=== PATIENT | male | born 1965 | race Caucasian/White ===

== ENCOUNTER 2016-09-06 00:11 | Emergency (ER) | payer OTHER ==
[~2016-09-06 00:11] MED LIST: IBUPOTC PO; LEVA750T PO; PERCOCET PO; PRED20TAB PO; PROA1AER IN
[2016-09-06] MEDS ORDERED: fentaNYL 100 MCG/2 ML INJECTION (J3010) As Ordered ONE ×2 (00:38→01:18)
--- NOTE | 2016-09-06 01:36 | REP ---
Clinical: Acute cough. Comparison: 08/08/2015. Findings: Mediastinum and cardiac silhouette are within normal limits and stable. Lung jin demonstrate chronic COPD and emphysematous changes and previously noted left lower lobe infiltrate has resolved. No acute consolidation, effusion, or pneumothorax identified. Skeletal structures stable and intact. Impression: Chronic COPD and emphysematous changes. No acute cardiopulmonary process appreciated. Signed by David Kent MD 09/06/2016 01:27 A
--- NOTE | 2016-09-06 01:38 | REP ---
Clinical: Trauma. Technique: AP, lateral, bilateral oblique views of the left ankle. Findings: Acute trimalleolar fractures appreciated with overlying soft tissue swelling. Disruption of the ankle mortise and joint space noted. Impression: Trimalleolar fractures and soft tissue swelling. Signed by David Kent MD 09/06/2016 01:29 A
--- NOTE | 2016-09-06 01:39 | REP ---
Clinical: Pain. Trauma. Technique: AP and lateral views of the left foot. Findings: Medial and lateral malleolar fractures at the ankle joint noted with overlying soft tissue swelling. No definite foot fracture otherwise noted. No subcutaneous emphysema or radiodense foreign body. Impression: Medial and lateral malleolar fractures with overlying soft tissue swelling at the ankle. Signed by David Kent MD 09/06/2016 01:31 A
--- NOTE | 2016-09-06 06:27 | EDDOCDS ---
Physician Documentation [facility] Name: Jose Enrique Lainez Age: 51 yrs Sex: Male : 1965 Arrival Date: 09/06/2016 Time: 00:11 Bed 9 Private MD: Disposition: 09/06/16 05:34 Discharged to Home/Self Care. Impression: Trimalleolar fracture of lower leg. - Condition is Stable. - Discharge Instructions: Ankle Fracture. - Prescriptions for Percocet 5- 325 mg Oral Tablet - take 1 tablet by ORAL route every 6 hours As needed MDD: 4 tabs; 15 tablet. - Medication Reconciliation, Local Pharmacy Hours form. - Follow up: Baljit Hill; When: Today; Reason: Continuance of care. - Problem is new. - Symptoms are unchanged. - Notes: Dr. Hill would like to see you in his office first thing this AM. Please call to schedule an appointment this AM. He does not want you to eat or drink anything in the likelyhood that you will have to go to the ED. Please do not weight bear on this leg. Return to the ED if you have any further issues. I hope you feel better soon. Historical: - Allergies: seasonal; - Home Meds: 1. Lyrica Oral Unknown 2. Ventolin HFA 90 mcg/actuation Nebulizer HFAA 2 puffs every 4-6 hours (Last dose: 09/05/2016 11:00) - PMHx: Asthma; back pain; - PSHx: Hip Arthroplasty, Left; - Social history: Smoking status: Patient uses tobacco products, heavy tobacco smoker. No barriers to communication noted, The patient speaks fluent Amharic. - Family history: Not pertinent. - : The pt / caregiver states he / she is not on anticoagulants. Home medication list is obtained from the patient. - Exposure Risk Screening:: None identified. Vital Signs: 09/06 00:29 BP 115 / 87; Pulse 101; Resp 18; Temp 97.6(TE); Pulse Ox 96% on R/A; mgs 01:22 BP 114 / 83 (auto/); mgs 01:23 Pulse 98 MON; Pulse Ox 86% ; mgs 05:41 BP 106 / 78; Pulse 89; Resp 18; Temp 98.1(TE); Pulse Ox 97% on R/A; Pain 10/10; mdr Procedures: 02:09 Fracture care/splinting: (Restorative Care) (Stabilizing Care) Splint applied to left fg leg using Orthoglass splint, applied by myself. Examined by me, post splint application: neurovascular intact, 2+ distal pulses palpable, brisk capillary refill noted, Patient tolerated well. MDM: 00:25 fentaNYL (PF) 25 mcg IVP once ordered. fg 00:25 IV Saline Lock ordered. fg 00:27 Ankle, Complete Ordered. EDMS 00:27 Foot, (AP\E\lat) Ordered. EDMS 00:41 Financial registration complete. pm4 00:46 [facility] Payment Agreement was scanned into [employer] and attached to record. pm4 01:04 Chest, 1 View Ordered. EDMS 01:07 fentaNYL (PF) 25 mcg IVP once ordered. fg 01:13 NS 0.9% 1000 ml IV at bolus once ordered. fg 01:14 NOTHING BY MOUTH+DIET ordered. EDMS 05:32 fentaNYL (PF) 25 mcg IVP once ordered. fg Administered Medications: 00:52 Drug: fentaNYL (PF) 25 mcg [fentanyl (PF) 50 mcg/mL injection solution (0.5 mL)] Route: mgs IVP; Site: right antecubital; 01:23 Drug: fentaNYL (PF) 25 mcg [fentanyl (PF) 50 mcg/mL injection solution (0.5 mL)] Route: mgs IVP; Site: right antecubital; 01:46 Drug: NS 0.9% 1000 ml [sodium chloride 0.9 % intravenous solution] Route: IV; Rate: mgs bolus; Site: right antecubital; 05:40 Drug: fentaNYL (PF) 25 mcg [fentanyl (PF) 50 mcg/mL injection solution (0.5 mL)] Route: mgs IVP; Site: right antecubital; Signatures: Dispatcher MedHost EDMS Harman Peñaloza RN RN mgs Gill, Frances, MD MD Alexandro Lopez, Reg Reg pm4 The chart was reviewed and I authenticate all verbal orders and agree with the evaluation and treatment provided.Corrections: (The following items were deleted from the chart) 01:21 01:04 CBC WITH DIFFERENTIAL+LAB ordered. EDMS EDMS 01:21 01:04 BASIC METABOLIC PROFILE+LAB ordered. EDMS EDMS Attachments: 00:46 [facility] [place] pm4 MTDD
--- NOTE | 2016-09-06 06:27 | EDDOCDS ---
Nurse's Notes [facility] Name: Jose Enrique Lainez Age: 51 yrs Sex: Male : 1965 Arrival Date: 09/06/2016 Time: 00:11 Bed 9 Private MD: Diagnosis: Trimalleolar fracture of lower leg Presentation: 09/06 00:13 Presenting complaint: EMS states: [facility] called EMS after having found patient [place] [facility] [place]. Patient reported falling in backyard and lying there for 45 minutes. Patient reports to having drank 18 pack of beer tonight, currently reporting pain 10/10 in left ankle. BP en route 116/82, HR 70, FSBS 108. 00:22 Acuity: MELIDA Level 4 [facility] 00:22 The patients lower extremity has obvious swelling present on examination. The patient [facility] has been moved to a treatment area. has a possible ankle defomity on examination. The patient has been moved to a treatment area. Adult Sepsis Screening: The patient does not have new or worsening altered mentation. Patient's respiratory rate is less than 22. Systolic blood pressure is greater than 100. Patient has a qSOFA score of 0- Negative Sepsis Screen. Suicide/Homicide risk assessment- the patient denies having any suicidal and/or homicidal ideations and does not present with any other emotional, behavioral or mental health complaints. Status: Patient is not a clinical services professional or dependent. Transition of care: patient was not received from another setting of care. 00:22 Method Of Arrival: Amb[place] [facility] Triage Assessment: 00:26 General: Appears uncomfortable, Behavior is cooperative. Pain: Location: left lateral mgs ankle, left Achilles, left medial ankle and anterior aspect of left ankle Pain currently is 10 out of 10 on a pain scale. Pt Declines HIV testing. The patient is triaged at the bedside. See Assessment in Nurses Notes section of ED record. Neurological: Level of Consciousness is awake, alert, Oriented to person, place, time. Cardiovascular: Capillary refill < 3 seconds Heart tones S1 S2 present. Respiratory: Airway is patent Respiratory effort is even, unlabored, Respiratory pattern is regular, symmetrical. Derm: Skin is pink, warm & dry. Musculoskeletal: Circulation, motion, and sensation intact Capillary refill < 3 seconds other swelling noted o the left ankle Reports pain in left lateral ankle, left Achilles, left medial ankle and anterior aspect of left ankle. Historical: - Allergies: seasonal; - Home Meds: 1. Lyrica Oral Unknown 2. Ventolin HFA 90 mcg/actuation Nebulizer HFAA 2 puffs every 4-6 hours (Last dose: 09/05/2016 11:00) - PMHx: Asthma; back pain; - PSHx: Hip Arthroplasty, Left; - Social history: Smoking status: Patient uses tobacco products, heavy tobacco smoker. No barriers to communication noted, The patient speaks fluent Vietnamese. - Family history: Not pertinent. - : The pt / caregiver states he / she is not on anticoagulants. Home medication list is obtained from the patient. - Exposure Risk Screening:: None identified. Screenin:30 Screening information is obtained from the patient. Fall risk: At risk due to gait mgs disturbance. Assistance ADL's: requires no assistance with activities of daily living. Abuse/DV Screen: The patient / caregiver reports he/she is: not in a situation that causes fear, pain or injury. Nutritional screening: No deficits noted. Advance Directives: Currently, there is no health care proxy. There is no active DNR order. home support is adequate. Assessment: 00:30 General: Please see triage assessment. mgs 02:12 General: Appears in no apparent distress, to be sleeping. Cardiovascular: Capillary mgs refill < 3 seconds. Respiratory: Airway is patent Respiratory effort is even, unlabored, Respiratory pattern is regular, symmetrical. Derm: Skin is pink, warm & dry. 03:11 General: Appears in no apparent distress, Behavior is appropriate for age, cooperative. mgs Neurological: Level of Consciousness is awake, alert. Cardiovascular: Capillary refill < 3 seconds. Respiratory: Airway is patent Respiratory effort is even, unlabored, Respiratory pattern is regular, symmetrical. Derm: Skin is pink, warm & dry. 04:28 General: Appears in no apparent distress, to be sleeping. Cardiovascular: Capillary mgs refill < 3 seconds. Respiratory: Airway is patent Respiratory effort is even, unlabored, Respiratory pattern is regular, symmetrical. Derm: Skin is pink, warm & dry. 06:25 Musculoskeletal: Circulation, motion, and sensation intact Capillary refill < 3 seconds mgs Range of motion intact in all extremities. Signs and Symptoms of Compartment Syndrome: no signs of compartment syndrome. 06:25 General: Appears in no apparent distress, Behavior is appropriate for age. mgs Neurological: Level of Consciousness is awake, alert. Cardiovascular: Capillary refill < 3 seconds. Respiratory: Airway is patent Respiratory effort is even, unlabored, Respiratory pattern is regular, symmetrical. Derm: Skin is pink, warm & dry. Vital Signs: 00:29 BP 115 / 87; Pulse 101; Resp 18; Temp 97.6(TE); Pulse Ox 96% on R/A; mgs 01:22 BP 114 / 83 (auto/); mgs 01:23 Pulse 98 MON; Pulse Ox 86% ; mgs 05:41 BP 106 / 78; Pulse 89; Resp 18; Temp 98.1(TE); Pulse Ox 97% on R/A; Pain 10/10; mdr Vitals: 00:29 Log In Time N/A - ambulance arrival. mgs ED Course: 00:12 Patient visited by Ronna Deleon PCA. mally 00:12 Patient moved to Waiting mally 00:13 Harman Peñaloza RN is Primary Nurse. mgs 00:13 Patient moved to 9 mally 00:14 Roslyn Melendrez MD is Attending Physician. fg 00:14 Patient visited by Roslyn Melnedrez MD. fg 00:23 Triage Initiated mgs 00:36 Inserted saline lock: 20 gauge in right antecubital area. mgs 00:41 Patient moved to Radiology maksim 00:46 [facility] [place] Payment Agreement was scanned into [employer] and attached to record. pm4 01:09 Patient moved to 9 maksim 01:22 Patient visited by Roslyn Melendrez MD. fg 02:04 Chest, 1 View Returned. EDMS 02:04 Ankle, Complete Returned. EDMS 02:04 Foot, (AP\E\lat) Returned. EDMS 02:12 Patient visited by Harman Peñaloza,KATIE. mgs 03:11 Patient visited by Harman Peñaloza,KATIE. mgs 03:15 Assisted with urinal. mdr 03:27 Patient visited by Modesto Abernathy PCA. mdr 04:28 Patient visited by Ronna Deleon PCA. mally 04:30 Patient visited by Harman Peñaloza,KATIE. mgs 05:34 Baljit Hill is Referral Physician. fg 05:41 Patient visited by Modesto Abernathy PCA. mdr 06:20 Patient visited by Modesto Abernathy PCA. mdr 06:24 Discontinued IV lock intact, bleeding controlled, pressure dressing applied, No mgs redness/swelling at site. No procedures done that require assistance. 06:25 The patient / caregiver is instructed regarding the plan of care and ED course. mgs Administered Medications: 00:52 Drug: fentaNYL (PF) 25 mcg [fentanyl (PF) 50 mcg/mL injection solution (0.5 mL)] Route: mgs IVP; Site: right antecubital; 01:23 Drug: fentaNYL (PF) 25 mcg [fentanyl (PF) 50 mcg/mL injection solution (0.5 mL)] Route: mgs IVP; Site: right antecubital; 01:46 Drug: NS 0.9% 1000 ml [sodium chloride 0.9 % intravenous solution] Route: IV; Rate: mgs bolus; Site: right antecubital; 05:40 Drug: fentaNYL (PF) 25 mcg [fentanyl (PF) 50 mcg/mL injection solution (0.5 mL)] Route: mgs IVP; Site: right antecubital; Output: 03:15 Urine: 1000.00ml; Total: 1000.00ml. mdr Order Results: Radiology Order: Ankle, Complete Test: Ankle, Complete REASON FOR EXAMINATION: bilateral mal pain after fall; Clinical: Trauma.; ; Technique: AP, lateral, bilateral oblique views of the left ankle.; ; Findings:; Acute trimalleolar fractures appreciated with overlying soft tissue swelling.; Disruption of the ankle mortise and joint space noted.; ; Impression:; Trimalleolar fractures and soft tissue swelling.; ; ; Signed by; David Kent MD 09/06/2016 01:29 A; Radiology Order: Foot, (AP\E\lat) Test: Foot, (AP\E\lat) REASON FOR EXAMINATION: pain after fall; Clinical: Pain. Trauma.; ; Technique: AP and lateral views of the left foot.; ; Findings:; Medial and lateral malleolar fractures at the ankle joint noted with overlying; soft tissue swelling. No definite foot fracture otherwise noted. No; subcutaneous emphysema or radiodense foreign body.; ; Impression:; Medial and lateral malleolar fractures with overlying soft tissue swelling at the; ankle.; ; ; Signed by; David Kent MD 09/06/2016 01:31 A; Radiology Order: Chest, 1 View Test: Chest, 1 View REASON FOR EXAMINATION: Cough; Clinical: Acute cough.; ; Comparison: 08/08/2015.; ; Findings:; Mediastinum and cardiac silhouette are within normal limits and stable. Lung; jin demonstrate chronic COPD and emphysematous changes and previously noted; left lower lobe infiltrate has resolved. No acute consolidation, effusion, or; pneumothorax identified. Skeletal structures stable and intact.; ; Impression:; Chronic COPD and emphysematous changes.; No acute cardiopulmonary process appreciated.; ; ; Signed by; David Kent MD 09/06/2016 01:27 A; Outcome: 05:34 Discharge ordered by Provider. fg 06:24 Discharge Assessment: Patient awake, alert and oriented x 3. No cognitive and/or mgs functional deficits noted. Patient verbalized understanding of disposition instructions. patient administered narcotics - yes. Pt provided with safe discharge. The following High Risk Discharge criteria are identified: None. Discharged to home ambulatory. Condition: stable. Discharge instructions given to patient, Instructed on discharge instructions, follow up and referral plans. medication usage, crutch walking, Demonstrated understanding of instructions, crutch walking, medications, Pt was receptive of discharge instructions/ teaching. Prescriptions given X 1. No special radiology studies were completed. Property removed. 06:26 Patient left the ED. mgs Signatures: Dispatcher MedHost EDMS Ady Castorena Destiny, LITHOGRAPHIC CAMERA OPERATOR LITHOGRAPHIC CAMERA OPERATOR Harman Hernandez,Roslyn Hansen RN, MD MD fg Rick, Mitchell, LITHOGRAPHIC CAMERA OPERATOR LITHOGRAPHIC CAMERA OPERATOR Alexandro Feliciano, Reg Reg pm4 Corrections: (The following items were deleted from the chart) 00:24 00:13 The patients lower extremity mgs mgs MTDD
--- NOTE | 2016-09-08 07:27 | EDDOCDS ---
Physician Documentation [facility] Name: Jose Enrique Lainez Age: 51 yrs Sex: Male : 1965 Arrival Date: 09/06/2016 Time: 00:11 Bed 9 Private MD: Disposition: 09/06/16 05:34 Discharged to Home/Self Care. Impression: Trimalleolar fracture of lower leg. - Condition is Stable. - Discharge Instructions: Ankle Fracture. - Prescriptions for Percocet 5- 325 mg Oral Tablet - take 1 tablet by ORAL route every 6 hours As needed MDD: 4 tabs; 15 tablet. - Medication Reconciliation, Local Pharmacy Hours form. - Follow up: Baljit Hill; When: Today; Reason: Continuance of care. - Problem is new. - Symptoms are unchanged. - Notes: Dr. Hill would like to see you in his office first thing this AM. Please call to schedule an appointment this AM. He does not want you to eat or drink anything in the likelyhood that you will have to go to the ED. Please do not weight bear on this leg. Return to the ED if you have any further issues. I hope you feel better soon. Historical: - Allergies: seasonal; - Home Meds: 1. Lyrica Oral Unknown 2. Ventolin HFA 90 mcg/actuation Nebulizer HFAA 2 puffs every 4-6 hours (Last dose: 09/05/2016 11:00) - PMHx: Asthma; back pain; - PSHx: Hip Arthroplasty, Left; - Social history: Smoking status: Patient uses tobacco products, heavy tobacco smoker. No barriers to communication noted, The patient speaks fluent Japanese. - Family history: Not pertinent. - : The pt / caregiver states he / she is not on anticoagulants. Home medication list is obtained from the patient. - Exposure Risk Screening:: None identified. Vital Signs: 09/06 00:29 BP 115 / 87; Pulse 101; Resp 18; Temp 97.6(TE); Pulse Ox 96% on R/A; mgs 01:22 BP 114 / 83 (auto/); mgs 01:23 Pulse 98 MON; Pulse Ox 86% ; mgs 05:41 BP 106 / 78; Pulse 89; Resp 18; Temp 98.1(TE); Pulse Ox 97% on R/A; Pain 10/10; mdr Procedures: 02:09 Fracture care/splinting: (Restorative Care) (Stabilizing Care) Splint applied to left fg leg using Orthoglass splint, applied by myself. Examined by me, post splint application: neurovascular intact, 2+ distal pulses palpable, brisk capillary refill noted, Patient tolerated well. MDM: 00:25 fentaNYL (PF) 25 mcg IVP once ordered. fg 00:25 IV Saline Lock ordered. fg 00:27 Ankle, Complete Ordered. EDMS 00:27 Foot, (AP\E\lat) Ordered. EDMS 00:41 Financial registration complete. pm4 00:46 [facility] [place] Payment Agreement was scanned into [email or web address] and attached to record. pm4 01:04 Chest, 1 View Ordered. EDMS 01:07 fentaNYL (PF) 25 mcg IVP once ordered. fg 01:13 NS 0.9% 1000 ml IV at bolus once ordered. fg 01:14 NOTHING BY MOUTH+DIET ordered. EDMS 05:32 fentaNYL (PF) 25 mcg IVP once ordered. fg 15:25 T-Sheet-- Draft Copy was scanned into [email or web address] and attached to record. gb Administered Medications: 00:52 Drug: fentaNYL (PF) 25 mcg [fentanyl (PF) 50 mcg/mL injection solution (0.5 mL)] Route: mgs IVP; Site: right antecubital; 01:23 Drug: fentaNYL (PF) 25 mcg [fentanyl (PF) 50 mcg/mL injection solution (0.5 mL)] Route: mgs IVP; Site: right antecubital; 01:46 Drug: NS 0.9% 1000 ml [sodium chloride 0.9 % intravenous solution] Route: IV; Rate: mgs bolus; Site: right antecubital; 05:40 Drug: fentaNYL (PF) 25 mcg [fentanyl (PF) 50 mcg/mL injection solution (0.5 mL)] Route: mgs IVP; Site: right antecubital; Signatures: Dispatcher [employer] EDMA Patience Sesay, Reg Reg gb Harman Peñaloza RN RN mgs Roslyn Melendrez MD MD fg Montondo, Paul, Reg Reg pm4 The chart was reviewed and I authenticate all verbal orders and agree with the evaluation and treatment provided.Corrections: (The following items were deleted from the chart) 01:21 01:04 CBC WITH DIFFERENTIAL+LAB ordered. EDMS EDMS 01:21 01:04 BASIC METABOLIC PROFILE+LAB ordered. EDMS EDMS Attachments: 00:46 [facility] [place] Payment Agreement pm4 15:25 T-Sheet-- Draft Copy gb Chart Complete MTDD
--- NOTE | 2016-09-08 07:27 | EDDOCDS ---
Nurse's Notes [facility] Name: Jose Enrique Lainez Age: 51 yrs Sex: Male : 1965 Arrival Date: 09/06/2016 Time: 00:11 Bed 9 Private MD: Diagnosis: Trimalleolar fracture of lower leg Presentation: 09/06 00:13 Presenting complaint: EMS states: [facility] called EMS after having found patient at [facility] backdoor. Patient reported falling in backyard and lying there for 45 minutes. Patient reports to having drank 18 pack of beer tonight, currently reporting pain 10/10 in left ankle. BP en route 116/82, HR 70, FSBS 108. 00:22 Acuity: MELIDA Level 4 [facility] 00:22 The patients lower extremity has obvious swelling present on examination. The patient [facility] has been moved to a treatment area. has a possible ankle defomity on examination. The patient has been moved to a treatment area. Adult Sepsis Screening: The patient does not have new or worsening altered mentation. Patient's respiratory rate is less than 22. Systolic blood pressure is greater than 100. Patient has a qSOFA score of 0- Negative Sepsis Screen. Suicide/Homicide risk assessment- the patient denies having any suicidal and/or homicidal ideations and does not present with any other emotional, behavioral or mental health complaints. Status: Patient is not a direct customer service representative or dependent. Transition of care: patient was not received from another setting of care. 00:22 Method Of Arrival: Ambulance [facility] Triage Assessment: 00:26 General: Appears uncomfortable, Behavior is cooperative. Pain: Location: left lateral mgs ankle, left Achilles, left medial ankle and anterior aspect of left ankle Pain currently is 10 out of 10 on a pain scale. Pt Declines HIV testing. The patient is triaged at the bedside. See Assessment in Nurses Notes section of ED record. Neurological: Level of Consciousness is awake, alert, Oriented to person, place, time. Cardiovascular: Capillary refill < 3 seconds Heart tones S1 S2 present. Respiratory: Airway is patent Respiratory effort is even, unlabored, Respiratory pattern is regular, symmetrical. Derm: Skin is pink, warm & dry. Musculoskeletal: Circulation, motion, and sensation intact Capillary refill < 3 seconds other swelling noted o the left ankle Reports pain in left lateral ankle, left Achilles, left medial ankle and anterior aspect of left ankle. Historical: - Allergies: seasonal; - Home Meds: 1. Lyrica Oral Unknown 2. Ventolin HFA 90 mcg/actuation Nebulizer HFAA 2 puffs every 4-6 hours (Last dose: 09/05/2016 11:00) - PMHx: Asthma; back pain; - PSHx: Hip Arthroplasty, Left; - Social history: Smoking status: Patient uses tobacco products, heavy tobacco smoker. No barriers to communication noted, The patient speaks fluent Guyanese. - Family history: Not pertinent. - : The pt / caregiver states he / she is not on anticoagulants. Home medication list is obtained from the patient. - Exposure Risk Screening:: None identified. Screenin:30 Screening information is obtained from the patient. Fall risk: At risk due to gait mgs disturbance. Assistance ADL's: requires no assistance with activities of daily living. Abuse/DV Screen: The patient / caregiver reports he/she is: not in a situation that causes fear, pain or injury. Nutritional screening: No deficits noted. Advance Directives: Currently, there is no health care proxy. There is no active DNR order. home support is adequate. Assessment: 00:30 General: Please see triage assessment. mgs 02:12 General: Appears in no apparent distress, to be sleeping. Cardiovascular: Capillary mgs refill < 3 seconds. Respiratory: Airway is patent Respiratory effort is even, unlabored, Respiratory pattern is regular, symmetrical. Derm: Skin is pink, warm & dry. 03:11 General: Appears in no apparent distress, Behavior is appropriate for age, cooperative. mgs Neurological: Level of Consciousness is awake, alert. Cardiovascular: Capillary refill < 3 seconds. Respiratory: Airway is patent Respiratory effort is even, unlabored, Respiratory pattern is regular, symmetrical. Derm: Skin is pink, warm & dry. 04:28 General: Appears in no apparent distress, to be sleeping. Cardiovascular: Capillary mgs refill < 3 seconds. Respiratory: Airway is patent Respiratory effort is even, unlabored, Respiratory pattern is regular, symmetrical. Derm: Skin is pink, warm & dry. 06:25 Musculoskeletal: Circulation, motion, and sensation intact Capillary refill < 3 seconds mgs Range of motion intact in all extremities. Signs and Symptoms of Compartment Syndrome: no signs of compartment syndrome. 06:25 General: Appears in no apparent distress, Behavior is appropriate for age. mgs Neurological: Level of Consciousness is awake, alert. Cardiovascular: Capillary refill < 3 seconds. Respiratory: Airway is patent Respiratory effort is even, unlabored, Respiratory pattern is regular, symmetrical. Derm: Skin is pink, warm & dry. Vital Signs: 00:29 BP 115 / 87; Pulse 101; Resp 18; Temp 97.6(TE); Pulse Ox 96% on R/A; mgs 01:22 BP 114 / 83 (auto/); mgs 01:23 Pulse 98 MON; Pulse Ox 86% ; mgs 05:41 BP 106 / 78; Pulse 89; Resp 18; Temp 98.1(TE); Pulse Ox 97% on R/A; Pain 10/10; mdr Vitals: 00:29 Log In Time N/A - ambulance arrival. mgs ED Course: 00:12 Patient visited by Ronna Deleon PCA. mally 00:12 Patient moved to Waiting mally 00:13 Harman Peñaloza RN is Primary Nurse. mgs 00:13 Patient moved to 9 mally 00:14 Roslyn Melendrez MD is Attending Physician. fg 00:14 Patient visited by Roslyn Melendrez MD. fg 00:23 Triage Initiated mgs 00:36 Inserted saline lock: 20 gauge in right antecubital area. mgs 00:41 Patient moved to Radiology maksim 00:46 [facility] Payment Agreement was scanned into [employer] and attached to record. pm4 01:09 Patient moved to 9 maksim 01:22 Patient visited by Roslyn Melendrez MD. fg 02:04 Chest, 1 View Returned. EDMS 02:04 Ankle, Complete Returned. EDMS 02:04 Foot, (AP\E\lat) Returned. EDMS 02:12 Patient visited by Harman Peñaloza,KATIE. mgs 03:11 Patient visited by Harman Peñaloza,KATIE. mgs 03:15 Assisted with urinal. mdr 03:27 Patient visited by Modesto Abernathy PCA. mdr 04:28 Patient visited by Ronna Deleon PCA. mally 04:30 Patient visited by Harman Peñaloza,KATIE. mgs 05:34 Baljit Hill is Referral Physician. fg 05:41 Patient visited by Modesto Abernathy PCA. mdr 06:20 Patient visited by Modesto Abernathy PCA. mdr 06:24 Discontinued IV lock intact, bleeding controlled, pressure dressing applied, No mgs redness/swelling at site. No procedures done that require assistance. 06:25 The patient / caregiver is instructed regarding the plan of care and ED course. mgs 15:25 T-Sheet-- Draft Copy was scanned into [employer] and attached to record. gb Administered Medications: 00:52 Drug: fentaNYL (PF) 25 mcg [fentanyl (PF) 50 mcg/mL injection solution (0.5 mL)] Route: mgs IVP; Site: right antecubital; 01:23 Drug: fentaNYL (PF) 25 mcg [fentanyl (PF) 50 mcg/mL injection solution (0.5 mL)] Route: mgs IVP; Site: right antecubital; 01:46 Drug: NS 0.9% 1000 ml [sodium chloride 0.9 % intravenous solution] Route: IV; Rate: mgs bolus; Site: right antecubital; 05:40 Drug: fentaNYL (PF) 25 mcg [fentanyl (PF) 50 mcg/mL injection solution (0.5 mL)] Route: mgs IVP; Site: right antecubital; Output: 03:15 Urine: 1000.00ml; Total: 1000.00ml. mdr Order Results: Radiology Order: Ankle, Complete Test: Ankle, Complete REASON FOR EXAMINATION: bilateral mal pain after fall; Clinical: Trauma.; ; Technique: AP, lateral, bilateral oblique views of the left ankle.; ; Findings:; Acute trimalleolar fractures appreciated with overlying soft tissue swelling.; Disruption of the ankle mortise and joint space noted.; ; Impression:; Trimalleolar fractures and soft tissue swelling.; ; ; Signed by; David Kent MD 09/06/2016 01:29 A; Radiology Order: Foot, (AP\E\lat) Test: Foot, (AP\E\lat) REASON FOR EXAMINATION: pain after fall; Clinical: Pain. Trauma.; ; Technique: AP and lateral views of the left foot.; ; Findings:; Medial and lateral malleolar fractures at the ankle joint noted with overlying; soft tissue swelling. No definite foot fracture otherwise noted. No; subcutaneous emphysema or radiodense foreign body.; ; Impression:; Medial and lateral malleolar fractures with overlying soft tissue swelling at the; ankle.; ; ; Signed by; David Kent MD 09/06/2016 01:31 A; Radiology Order: Chest, 1 View Test: Chest, 1 View REASON FOR EXAMINATION: Cough; Clinical: Acute cough.; ; Comparison: 08/08/2015.; ; Findings:; Mediastinum and cardiac silhouette are within normal limits and stable. Lung; jin demonstrate chronic COPD and emphysematous changes and previously noted; left lower lobe infiltrate has resolved. No acute consolidation, effusion, or; pneumothorax identified. Skeletal structures stable and intact.; ; Impression:; Chronic COPD and emphysematous changes.; No acute cardiopulmonary process appreciated.; ; ; Signed by; David Kent MD 09/06/2016 01:27 A; Outcome: 05:34 Discharge ordered by Provider. fg 06:24 Discharge Assessment: Patient awake, alert and oriented x 3. No cognitive and/or mgs functional deficits noted. Patient verbalized understanding of disposition instructions. patient administered narcotics - yes. Pt provided with safe discharge. The following High Risk Discharge criteria are identified: None. Discharged to home ambulatory. Condition: stable. Discharge instructions given to patient, Instructed on discharge instructions, follow up and referral plans. medication usage, crutch walking, Demonstrated understanding of instructions, crutch walking, medications, Pt was receptive of discharge instructions/ teaching. Prescriptions given X 1. No special radiology studies were completed. Property removed. 06:26 Patient left the ED. mgs Signatures: Dispatcher [employer] EDMS Ady Castorena Gloria, Reg Reg gb Ronna Deleon, LIQUOR STORE MANAGER LIQUOR STORE MANAGER Harman Hernandez RN RN mgs Roslyn Melendrez MD MD fg Rick, Mitchell, LIQUOR STORE MANAGER LIQUOR STORE MANAGER Alexandro Feliciano, Reg Reg pm4 Corrections: (The following items were deleted from the chart) 00:24 00:13 The patients lower extremity mgs mgs Chart Complete MTDD
--- NOTE | 2016-09-08 07:27 | EDDOCDS ---
Physician Documentation [facility] Name: Jose Enrique Lainez Age: 51 yrs Sex: Male : 1965 Arrival Date: 09/06/2016 Time: 00:11 Bed 9 Private MD: Disposition: 09/06/16 05:34 Discharged to Home/Self Care. Impression: Trimalleolar fracture of lower leg. - Condition is Stable. - Discharge Instructions: Ankle Fracture. - Prescriptions for Percocet 5- 325 mg Oral Tablet - take 1 tablet by ORAL route every 6 hours As needed MDD: 4 tabs; 15 tablet. - Medication Reconciliation, Local Pharmacy Hours form. - Follow up: Baljit Hill; When: Today; Reason: Continuance of care. - Problem is new. - Symptoms are unchanged. - Notes: Dr. Hill would like to see you in his office first thing this AM. Please call to schedule an appointment this AM. He does not want you to eat or drink anything in the likelyhood that you will have to go to the ED. Please do not weight bear on this leg. Return to the ED if you have any further issues. I hope you feel better soon. Historical: - Allergies: seasonal; - Home Meds: 1. Lyrica Oral Unknown 2. Ventolin HFA 90 mcg/actuation Nebulizer HFAA 2 puffs every 4-6 hours (Last dose: 09/05/2016 11:00) - PMHx: Asthma; back pain; - PSHx: Hip Arthroplasty, Left; - Social history: Smoking status: Patient uses tobacco products, heavy tobacco smoker. No barriers to communication noted, The patient speaks fluent Czech. - Family history: Not pertinent. - : The pt / caregiver states he / she is not on anticoagulants. Home medication list is obtained from the patient. - Exposure Risk Screening:: None identified. Vital Signs: 09/06 00:29 BP 115 / 87; Pulse 101; Resp 18; Temp 97.6(TE); Pulse Ox 96% on R/A; mgs 01:22 BP 114 / 83 (auto/); mgs 01:23 Pulse 98 MON; Pulse Ox 86% ; mgs 05:41 BP 106 / 78; Pulse 89; Resp 18; Temp 98.1(TE); Pulse Ox 97% on R/A; Pain 10/10; mdr Procedures: 02:09 Fracture care/splinting: (Restorative Care) (Stabilizing Care) Splint applied to left fg leg using Orthoglass splint, applied by myself. Examined by me, post splint application: neurovascular intact, 2+ distal pulses palpable, brisk capillary refill noted, Patient tolerated well. MDM: 00:25 fentaNYL (PF) 25 mcg IVP once ordered. fg 00:25 IV Saline Lock ordered. fg 00:27 Ankle, Complete Ordered. EDMS 00:27 Foot, (AP\E\lat) Ordered. EDMS 00:41 Financial registration complete. pm4 00:46 [facility] Payment Agreement was scanned into [employer] and attached to record. pm4 01:04 Chest, 1 View Ordered. EDMS 01:07 fentaNYL (PF) 25 mcg IVP once ordered. fg 01:13 NS 0.9% 1000 ml IV at bolus once ordered. fg 01:14 NOTHING BY MOUTH+DIET ordered. EDMS 05:32 fentaNYL (PF) 25 mcg IVP once ordered. fg 15:25 T-Sheet-- Draft Copy was scanned into [employer] and attached to record. gb Administered Medications: 00:52 Drug: fentaNYL (PF) 25 mcg [fentanyl (PF) 50 mcg/mL injection solution (0.5 mL)] Route: mgs IVP; Site: right antecubital; 01:23 Drug: fentaNYL (PF) 25 mcg [fentanyl (PF) 50 mcg/mL injection solution (0.5 mL)] Route: mgs IVP; Site: right antecubital; 01:46 Drug: NS 0.9% 1000 ml [sodium chloride 0.9 % intravenous solution] Route: IV; Rate: mgs bolus; Site: right antecubital; 05:40 Drug: fentaNYL (PF) 25 mcg [fentanyl (PF) 50 mcg/mL injection solution (0.5 mL)] Route: mgs IVP; Site: right antecubital; Signatures: Dispatcher [employer] EDKY Patience Sesay, Reg Reg gb Harman Peñaloza RN RN mgs Roslyn Melendrez MD MD fg Montondo, Paul, Reg Reg pm4 The chart was reviewed and I authenticate all verbal orders and agree with the evaluation and treatment provided.Corrections: (The following items were deleted from the chart) 01:21 01:04 CBC WITH DIFFERENTIAL+LAB ordered. EDMS EDMS 01:21 01:04 BASIC METABOLIC PROFILE+LAB ordered. EDMS EDMS Attachments: 00:46 [facility] Payment Agreement pm4 15:25 T-Sheet-- Draft Copy gb Chart Complete MTDD
[2016-09-10] MEDS ORDERED: PERC5TAB6 PO (06:50)
== END 2016-09-06 06:26 | disposition home or self-care (01) ==
LOC: M ED 00:11
DX: S82.852A Displaced trimalleolar fracture of left lower leg, initial encounter for closed fracture (principal); W19.XXXA Unspecified fall, initial encounter; Y92.019 Unspecified place in single-family (private) house as the place of occurrence of the external cause; Y93.89 Activity, other specified; Y99.8 Other external cause status; J45.909 Unspecified asthma, uncomplicated; M54.9 Dorsalgia, unspecified; F17.210 Nicotine dependence, cigarettes, uncomplicated; Z79.51 Long term (current) use of inhaled steroids; Z79.899 Other long term (current) drug therapy
CPT/HCPCS: 29515; 71010; 73610; 73620; 96374; 96376; 99284; J3010

== ENCOUNTER 2016-09-08 12:32 | Day surgery (SDC) | payer OTHER ==
[~2016-09-08] VITALS: Ht 166.4 cm; Wt 63.0 kg
[2016-09-08] MEDS ORDERED: [UNRECOGNIZED DRUG - OTHER] IV SCH (13:00)
[2016-09-08] MEDS ORDERED: THIAMINE HCL IV SCH (13:00)
[2016-09-08] MEDS ORDERED: FOLIC ACID IV SCH (13:00)
[2016-09-08] MEDS ORDERED: MULTIVITAMIN ADULT IV SCH (13:00)
[2016-09-08 14:08] LABS: ALBUMIN 3.4 GM/DL (3.2-5.2); ALBUMIN/GLOBULIN RATIO 0.92 (1.00-1.93); ALKALINE PHOSPHATASE 67 U/L (45-117); ALT/SGPT 33 U/L (12-78); ANION GAP 8 MEQ/L (8-16); AST/SGOT 38 U/L (15-37); BILIRUBIN,TOTAL 0.6 MG/DL (0.2-1.0); BLOOD UREA NITROGEN 6 MG/DL (7-18); CARBON DIOXIDE LEVEL 26 MEQ/L (21-32); CHLORIDE LEVEL 107 MEQ/L (98-107); CREATININE FOR GFR 0.58 MG/DL (0.70-1.30); GLOMERULAR FILTRATION RATE > 60.0 (>56); GLUCOSE, FASTING 72 MG/DL (70-105); POTASSIUM SERUM 3.7 MEQ/L (3.5-5.1); SODIUM LEVEL 141 MEQ/L (136-145); TOTAL PROTEIN 7.1 GM/DL (6.4-8.2)
--- NOTE | 2016-09-08 14:24 | REP ---
Chest x-ray: Two views. AP and lateral. History: COPD. Comparison chest x-ray September 06, 2016. Findings: The lungs are markedly hyperinflated consistent with COPD, but clear. Pleural angles are sharp. Heart is not enlarged. Pulmonary vasculature is not increased. No significant bony abnormality is seen. Impression: Hyperinflation consistent with COPD. No infiltrate seen. Signed by Devon Simental MD 09/08/2016 07:27 P
[2016-09-08] MEDS ORDERED: PERCOCET 5MG/325MG TAB As Ordered ONE (15:07)
[2016-09-08] MEDS: PERCOCET 5MG/325MG TAB PO SCH ×2 (15:14→15:39)
[2016-09-08] MEDS ORDERED: LR 1,000 ML IV SCH ×2 (15:15→20:15)
[2016-09-08] MEDS ORDERED: fentaNYL 250 MCG/5 ML INJECTION (J3010) As Ordered ONE (17:07)
[2016-09-08] MEDS ORDERED: LIDOCAINE 2% INJ 100 MG/5 ML SDV (FOR ANES.) As Ordered ONE ×2 (17:07→17:08)
[2016-09-08] MEDS ORDERED: BUPIVACAINE/EPIN 0.25% 30 ML VIAL As Ordered ONE (17:07)
[2016-09-08] MEDS ORDERED: MIDAZOLAM INJ 2 MG/2 ML VIAL (J2250) As Ordered ONE (17:08)
[2016-09-08] MEDS ORDERED: ceFAZolin 1GM INJ (J0690) As Ordered ONE (17:08)
[2016-09-08] MEDS ORDERED: PROPOFOL 200 MG/20 ML VIAL As Ordered ONE (17:08)
--- NOTE | 2016-09-08 18:33 | ECGEPIP ---
Stationary ECG Study [facility] Test Date: 2016-09-08 Pat Name: JOAN NICOLE Department: Room: - Gender: M Email Production Consultant: : 1965 Requested By: Baljit Deshpande Order Number: [id number] Reading MD: Kenroy Chu Measurements Intervals [place] Rate: 92 P: 59 RI: 149 QRS: 62 QRSD: 104 T: 60 QT: 378 QTc: 469 Interpretive Statements SINUS RHYTHM NO CHANGE 08/08/15 Electronically Signed On 09-08-2016 18:32:58 EST by Kenroy Chu
[2016-09-08] MEDS ORDERED: ceFAZolin 1GM INJ (J0690) XX ONE (18:34)
[2016-09-08] MEDS ORDERED: BUPIVACAINE/EPIN 0.25% 30 ML VIAL XX ONE (18:34)
[2016-09-08] MEDS ORDERED: ONDANSETRON 4MG/2ML VIAL (J2405) As Ordered ONE (18:57)
[2016-09-08] MEDS ORDERED: LABETALOL HCL 100 MG/20 ML VIAL As Ordered ONE (19:37)
[2016-09-08] MEDS ORDERED: OXAZEPAM 10 MG CAP PO PRN (19:45)
[2016-09-08] MEDS: LABETALOL HCL 100 MG/20 ML VIAL IV PRN ×3 (19:55→20:25)
[2016-09-08] MEDS ORDERED: chlordiazePOXIDE 25 MG CAP PO SCH (20:00)
[2016-09-08] MEDS ORDERED: MIDAZOLAM INJ 2 MG/2 ML VIAL (J2250) IV PRN (20:15)
[2016-09-08] MEDS ORDERED: ONDANSETRON 4MG/2ML VIAL (J2405) IV PRN (20:15)
[2016-09-08] MEDS ORDERED: HYDROmorphone HCL 1 MG/ML SYRINGE (J1170) IV PRN ×3 (20:15→20:30)
[2016-09-08] MEDS ORDERED: PERCOCET 5MG/325MG TAB PO PRN ×2 (20:15→20:30)
[2016-09-08] MEDS ORDERED: fentaNYL 100 MCG/2 ML INJECTION (J3010) IV PRN (20:15)
--- NOTE | 2016-09-08 20:17 | HPEPDOC ---
General Date of Admission 09/08/2016 815PM Chief Complaint The patient is a 51-year-old male Presented to the ER for a schedule left ankle ORIF History of Present Illness Patient is a 51 year old male with a PMHx of Asthma / COPD and HTN ( not compliant with medications), who presented for a scheduled left ankle ORIF. Patient noted that on Sunday he was walking out of his truck and slipped on ice and had everted his foot. At that pain he was in excruciating pain and was unable to walk. He crawled to his neighbors place and an ambulance brought him to the ER. He was scheduled to have surgery on 09/08. Patient is being seen and evaluated in PACU. He has come out of surgery and has no complaints. He denies any chest pain, SOB, cough, palpitations, abdominal pain, nausea, vomiting, constipation or diarrhea. Denies any recent fever or chills. Denies any urinary discomfort. Hospitalist team was called for consult because of an extensive alcohol use history and to monitor him for signs of withdrawal. Home Medications Scheduled Albuterol Sulfate (Proair Hfa) 108 Mcg/Act Aer 108 MCG IN Q6H Levofloxacin Hemihydrate (Levaquin) 750 Mg Tab 750 MG PO DAILY@06 Prednisone (Prednisone) 20 Mg Tab 10 MG PO as directed Scheduled PRN Ibuprofen (Ibuprofen) 200 Mg Tab 800 MG PO Q4H PRN PRN PAIN (Reported) Oxycodone/Acetaminophen (Percocet 5MG/325MG Tablet) 1 Tab Tab 1 TAB PO Q6HP PRN PRN MODERATE PAIN (PS 5-7) Allergies Coded Allergies: No Known Drug Allergy (Verified Allergy, Unknown, 11/04/12) Past Medical History Medical History Asthma / COPD and HTN (not compliant with medications) Surgical History Left hip replacement Family History Family History Non-contributory Social History Social History - Denies the use of illicit drugs, Smoked for 40 years at 1ppd, Drinks alcohol daily for many years, up to 14 beers a day or 4-5 glasses of vodka - Denies recent travel or sick contacts - Lives alone - Occupation; Floor covering Review of Symptoms Other systems Constitutional: Denies weight loss, change in appetite, or recent trauma Eyes: No visual changes or eye pain Ears, Nose, Throat: Denies nose bleeds, or difficulty swallowing Cardiovascular: Denies chest pain, sweating, or orthopnea Respiratory: Denies cough, wheezing, or shortness of breath GI: Matthias nausea, vomiting, abdominal pain, diarrhea or constipation : Denies pain with urination or frequency Musculoskeletal: Left ankle pain Neuro / Psych: Denies muscle weakness or sensory loss Skin: No skin rashes noted All other review of systems negative; otherwise stated in history of present illness Vital Signs - Vitals: BP 184/101, HR 86, RR 16, Sat 96%NC2L - General: Lying in bed, No acute distress, Speaking in full sentences, AAOx3 - HEENT: NC, AT, PERRLA, EOMI - CVS: RRR, +S1S2, - Murmurs / rubs / gallops - Lungs: Fair air entry bilaterally, Clear to auscultation, No wheezing / rales / rhonchi - Abdomen: Soft, Non-distended, Non-tender, + Bowel sounds x 4 - Extremities: + PPx4, Right leg without tenderness or edema, Left foot in cast - Neuro: No focal motor or sensory deficit - Skin: No visible rashes Laboratory Data Labs 24H Laboratory Tests 2 09/08/16 13:27: Activated Partial Thromboplast Time 29.9, Blood Urea Nitrogen 6L, Creatinine 0.58L, Sodium Level 141, Potassium Level 3.7, Chloride Level 107, Carbon Dioxide Level 26, Calcium Level 8.0L, Aspartate Amino Transf (AST/SGOT) 38H, Alanine Aminotransferase (ALT/SGPT) 33, Alkaline Phosphatase 67, Total Bilirubin 0.6, Total Protein 7.1, Albumin 3.4, Albumin/Globulin Ratio 0.92L, Anion Gap 8, Glomerular Filtration Rate > 60.0, Prothromb Time International Ratio 1.00, Prothrombin Time 13.3 CBC/BMP Laboratory Tests 09/08/16 13:27 Calcium Level 8.0 L, Aspartate Amino Transf (AST/SGOT) 38 H, Alanine Aminotransferase (ALT/SGPT) 33, Alkaline Phosphatase 67, Total Bilirubin 0.6, Total Protein 7.1, Albumin 3.4 Plan / VTE VTE Prophylaxis Ordered?: Yes Plan Plan Left ankle fracture s/p ORIF (POD#1) - sustained after a mechanical fall - c/w pain control as per orthopedic surgery Hypertensive urgency - SBP of 180s post-operatively - Has received Labetolol 20mg IV x1 dose, 5mg IV x 1 dose - Currently being managed by anesthesiology - Will start Lisinopril 20mg QHS Alcohol dependence - Will monitor for possible withdrawal - Will c/w serax PRN and scheduled dosing - Will keep on withdrawal precautions and monitoring (TIM precautions) - c/w Multivitamin, Thiamine and Folate Asthma / COPD - No evidence of exacerbation at this time - Will c/w home albuterol therapy Gastrointestinal prophylaxis - Will start protonix DVT prophylaxis - Will defer to orthopedic team Will be signed out to BETTY Yates MD Sep 08, 2016 20:17
[2016-09-08] MEDS ORDERED: PROMETHAZINE INJ 25 MG/ML VIAL (J2550) IV PRN (20:30)
[2016-09-08] MEDS ORDERED: LISINOPRIL 20 MG TAB PO SCH (21:00)
[2016-09-08] MEDS ORDERED: PANTOPRAZOLE 40MG TAB (PROTONIX) PO SCH (21:00)
[2016-09-08 21:15] VITALS: BP 124/91
[2016-09-08 21:45] VITALS: BP 119/88
[2016-09-08 22:45] VITALS: BP 109/73
[2016-09-08] MEDS: OXAZEPAM 10 MG CAP PO SCH (23:00)
[2016-09-08 23:01] VITALS: BP 18/60
[2016-09-08 23:45] VITALS: BP 108/72
[2016-09-09 02:00] VITALS: BP 118/91
[2016-09-09] MEDS: PERCOCET 5MG/325MG TAB PO PRN ×3 (02:37→12:21)
[2016-09-09] MEDS: ALBUTEROL 90 MCG/ACT 8GM HFA INHALER INH SCH ×2 (02:59→08:13)
[2016-09-09] MEDS: OXAZEPAM 10 MG CAP PO SCH ×2 (03:48→09:16)
[2016-09-09 06:00] VITALS: BP 112/81
[2016-09-09 06:43] LABS: BASO % 0.5 % (0.0-1.0); EOS # 0.2 K/mm3 (0.0-0.50); EOS % 4.5 % (0.0-3.0); LARGE UNSTAINED CELL # 0.1 K/mm3 (0.0-0.4); LARGE UNSTAINED CELL % 2.1 % (0.0-4.0); LYMPH # 1.3 K/mm3 (1.5-4.5); LYMPH % 26.6 % (24.0-44.0); MEAN CORPUSCULAR HEMOGLOBIN 33.5 pg (27.0-33.0); MEAN CORPUSCULAR HGB CONC 32.3 g/dl (32.0-36.5); MEAN CORPUSCULAR VOLUME 103.9 fl (80.0-96.0); MONO # 0.2 K/mm3 (0.0-0.8); NEUTROPHILS # 3.1 K/mm3 (1.8-7.7); NEUTROPHILS % 62.3 % (36.0-66.0); PLATELET COUNT, AUTOMATED 142 k/mm3 (150-450); RED CELL DISTRIBUTION WIDTH 12.8 % (11.5-14.5)
[2016-09-09 07:03] LABS: ALBUMIN 2.9 GM/DL (3.2-5.2); ALBUMIN/GLOBULIN RATIO 0.85 (1.00-1.93); ALKALINE PHOSPHATASE 68 U/L (45-117); ALT/SGPT 28 U/L (12-78); ANION GAP 7 MEQ/L (8-16); AST/SGOT 29 U/L (15-37); BILIRUBIN,TOTAL 1.2 MG/DL (0.2-1.0); BLOOD UREA NITROGEN 5 MG/DL (7-18); CALCIUM LEVEL 7.8 MG/DL (8.5-10.1); CARBON DIOXIDE LEVEL 30 MEQ/L (21-32); CHLORIDE LEVEL 99 MEQ/L (98-107); CREATININE FOR GFR 0.53 MG/DL (0.70-1.30); GLOMERULAR FILTRATION RATE > 60.0 (>56); GLUCOSE, FASTING 95 MG/DL (70-105); MAGNESIUM LEVEL 1.6 MG/DL (1.8-2.4); POTASSIUM SERUM 3.8 MEQ/L (3.5-5.1); SODIUM LEVEL 136 MEQ/L (136-145); TOTAL PROTEIN 6.3 GM/DL (6.4-8.2)
[2016-09-09] MEDS ORDERED: ASPI325T PO (07:35)
--- NOTE | 2016-09-09 07:36 | REP ---
LEFT ANKLE: Two views. Intraoperative. 18 seconds fluoroscopy time is reported. FINDINGS: A sequence of two fluoroscopically obtained last image hold intraprocedural spot radiographs of the left ankle document open reduction and internal fixation of bimalleolar ankle fracture. Signed by Devon Simental MD 09/09/2016 10:04 A
--- NOTE | 2016-09-09 08:24 | IPN ---
DATE: 09/09/2016 51-year-old gentleman seen at bedside. No overnight issues reported. He is resting comfortably. He did have a left trimalleolar fracture repaired by open reduction internal fixation (ORIF) yesterday evening and seems to be getting along well with his pain control. OBJECTIVE: Temperature 97.6, pulse 82, respiratory rate 18, blood pressure 112/81, SpO2 is 94% on room air. GENERAL: The patient appears to be in no acute distress, is alert and oriented. HEENT: Unremarkable. LUNGS: Clear. HEART: Regular rate and rhythm. ABDOMEN: Soft. EXTREMITIES: No edema. No calf tenderness. LABORATORIES: White count is 5.0, hemoglobin 11.8, platelets are 142,000, sodium 136, potassium 3.8, chloride 99, bicarb 30, anion gap 7, BUN is 5, creatinine 0.53, glucose 95, total bilirubin 1.2, AST 29, ALT 28, alkaline phosphatase 68, albumin 2.9. INR is 1.00. ASSESSMENT/PLAN: 1. Left ankle fracture status post ORIF, postop day 1. This occurred due to a mechanical fall and he has been managed for bowel regimen, pain control, and physical therapy, as well as anticoagulation, per orthopedics. 2. Hypertension. He appears to be better controlled. Will continue with lisinopril. 3. Alcohol dependence. Will continue to monitor for withdrawal. He does not appear to be showing any issues. Continue with multivitamin, thiamine, and folic acid. Will continue with TIM precautions, scheduled and p.r.n. oxazepam is in place. 4. Asthma/history of chronic obstructive pulmonary disease (COPD). Continue with albuterol therapy. Lungs are clear today. 5. Gastrointestinal (GI). The patient was started on Protonix for GI prophylaxis. He is not critically ill and therefore will discontinue this due to the risk of other complications including long-term use of osteoporosis and in the short-term could cause C. Difficile. 6. Deep vein thrombosis (DVT) prophylaxis. Per orthopedics. DISPOSITION: Depending on how he does over the next 24-48 hours with orthopedics, otherwise he can be discharged from a medical standpoint once orthopedics feels that he is clear. He will however need to followup with a primary care provider in the community.
[2016-09-09] MEDS ORDERED: MULTIVITAMINS/MINERALS THERAP 1 TAB PO SCH (09:00)
[2016-09-09] MEDS ORDERED: THIAMINE 100 MG TAB PO SCH (09:00)
[2016-09-09] MEDS ORDERED: FOLIC ACID 1 MG TAB PO SCH (09:00)
[2016-09-09 10:00] VITALS: BP 120/59
--- NOTE | 2016-09-09 10:13 | REP ---
LEFT ANKLE SERIES: Four views. HISTORY: Status post open reduction internal fixation. Comparison left ankle views are from September 06, 2016. FINDINGS: Four views of the left ankle through plaster demonstrate two metallic screws pinning the medial malleolus fracture in good alignment and a screw plate device fixing the distal fibula in anatomic alignment. Ankle mortise appears intact. Fine bone detail is obscured by the overlying plaster. Lateral and medial skin ed are seen. IMPRESSION: Status post open reduction internal fixation. Signed by Devon Simental MD 09/09/2016 10:55 A
[2016-09-09 11:19] VITALS: BP 156/99
--- NOTE | 2016-09-09 15:18 | RO ---
DATE OF PROCEDURE: 09/08/2016 PREOPERATIVE DIAGNOSIS: Trimalleolar fracture-dislocation on the left, traumatic, displaced. POSTOPERATIVE DIAGNOSIS: Trimalleolar fracture-dislocation on the left, traumatic, displaced. PROCEDURE PERFORMED: Open reduction internal fixation of trimalleolar fracture-dislocation with fixation of the medial malleolus and lateral malleolus required. SURGEON: Baljit Hill MD PAYROLL AUDITOR: ANESTHESIA: General. ESTIMATED BLOOD LOSS: Less than 50 mL, replaced with crystalloid. No tourniquet inflated. COMPLICATIONS: None. COMPONENTS USED: Include a Synthes 1/3 tubular plate 7 hole, the appropriate cortical and cancellus screws, appropriate the AP lag screw, and the appropriate 4.5 cannulated screws at the medial malleolus. INDICATIONS: This 51-year-old gentleman had fractured his ankle while ambulating and was appreciated to have an unstable trimalleolar fracture. Consent reviewed in detail with the patient including a oj discussion of the pathology involved, the procedure proposed, alternatives including doing nothing and risks including but not limited to pain, failure, infection, bleeding, blood loss, incomplete relief of symptoms, need for more surgery, limp, post traumatic arthritis, blood clots and other issues. He understands that activity limitation will be required after fixation of this injury and I have encouraged the patient to quit smoking. DESCRIPTION OF PROCEDURE/OPERATIVE COURSE: Identified in the holding area, site and side verified, brought to the operating room. General endotracheal anesthesia was administered. At the patient's request (he declined spinal anesthesia). He was sterilely prepped and draped in the usual fashion for exposure of the left lower extremity. Next, incisions were based on the lateral malleolus and the medial malleolus. The lateral incision was made with a 10 blade after infiltration with 0.25% Marcaine with epinephrine and was about 10 cm long. The medial malleolar incision was approximately 3 cm long in the oblique over the medial malleolus. Next, the lateral incision was developed down through skin and subcuticular tissues to the lateral aspect of the fibula. The fracture was appreciated. I evacuated hematoma and clot. I reduced the fracture using a fracture reduction clamp, getting the fibula out to line. I placed an AP lag screw and a shaft screw. Securing the fibula in this position, I was able to remove the fracture reduction forceps. I then selected the 7-hole 1/3 tubular plate and it was applied to the lateral aspect of fibula in the usual fashion and secured proximally with cortical screws and distally with cancellus screws. Next, irrigation was accomplished and I loosely reapproximated the wound with interrupted Vicryl stitch and turned my attention to the medial malleolus. The incision was made with a 10 blade. Saphenous vein was identified and protected, subluxed anteriorly for this exposure. I identified the fracture site. I reduced the fracture with a [place] and I passed a Guidewire across the medial malleolus into the distal tibial metaphysis times two. I had verify placement of wires fluoroscopically. I measured the Guidewire and placed a pair of cannulated 4.5 screws through the medial malleolus fixing it. I verified the reduction of the mortise to be nearly anatomic, fluoroscopically. Next, irrigation was accomplished. The deep dermis was approximated with interrupted stitch. Raymon were utilized to close both wounds. Dressing was applied. A short-leg cast was applied. Patient was extubated, moved to recovery room in good condition. No tourniquet inflated for this case.
[2016-09-09] MEDS ORDERED: chlordiazePOXIDE 25 MG CAP PO SCH (22:00)
[2016-09-10] MEDS ORDERED: PERC5TAB6 PO (06:50)
[2016-09-10] MEDS ORDERED: chlordiazePOXIDE 25 MG CAP PO SCH (20:00)
[2016-09-11] MEDS ORDERED: chlordiazePOXIDE 25 MG CAP PO SCH (22:00)
== END 2016-09-09 12:45 | disposition home or self-care (01) ==
LOC: M SDC 12:32 → M MS5PR 21:00 → M SDC 09-09 12:45
PROVIDERS: ATTEND Orthopaedic Surgery
DX: S82.852A Displaced trimalleolar fracture of left lower leg, initial encounter for closed fracture (principal); W00.0XXA Fall on same level due to ice and snow, initial encounter; Y92.89 Other specified places as the place of occurrence of the external cause; Y93.89 Activity, other specified; Y99.8 Other external cause status; J45.909 Unspecified asthma, uncomplicated; J44.9 Chronic obstructive pulmonary disease, unspecified; I10 Essential (primary) hypertension; F17.290 Nicotine dependence, other tobacco product, uncomplicated; Z79.899 Other long term (current) drug therapy; Z72.89 Other problems related to lifestyle; Z96.642 Presence of left artificial hip joint
CPT/HCPCS: 27822; 36415; 71020; 73610; 80053; 83735; 85018; 85025; 85610; 85730; 93005; 94640; 96374; 97116; C1776; J0690; J2250; J2405; J3010; J3411

== ENCOUNTER → 2017-01-10 | Outpatient (REF) | payer OTHER ==
[~2017-01-10] MED LIST changes: +ASPI325T PO; +PERC5TAB6 PO
[2017-01-10 17:56] LABS: BASO % 0.4 % (0.0-1.0); EOS # 0.1 K/mm3 (0.0-0.50); EOS % 0.9 % (0.0-3.0); LARGE UNSTAINED CELL # 0.1 K/mm3 (0.0-0.4); LARGE UNSTAINED CELL % 1.6 % (0.0-4.0); LYMPH # 2.3 K/mm3 (1.5-4.5); LYMPH % 24.2 % (24.0-44.0); MEAN CORPUSCULAR HEMOGLOBIN 32.3 pg (27.0-33.0); MEAN CORPUSCULAR HGB CONC 33.4 g/dl (32.0-36.5); MEAN CORPUSCULAR VOLUME 96.7 fl (80.0-96.0); MONO # 0.4 K/mm3 (0.0-0.8); MONO % 4.6 % (0.0-5.0); NEUTROPHILS # 6.1 K/mm3 (1.8-7.7); NEUTROPHILS % 68.3 % (36.0-66.0); PLATELET COUNT, AUTOMATED 214 k/mm3 (150-450); RED CELL DISTRIBUTION WIDTH 15.9 % (11.5-14.5); WHITE BLOOD COUNT 8.9 K/mm3 (4.0-10.0)
[2017-01-10 18:48] LABS: ALBUMIN 3.4 GM/DL (3.2-5.2); ALBUMIN/GLOBULIN RATIO 0.97 (1.00-1.93); ALKALINE PHOSPHATASE 60 U/L (45-117); ALT/SGPT 24 U/L (12-78); ANION GAP 11 MEQ/L (8-16); AST/SGOT 23 U/L (15-37); BILIRUBIN,TOTAL 0.3 MG/DL (0.2-1.0); BLOOD UREA NITROGEN 17 MG/DL (7-18); CALCIUM LEVEL 8.2 MG/DL (8.5-10.1); CARBON DIOXIDE LEVEL 23 MEQ/L (21-32); CHLORIDE LEVEL 100 MEQ/L (98-107); CREATININE FOR GFR 0.76 MG/DL (0.70-1.30); FERRITIN 160 NG/ML (26-388); GLOMERULAR FILTRATION RATE > 60.0 (>56); GLUCOSE, FASTING 101 MG/DL (70-105); MAGNESIUM LEVEL 1.8 MG/DL (1.8-2.4); PERCENT SATURATION 20.1 % (19.7-37.4); POTASSIUM SERUM 3.1 MEQ/L (3.5-5.1); SODIUM LEVEL 134 MEQ/L (136-145); TOTAL IRON BINDING CAPACITY 304 UG/DL (250-450); TOTAL PROTEIN 6.9 GM/DL (6.4-8.2)
== END ==
LOC: M SFHCPLAZ 14:51
PROVIDERS: ATTEND Physician Assistant Medical
DX: K92.1 Melena (principal); F10.10 Alcohol abuse, uncomplicated

== ENCOUNTER 2017-01-16 22:18 | Emergency (ER) | payer OTHER ==
[~2017-01-16] VITALS: Ht 170.2 cm; Wt 54.2 kg
[2017-01-16] MEDS ORDERED: NS 1,000 ML IV ONE (22:45)
[2017-01-16 22:48] LABS: BASO % 0.6 % (0.0-1.0); EOS # 0.2 K/mm3 (0.0-0.50); EOS % 3.9 % (0.0-3.0); LARGE UNSTAINED CELL # 0.2 K/mm3 (0.0-0.4); LARGE UNSTAINED CELL % 2.9 % (0.0-4.0); LYMPH # 2.3 K/mm3 (1.5-4.5); LYMPH % 38.8 % (24.0-44.0); MEAN CORPUSCULAR HEMOGLOBIN 33.3 pg (27.0-33.0); MEAN CORPUSCULAR VOLUME 101.1 fl (80.0-96.0); MONO # 0.3 K/mm3 (0.0-0.8); MONO % 5.5 % (0.0-5.0); NEUTROPHILS # 2.6 K/mm3 (1.8-7.7); NEUTROPHILS % 48.3 % (36.0-66.0); PLATELET COUNT, AUTOMATED 176 k/mm3 (150-450); WHITE BLOOD COUNT 5.5 K/mm3 (4.0-10.0)
--- NOTE | 2017-01-16 23:10 | REPUSA ---
CT of the head Clinical history: altered mental status. Technique: Multiple axial CT images were obtained through the head without administration of contrast . Comparison: None. Findings: The ventricles and sulci are symmetric bilaterally. There is no evidence of acute hemorrhag e or infarct. There is no midline shift, mass effect, or extra-axial fluid collection. The osseous st ructures are unremarkable. The visualized paranasal sinuses and mastoid air cells are clear. Impression: Negative study.
[2017-01-16 23:11] LABS: ALKALINE PHOSPHATASE 53 U/L (45-117); ALT/SGPT 25 U/L (12-78); AST/SGOT 20 U/L (15-37); BILIRUBIN,DIRECT < 0.1 MG/DL (0.0-0.2); BILIRUBIN,TOTAL 0.1 MG/DL (0.2-1.0); BLOOD UREA NITROGEN 6 MG/DL (7-18); CALCIUM LEVEL 7.9 MG/DL (8.5-10.1); CHLORIDE LEVEL 114 MEQ/L (98-107); CREATININE FOR GFR 0.56 MG/DL (0.70-1.30); GLUCOSE, FASTING 74 MG/DL (70-105); POTASSIUM SERUM 3.4 MEQ/L (3.5-5.1); SODIUM LEVEL 145 MEQ/L (136-145); TOTAL PROTEIN 5.9 GM/DL (6.4-8.2)
[2017-01-17 01:13] LABS: ALBUMIN 2.9 GM/DL (3.2-5.2); ALBUMIN/GLOBULIN RATIO 0.97 (1.00-1.93); ANION GAP 8 MEQ/L (8-16); CARBON DIOXIDE LEVEL 23 MEQ/L (21-32)
[2017-01-17 02:07] LABS: METHADONE URINE NEGATIVE (NEGATIVE)
[2017-01-17] MEDS ORDERED: PANTOPRAZOLE 40MG INJ (PROTONIX) (C9113) IV ONE (04:30)
[2017-01-17] MEDS ORDERED: GI COCKTAIL 50ML BTL(HYOSCYAMINE/MAALOX/LIDOCAINE VISCOUS)(1:3:1) PO ONE (04:30)
[2017-01-17] MEDS ORDERED: ASPIRIN 81 MG CHEW TABLET PO ONE (04:30)
[2017-01-17] MEDS ORDERED: ISOVUE-370 76% 100ML VIAL (Q9967) As Ordered ONE (04:32)
[2017-01-17 07:38] VITALS: BP 138/87
--- NOTE | 2017-01-17 16:23 | ECGEPIP ---
Stationary ECG Study [facility] - ED Test Date: 2017-01-16 Pat Name: JOAN NICOLE Department: Room: - Gender: M Hand Rug Cleaner: omi : 1965 Requested By: JUAN R Waller Order Number: [id number] Reading MD: Rebekah Babin Measurements Intervals [place] Rate: 98 P: 66 HI: 158 QRS: 68 QRSD: 86 T: 60 QT: 373 QTc: 477 Interpretive Statements SINUS RHYTHM LOW QRS VOLTAGE IN PRECORDIAL LEADS PRWP Electronically Signed On 01-17-2017 16:23:18 EDT by Rebekah Babin
== END 2017-01-17 08:15 | disposition home or self-care (01) ==
LOC: EDBD 22:18 → M ED 22:54
DX: F10.220 Alcohol dependence with intoxication, uncomplicated (principal); I10 Essential (primary) hypertension; J44.9 Chronic obstructive pulmonary disease, unspecified; Z91.14 Patient's other noncompliance with medication regimen

== ENCOUNTER → 2018-10-29 | Outpatient (REF) | payer OTHER ==
[~2018-10-29] MED LIST changes: -LEVA750T PO; +LEVA750T7 PO; +PERC5TAB12 PO; -PERC5TAB6 PO; -PROA1AER IN; +PROAAER10 IN
[2018-10-29 18:10] LABS: BASO # 0.1 10^3/uL (0.0-0.2); BASO % 1.1 % (0.0-1.0); EOS # 0.4 10^3/uL (0.0-0.50); EOS % 4.3 % (0.0-3.0); HEMATOCRIT 45.7 % (42.0-52.0); HEMOGLOBIN 15.2 g/dl (13.5-17.5); LYMPH # 2.9 10^3/uL (1.5-4.5); LYMPH % 29.8 % (24.0-44.0); MEAN CORPUSCULAR HEMOGLOBIN 32.8 pg (27.0-33.0); MEAN CORPUSCULAR HGB CONC 33.3 g/dl (32.0-36.5); MEAN CORPUSCULAR VOLUME 98.7 fl (80.0-96.0); MONO % 10.1 % (0.0-5.0); NEUTROPHILS # 5.4 10^3/uL (1.8-7.7); NEUTROPHILS % 54.4 % (36.0-66.0); PLATELET COUNT, AUTOMATED 321 10^3/uL (150-450); RED BLOOD COUNT 4.63 10^6/uL (4.30-6.10); WHITE BLOOD COUNT 9.9 10^3/uL (4.0-10.0)
[2018-10-29 18:28] LABS: ALBUMIN 3.8 GM/DL (3.2-5.2); ALT/SGPT 23 U/L (12-78); BILIRUBIN,TOTAL 0.2 MG/DL (0.2-1.0); BLOOD UREA NITROGEN 8 MG/DL (7-18); CALCIUM LEVEL 9.1 MG/DL (8.5-10.1); CARBON DIOXIDE LEVEL 25 MEQ/L (21-32); CHLORIDE LEVEL 105 MEQ/L (98-107); CHOLESTEROL LEVEL 184 MG/DL (<200); CHOLESTEROL RISK RATIO 2.628 (<5); CPK CREATINE PHOSPHOKINASE 67 U/L (39-308); FERRITIN 62 NG/ML (26-388); GLOMERULAR FILTRATION RATE > 60.0 (>56); GLUCOSE, FASTING 87 MG/DL (70-100); HDL CHOLESTEROL 70 MG/DL (>40); IRON (FE) 57 UG/DL (65-175); LDL CHOLESTEROL 101 MG/DL (<100); NON-HDL-C 114 MG/DL; PERCENT SATURATION 17.1 % (19.7-50.0); POTASSIUM SERUM 4.3 MEQ/L (3.5-5.1); SODIUM LEVEL 139 MEQ/L (136-145); TOTAL IRON BINDING CAPACITY 334 UG/DL (250-450); TRIGLYCERIDES LEVEL 65 MG/DL (<150)
== END ==
LOC: M SFHCPLAZ 15:01
PROVIDERS: ATTEND Physician Assistant Medical
DX: Z12.5 Encounter for screening for malignant neoplasm of prostate (principal); Z13.220 Encounter for screening for lipoid disorders; K92.1 Melena; E87.6 Hypokalemia

== ENCOUNTER 2019-02-06 22:07 | Inpatient (IN) | payer OTHER ==
[~2019-02-06] VITALS: Ht 167.6 cm; Wt 49.6 kg
[~2019-02-06 22:07] MED LIST changes: +ASPI-1 PO; -ASPI325T PO
[2019-02-06] MEDS ORDERED: NS 1,000 ML IV SCH (22:11)
[2019-02-06] MEDS ORDERED: ARCA75CA INH (22:16)
[2019-02-06] MEDS ORDERED: AMLO5TAB6 PO (22:16)
[2019-02-06] MEDS: IPRATROPIUM 0.5MG/ALBUTEROL 2.5MG INH SOL UD 3ML (DUONEB)(J7620) NEB PRN ×3 (22:20→22:52)
[2019-02-06 22:35] LABS: HEMATOCRIT 43.9 % (42.0-52.0); HEMOGLOBIN 14.6 g/dl (13.5-17.5); MEAN CORPUSCULAR HGB CONC 33.3 g/dl (32.0-36.5); MEAN CORPUSCULAR VOLUME 102.3 fl (80.0-96.0); PLATELET COUNT, AUTOMATED 233 10^3/uL (150-450); RED BLOOD COUNT 4.29 10^6/uL (4.30-6.10); VENOUS BASE EXCESS -9.4 (-2.0-2.0); VENOUS HCO3 22.4 MEQ/L (23.0-27.0); VENOUS O2 SATURATION 83.2 % (60.0-80.0); VENOUS PARTIAL PRESSURE O2 59.4 mmHg (30.0-50.0); VENOUS PH 7.076 UNITS (7.330-7.430); VENOUS STANDARD HCO3 16.8 MEQ/L; VENOUS TOTAL CO2 24.8 MEQ/L (24.0-28.0); WHITE BLOOD COUNT 14.6 10^3/uL (4.0-10.0)
[2019-02-06] MEDS ORDERED: LORazepam 2 MG/ML VIAL (J2060) IV STA (22:44)
[2019-02-06 22:49] LABS: INR 1.08; PROTHROMBIN TIME 13.7 SECONDS (11.8-14.0)
[2019-02-06] MEDS: METOPROLOL TART 25 MG TABLET PO ONE (23:00)
[2019-02-06 23:02] LABS: LYMPHOCYTES 4 % (16-52); MONOCYTES 13 % (0-8); NEUTROPHILS 61 % (35-75); PLATELET ESTIMATE NORMAL (NORMAL)
[2019-02-06] MEDS: METOPROLOL 5 MG/5 ML VIAL IV SCH ×3 (23:05→23:10)
[2019-02-06 23:15] LABS: ALBUMIN 3.3 GM/DL (3.2-5.2); ALT/SGPT 48 U/L (12-78); BILIRUBIN,DIRECT 0.3 MG/DL (0.0-0.2); BILIRUBIN,TOTAL 0.4 MG/DL (0.2-1.0); BLOOD UREA NITROGEN 16 MG/DL (7-18); CALCIUM LEVEL 9.2 MG/DL (8.5-10.1); CARBON DIOXIDE LEVEL 23 MEQ/L (21-32); CHLORIDE LEVEL 97 MEQ/L (98-107); CK-MB VALUE MASS 28.9 NG/ML (<3.6); CPK CREATINE PHOSPHOKINASE 984 U/L (39-308); CREATININE FOR GFR 0.59 MG/DL (0.70-1.30); GLOMERULAR FILTRATION RATE > 60.0 (>56); GLUCOSE, FASTING 117 MG/DL (70-100); MB/CK RELATIVE INDEX 2.94 (< OR =4); SODIUM LEVEL 133 MEQ/L (136-145); TOTAL PROTEIN 8.3 GM/DL (6.4-8.2); TROPONIN I < 0.02 NG/ML (< 0.10)
[2019-02-06] MEDS ORDERED: PROPOFOL 1,000 MG/100 ML VIAL As Ordered ONE (23:17)
[2019-02-06] MEDS ORDERED: propofoL 1,000 MG in IV 1 EA IV SCH (23:30)
[2019-02-06] MEDS ORDERED: ETOMIDATE INJ 20MG/10ML VIAL IV STA (23:30)
[2019-02-06] MEDS ORDERED: SUCCINYLCHOLINE INJ 200 MG/10 ML VIAL (J0330) IV STA (23:30)
[2019-02-06 23:32] LABS: ETHYL ALCOHOL (ETHANOL) < 0.003 % (0.000-0.010)
[2019-02-07] VITALS (26 sets, daily range): BP systolic 74–139; BP diastolic 51–105; O2SAT 94–98
--- NOTE | 2019-02-07 | HPEPDOC ---
General Date of Admission Feb 06, 2019 at 23:13 Date of Service: Feb 06, 2019 Other Providers PCP unknown Chief Complaint The patient is a 53-year-old male admitted with a reason for visit of Acute On Chronic Resp Failure W/Hypoxia. Source: Old records, Other (ED provider) Exam Limitations: Other (Intubated) Timing/Duration: Unsure Severity: Severe Associated Symptoms: Unobtainable History of Present Illness 53 yo male with known COPD presented to ED via EMS with SOB. He was treated with 3 duonebs, solumedrol,1mg IV Ativan. Upon arrival to evaluate patient, he was wearing bipap and unresponsive to verbal and painful stimuli and using accessory muscles (abdomen,chest wall, neck) ineffectively to breath. ED notified and patient intubated. Track Repair Worker notified and case discussed Home Medications Scheduled Albuterol Sulfate (Proair Hfa) 108 Mcg/Act Aer, 108 MCG IN Q6H Amlodipine Besylate (Amlodipine Besylate) 5 Mg Tablet, 5 MG PO DAILY, (Reported) Indacaterol Maleate (Arcapta Neohaler) 75 Mcg Cap.w.dev, 1 PUFF INH DAILY, (Reported) Allergies Coded Allergies: No Known Allergies (Verified Allergy, Unknown, 02/06/19) Past Medical History Medical History EtOH use (2017) COPD,HTN Non Compliance (2017) Past surgical HX: left hip replacement, left ankle ORIF Family history - unable to obtain due to intubated status Social history: unable to obtain due to intubated status - old records reviewed and in 2017 had 40 pack year hx (1ppd) and chronic EtOH use A-FIB/CHADSVASC A-FIB History Current/History of A-Fib/PAF?: No Current PO Anticoag Therapy: No Review of Systems Other systems unable to obtain due to intubated status Physical Examination General Exam: Positive: Severe Distress (on bipap, unresponsive, using accessory muscle with respirations 40 prior to intubation), Other (unkempt, soiled/dirty clothing) Eye Exam: Positive: Other Eye Symptoms (eyes closed, unable to exam with bipap) ENT Exam: Positive: Other ENT (oral mucosa appears dry) Chest Exam: Positive: Wheezing, Diminished; Negative: Clear to auscultation, Normal air movement, Rales, Rhonchi Heart Exam: Positive: Tachycardic Telemetry: Positive: Tachycardia Abdomen Exam: Positive: Normal bowel sounds, Soft (NT ND) Extremity Exam: Positive: Clubbing, Normal pulses (thready/tachy); Negative: Cyanosis, Edema, Tenderness, Swelling Skin Exam: Negative: Rash (mild excoration to pretib areas) Psych Exam: Positive: Other (intubated) Vital Signs Vital Signs Date Time Temp Pulse Resp B/P (MAP) Pulse Ox O2 Delivery O2 Flow Rate FiO2 02/06/19 23:22 20 40 02/06/19 23:22 100 Ventilator 02/06/19 23:09 167 133/90 02/06/19 22:41 99.1 6.0 Laboratory Data Labs 24H Laboratory Tests 2 02/06/19 22:29: White Blood Count 14.6H, Red Blood Count 4.29L, Hemoglobin 14.6, Hematocrit 43.9, Mean Corpuscular Volume 102.3H, Mean Corpuscular Hemoglobin 34.0H, Mean Corpuscular Hemoglobin Concent 33.3, Red Cell Distribution Width 13.0, Platelet Count 233, Monocytes # (Auto) , Nucleated Red Blood Cells % (auto) 0.0, Neutrophils 61, Band Neutrophils 22H, Lymphocytes (Manual) 4L, Monocytes (Manual) 13H, Platelet Estimate NORMAL, Macrocytosis 1+, Prothrombin Time 13.7, Prothromb Time International Ratio 1.08, Blood Gas Bicarbonate Standard 16.8, Venous Blood pH 7.076L, Venous Blood Partial Pressure CO2 78.0H, Venous Blood Partial Pressure O2 59.4H, Venous Blood Total Carbon Dioxide 24.8, Venous Blood HCO3 22.4L, Venous Blood Oxygen Saturation 83.2H, Venous Blood Base Excess - 9.4L, Anion Gap 13, Glomerular Filtration Rate > 60.0, Calcium Level 9.2, Aspartate Amino Transf (AST/SGOT) 89H, Alanine Aminotransferase (ALT/SGPT) 48, Alkaline Phosphatase 94, Total Bilirubin 0.4, Direct Bilirubin 0.3H, Total Creatine Kinase 984H, Creatine Kinase MB 28.9H, Creatine Kinase MB Relative Index 2.94, Troponin I < 0.02, Total Protein 8.3H, Albumin 3.3, Albumin/Globulin Ratio 0.66L, Ethyl Alcohol Level < 0.003 CBC/BMP Laboratory Tests 02/06/19 22:29 Red Blood Count 4.29 L, Mean Corpuscular Volume 102.3 H, Mean Corpuscular H emoglobin 34.0 H, Mean Corpuscular Hemoglobin Concent 33.3, Red Cell Distribution Width 13.0, Monocytes # (Auto) Microbiology Microbiology 02/06/19 Blood Culture, Received Pending 02/06/19 Blood Culture, Received Pending Assessment/Plan 1) acute on chronic hypoxic hypercapneic respiratory failure Admit to ICU. Critical condition. poor prognosis Intubated. van driver/pulm consulted and will place further orders Recieved ativan, duoneb and solumedrol in ED 2) COPD exacerbation - nebs, steroids. pulm consult 3) Leukocytosis with bandemia possible infectious etiology. await van driver input. consider antibiotic (vanc/cefepime) 4) Dehydration - IVF 5) history of EtOH use - check EtOH level, drug screen; patient with increased MVC and AST/ALT ratio. CODE STATUS: FULL DVT prophylaxis: hep sc Plan / VTE VTE Prophylaxis Ordered?: Yes MALVIN CASEY DO Feb 07, 2019 00:00
[2019-02-07 00:21] LABS: AMPHETAMINES URINE REFLEX NEGATIVE (NEGATIVE); BARBITURATES URINE REFLEX NEGATIVE (NEGATIVE); BENZODIAZEPINES URINE REFLEX NEGATIVE (NEGATIVE); COCAINE METABOLITE URINE REFLE NEGATIVE (NEGATIVE); METHADONE URINE REFLEX NEGATIVE (NEGATIVE); OPIATES URINE REFLEX NEGATIVE (NEGATIVE); PHENCYCLIDINE URINE REFLEX NEGATIVE (NEGATIVE)
[2019-02-07 00:24] LABS: CANNABINOIDS URINE REFLEX PENDING CONFIRMATION (NEGATIVE)
[2019-02-07] MEDS ORDERED: MORPHINE 4 MG/ML 1ML VIAL/SYRINGE (J2270) IV PRN (00:30)
[2019-02-07] MEDS ORDERED: ALBUTEROL SULFATE 2.5 MG/0.5 ML INH NEB SOLN NEB PRN (00:30)
[2019-02-07] MEDS ORDERED: propofoL 1,000 MG in IV 1 EA IV SCH (00:30)
[2019-02-07] MEDS ORDERED: ISOVUE-370 76% 100ML VIAL (Q9967) As Ordered ONE (00:39)
[2019-02-07 00:41] LABS: AMYLASE 24 U/L (25-115); LIPASE 45 U/L (73-393)
[2019-02-07 00:51] LABS: AMPHETAMINES LEVEL URINE NEGATIVE (NEGATIVE); BARBITURATES URINE NEGATIVE (NEGATIVE); BENZODIAZEPINES URINE NEGATIVE (NEGATIVE); CANNABINOIDS URINE POSITIVE (NEGATIVE); COCAINE METABOLITE URINE NEGATIVE (NEGATIVE); METHADONE URINE NEGATIVE (NEGATIVE); OPIATES URINE NEGATIVE (NEGATIVE); PHENCYCLIDINE URINE NEGATIVE (NEGATIVE)
[2019-02-07] MEDS ORDERED: COMBAER6 INH (00:51)
[2019-02-07] MEDS ORDERED: ARNU1INH PO (00:51)
[2019-02-07] MEDS ORDERED: OMEP-221 PO (00:51)
[2019-02-07 01:12] LABS: CK-MB VALUE MASS 25.6 NG/ML (<3.6); CPK CREATINE PHOSPHOKINASE 986 U/L (39-308); TROPONIN I < 0.02 NG/ML (< 0.10)
[2019-02-07] MEDS: IPRATROPIUM 0.5MG/ALBUTEROL 2.5MG INH SOL UD 3ML (DUONEB)(J7620) NEB SCH ×7 (02:04→23:12)
[2019-02-07 02:21] LABS: ABG BASE EXCESS -8.2 (-2.0-2.0); ABG HCO3 18.9 MEQ/L (22.0-26.0); ABG O2 SATURATION 99.5 % (95.0-99.0); ABG PARTIAL PRESSURE CO2 44.4 mmHg (35.0-45.0); ABG PARTIAL PRESSURE O2 170.7 mmHg (75.0-100.0); ABG TOTAL CO2 20.2 MEQ/L (22.0-29.0)
[2019-02-07 02:22] LABS: ABG pH (ARTERIAL) 7.246 UNITS (7.350-7.450)
[2019-02-07] MEDS: PIPERACILLIN/TAZOBACTAM SOD 3.375 GM in D5W MINI-BAG PLUS 50 ML IV SCH ×4 (02:31→20:01)
[2019-02-07] MEDS: methylPREDNISolone INJ 125 MG/2 ML VIAL (J2930) IV SCH ×3 (02:32→17:38)
--- NOTE | 2019-02-07 02:52 | REPVR ---
EXAM: CT Abdomen and Pelvis With Contrast EXAM DATE/TIME: 02/07/2019 12:21 AM CLINICAL HISTORY: 53 years old, male; Abdominal pain; Generalized; Abnormal exam TECHNIQUE: Imaging protocol: Axial computed tomography images of the abdomen and pelvis with intravenous contrast. Coronal and sagittal reformatted images were created and reviewed. Radiation optimization: All CT scans at this facility use at least one of these dose optimization techniques: automated exposure control; mA and/or kV adjustment per patient size (includes targeted exams where dose is matched to clinical indication); or iterative reconstruction. Contrast material: ISO; Contrast volume: 100 ml; Contrast route: AC; COMPARISON: No relevant prior studies available. FINDINGS: Tubes, catheters and devices: An enteric tube is seen terminating in the mid body of the stomach. Lungs: There are airspace opacities in both lower lobes, which may represent an infectious bronchiolitis, aspiration bronchiolitis, or follicular bronchiolitis. Heart: No cardiomegaly. No pericardial effusion. Liver: Unremarkable. No liver lesion is seen. The contour of the liver is smooth. No hepatomegaly is noted. Gallbladder and bile ducts: No calcified gallstones are seen. No gallbladder wall thickening, pericholecystic fluid, or pericholecystic inflammatory changes are identified. No dilation of the intrahepatic or extrahepatic bile ducts is noted. Pancreas: Normal. No ductal dilation. Spleen: Normal. No splenomegaly. Adrenals: Normal. No mass. Kidneys and ureters: No calculi are seen in the kidneys or ureters. There is no hydronephrosis or hydroureter. There are bilateral simple renal cysts, the largest measuring 13 mm. Stomach and bowel: The stomach is distended with air and fluid. There is duodenal and colonic diverticulosis. There is no evidence for a bowel obstruction, diverticulitis, colitis, pneumatosis intestinalis, intussusception, volvulus, or perforated viscus. There is a large amount of formed stool in the cecum and ascending colon. There is a [id number] amount of formed stool in the transverse colon and a mild amount of formed stool in the descending colon and rectosigmoid. Appendix: Normal. No evidence for appendicitis. Intraperitoneal space: Unremarkable. No free air. No fluid collection. Vasculature: There are moderate atherosclerotic calcifications. The abdominal aorta is patent, normal in caliber, and there is no dissection. The iliac arteries, common femoral arteries, renal arteries, celiac artery, superior mesenteric artery, and inferior mesenteric artery are patent. Lymph nodes: Normal. No enlarged lymph nodes. Bladder: There is a Malave catheter in appropriate position in the urinary bladder. No calculi are noted in the bladder. There is gas in the urinary bladder. There is thickening of the wall of the decompressed urinary bladder. Reproductive: The prostate gland is within normal limits in size and measures 4.7 cm x 3.1 cm x 3.3 cm and the volume of the prostate gland measures 25.2 mL. There are punctate calcifications in the prostate gland. The seminal vesicles are unremarkable. Bones/joints: Left dynamic hip screw fixation hardware is noted. No acute fracture or dislocation is noted. There is no suspicious osteolytic or osteoblastic lesion. There are degenerative changes in the lumbar spine. Soft tissues: Unremarkable. IMPRESSION: 1. Airspace opacities in both lower lobes, which may represent an infectious bronchiolitis, aspiration bronchiolitis, or follicular bronchiolitis. 2. Thickening of the wall of the urinary bladder, which may be secondary to its partially distended state, bladder wall hypertrophy, or cystitis. Correlation with urinalysis is suggested. 3. Duodenal and colonic diverticulosis without evidence for diverticulitis. Electronically signed by: Alexis Ponce On 02/07/2019 02:52:27 AM
[2019-02-07] MEDS: propofoL 1,000 MG in IV 1 EA IV SCH ×6 (04:19→21:09)
[2019-02-07 04:26] LABS: HEMATOCRIT 43.3 % (42.0-52.0); HEMOGLOBIN 14.6 g/dl (13.5-17.5); MEAN CORPUSCULAR HEMOGLOBIN 34.4 pg (27.0-33.0); MEAN CORPUSCULAR HGB CONC 33.7 g/dl (32.0-36.5); MEAN CORPUSCULAR VOLUME 101.9 fl (80.0-96.0); PLATELET COUNT, AUTOMATED 229 10^3/uL (150-450); RED BLOOD COUNT 4.25 10^6/uL (4.30-6.10); WHITE BLOOD COUNT 8.2 10^3/uL (4.0-10.0)
[2019-02-07 04:49] LABS: ALT/SGPT 41 U/L (12-78); BILIRUBIN,TOTAL 0.6 MG/DL (0.2-1.0); BLOOD UREA NITROGEN 22 MG/DL (7-18); CARBON DIOXIDE LEVEL 22 MEQ/L (21-32); CHLORIDE LEVEL 99 MEQ/L (98-107); CHOLESTEROL LEVEL 127 MG/DL (< 200); CPK CREATINE PHOSPHOKINASE 740 U/L (39-308); GLOMERULAR FILTRATION RATE > 60.0 (>56); GLUCOSE, FASTING 134 MG/DL (70-100); LDH LACTATE DEHYDROGENASE 279 U/L (87-241); MAGNESIUM LEVEL 2.6 MG/DL (1.8-2.4); PHOSPHORUS LEVEL 1.8 MG/DL (2.5-4.9); POTASSIUM SERUM 4.2 MEQ/L (3.5-5.1); SODIUM LEVEL 133 MEQ/L (136-145); TOTAL PROTEIN 8.4 GM/DL (6.4-8.2); TRIGLYCERIDES LEVEL 105 MG/DL (<150)
[2019-02-07 04:51] LABS: LYMPHOCYTES 7 % (16-52); METAMYELOCYTES 3 % (0-0); MONOCYTES 7 % (0-8); NEUTROPHILS 75 % (35-75); PLATELET ESTIMATE NORMAL (NORMAL)
[2019-02-07 04:52] LABS: DOHLE BODIES 1+; POLYCHROMASIA 1+
--- NOTE | 2019-02-07 07:25 | REP ---
Clinical: Cough and dyspnea . Comparison: 09/08/2016 . Findings: The mediastinum and cardiac silhouette are stable and within normal limits for portable technique. The lung jin demonstrate diffuse chronic interstitial changes without acute consolidation, effusion, or pneumothorax. Skeletal structures are intact. Impression: Chronic changes. No obvious acute consolidation or effusion. Electronically Signed by David Kent MD 02/07/2019 07:16 A
--- NOTE | 2019-02-07 07:31 | REP ---
Clinical: Endotracheal tube placement . Comparison: 02/06/2019 . Findings: Endotracheal tube 3.3 cm above the pedro. The mediastinum and cardiac silhouette are stable and within normal limits for portable technique. The lung jin are clear without acute consolidation, effusion, or pneumothorax. Skeletal structures are intact. Impression: No acute cardiopulmonary process appreciated. Electronically Signed by David Kent MD 02/07/2019 07:22 A
[2019-02-07] MEDS ORDERED: SODIUM PHOSPHATE INJ 20 MMOL in D5W 250 ML IV ONE (08:00)
[2019-02-07] MEDS: MULTIVITAMIN -ADULT INJECTION 10 ML, THIAMINE INJection 100 MG, FOLIC ACID 1 MG in NS 1... IV SCH (08:11)
[2019-02-07] MEDS: PANTOPRAZOLE 40MG INJ (PROTONIX) (C9113) IV SCH (08:19)
[2019-02-07] MEDS: CHLORHEXIDINE GLUCONATE 0.12 % 15ML UDC (PERIDEX ORAL RINSE) MT SCH ×2 (08:19→20:01)
[2019-02-07] MEDS: HEPARIN SOD (PORCINE) 5000 UNITS/ML VIAL SQ SCH ×2 (08:20→20:02)
[2019-02-07 08:59] LABS: CK-MB VALUE MASS 14.8 NG/ML (<3.6); CPK CREATINE PHOSPHOKINASE 516 U/L (39-308); MB/CK RELATIVE INDEX 2.87 (< OR =4); TROPONIN I < 0.02 NG/ML (< 0.10)
[2019-02-07 10:15] LABS: ABG BASE EXCESS -4.8 (-2.0-2.0); ABG HCO3 21.8 MEQ/L (22.0-26.0); ABG O2 SATURATION 93.6 % (95.0-99.0); ABG PARTIAL PRESSURE CO2 46.2 mmHg (35.0-45.0); ABG PARTIAL PRESSURE O2 70.1 mmHg (75.0-100.0); ABG STANDARD HCO3 20.5 MEQ/L (22.0-26.0); ABG TOTAL CO2 23.2 MEQ/L (22.0-29.0); ABG pH (ARTERIAL) 7.292 UNITS (7.350-7.450)
--- NOTE | 2019-02-07 11:39 | REP ---
Clinical: Status post intubation. Comparison: 02/06/2019. Findings: Endotracheal tube approximately 3.5 cm above the pedro. Mediastinum and cardiac silhouette are stable. Lung jin demonstrate diffuse chronic interstitial changes with scattered fibrosis. No obvious focal consolidation. No effusion. No pneumothorax. Impression: Chronic COPD/emphysematous changes with scattered fibrosis. Endotracheal tube 3.5 cm above the pedro. Electronically Signed by David Kent MD 02/07/2019 11:31 A
[2019-02-07] MEDS: MIDAZOLAM INJ 2 MG/2 ML VIAL (J2250) IV PRN ×4 (12:32→23:33)
--- NOTE | 2019-02-07 13:20 | CR ---
DATE OF CONSULTATION: 02/07/2019 REASON FOR CONSULTATION: I was asked by Dr. Park to consult on Mr. Lainez for acute respiratory failure leading to mechanical ventilation. HISTORY OF PRESENT ILLNESS: Mr. Lainez is 53-year-old a male who activated emergency medical services (EMS) and reportedly had about a 3-day history of having increasing shortness of breath. When EMS arrived, he was in the tripod position. Saturations were in the 70 percent range and he was put on 6 liters via nasal cannula and transported to the hospital. When he arrived here, he was saturating about 90% on the 6 liters but was using accessory muscles. A VBG was obtained, which showed respiratory acidemia though the base excess was negative. He was started on bilevel therapy. Apparently, he was fearful of the mask and he was given Ativan. The VBG results became available and given his accessory muscle usage and acidemia he was intubated. In speaking to nursing, he was a smoker who, according to his last admission which was in 2015, was one pack per day. He averaged one pack per day for 40 years. Apparently, he told nursing that he quit 2 months ago. He also has a history of alcohol abuse, though no history is known as to if is still drinking and when his last drink was. Per the August 2015 note, he was drinking five to six beers per day and he denied any illicit drug usage. Since that admission, he has had an emergency department visit for alcohol intoxication with a level of 0.330. ALLERGIES: NO KNOWN DRUG ALLERGIES. MEDICATIONS ON ADMISSION: - Albuterol MDI every 6 hours as needed - amlodipine 5 mg by mouth daily - Arnuity one puff daily - Arcapta one puff daily - Combivent one puff four times a day as needed - omeprazole 40 mg by mouth daily PAST MEDICAL HISTORY: 1. Chronic obstructive pulmonary disease (COPD). 2. Hypertension. 3. Gastroesophageal reflux disease (GERD). 4. History of alcohol abuse, unknown if it is still active. 5. Status post left hip replacement. 6. Status post left ankle open reduction, internal fixation (ORIF). 7. Tobacco usage, quit 2 months ago. SOCIAL HISTORY, FAMILY HISTORY AND REVIEW OF SYSTEMS: Unattainable secondary to intubation. PHYSICAL EXAMINATION: GENERAL: Mr. Lainez is intubated. He is synchronous with the ventilator but is still using accessory muscles with both inhalation and exhalation. VITAL SIGNS: Temperature 99.1, blood pressure 123/87 with a MAP of 99. Pulse 140s, respiratory rate 20 (vent set rate), SPO2 97% on FIO2 of 0.4. HEENT: Reddened sclerae. Pupils 3 mm, sluggish. Nares: Patent bilaterally, moist mucosa. Oropharynx: ET tube and orogastric tube are in place. Neck: Supple. No jugular venous distention (JVD). Hypertrophied sternocleidomastoid muscles. Trachea is midline. No masses. Lymphatics: Without cervical or supraclavicular lymphadenopathy. Chest: Increased AP diameter. Lungs: Symmetric excursion, generalized diminished air entry, no wheeze, rhonchi or crackle on tidal excursion. Prolonged expiratory phase. He is using supraclavicular muscles with inspiration and abdominal muscles on exhalation. No retractions.. Cardiovascular: Tachycardic. Regular rhythm. No murmur, rub or gallop appreciated. Unable to appreciate point of maximum impulse (PMI). Abdomen: Diminished bowel sounds, soft, nondistended, no hepatosplenomegaly or masses appreciated. Extremities: Cool but with normal capillary refill, without clubbing, cyanosis or significant edema. Palpable pedal pulses bilaterally. LABORATORY DATA: VBG I believe on 6 liters or perhaps early after on noninvasive mechanical ventilator was 7.08/78/59 with a base excess of -3.4. I saw the ISTAT ABG shortly after he was intubated which I do not see in the computer but the pH was 7.1. PCO2 was in the 50s and base excess was -7. CBC showed a hemoglobin of 14.6, hematocrit 43.9, platelet count 233,000, white blood cell count 14,600 with a differential of 61% neutrophils, 22% bands, 4% lymphocytes, 13% monocytes. INR 1.08. Chemistry shows sodium 133, potassium 4.0, chloride 97, bicarbonate 23, anion gap 13, BUN 16, creatinine 0.6, glucose 117, calcium 9.2, total bilirubin 0.4, direct bilirubin 0.3, AST 89, ALT 48, alkaline phosphatase 94, CK 984, CK-MB 28.9, troponin I less than 0.02, total protein 8.3, albumin 3.3, amylase 24, lipase 45, lactic acid 1.4, repeat CK and 986 with a CK-MB 25.6 and a troponin I less than 0.02. Urinalysis showed a pH of 6, specific gravity 1.01, total protein 2, ketones 2, blood 3, WBC 3, RBC 3. Toxicology was positive for cannabinoid but otherwise negative. EtOH was less than 0.03. I reviewed his chest x-ray, both pre and post intubation. Both x-rays showed normal appearing cardiac silhouette and pulmonary vascular shadows. Normal-appearing mediastinal regions. No acute infiltrates. There is evidence of significant hyperinflation. ETT in good position. IMPRESSION: 1. Acute hypercapnic respiratory failure. Unfortunately, we cannot get a history to help determine the cause of his acute failure. With the base excess being negative it would point to have more abdominal source that he is not able to compensate. 2. Bandemia. This would suggest an infection though it could be a bone marrow reaction if he suddenly stopped drinking recently. 3. Chronic obstructive pulmonary disease (COPD), based on his physical findings I suspect it is at least severe if not very severe. 4. Sinus tachycardia. 5. History of EtOH abuse, it is not known if this is active 6. Significant tobacco usage, recent cessation. 7. History of ETOH abuse, not known if active. 8. Hypertension. RECOMMENDATIONS: 1. We will add amylase and lipase to his labs (dictated above). 2. We will obtain a lactate level (dictated above). 3. We will obtain an abdominal CT scan given the negative base excess and his bandemia. 4. Again, as there is no direction to infection and his chest x-ray is normal, given his critical illness, I feel that we should at least cover potential abdominal pathogens and we will place him on Zosyn. 5. We will treat him with bronchodilators and I will start him on Solu-Medrol. 6. Will place on banana bag given alcohol history. Prognosis is guarded. Critical care time 1 hour, not including procedure time. [facility]
--- NOTE | 2019-02-07 14:35 | ECHO ---
DATE OF PROCEDURE: 02/07/2019 REFERRING PHYSICIAN: Dr. Puentes INDICATION: Dyspnea. HEIGHT: 167 cm WEIGHT: 50 kg DIMENSIONS: IVS: 0.7 LV: 3.9 LVPW: 0.8 LA: 2.2 Aorta: 2.7 IVC: 2.0 Mitral E wave velocity: 71, A wave: 96 E prime septal: 6.8 E prime lateral: 10.6 FINDINGS The study is of good technical quality. There are fair parasternal and apical views but excellent subcostal views. The patient is in sinus tachycardia with ventricular rate approximately 130 bpm. Left ventricle is normal size and systolic function, I estimate ejection fraction (EF) around 65-70%. No segmental wall motion abnormalities are appreciated. Right ventricle appears at least mildly dilated and mildly hypokinetic. Both atria appear normal. Aortic valve is mildly sclerotic, but has three cusps and normal mobility. Mitral tricuspid and pulmonic valves appear normal. No pericardial effusion is noted. Inferior vena cava is borderline dilated but collapses with respiration, which in intubated patient likely represents normal central venous pressure. Aortic root appears normal. Aortic arch and abdominal aorta were not well seen. Doppler interrogation reveals no aortic valvular disease. There is trivial mitral and tricuspid insufficiency. Calculated pulmonary artery pressure is in 30s corresponding to mild pulmonary hypertension. Mitral inflow pattern and tissue Doppler imaging of mitral annulus reveal grade 1 diastolic dysfunction. CONCLUSION 1. Study is of good technical quality. 2. Normal left ventricle (LV) size and systolic function, grade 1 diastolic dysfunction. 3. Dilated hypokinetic right ventricle. 4. Likely normal or mildly elevated central venous pressure and at least mild pulmonary hypertension. COMMENT Subacute bacterial endocarditis (SBE) prophylaxis is not recommended. MTDD
--- NOTE | 2019-02-07 15:11 | CCN ---
CRITICAL CARE NOTE DATE: 02/07/2019 Mr. Lainez remains critically ill with acute respiratory failure secondary to mixed acidemia leading to mechanical ventilation. He has remained with acceptable hemodynamics. His minute ventilation remains elevated. On sedation holiday he is making appropriate moves such as trying to grab the endotracheal tube. Not following commands. He has a strong cough and thick tenacious secretions have been aspirated. PHYSICAL EXAMINATION General: Mr. Lainez is lying in bed and synchronous with the ventilator. He has decreased but still present usage or supraclavicular accessory muscles and also lessened abdominal muscle usage on exhalation. Vital signs: Temperature 99, which is his T-max, pulse 134, respiratory rate 28-30, blood pressure 139/66 with a MAP of 92. SPO2 94% on FIO2 0.35. HEENT: Remains mildly erythematous sclera and with pupils 3 mm and responsive. Nares: Patent bilaterally with moist mucosa. Oropharynx: ET tube and OG tube in place. Neck: Supple, elevated external jugulars. Trachea is midline. Lymph: Without cervical or supraclavicular lymphadenopathy. Chest: Increased AP diameter. Lungs: Symmetric excursion, markedly diminished air entry. No wheeze, rhonchi or crackle on tidal excursion. Prolonged expiratory phase. Positive supraclavicular accessory muscle usage and abdominal accessory muscle usage. Cardiovascular: Tachycardia. Regular rhythm, distant, unable to appreciate point of maximal impulse (PMI). Abdomen: Positive but diminished bowel sounds. Soft, nondistended, no hepatosplenomegaly or masses appreciated. Extremities: Cool with the left slightly cooler than the right. Capillary refill 3-4 seconds, no clubbing, cyanosis or edema, palpable pedal pulses bilaterally. LABORATORY DATA Chemistries from this morning show a sodium 133, potassium 4.2, chloride 99, bicarbonate 22, anion gap 12, BUN 22, creatinine 0.8, glucose 134, calcium 10, phosphorus 1.8, magnesium 2.6, total bilirubin 0.6, AST 65, ALT 41, alkaline phosphatase 80 and LDH 279, CK 740 (down from 986), total protein 8.4, albumin 3.0. Abdominal CT scan from early this morning is reported as showing air space opacities in both lower lobes, but in my review, these were minimal findings and likely represented subsegmental atelectasis. There is thickening of the wall of the urinary bladder. Duodenal and colonic diverticulosis without evidence of diverticulitis. Repeat cardiac marker panel showed now that the CK is down to 516 with a CK-MB of 14.8. Troponin I is less than 0.02. CBC this morning shows a hemoglobin of 14.6, hematocrit 43.3, platelet count 229,000, white blood cell count 8200. The differential is 75% neutrophils, 8% bands. (Down from 22), 7% lymphocytes. There is also 3+ metamyelocytes, 1+ Dohle bodies and 1+ polychromasia. Arterial blood gas on PRBC with a tidal volume of 420, PEEP of 5, set respiratory rate 16, and FIO2 of 0.35 with 7.29/46/70 with a measured saturation of 94% and a base excess of -4.8. Morning chest x-ray is pending. IMPRESSION: 1. Acute respiratory failure secondary to mixed acidemia leading to mechanical ventilation. The acute portion is likely secondary to either a COPD exacerbation or inability to compensate for a metabolic challenge. It is correcting with mechanical ventilation and possibly systemic corticosteroids. The metabolic portion also appears to be correcting based on the change in a negative base excess. The etiology of that is not yet known. 2. Bandemia, resolving. Again etiology unknown as I suspect a component is secondary to bone marrow rebound, which would suggest discontinuance of alcohol recently. There may also be an infective component. 3. COPD, based on body habitus, likely severe or very severe, with probable exacerbation. 4. Sinus tachycardia, likely related to his acute illness. 5. ID: On Zosyn empirically given negative base excess, bandemia and inability to effectively perform an examination given intubation. 6. Hypertension, at baseline. 7. History of ETOH abuse, not certain if active, on banana bag. 8. Deep venous thrombosis (DVT) prophylaxis with subcutaneous heparin. 9. Stress ulcer prophylaxis. On proton pump inhibitor. 10. Tobacco use, recent cessation. RECOMMENDATIONS 1. Will add Sequential compression devices (SCDs) and TEDs in addition to medication. 2. Will continue current antibiotics. 3. Sputum sent for gram stain and culture. 4. Will continue with systemic corticosteroids and bronchodilators. PROGNOSIS: Guarded. Critical care time: 40 minutes. [facility]
[2019-02-07] MEDS ORDERED: VANCOMYCIN HCL 1,000 MG in IV FLUID PLACE HOLDER 1 EA IV SCH (16:00)
[2019-02-07 16:45] LABS: CK-MB VALUE MASS 7.9 NG/ML (<3.6); CPK CREATINE PHOSPHOKINASE 281 U/L (39-308); MB/CK RELATIVE INDEX 2.81 (< OR =4); TROPONIN I < 0.02 NG/ML (< 0.10)
--- NOTE | 2019-02-07 17:32 | ECGEPIP ---
[facility] - ED Test Date: 2019-02-06 Pat Name: JOAN NICOLE Department: Room: [place] [address] Gender: Male Technical Director: CAMPBELL : 1965 Requested By: JASKARAN FRANKS Order Number: [id number] Reading MD: Rebekah Babin Measurements Intervals [place] Rate: 154 P: 95 VA: 119 QRS: 68 QRSD: 90 T: 50 QT: 268 QTc: 429 Interpretive Statements SINUS TACHYCARDIA WITH SHORT VA INTERVAL, POSSIBLE ATRIAL FLUTTER ABNORMAL RHYTHM ECG NSTTW abnormalities INCREASED RATE 01/16/17 Electronically Signed on 02-07-2019 17:32:24 EDT by Rebekah Babin
[2019-02-07] MEDS ORDERED: VANCOMYCIN HCL 1,000 MG, VIAL MATE ADAPTER 1 EACH in D5W 250 ML IV ONE (18:00)
[2019-02-07] MEDS: NS 1,000 ML IV SCH (20:00)
--- NOTE | 2019-02-07 23:21 | PHACANCOPD ---
PHARMACY VANCOMYCIN DOSING Pt Demographics Demographics Patient Age:53 , Weight:49.500 , Gender: male Adjusted Body Weight Events Past 24 Hours Events Past 24 Hours: NO: Dialysis, Diuretic Therapy, Change in CrCl, Fever, Elevation in WBC, Pending Diagnostics, Pending Procedures, Other Vancomycin Vancomycin indication: POSSIBLE MRSA Vancomycin Target Ranges: 15-20 mcg/ml Vancomycin Load Y/N: Yes Load Dose Date Time Vancomycin Load Dose: 1GM Date: 02/07/19 Time: 18:00 Vancomycin Dose Date: 02/08/19. Current Vancomycin Dose: [750MG IV Q8H (01:00)] Intermittent Dosing?: No Labs Labs Laboratory Tests 02/07/19 03:57 Red Blood Count 4.25 L, Mean Corpuscular Volume 101.9 H, Mean Corpuscular Hemoglobin 34.4 H, Mean Corpuscular Hemoglobin Concent 33.7, Red Cell Distribution Width 12.9, Lymphocytes # (Auto) , Calcium Level 10.0, Phosphorus Level 1.8 L, Aspartate Amino Transf (AST/SGOT) 65 H, Alanine Aminotransferase (ALT/SGPT) 41, Lactate Dehydrogenase 279 H, Total Creatine Kinase 740 H, Alkaline Phosphatase 80, Total Bilirubin 0.6, Triglycerides Level 105, Cholesterol Level 127, Total Protein 8.4 H, Albumin 3.0 L Micro Microbiology 02/06/19 Blood Culture - Preliminary, Resulted No growth after 24 hours . All specim... 02/06/19 Blood Culture - Preliminary, Resulted 02/07/19 Gram Stain - Final, Resulted 02/07/19 Sputum Culture, Resulted Pending Creatinine Clearance Date:02/07/19. Creatinine Clearance: [>60ml/min]. Assessment and Plan Maintaining Current Dose?: Yes Reason for dose change: No Dose Change Pharmacist Note Pharmacist Note Date: 02/07/19. PharmD note: Vanco 1gm load at 18:00 followed by 750mg iv q8h start 02/08 @01:00. a Vanco trough will be ordered when at steady state LOUISE ALLEN PHARMACY Feb 07, 2019 23:21
[2019-02-08] VITALS (18 sets, daily range): BP systolic 103–193; BP diastolic 63–104
[2019-02-08] MEDS: VANCOMYCIN HCL 750 MG, VIAL MATE ADAPTER 1 EACH in D5W 250 ML IV SCH ×3 (00:26→17:50)
[2019-02-08] MEDS: methylPREDNISolone INJ 125 MG/2 ML VIAL (J2930) IV SCH ×3 (02:25→17:50)
[2019-02-08] MEDS: PIPERACILLIN/TAZOBACTAM SOD 3.375 GM in D5W MINI-BAG PLUS 50 ML IV SCH ×4 (02:25→19:52)
[2019-02-08] MEDS: propofoL 1,000 MG in IV 1 EA IV SCH (03:57)
[2019-02-08] MEDS: IPRATROPIUM 0.5MG/ALBUTEROL 2.5MG INH SOL UD 3ML (DUONEB)(J7620) NEB SCH ×5 (04:03→19:41)
[2019-02-08] MEDS: MIDAZOLAM INJ 2 MG/2 ML VIAL (J2250) IV PRN (04:44)
[2019-02-08 04:55] LABS: MEAN CORPUSCULAR HEMOGLOBIN 34.4 pg (27.0-33.0); MEAN CORPUSCULAR HGB CONC 34.1 g/dl (32.0-36.5); MEAN CORPUSCULAR VOLUME 101.1 fl (80.0-96.0); PLATELET COUNT, AUTOMATED 219 10^3/uL (150-450); RED BLOOD COUNT 3.66 10^6/uL (4.30-6.10); WHITE BLOOD COUNT 13.2 10^3/uL (4.0-10.0)
[2019-02-08 04:59] LABS: HEMOGLOBIN 12.6 g/dl (13.5-17.5)
[2019-02-08 05:18] LABS: LYMPHOCYTES 4 % (16-52); MONOCYTES 6 % (0-8); MYELOCYTES 1 % (0-0); NEUTROPHILS 85 % (35-75)
[2019-02-08 05:21] LABS: PLATELET ESTIMATE NORMAL (NORMAL)
[2019-02-08 05:23] LABS: TOXIC GRANULATION 1+
[2019-02-08 05:33] LABS: ALBUMIN 2.3 GM/DL (3.2-5.2); ALT/SGPT 30 U/L (12-78); BILIRUBIN,TOTAL 0.3 MG/DL (0.2-1.0); BLOOD UREA NITROGEN 14 MG/DL (7-18); CALCIUM LEVEL 8.5 MG/DL (8.5-10.1); CARBON DIOXIDE LEVEL 24 MEQ/L (21-32); CHLORIDE LEVEL 107 MEQ/L (98-107); CHOLESTEROL LEVEL 128 MG/DL (< 200); CPK CREATINE PHOSPHOKINASE 177 U/L (39-308); CREATININE FOR GFR 0.47 MG/DL (0.70-1.30); GLOMERULAR FILTRATION RATE > 60.0 (>56); GLUCOSE, FASTING 193 MG/DL (70-100); LDH LACTATE DEHYDROGENASE 195 U/L (87-241); MAGNESIUM LEVEL 2.4 MG/DL (1.8-2.4); PHOSPHORUS LEVEL 0.7 MG/DL (2.5-4.9); POTASSIUM SERUM 2.8 MEQ/L (3.5-5.1); SODIUM LEVEL 140 MEQ/L (136-145); TRIGLYCERIDES LEVEL 117 MG/DL (<150)
[2019-02-08] MEDS: KCL 10MEQ/100ML SWI (KRUN) 10 MEQ in IV 1 EA IV SCH ×3 (06:23→08:21)
[2019-02-08] MEDS: NS 1,000 ML IV SCH (06:26)
[2019-02-08 06:38] LABS: ABG pH (ARTERIAL) 7.391 UNITS (7.350-7.450)
[2019-02-08 06:39] LABS: ABG HCO3 23.8 MEQ/L (22.0-26.0); ABG O2 SATURATION 94.7 % (95.0-99.0); ABG PARTIAL PRESSURE CO2 40.1 mmHg (35.0-45.0); ABG PARTIAL PRESSURE O2 70.1 mmHg (75.0-100.0); ABG STANDARD HCO3 23.6 MEQ/L (22.0-26.0)
--- NOTE | 2019-02-08 07:30 | REP ---
Clinical: Status post intubation. Comparison: 02/07/2019. Findings: Endotracheal tube 4 cm above the pedro. Nasogastric tube courses below left hemidiaphragm. Mediastinum and cardiac silhouette are stable. Lung jin demonstrate chronic stable changes without focal consolidation, obvious effusion, or pneumothorax. Skeletal structures intact. Impression: Endotracheal tube and nasogastric tube as described above. No focal consolidation or effusion appreciated. Electronically Signed by David Kent MD 02/08/2019 07:21 A
[2019-02-08 08:39] LABS: ABG BASE EXCESS -3.6 (-2.0-2.0); ABG HCO3 23.3 MEQ/L (22.0-26.0); ABG PARTIAL PRESSURE CO2 49.3 mmHg (35.0-45.0); ABG PARTIAL PRESSURE O2 93.6 mmHg (75.0-100.0); ABG STANDARD HCO3 21.5 MEQ/L (22.0-26.0); ABG TOTAL CO2 24.8 MEQ/L (22.0-29.0); ABG pH (ARTERIAL) 7.292 UNITS (7.350-7.450)
[2019-02-08] MEDS: CHLORHEXIDINE GLUCONATE 0.12 % 15ML UDC (PERIDEX ORAL RINSE) MT SCH (08:56)
[2019-02-08] MEDS: HEPARIN SOD (PORCINE) 5000 UNITS/ML VIAL SQ SCH ×2 (08:57→20:01)
[2019-02-08] MEDS: PANTOPRAZOLE 40MG INJ (PROTONIX) (C9113) IV SCH (09:00)
[2019-02-08] MEDS: MULTIVITAMIN -ADULT INJECTION 10 ML, THIAMINE INJection 100 MG, FOLIC ACID 1 MG in NS 1... IV SCH (09:00)
[2019-02-08 09:36] LABS: ABG BASE EXCESS 0.6 (-2.0-2.0); ABG HCO3 26.2 MEQ/L (22.0-26.0); ABG O2 SATURATION 98.4 % (95.0-99.0); ABG PARTIAL PRESSURE CO2 45.7 mmHg (35.0-45.0); ABG PARTIAL PRESSURE O2 110.9 mmHg (75.0-100.0); ABG TOTAL CO2 27.6 MEQ/L (22.0-29.0); ABG pH (ARTERIAL) 7.376 UNITS (7.350-7.450)
[2019-02-08] MEDS ORDERED: POTASSIUM PHOSPHATE INJ 20 MMOL in D5W 250 ML IV ONE (10:00)
--- NOTE | 2019-02-08 11:56 | CCN ---
DATE: 02/08/2019 Mr. Lainez remains critically ill with acute respiratory failure secondary to mixed acidemia. This morning, on his propofol holiday, he was alert and following commands. He clearly has increased work of breathing when he is more awake likely related to being intubated. He indicates no discomfort. No hemodynamic events. Yesterday, two out of two blood cultures became positive with gram-positive cocci in clusters. He was started on vancomycin and an methicillin-resistant Staphylococcus aureus (MRSA) swab was requested. OBJECTIVE/PHYSICAL EXAMINATION: General: Mr. Lainez is intubated and synchronous with the ventilator. Vital Signs: Temperature 98.6, respiratory rate 22 to 31, pulse 111, blood pressure 115/72 with a MAP of 86 and SPO2 96% on FIO2 of 0.355. HEENT: Anicteric, pupils 3 mm and reactive. Nares: Patent bilaterally. Oropharynx: ET tube and OG tube in place. Neck: Supple, trachea is midline, no thyromegaly, without jugular venous distention (JVD). Lymph: Without cervical or supraclavicular lymphadenopathy. Lungs: Symmetric excursion, generalized diminished air entry. No wheeze, rhonchi or crackle on tidal excursion. Prolonged expiratory phase. Continued use of supraclavicular accessory muscles and abdominal musculature when sedation is lightened. Cardiovascular: Tachycardiac, regular rhythm, normal S1 and S2. No murmur, rub or gallop appreciated. Abdomen: Positive bowel sounds, soft, question mild tenderness. No rebound and no hepatosplenomegaly or masses appreciated. Extremities: Without clubbing, cyanosis, or edema. Improved capillary refill. Palpable pedal pulses bilaterally. LABORATORY DATA: CBC showed a hemoglobin of 12.6, hematocrit 37, platelet count 219,000, white blood cell count 13,200 with a differential of 85% neutrophils, 4% bands, and 4% lymphocytes. Chemistries showed a sodium 140, potassium 2.8, chloride 107, bicarbonate 24, anion gap 9, BUN 14, creatinine 0.5, glucose 193, calcium 8.5, phosphorus 0.7, magnesium 2.4, total bilirubin 0.3, AST 24, ALT 30, alkaline phosphatase 67, LDH 195, CK 177, total protein 7, albumin 2.3. Arterial blood gas this morning on PRVC with a tidal volume of 420, rate of 16, PEEP of 5 and FIO2 of 0.35 was 7.39/40/70 with a measured saturation of 95% and base excess of -1. Yesterday's ins and outs were 2112 in and 2134 out making him negative 22. Thus far today, 435 in and 525 out making him negative 90. Weight 50.3 kg. I reviewed his chest x-ray as well as report from earlier today. That x-ray showed normal-appearing cardiac silhouette and pulmonary vascular shadows. Normal mediastinal and hilar regions. No acute infiltrates. Hyperinflation. ET tube in good position. IMPRESSION: 1. Acute respiratory failure secondary to mixed acidemia, correcting. 2. Chronic obstructive pulmonary disease (COPD), based on body habitus, likely very severe with probable exacerbation. 3. Positive blood culture for gram-positive cocci in clusters, final ID pending. 4. Hypertension, at baseline. 5. Infectious disease (ID), on Zosyn and vancomycin. 6. History of EtOH abuse, not certain if active, receiving banana bag. 7. Deep vein thrombosis (DVT) prophylaxis and stress ulcer prophylaxis in place. 8. History of tobacco usage, recent cessation. RECOMMENDATIONS: 1. Will replace electrolytes accordingly. 2. Will proceed with a weaning trial. 3. Will de-escalate antibiotics as soon as culture results are available. ADDENDUM: 1. On a weaning trial with a pressure of 15 and PEEP of 5, his rapid shallow breathing index was in the 50s to 60s. Tidal volumes were in the 400-500 range. However, as the trial proceeded, while waiting for the arterial blood gas, he appeared to have increased work of breathing. He uses accessory muscles at baseline and they were accentuated. Arterial blood gas at that time was 7.29/49/94 with a measured saturation of 97% and a base excess of -3.6. It was not felt that he could be safely extubated at this time. However, it was felt that the prevention of extubation may have been mechanical and related to the ventilator itself with increased work of breathing through the endotracheal tube leading to some anxiety and causing air trapping. It was decided to resedate him and do a weaning trial on sedation and see how he did to eliminate possible mechanical obstruction. 2. We went on to another weaning trial. He was sedated and again kept the entire time on a pressure support of 5 and PEEP of 5. After he was sedated for about half an hour, repeat arterial blood gas was drawn which was now 7.38/46/111 with a measured saturation 98% and a base excess of 0.6. His rapid shallow breathing index was 52-62, predicting success. It was thought that the limitation was mechanical and this repeat trial substantiates that belief. We then proceeded with extubation. He is being extubated to noninvasive mechanical ventilation and will be weaned from that modality. CRITICAL CARE TIME: 50 minutes, not including procedure time. KEHINDE
--- NOTE | 2019-02-08 18:14 | PHACANCOPD ---
PHARMACY VANCOMYCIN DOSING Pt Demographics Demographics Patient Age:53 , Weight:50.300 , Gender: male Adjusted Body Weight Events Past 24 Hours Events Past 24 Hours: YES: Change in CrCl Vancomycin Vancomycin indication: POSSIBLE MRSA Vancomycin Target Ranges: 15-20 mcg/ml Vancomycin Load Y/N: Yes Load Dose Date Time Vancomycin Load Dose: 1GM Date: 02/07/19 Time: 18:00 Vancomycin Dose Date: 02/08/19. Current Vancomycin Dose: [1G IV Q8H] Date: 02/08/19. Current Vancomycin Dose: [750MG IV Q8H (01:00)] Intermittent Dosing?: No Labs Labs Item Value Date Time White Blood Count 8.2 10^3/uL 02/07/19 0357 White Blood Count 13.2 10^3/uL H 02/08/19 0437 White Blood Count 14.6 10^3/uL H 02/06/19 2229 Creatinine 0.80 MG/DL 02/07/19 035 Creatinine 0.47 MG/DL L 02/08/19 0437 Vancomycin Level Trough 12.5 UG/ML 02/08/19 1555 Micro Microbiology 02/06/19 Blood Culture - Preliminary, Resulted 02/06/19 Blood Culture - Preliminary, Resulted 02/07/19 Gram Stain - Final, Resulted 02/07/19 Sputum Culture, Resulted Pending Creatinine Clearance Date:02/07/19. Creatinine Clearance: [>60ml/min]. Pending Labs VANCOMYCIN TROUGH 02/09/10 @16:00 Assessment and Plan Maintaining Current Dose?: No Reason for dose change: Change in serum Cr, Trough too low Pharmacist Note Pharmacist Note Date: 02/08/19. Pharmacist note: The pts serum creatinine has improved today closer to baseline @~0.47mg/dl. A trough came back @ 15:55 at 12.5mcg/ml. Dosing will be changed to 1g iv every 8 hours. A trough is scheduled for 02/09/19 @16:00. We will continue to monitor and adjust the dose as needed. Date: 02/07/19. PharmD note: Vanco 1gm load at 18:00 followed by 750mg iv q8h start 02/08 @01:00. a Vanco trough will be ordered when at steady state ZANA MANDEL PHARMACY Feb 08, 2019 18:14
[2019-02-08 21:01] LABS: ALBUMIN 2.5 GM/DL (3.2-5.2); ALT/SGPT 42 U/L (12-78); BILIRUBIN,TOTAL 0.5 MG/DL (0.2-1.0); BLOOD UREA NITROGEN 12 MG/DL (7-18); CALCIUM LEVEL 8.6 MG/DL (8.5-10.1); CARBON DIOXIDE LEVEL 25 MEQ/L (21-32); CHLORIDE LEVEL 107 MEQ/L (98-107); GLOMERULAR FILTRATION RATE > 60.0 (>56); GLUCOSE, FASTING 140 MG/DL (70-100); PHOSPHORUS LEVEL 1.6 MG/DL (2.5-4.9); POTASSIUM SERUM 3.6 MEQ/L (3.5-5.1); SODIUM LEVEL 139 MEQ/L (136-145); TOTAL PROTEIN 7.5 GM/DL (6.4-8.2)
[2019-02-08] MEDS ORDERED: POTASSIUM PHOSPHATE INJ 15 MMOL in D5W 250 ML IV ONE (22:00)
[2019-02-09] VITALS (8 sets, daily range): BP systolic 150–178; BP diastolic 88–104
[2019-02-09] MEDS: IPRATROPIUM 0.5MG/ALBUTEROL 2.5MG INH SOL UD 3ML (DUONEB)(J7620) NEB SCH ×7 (00:04→23:33)
[2019-02-09] MEDS: VANCOMYCIN HCL 1,000 MG, VIAL MATE ADAPTER 1 EACH in D5W 250 ML IV SCH ×3 (00:55→17:40)
[2019-02-09] MEDS: methylPREDNISolone INJ 125 MG/2 ML VIAL (J2930) IV SCH ×2 (01:01→10:30)
[2019-02-09] MEDS: PIPERACILLIN/TAZOBACTAM SOD 3.375 GM in D5W MINI-BAG PLUS 50 ML IV SCH ×4 (02:18→20:35)
[2019-02-09 04:44] LABS: BASO # 0.1 10^3/uL (0.0-0.2); BASO % 0.5 % (0.0-1.0); HEMATOCRIT 38.7 % (42.0-52.0); LYMPH # 0.8 10^3/uL (1.5-4.5); LYMPH % 5.2 % (24.0-44.0); MEAN CORPUSCULAR HEMOGLOBIN 33.6 pg (27.0-33.0); MEAN CORPUSCULAR HGB CONC 33.6 g/dl (32.0-36.5); MONO # 1.2 10^3/uL (0.0-0.8); NEUTROPHILS # 12.7 10^3/uL (1.8-7.7); NEUTROPHILS % 84.8 % (36.0-66.0); PLATELET COUNT, AUTOMATED 240 10^3/uL (150-450); RED BLOOD COUNT 3.87 10^6/uL (4.30-6.10); WHITE BLOOD COUNT 14.9 10^3/uL (4.0-10.0)
[2019-02-09 05:06] LABS: ALBUMIN 2.3 GM/DL (3.2-5.2); ALT/SGPT 48 U/L (12-78); BILIRUBIN,TOTAL 0.4 MG/DL (0.2-1.0); BLOOD UREA NITROGEN 12 MG/DL (7-18); CALCIUM LEVEL 8.2 MG/DL (8.5-10.1); CARBON DIOXIDE LEVEL 25 MEQ/L (21-32); CHLORIDE LEVEL 106 MEQ/L (98-107); CHOLESTEROL LEVEL 156 MG/DL (< 200); CPK CREATINE PHOSPHOKINASE 178 U/L (39-308); CREATININE FOR GFR 0.48 MG/DL (0.70-1.30); GLOMERULAR FILTRATION RATE > 60.0 (>56); GLUCOSE, FASTING 155 MG/DL (70-100); LDH LACTATE DEHYDROGENASE 210 U/L (87-241); MAGNESIUM LEVEL 2.2 MG/DL (1.8-2.4); PHOSPHORUS LEVEL 1.8 MG/DL (2.5-4.9); POTASSIUM SERUM 3.4 MEQ/L (3.5-5.1); SODIUM LEVEL 140 MEQ/L (136-145); TOTAL PROTEIN 6.9 GM/DL (6.4-8.2); TRIGLYCERIDES LEVEL 120 MG/DL (<150)
[2019-02-09] MEDS: NS 1,000 ML IV SCH (08:01)
[2019-02-09] MEDS: MULTIVITAMIN -ADULT INJECTION 10 ML, THIAMINE INJection 100 MG, FOLIC ACID 1 MG in NS 1... IV SCH (08:01)
[2019-02-09] MEDS: PANTOPRAZOLE 40MG INJ (PROTONIX) (C9113) IV SCH (08:02)
[2019-02-09] MEDS: HEPARIN SOD (PORCINE) 5000 UNITS/ML VIAL SQ SCH ×2 (08:02→20:35)
[2019-02-09] MEDS: ADVAIR HFA 230/21MCG INHALER INH SCH ×2 (09:00→19:55)
[2019-02-09 09:21] LABS: ABG BASE EXCESS 1.1 (-2.0-2.0); ABG HCO3 24.4 MEQ/L (22.0-26.0); ABG O2 SATURATION 94.3 % (95.0-99.0); ABG PARTIAL PRESSURE CO2 34.8 mmHg (35.0-45.0); ABG PARTIAL PRESSURE O2 67.8 mmHg (75.0-100.0); ABG STANDARD HCO3 25.4 MEQ/L (22.0-26.0); ABG TOTAL CO2 25.5 MEQ/L (22.0-29.0); ABG pH (ARTERIAL) 7.464 UNITS (7.350-7.450)
[2019-02-09] MEDS ORDERED: POTASSIUM PHOSPHATE INJ 18 MMOL in D5W 250 ML IV ONE (10:00)
--- NOTE | 2019-02-09 11:36 | IPNPDOC ---
Text Note Date of Service The patient was seen on 02/09/19. NOTE Subjective: Patient is a 53-year-old male with a PMHx of HTN, COPD and EtOH abuse, who presented to the emergency room with complaints of shortness of breath. In the emergency room, patient was placed on BiPAP, became unresponsive and was using accessory muscles. 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 Patient was extubated on 02/08/2019, patient was transferred to the hospitalist service on 02/09/2019. Patient was seen and examined at the bedside. . Currently, patient reports that he is not expressing any chest pain or palpitations. He still notes some shortness of breath, wheezing. Still reports a mild cough. Denies any nausea, vomiting, pain, diarrhea Objective: Vitals (See below) General: Lying in bed, no acute distress, comfortable, AAOx3 HEENT: NC, AT, on BIPAP CVS: RRR, +S1S2 Lungs: Fair air entry b/l, diffuse expiratory wheezing noted, no rhonchi / rales Abdomen: Soft, ND, NT Extremities: - Edema, - Calf tenderness Assessment and plan: Shortness of breath - likely 2/2 acute hypercapnic and hypoxic respiratory failure - likely 2/2 exacerbation of underlying lung disease - s/p intubation on 02/06; extubation on 02/08 - Clinically has noted some improvement in breathing - ABG noted with improvement - Sputum culture 02/07: Haemophilus influenza - CXR 02/08: Endotracheal tube and nasogastric tube as described above. No focal consolidation or effusion appreciated. - c/w BIPAP for now - c/w inhaled therapy as orderd - c/w Solumedrol at current dose Positive blood cultures 2 of 2 bottles - Blood culture 02/06: Staph Hominis and Gram positive cocci in clusters - Repeat blood cultures 02/09: Pending - ECHO (TTE) 02/07: G1DD, Dilate hypokinetic RV, normal / mildly elevated CVP and mild pulmonary HTN - c/w Vancomycin and Zosyn (Day #3) - Will consult infectious disease tomorrow Leukocytosis - possibly 2/2 reactive etiology - 2/2 corticosteroids, possibly 2/2 infectious etiology - Remains afebrile / hemodynamically stable - See above Macrocytic anemia - No evidence of bleeding - Hg appears stable Hypokalemia - s/p Supplementation GI prophylaxis - c/w Protonix DVT prophylaxis - c/w Heparin VS,Fishbone, I+O VS, Fishbone, I+O Laboratory Tests 02/08/19 19:53 Calcium Level 8.6, Phosphorus Level 1.6 #L, Aspartate Amino Transf (AST/SGOT) 35, Alanine Aminotransferase (ALT/SGPT) 42, Alkaline Phosphatase 85, Total Bilirubin 0.5 #, Total Protein 7.5, Albumin 2.5 L 02/09/19 04:21 Calcium Level 8.2 L, Phosphorus Level 1.8 L, Aspartate Amino Transf (AST/SGOT) 48 H, Alanine Aminotransferase (ALT/SGPT) 48, Alkaline Phosphatase 77, Total Bilirubin 0.4, Total Protein 6.9, Albumin 2.3 L, Red Blood Count 3.87 L, Mean Corpuscular Volume 100.0 H, Mean Corpuscular Hemoglobin 33.6 H, Mean Corpuscular Hemoglobin Concent 33.6, Red Cell Distribution Width 13.2, Neutrophils (%) (Aut o) 84.8 H, Lymphocytes (%) (Auto) 5.2 L, Monocytes (%) (Auto) 8.0 H, Eosinophils (%) (Auto) 0.0, Basophils (%) (Auto) 0.5, Neutrophils # (Auto) 12.7 H, Lymphocytes # (Auto) 0.8 L, Monocytes # (Auto) 1.2 H, Eosinophils # (Auto) 0.0, Basophils # (Auto) 0.1, Lactate Dehydrogenase 210, Total Creatine Kinase 178, Triglycerides Level 120, Cholesterol Level 156 Vital Signs Date Time Temp Pulse Resp B/P (MAP) Pulse Ox O2 Delivery O2 Flow Rate FiO2 02/09/19 08:08 89 23 02/09/19 08:08 30 02/09/19 06:00 151/88 (114) 97 02/09/19 04:00 98.4 02/08/19 03:57 Ventilator 02/06/19 22:41 6.0 I&O- Last 24 Hours up to 6 AM 02/09/19 06:00 Intake Total 3206.2 ml Output Total 1985 ml Balance 1221.2 ml BETTY SPENCER MD Feb 09, 2019 11:36
[2019-02-09] MEDS: TIOTROPIUM INHALER/CAPSULE (SPIRIVA) INH SCH (11:49)
[2019-02-09] MEDS: predniSONE 20 MG TAB PO SCH (12:27)
[2019-02-09] MEDS: FOLIC ACID 1 MG TAB PO SCH (12:27)
[2019-02-09] MEDS: MULTIVITAMINS/MINERALS THERAP 1 TAB PO SCH (12:27)
[2019-02-09] MEDS: THIAMINE 100 MG TAB PO SCH (12:27)
--- NOTE | 2019-02-09 14:35 | CCN ---
DATE: 02/09/2019 Mr. Lainez did well overnight on noninvasive mechanical ventilation. After discontinuing the NIMV this morning, he indicates no discomfort. He has a cough that is increased over his baseline. He does note that in the days preceding his admission he had an increased cough that was productive, at times of yellowish sputum. No hemoptysis. He denies any chest pain or pressure. No abdominal pain. He did not have nausea, emesis or diarrhea. No ill contacts. He does not believe he had a fever. He noted increasing shortness of breath, that was not relieved by his medications. Unlike what he told the emergency department staff, he was smoking up to the time of his admission and in fact put out his cigarette after he called . The same is true of alcohol. He states he may go several days without drinking alcohol, but typically has three to six beers per day. He has never experienced delirium tremens (DTs). OBJECTIVE/PHYSICAL EXAMINATION: General: Mr. Lainez is lying in bed in mild respiratory distress, which I suspect is his baseline. He can complete short sentences. He has a strong productive sounding cough. Vital Signs: Temperature 98.4, maximum temperature (T-max) 98.9, blood pressure 151/88 (MAP 114), respiratory rate 23, pulse 89, SPO2 95-97% on 3 liters by nasal cannula. HEENT: Anicteric, PERRL. Nares: Patent bilaterally. Oropharynx clear, no lesions. Neck: Supple, without JVD, thyromegaly or masses. Trachea is midline. Lymph: Without cervical or supraclavicular lymphadenopathy. Chest: Increased AP diameter. Lungs: Symmetric excursion, markedly diminished air entry. No wheeze, rhonchi or crackle on tidal excursion. Prolonged expiratory phase. Mild supraclavicular accessory muscle usage. Intermittent abdominal muscle usage on exhalation. Cardiovascular: Distant. Regular rate and rhythm. No murmur, rub or gallop appreciated. Abdomen: Positive bowel sounds, soft, nondistended, nontender, no hepatosplenomegaly or masses appreciated. Extremities: Warm and well-perfused. Without clubbing, cyanosis or edema. Palpable pedal pulses bilaterally. LABORATORY DATA: CBC shows a hemoglobin of 13, hematocrit 38.7, platelet count 240,000, white blood cell count 14,900 with a differential of 85% neutrophils, 5% lymphocytes, 8% monocytes. Chemistry showed a sodium of 140, potassium 3.4, chloride 106, bicarbonate 25, anion gap 9, BUN 12, creatinine 0.5, glucose 155, calcium 8.2, phosphorus 1.8, magnesium 2.2, total bilirubin 0.4, AST 48, ALT 48, alkaline phosphatase 77, LDH 210, CK 178, total protein 6.9. This morning's blood gas on noninvasive mechanical ventilation with IPAP of 10, an EPAP of 5 and FIO2 of 0.3 was 7.46/35/68 with a measured saturation of 94% and a base excess of 1.19. Yesterday's ins and outs were 2305 in and 175 out making him positive 520. Thus far today, 1337 in and 450 out making him positive 886. Weight 50.3 kg. I reviewed his chest x-ray as well as the report from earlier today. That x-ray showed normal-appearing cardiac silhouette and pulmonary vascular shadows. Normal-appearing mediastinal and hilar regions. Evidence of hyperinflation. One of his two blood cultures from 02/06/2019 showed Staphylococcus hominis species and a second positive blood culture with gram-positive cocci in clusters is pending. His sputum culture from 02/07/2019 showed heavy growth of Haemophilus influenzae. IMPRESSION: 1. Acute respiratory failure secondary to mixed acidemia, corrected. Tolerated extubation 02/08/2019. 2. Chronic obstructive pulmonary disease (COPD) with likely exacerbation. 3. Probable bronchitis from Haemophilus flu. 4. Positive blood cultures, one pending and one for Staphylococcus hominis species. 5. Infectious disease. Zosyn and vancomycin. Plan will be to de-escalate as soon as the final blood culture result is available. 6. Hypertension, at baseline. 7. EtOH abuse, active at the time of admission. 8. Tobacco usage, active the time admission. 9. Deep vein thrombosis (DVT) prophylaxis and stress ulcer prophylaxis in place. 10. Pulmonary hypertension, at least mild, per echocardiogram 02/2019. RECOMMENDATIONS: 1. Again, will try to de-escalate antibiotics as soon as second blood culture results are available. Will also send methicillin-resistant Staphylococcus aureus (MRSA) nasal swab; I thought it was linked to the vancomycin ordered, but I do not see the results in the chart. 2. Will change the NIMV to bilevel as needed. Hopefully, he will not need it today and it can be discontinued all together. 3. Will change his medications over to by mouth. As long as he is on systemic corticosteroids, I feel he should remain on a proton pump inhibitor for stress ulcer prophylaxis. 4. Will increase activity. 5. Will advance diet to a COPD diet. 6. Will defer to hospitalist service who are taking over as attending service hypertensive management. 7. Could consider starting him on an alcohol withdrawal protocol. 8. Will start his outpatient pulmonary medications. At baseline, he is on IC/LABA/LAMA medications. 9. Will ask respiratory to intervene for hyperinflation therapy to help his cough. KEHINDE
--- NOTE | 2019-02-09 18:59 | PHACANCOPD ---
PHARMACY VANCOMYCIN DOSING Pt Demographics Demographics Patient Age:53 , Weight:50.300 , Gender: male Adjusted Body Weight Vancomycin Vancomycin indication: POSSIBLE MRSA Vancomycin Target Ranges: 15-20 mcg/ml Vancomycin Load Y/N: Yes Load Dose Date Time Vancomycin Load Dose: 1GM Date: 02/07/19 Time: 18:00 Vancomycin Dose Date: 02/08/19. Current Vancomycin Dose: [1G IV Q8H] Date: 02/08/19. Current Vancomycin Dose: [750MG IV Q8H (01:00)] Intermittent Dosing?: No Labs Labs Item Value Date Time White Blood Count 8.2 10^3/uL 02/07/19 0357 White Blood Count 13.2 10^3/uL H 02/08/19 0437 White Blood Count 14.9 10^3/uL H 02/09/19 0421 Creatinine 0.47 MG/DL L 02/08/19 0437 Creatinine 0.50 MG/DL L 02/08/19 1953 Creatinine 0.48 MG/DL L 02/09/19 0421 Vancomycin Level Trough 12.5 UG/ML 02/08/19 1555 Vancomycin Level Trough 12.0 UG/ML 02/09/19 1606 Micro Microbiology 02/09/19 Blood Culture, Received Pending 02/09/19 Blood Culture, Received Pending 02/06/19 Blood Culture - Final, Complete Staphylococcus Hominis Ssp Tony 02/06/19 Blood Culture - Preliminary, Resulted 02/07/19 Gram Stain - Final, Complete 02/07/19 Sputum Culture - Final, Complete Haemophilus Influenzae Creatinine Clearance Date:02/07/19. Creatinine Clearance: [>60ml/min]. Assessment and Plan Maintaining Current Dose?: Yes Reason for dose change: No Dose Change Pharmacist Note Pharmacist Note Date: 02/09/19. Pharmacist note: Pt trough came in today @ 16:00 @ 12mcg/ml. The previous 09:00 dose was administered @ 08:00. We will continue 1g iv every 8 hours. We will continue to monitor and adjust the dose as needed. Date: 02/08/19. Pharmacist note: The pts serum creatinine has improved today closer to baseline @~0.47mg/dl. A trough came back @ 15:55 at 12.5mcg/ml. Dosing will be changed to 1g iv every 8 hours. A trough is scheduled for 02/09/19 @16:00. We will continue to monitor and adjust the dose as needed. Date: 02/07/19. PharmD note: Vanco 1gm load at 18:00 followed by 750mg iv q8h start 02/08 @01:00. a Vanco trough will be ordered when at steady state ZANA MANDEL PHARMACY Feb 09, 2019 18:59
[2019-02-09] MEDS ORDERED: VANCOMYCIN HCL 1,000 MG, VIAL MATE ADAPTER 1 EACH in D5W 250 ML IV SCH (23:00)
[2019-02-10] VITALS: BP 130/67
[2019-02-10] MEDS: VANCOMYCIN HCL 1,000 MG, VIAL MATE ADAPTER 1 EACH in D5W 250 ML IV SCH ×2 (00:03→09:00)
[2019-02-10] MEDS: PIPERACILLIN/TAZOBACTAM SOD 3.375 GM in D5W MINI-BAG PLUS 50 ML IV SCH ×2 (02:08→08:47)
[2019-02-10 04:00] VITALS: BP 156/72
[2019-02-10] MEDS: IPRATROPIUM 0.5MG/ALBUTEROL 2.5MG INH SOL UD 3ML (DUONEB)(J7620) NEB SCH ×6 (04:00→20:00)
[2019-02-10 05:14] LABS: HEMATOCRIT 39.2 % (42.0-52.0); HEMOGLOBIN 13.2 g/dl (13.5-17.5); MEAN CORPUSCULAR HGB CONC 33.7 g/dl (32.0-36.5); PLATELET COUNT, AUTOMATED 253 10^3/uL (150-450); WHITE BLOOD COUNT 13.2 10^3/uL (4.0-10.0)
[2019-02-10 05:43] LABS: LYMPHOCYTES 13 % (16-52); MONOCYTES 7 % (0-8); NEUTROPHILS 75 % (35-75)
[2019-02-10 05:44] LABS: PLATELET ESTIMATE NORMAL (NORMAL)
[2019-02-10 05:54] LABS: ALBUMIN 2.4 GM/DL (3.2-5.2); ALT/SGPT 68 U/L (12-78); BILIRUBIN,TOTAL 0.3 MG/DL (0.2-1.0); BLOOD UREA NITROGEN 10 MG/DL (7-18); CALCIUM LEVEL 7.9 MG/DL (8.5-10.1); CARBON DIOXIDE LEVEL 29 MEQ/L (21-32); CHLORIDE LEVEL 107 MEQ/L (98-107); CHOLESTEROL LEVEL 166 MG/DL (< 200); CPK CREATINE PHOSPHOKINASE 265 U/L (39-308); CREATININE FOR GFR 0.54 MG/DL (0.70-1.30); GLOMERULAR FILTRATION RATE > 60.0 (>56); GLUCOSE, FASTING 152 MG/DL (70-100); LDH LACTATE DEHYDROGENASE 218 U/L (87-241); MAGNESIUM LEVEL 2.1 MG/DL (1.8-2.4); POTASSIUM SERUM 2.9 MEQ/L (3.5-5.1); SODIUM LEVEL 142 MEQ/L (136-145); TOTAL PROTEIN 6.5 GM/DL (6.4-8.2); TRIGLYCERIDES LEVEL 109 MG/DL (<150)
[2019-02-10] MEDS ORDERED: POTASSIUM PHOSPHATE INJ 30 MMOL in D5W 500 ML IV ONE (07:00)
[2019-02-10] MEDS: ADVAIR HFA 230/21MCG INHALER INH SCH ×2 (07:22→20:18)
[2019-02-10 08:00] VITALS: BP 169/101
[2019-02-10] MEDS: THIAMINE 100 MG TAB PO SCH (08:49)
[2019-02-10] MEDS: amLODIPine 5 MG TAB PO SCH (08:49)
[2019-02-10] MEDS: PANTOPRAZOLE 40MG TAB (PROTONIX) PO SCH (08:49)
[2019-02-10] MEDS: MULTIVITAMINS/MINERALS THERAP 1 TAB PO SCH (08:49)
[2019-02-10] MEDS: predniSONE 20 MG TAB PO SCH (08:49)
[2019-02-10] MEDS: FOLIC ACID 1 MG TAB PO SCH (08:50)
[2019-02-10] MEDS: HEPARIN SOD (PORCINE) 5000 UNITS/ML VIAL SQ SCH ×2 (08:50→21:12)
[2019-02-10] MEDS: TIOTROPIUM INHALER/CAPSULE (SPIRIVA) INH SCH (08:52)
[2019-02-10] MEDS ORDERED: POTASSIUM CHLORIDE 10 MEQ SR TABLET PO ONE (09:00)
[2019-02-10] MEDS ORDERED: CALCIUM CARBONATE 500 MG CHEW U/D PO ONE (09:00)
[2019-02-10 12:00] VITALS: BP 153/90
[2019-02-10] MEDS: DOXYCYCLINE HYCLATE 100 MG TAB PO SCH ×2 (13:28→21:12)
[2019-02-10 16:00] VITALS: BP 121/80
[2019-02-10 20:00] VITALS: BP 136/73
[2019-02-11] VITALS: BP 124/78
[2019-02-11 04:00] VITALS: BP 129/81
[2019-02-11 04:37] LABS: HEMATOCRIT 39.3 % (42.0-52.0); HEMOGLOBIN 13.4 g/dl (13.5-17.5); MEAN CORPUSCULAR HEMOGLOBIN 34.2 pg (27.0-33.0); MEAN CORPUSCULAR HGB CONC 34.1 g/dl (32.0-36.5); MEAN CORPUSCULAR VOLUME 100.3 fl (80.0-96.0); PLATELET COUNT, AUTOMATED 268 10^3/uL (150-450); RED BLOOD COUNT 3.92 10^6/uL (4.30-6.10); WHITE BLOOD COUNT 14.9 10^3/uL (4.0-10.0)
[2019-02-11 05:04] LABS: ALBUMIN 2.2 GM/DL (3.2-5.2); ALT/SGPT 71 U/L (12-78); BILIRUBIN,TOTAL 0.2 MG/DL (0.2-1.0); BLOOD UREA NITROGEN 10 MG/DL (7-18); CALCIUM LEVEL 8.1 MG/DL (8.5-10.1); CARBON DIOXIDE LEVEL 31 MEQ/L (21-32); CHLORIDE LEVEL 106 MEQ/L (98-107); CHOLESTEROL LEVEL 171 MG/DL (< 200); CPK CREATINE PHOSPHOKINASE 137 U/L (39-308); CREATININE FOR GFR 0.53 MG/DL (0.70-1.30); GLOMERULAR FILTRATION RATE > 60.0 (>56); GLUCOSE, FASTING 88 MG/DL (70-100); LDH LACTATE DEHYDROGENASE 197 U/L (87-241); MAGNESIUM LEVEL 1.9 MG/DL (1.8-2.4); PHOSPHORUS LEVEL 1.9 MG/DL (2.5-4.9); POTASSIUM SERUM 2.9 MEQ/L (3.5-5.1); SODIUM LEVEL 143 MEQ/L (136-145); TRIGLYCERIDES LEVEL 110 MG/DL (<150)
[2019-02-11 05:15] LABS: EOSINOPHILS 1 % (0-5); LYMPHOCYTES 28 % (16-52); MONOCYTES 6 % (0-8); NEUTROPHILS 65 % (35-75); PLATELET ESTIMATE NORMAL (NORMAL)
[2019-02-11] MEDS ORDERED: POTASSIUM PHOSPHATE INJ 30 MMOL in D5W 500 ML IV ONE (05:30)
[2019-02-11 06:00] VITALS: BP 130/96
[2019-02-11] MEDS: ADVAIR HFA 230/21MCG INHALER INH SCH ×2 (07:44→21:30)
[2019-02-11] MEDS: TIOTROPIUM INHALER/CAPSULE (SPIRIVA) INH SCH (07:44)
[2019-02-11] MEDS: IPRATROPIUM 0.5MG/ALBUTEROL 2.5MG INH SOL UD 3ML (DUONEB)(J7620) NEB SCH ×4 (07:44→20:00)
[2019-02-11 08:00] VITALS: BP 121/75
[2019-02-11] MEDS: predniSONE 20 MG TAB PO SCH (08:03)
[2019-02-11] MEDS: HEPARIN SOD (PORCINE) 5000 UNITS/ML VIAL SQ SCH ×2 (08:03→20:04)
[2019-02-11] MEDS: MULTIVITAMINS/MINERALS THERAP 1 TAB PO SCH (08:04)
[2019-02-11] MEDS: POTASSIUM CHLORIDE 10 MEQ SR TABLET PO SCH (08:04)
[2019-02-11] MEDS: THIAMINE 100 MG TAB PO SCH (08:04)
[2019-02-11] MEDS: PANTOPRAZOLE 40MG TAB (PROTONIX) PO SCH (08:04)
[2019-02-11] MEDS: FOLIC ACID 1 MG TAB PO SCH (08:04)
[2019-02-11] MEDS: DOXYCYCLINE HYCLATE 100 MG TAB PO SCH (08:04)
[2019-02-11] MEDS: amLODIPine 5 MG TAB PO SCH (08:05)
--- NOTE | 2019-02-11 08:57 | IPN ---
DATE: 02/10/2019 SUBJECTIVE: The patient is examined at bedside in the intensive care unit (ICU). No reported events overnight. He states that he is feeling better. He is on 1 liter of nasal cannula this morning and states that his breathing is much improved and he is coughing less without any chest discomfort, fevers, chills, nausea, vomiting. He is not bringing up any phlegm or sputum. PHYSICAL EXAMINATION: VITAL SIGNS: Temperature 97.9, pulse 92, respirations 21, blood pressure MAP of 126. Pulse oximetry 92% on 1 liter nasal cannula. GENERAL: Resting comfortably in bed. No acute distress. Alert and oriented times three. Fully conversant. HEENT: Normocephalic, atraumatic. Moist mucous membranes. No oral lesions. NECK: Supple without adenopathy. CARDIAC: Regular rate and rhythm. No appreciable murmurs. No peripheral edema. LUNGS: Expiratory wheezing throughout without mild rhonchi, worse on the right base that clears with coughing. No accessory muscle use. ABDOMEN: Soft, nontender, nondistended. Positive bowel sounds. EXTREMITIES: 2+ radial pulses bilaterally. SKIN: No visible lesions or rashes. ASSESSMENT AND PLAN: 53-year-old male who presented to the emergency room for shortness of breath and was placed on bilevel positive airway pressure (BIPAP), became unresponsive and was using accessory muscles, thereafter was intubated on 02/06/2019 and extubated on 02/08/2019. 1. Acute hypercapnic and hypoxic respiratory failure secondary to chronic obstructive pulmonary disease (COPD) exacerbation. The patient continues to be weaned off of oxygen and is on 1 liter today with much respiratory improvement. Sputum culture positive for H influenza, which likely worsened his respiratory status. He has been off of BiPAP as of yesterday morning and is doing well. Pulmonology is following, appreciate input. Has been switched from IV steroids to oral prednisone. On doxycycline. 2. Staphylococcus hominis bacteremia. Initial blood culture was positive on admission on 02/06/2019. Followup blood cultures negative for two sets on 02/09/2019. Transthoracic echocardiogram done on 02/07/2019 showed grade 1 diastolic dysfunction, dilated hypokinetic right ventricle with normal to mildly elevated central venous pressure and mild pulmonary hypertension, no vegetations seen. He is on vancomycin and Zosyn. We will discontinue his Zosyn given he has had no other blood growth. We will consult Dr. Brown for Staphylococcus bacteremia. Meanwhile, continue on vancomycin. 3. Hypokalemia. His potassium was decreased from 3.4 to 2.9 today. The patient is asymptomatic. We will continue supplementation. He also has hypophosphatemia, which we will also supplement and reassess tomorrow. 4. Hypocalcemia. Corrected calcium was 7.58, we will supplement and reassess. 5. Leukocytosis. White count is stable at 13 to 14, although patient is afebrile and doing well otherwise. This is likely reactionary to his steroids that have been transitioned from intravenous to oral. This is also due to his increased work of breathing on admission. Continue trending. 6. Macrocytic anemia. No bleeding. Iron studies from 10/2018 do show mild iron deficiency. He will likely require supplementation on discharge. Hemoglobin is otherwise stable, near his baseline of 14. 7. Gastrointestinal prophylaxis. Oral Protonix. 8. History of alcohol use. Continue thiamine, folate, multivitamin. Currently stable and no signs of any withdrawal. 9. Deep vein thrombosis (DVT) prophylaxis. Heparin subcutaneously. DISPOSITION: Pending clinical improvement. We will downgrade out of the intensive care unit (ICU). We will likely discharge home in the next 24 to 48 hours. I, Rodger Leal, have independently examined this patient and performed my own physical exam, as well as reviewed the documentation and edited where necessary. I have discussed in detail with the resident / student the findings and plan of treatment as documented by the resident / student and edited their note. I agree with their findings and treatment plan and have edited their documentation. I will continue to follow the patient during this hospital stay. KEHINDE
[2019-02-11] MEDS ORDERED: CEFUROXIME 500 MG TAB PO SCH (09:00)
--- NOTE | 2019-02-11 09:53 | IPNPDOC ---
Subjective Date Seen The patient was seen on 02/11/19. Subjective Chief Complaint/HPI less dyspnea, some cough. affirms commitment to remain tobacco free ENT: Denies: Head Aches Pulmonary: Reports: Cough; Denies: Pleuritic Chest Pain Cardiovascular: Denies: Chest Pain, Palpitations Gastrointestinal: Denies: Nausea, Abdominal Pain Genitourinary: Denies: Dysuria Neurological: Denies: Weakness Psych: Reports: Mood Normal Objective Physical Examination General Exam: Positive: Alert, Cooperative, No Acute Distress, Severe Distress (on bipap, unresponsive, using accessory muscle with respirations 40 prior to intubation), Other (unkempt, soiled/dirty clothing) Eye Exam: Positive: PERRLA, Other Eye Symptoms (eyes closed, unable to exam with bipap) ENT Exam: Positive: Other ENT (oral mucosa appears dry) Neck Exam: Positive: Supple; Negative: thyromegaly Chest Exam: Positive: Wheezing (somewhat prolonged expiratory phase with soft wheezing noted, heard best anteriorly), Diminished; Negative: Clear to auscultation, Normal air movement, Rales, Rhonchi Heart Exam: Positive: Rate Normal Telemetry: Positive: Tachycardia Abdomen Exam: Positive: Normal bowel sounds, Soft (NT ND) Extremity Exam: Positive: Clubbing, Normal pulses (thready/tachy); Negative: Cyanosis, Edema, Tenderness, Swelling Skin Exam: Positive: Nl turgor and temperature; Negative: Rash (mild excoration to pretib areas) Psych Exam: Positive: Mental status NL, Other (intubated) Assessment /Plan Problems (1) Acute on chronic respiratory failure with hypoxia and hypercapnia Status: Acute Response to Treatment: Improving Discussed With: Biometrics Specialist Problem Text: continuing to improve. antibiotic changed to cefuroxime to cover H. influenza. Blood cultures of S. hominis are believed to be contaminants. continues gradual improvement. doesn't have O2 at home. will need more effective inhalant therapy to suppress exacerbations when he goes home as well as continued abstinence from tobacco. (2) Hypokalemia Status: Acute Problem Text: given 40mEq dose po this am, will recheck at noon. (3) ETOH abuse Status: Chronic Response to Treatment: Stable Problem Text: no signs of withdrawal. did receive banana bags while in ICU. Plan/VTE VTE Prophylaxis Ordered?: Yes Plan Anticipated Discharge: Home VS, I&O, 24H, Fishbone Vital Signs/I&O Vital Signs Date Time Temp Pulse Resp B/P (MAP) Pulse Ox O2 Delivery O2 Flow Rate FiO2 02/11/19 08:05 81 121/75 02/11/19 08:00 97.8 18 95 02/11/19 06:19 1.0 02/10/19 20:18 Nasal Cannula 02/09/19 08:08 30 I&O- Last 24 Hours up to 6 AM 02/11/19 06:00 Intake Total 2500 ml Output Total 2100 ml Balance 400 ml Laboratory Data 24H LABS Laboratory Tests 2 02/11/19 04:26: Nucleated Red Blood Cells % (auto) 0.2H, Neutrophils 65, Lymphocytes (Manual) 28, Monocytes (Manual) 6, Eosinophils (Manual) 1, Platelet Estimate NORMAL, Macrocytosis 1+, Anion Gap 6L, Glomerular Filtration Rate > 60.0, Blood Urea Nitrogen 10, Creatinine 0.53L, Sodium Level 143, Potassium Level 2.9*L, Chloride Level 106, Carbon Dioxide Level 31, Calcium Level 8.1L, Phosphorus Level 1.9#L, Aspartate Amino Transf (AST/SGOT) 40H, Alanine Aminotransferase (ALT/SGPT) 71, Lactate Dehydrogenase 197, Total Creatine Kinase 137, Alkaline Phosphatase 60, Total Bilirubin 0.2, Triglycerides Level 110, Cholesterol Level 171, Total Protein 6.0L, Albumin 2.2L, Magnesium Level 1.9, Albumin/Globulin Ratio 0.58L CBC/BMP Laboratory Tests 02/11/19 04:26 Red Blood Count 3.92 L, Mean Corpuscular Volume 100.3 H, Mean Corpuscular Hemoglobin 34.2 H, Mean Corpuscular Hemoglobin Concent 34.1, Red Cell Distribution Width 13.2, Calcium Level 8.1 L, Phosphorus Level 1.9 #L, Aspartate Amino Transf (AST/SGOT) 40 H, Alanine Aminotransferase (ALT/SGPT) 71, Lactate De hydrogenase 197, Total Creatine Kinase 137, Alkaline Phosphatase 60, Total Bilirubin 0.2, Triglycerides Level 110, Cholesterol Level 171, Total Protein 6.0 L, Albumin 2.2 L Microbiology Microbiology 02/09/19 Blood Culture - Preliminary, Resulted No Growth after 48 hours. All Specime... 02/09/19 Blood Culture - Preliminary, Resulted No Growth after 48 hours. All Specime... 02/06/19 Blood Culture - Final, Complete Staphylococcus Hominis Ssp Tony 02/06/19 Blood Culture - Final, Complete Staphylococcus Hominis Ssp Tony 02/09/19 MRSA Screen - Final, Complete 02/07/19 Gram Stain - Final, Complete 02/07/19 Sputum Culture - Final, Complete Haemophilus Influenzae Rashaad Baldwin MD Feb 11, 2019 09:53
[2019-02-11 13:41] LABS: BLOOD UREA NITROGEN 7 MG/DL (7-18); CALCIUM LEVEL 8.3 MG/DL (8.5-10.1); CARBON DIOXIDE LEVEL 25 MEQ/L (21-32); CHLORIDE LEVEL 104 MEQ/L (98-107); CREATININE FOR GFR 0.47 MG/DL (0.70-1.30); GLOMERULAR FILTRATION RATE > 60.0 (>56); GLUCOSE, FASTING 119 MG/DL (70-100); POTASSIUM SERUM 3.6 MEQ/L (3.5-5.1); SODIUM LEVEL 138 MEQ/L (136-145)
[2019-02-11] MEDS ORDERED: SLF 3 ML SYR IV PRN (16:30)
--- NOTE | 2019-02-11 18:57 | CR ---
DATE OF CONSULTATION: 02/11/2019 I was asked to consult by hospitalist for evaluation of positive blood cultures with Staphylococcus hominis and Haemophilus influenzae, bronchitis and chronic obstructive pulmonary disease (COPD) exacerbation. HISTORY OF PRESENT ILLNESS: Mr. Lainez is a pleasant 53-year-old gentleman with a history of chronic obstructive pulmonary disease (COPD), worsening over the past two years. He has a history of noncompliance, continued tobacco abuse up until the day of admission. He reports that the day of admission, he developed severe shortness of breath, nausea, vomiting, worsening shortness of breath, cough and he became unresponsive. He was placed on bilevel positive airway pressure (BiPAP) then needed to be intubated. The patient was unresponsive, according to the notes, to verbal and painful stimuli. The patient was admitted on 02/06/2019, was in the intensive care unit (ICU), and now transferred to progressive care unit (PCU) and feeling much better. He states he will never touch one more cigarette. He has a history of alcohol abuse, but not recently. He currently denies any fever, chills, nausea, vomiting or diarrhea. Feels good except for the cough, which is chronic. His shortness of breath has improved. He still is on oxygen. ALLERGIES: No known drug allergies. PAST MEDICAL HISTORY: 1. Alcohol abuse. He continues to drink, but not as heavily as last year. 2. History of noncompliance COPD. 3. Hypertension. PAST SURGICAL HISTORY: 1. Left total hip replacement after a fall. 2. Left ankle open reduction internal fixation. FAMILY HISTORY: Brother is at the bedside. He is being treated for Zoster. SOCIAL HISTORY: He is single. He lives alone. He has a 28-year-old kid. History of smoking since the age of 9 and alcohol abuse. MEDICATIONS: - cefuroxime 500 mg by mouth twice a day started on 02/11/2019 - albuterol/Atrovent nebulizer four times a day - pantoprazole 40 mg by mouth daily - amlodipine 5 mg daily - prednisone 40 mg daily - folic acid 1 mg daily - thiamin 100 mg daily - multivitamin one tablet daily - Advair two puffs inhaled twice a day - Spiriva one inhalation daily LABORATORY DATA: White count 14.9, hemoglobin 13.4, hematocrit 39.3, platelets 268, 65%neutrophils, 28% lymphocytes, 6% monocytes. Sodium 138, potassium 3.6, chloride 104, bicarbonate 25, BUN 7, creatinine 0.47, glucose 119, calcium 8.3. AST 48, ALT 71, alkaline phosphatase 60, LVH 197, CPK 137, total protein 6, albumin 2.2, triglyceride 110, cholesterol 171. Blood cultures done on 02/06/2019 were positive for Staphylococcus hominis. Both were drawn at 2229. I suspect this was one blood draw contaminated and put in two different vials. Sputum culture was positive for Haemophilus influenzae resistant to Bactrim beta-lactamase negative. Blood cultures on 02/09/2019, two sets were negative. Methicillin-resistant Staphylococcus aureus (MRSA) was negative. IMAGING: Chest x-ray done on 02/06/2019: COPD, emphysematous changes with scattered fibrosis. Endotracheal (ET) tube above the pedro by 3.5 cm. PHYSICAL EXAMINATION: He is a thin gentleman, in no acute distress, wearing oxygen at 1 liter, 95% oxygen saturation. Temperature 97.6, pulse 131, respirations 18, blood pressure 121/75. HEART: Normal S1, S2. Tachycardic. No murmurs appreciated. LUNGS: Diminished breath sounds, but clear. Mostly diminished at the lower bases. ABDOMEN: Soft, nontender. No hepatosplenomegaly. BACK: No costovertebral angle (CVA) or lumbosacral tenderness. EXTREMITIES: No clubbing, cyanosis or edema. No calf tenderness. Oropharynx is clear. No thrush. No jugular venous distention (JVD). No bruits. SKIN: Multiple tattoos. No rashes. IMPRESSION: 1. COPD exacerbation with respiratory failure status post intubation, doing much better with nebulizers, steroids and antibiotics. Currently, the patient is cefuroxime for Haemophilus (H.) influenzae. He had been on vancomycin and Zosyn prior to that. Haemophilus is beta-lactamase negative and therefore could be treated with amoxicillin instead of second generation cephalosporin. 2. History of tattoos. Patient is born between 1945 and 1965 and therefore needs hepatitis C testing. This will be added to his blood work. 3. Blood cultures contaminated with Staphylococcus hominis. Do not need to be treated. PLAN: Hepatitis C testing. Discontinue cefuroxime. Switch to amoxicillin 875 mg by mouth twice a day for 5 days. Patient anticipated discharge would be in the next 24-48 hours, hopefully off oxygen. Encouraged to keep off smoking and remain abstinent. Patient is agreeable.
[2019-02-11 20:00] VITALS: BP 118/71
[2019-02-11] MEDS: SLF 3 ML SYR IV SCH (20:04)
[2019-02-11] MEDS: AMOXICILLIN 875 MG TAB PO SCH (20:04)
[2019-02-11 23:59] VITALS: BP 116/72
[2019-02-12 04:00] VITALS: BP 102/80
[2019-02-12 05:13] LABS: BASO # 0.1 10^3/uL (0.0-0.2); BASO % 0.6 % (0.0-1.0); EOS # 0.1 10^3/uL (0.0-0.50); EOS % 0.6 % (0.0-3.0); HEMATOCRIT 41.9 % (42.0-52.0); HEMOGLOBIN 14.2 g/dl (13.5-17.5); LYMPH # 3.6 10^3/uL (1.5-4.5); LYMPH % 28.4 % (24.0-44.0); MEAN CORPUSCULAR HEMOGLOBIN 33.8 pg (27.0-33.0); MEAN CORPUSCULAR HGB CONC 33.9 g/dl (32.0-36.5); MEAN CORPUSCULAR VOLUME 99.8 fl (80.0-96.0); MONO # 1.1 10^3/uL (0.0-0.8); MONO % 8.6 % (0.0-5.0); NEUTROPHILS # 7.4 10^3/uL (1.8-7.7); NEUTROPHILS % 59.2 % (36.0-66.0); PLATELET COUNT, AUTOMATED 277 10^3/uL (150-450); WHITE BLOOD COUNT 12.5 10^3/uL (4.0-10.0)
[2019-02-12] MEDS: SLF 3 ML SYR IV SCH ×3 (05:39→20:36)
[2019-02-12 05:47] LABS: ALBUMIN 2.3 GM/DL (3.2-5.2); ALT/SGPT 57 U/L (12-78); BILIRUBIN,TOTAL 0.2 MG/DL (0.2-1.0); BLOOD UREA NITROGEN 12 MG/DL (7-18); CALCIUM LEVEL 8.3 MG/DL (8.5-10.1); CARBON DIOXIDE LEVEL 28 MEQ/L (21-32); CHLORIDE LEVEL 106 MEQ/L (98-107); CHOLESTEROL LEVEL 176 MG/DL (< 200); CPK CREATINE PHOSPHOKINASE 73 U/L (39-308); GLOMERULAR FILTRATION RATE > 60.0 (>56); GLUCOSE, FASTING 105 MG/DL (70-100); LDH LACTATE DEHYDROGENASE 193 U/L (87-241); PHOSPHORUS LEVEL 3.3 MG/DL (2.5-4.9); POTASSIUM SERUM 3.1 MEQ/L (3.5-5.1); SODIUM LEVEL 140 MEQ/L (136-145); TRIGLYCERIDES LEVEL 129 MG/DL (<150)
[2019-02-12] MEDS: POTASSIUM CHLORIDE 10 MEQ SR TABLET PO SCH ×2 (06:35→09:44)
[2019-02-12] MEDS: TIOTROPIUM INHALER/CAPSULE (SPIRIVA) INH SCH (07:16)
[2019-02-12] MEDS: ADVAIR HFA 230/21MCG INHALER INH SCH ×2 (07:16→20:42)
[2019-02-12] MEDS: IPRATROPIUM 0.5MG/ALBUTEROL 2.5MG INH SOL UD 3ML (DUONEB)(J7620) NEB SCH ×4 (07:16→20:00)
[2019-02-12 08:00] VITALS: BP 113/78
--- NOTE | 2019-02-12 08:34 | IPNPDOC ---
Subjective Date Seen The patient was seen on 02/12/19. Subjective Chief Complaint/HPI Breathing stable and about at baseline Constitutional: Denies: Chills, Fever Pulmonary: Reports: Dyspnea (chronic); Denies: Cough Cardiovascular: Denies: Chest Pain, Palpitations Gastrointestinal: Denies: Nausea, Vomiting, Abdominal Pain, Diarrhea, Consti pation Objective Physical Examination General Exam: Positive: Alert, No Acute Distress Neck Exam: Positive: Supple; Negative: thyromegaly Chest Exam: Positive: Diminished; Negative: Clear to auscultation, Normal air movement, Rales, Rhonchi, Wheezing Heart Exam: Positive: Rate Normal, Regular Rhythm Abdomen Exam: Positive: Normal bowel sounds, Soft; Negative: Tenderness Extremity Exam: Positive: Normal pulses; Negative: Edema Skin Exam: Positive: Nl turgor and temperature, Rash (mild excoration to pretib areas) Psych Exam: Positive: Mental status NL, Mood NL Assessment /Plan Problems (1) Acute on chronic respiratory failure with hypoxia and hypercapnia Status: Acute Response to Treatment: Improving Discussed With: Concrete Rod Buster Problem Text: 02/12 - Resp failure secondary to COPD exacerbation Resp status has improved - Now on 1 liter NC. (Not normally on O2 at home) will wean to RA and check sats with ambulation as well He has been switched to Amox x 5 days for H. Influenza Per ID Staph Tony positive B/C is secondary to skin contaminant He will need to be discharged home on augmented inhaler regimen for presumed severe COPD - D/C on Advair, Spiriva and Duonebs Will need further quantitation of his pulm function as outpatient - He has never had formal PFTs per patient He is motivated to abstain from smoking - has Nicotine patches, gum and lozenges at home (2) Hypokalemia Status: Acute Problem Text: 02/12 - give further KCL supplement today (3) ETOH abuse Status: Chronic Response to Treatment: Stable Problem Text: no signs of withdrawal. did receive banana bags while in ICU. (4) COPD (chronic obstructive pulmonary disease) Status: Chronic Problem Text: see above Plan/VTE VTE Prophylaxis Ordered?: Yes Plan Anticipated Discharge: Home Disposition move to floor today - wean oxygen to RA if possible and d/c home in am if stable VS, I&O, 24H, Fishbone Vital Signs/I&O Vital Signs Date Time Temp Pulse Resp B/P (MAP) Pulse Ox O2 Delivery O2 Flow Rate FiO2 02/12/19 04:00 1.0 02/12/19 04:00 97.0 85 16 102/80 98 02/11/19 21:31 Nasal Cannula 02/09/19 08:08 30 I&O- Last 24 Hours up to 6 AM 02/12/19 06:00 Intake Total 1680 ml Output Total 1600 ml Balance 80 ml Laboratory Data 24H LABS Laboratory Tests 2 02/11/19 12:02: Anion Gap 9, Glomerular Filtration Rate > 60.0, Blood Urea Nitrogen 7, Creatinine 0.47L, Sodium Level 138, Potassium Level 3.6#, Chloride Level 104, Carbon Dioxide Level 25, Calcium Level 8.3L 02/12/19 05:01: Anion Gap 6L, Glomerular Filtration Rate > 60.0, Blood Urea Nitrogen 12#, Creatinine 0.50L, Sodium Level 140, Potassium Level 3.1L, Chloride Level 106, Carbon Dioxide Level 28, Calcium Level 8.3L, Immature Granulocyte % (Auto) 2.6, White Blood Count 12.5H, Red Blood Count 4.20L, Hemoglobin 14.2, Hematocrit 41.9L, Mean Corpuscular Volume 99.8H, Mean Corpuscular Hemoglobin 33.8H, Mean Corpuscular Hemoglobin Concent 33.9, Red Cell Distribution Width 13.2, Platelet Count 277, Neutrophils (%) (Auto) 59.2, Lymphocytes (%) (Auto) 28.4, Monocytes (%) (Auto) 8.6H, Eosinophils (%) (Auto) 0.6, Basophils (%) (Auto) 0.6, Neutrophils # (Auto) 7.4, Lymphocytes # (Auto) 3.6, Monocytes # (Auto) 1.1H, Eosinophils # (Auto) 0.1, Basophils # (Auto) 0.1, Nucleated Red Blood Cells % (auto) 0.0, Phosphorus Level 3.3#, Aspartate Amino Transf (AST/SGOT) 20, Alanine Aminotransferase (ALT/SGPT) 57, Lactate Dehydrogenase 193, Total Creatine Kinase 73, Alkaline Phosphatase 55, Total Bilirubin 0.2, Triglycerides Level 129, Cholesterol Level 176, Total Protein 6.0L, Albumin 2.3L, Magnesium Level 2.0, Albumin/Globulin Ratio 0.62L CBC/BMP Laboratory Tests 02/11/19 12:02 Calcium Level 8.3 L 02/12/19 05:01 Calcium Level 8.3 L, Red Blood Count 4.20 L, Mean Corpuscular Volume 99.8 H, Mean Corpuscular Hemoglobin 33.8 H, Mean Corpuscular Hemoglobin Concent 33.9, Red Cell Distribution Width 13.2, Neutrophils (%) (Auto) 59.2, Lymphocytes (%) ( Auto) 28.4, Monocytes (%) (Auto) 8.6 H, Eosinophils (%) (Auto) 0.6, Basophils (%) (Auto) 0.6, Neutrophils # (Auto) 7.4, Lymphocytes # (Auto) 3.6, Monocytes # (Auto) 1.1 H, Eosinophils # (Auto) 0.1, Basophils # (Auto) 0.1, Phosphorus Level 3.3 #, Aspartate Amino Transf (AST/SGOT) 20, Alanine Aminotransferase (ALT/SGPT) 57, Lactate Dehydrogenase 193, Total Creatine Kinase 73, Alkaline Phosphatase 55 , Total Bilirubin 0.2, Triglycerides Level 129, Cholesterol Level 176, Total Protein 6.0 L, Albumin 2.3 L Microbiology Microbiology 02/09/19 Blood Culture - Preliminary, Resulted No Growth after 72 hours. All specime... 02/09/19 Blood Culture - Preliminary, Resulted No Growth after 72 hours. All specime... 02/06/19 Blood Culture - Final, Complete Staphylococcus Hominis Ssp Tony 02/06/19 Blood Culture - Final, Complete Staphylococcus Hominis Ssp Tony 02/09/19 MRSA Screen - Final, Complete 02/07/19 Gram Stain - Final, Complete 02/07/19 Sputum Culture - Final, Complete Haemophilus Influenzae RITA MOORE PA-C Feb 12, 2019 08:34
[2019-02-12] MEDS ORDERED: POTASSIUM CHLORIDE 10 MEQ SR TABLET PO ONE ×2 (09:00→13:00)
[2019-02-12] MEDS: HEPARIN SOD (PORCINE) 5000 UNITS/ML VIAL SQ SCH ×2 (09:42→20:36)
[2019-02-12] MEDS: amLODIPine 5 MG TAB PO SCH (09:43)
[2019-02-12] MEDS: FOLIC ACID 1 MG TAB PO SCH (09:43)
[2019-02-12] MEDS: MULTIVITAMINS/MINERALS THERAP 1 TAB PO SCH (09:43)
[2019-02-12] MEDS: PANTOPRAZOLE 40MG TAB (PROTONIX) PO SCH (09:43)
[2019-02-12] MEDS: AMOXICILLIN 875 MG TAB PO SCH ×2 (09:44→20:36)
[2019-02-12] MEDS: predniSONE 20 MG TAB PO SCH (09:44)
[2019-02-12] MEDS: THIAMINE 100 MG TAB PO SCH (09:44)
[2019-02-12 10:06] LABS: Cannabinoid Positive (.); GC Carboxy THC 70 ng/mL (Cutoff=10)
--- NOTE | 2019-02-12 11:29 | IPN ---
DATE: 02/12/2019 Mr. Lainez continues to improve from his chronic obstructive pulmonary disease (COPD) exacerbation felt secondary to Haemophilus (H) flu. He is walking the halls today without difficulty. His cough is decreased. No complaints of chest pain, emesis, or nausea. He has been off oxygen since this morning. He tells me he is ready for discharge tomorrow. He tells me he is committed to remaining off cigarettes. No new concerns expressed. OBJECTIVE: Physical examination: General: Mr. Lainez is lying in bed no acute distress. He can complete full sentences. No cough throughout evaluation. We saw him ambulating down the hallway and he did not appear in distress. Vital signs: Temperature 97.4 with a maximum temperature (Tmax) of 98, pulse 72, respiratory rate 18, blood pressure 113/7. SpO2 91-94% on room air. The patient reports his saturations decreased to 91% with ambulation. Lungs: Symmetric excursion, good markedly diminished air entry. No wheeze, rhonchi, or crackle on tidal excursion. Prolonged expiratory phase mild supraclavicular accessory muscle usage. He is no longer using abdominal musculature. Cardiovascular: Distant, regular rate and rhythm with a normal S1, S2, no murmur, rub or gallop appreciated. Abdomen: Positive bowel sounds, soft, nondistended, nontender. Extremities: Warm and well-perfused without clubbing, cyanosis or edema. Palpable pedal pulses bilaterally. LABORATORY DATA: CBC shows a hemoglobin of 14.2, hematocrit 41.9, platelet count 277,000, white blood cell count 12,500 with a differential of 59% neutrophils, 28% lymphocytes, 9% monocytes. Chemistry shows sodium 140, potassium 3.1, chloride 100, bicarbonate 28, anion gap 6, BUN 12, creatinine 0.5, glucose 105, calcium 8.3, phosphorus 3.3, magnesium 2.0, AST 20, ALT 57, alkaline phosphatase 55, LDH 193, CK 73, total protein 6, albumin 2.3. IMPRESSION: 1. Chronic obstructive pulmonary disease exacerbation secondary to H flu. 2. Hypertension at baseline. 3. Ethyl alcohol (EtOH) abuse. 4. Tobacco usage, active at the time of admission. RECOMMENDATIONS: 1. Would recommend continue on the IC/LABA/LAMA medications. 2. Continue bronchodilators usage every 4 hours as needed. 3. Would wean corticosteroids to off. Will decrease him to 30 mg today. 4. I would like to see Mr. Lainez in pulmonary clinic in 2-3 weeks. He is agreeable to this recommendation. We will sign off at this time. Please reconsult the pulmonary service if there are any future respiratory problems or concerns.
[2019-02-12 12:00] VITALS: BP 132/65
[2019-02-12 16:00] VITALS: BP 103/68
[2019-02-12 20:00] VITALS: BP 120/55
[2019-02-12 23:59] VITALS: BP 99/69
[2019-02-13 04:00] VITALS: BP 103/70
[2019-02-13] MEDS: SLF 3 ML SYR IV SCH (05:15)
[2019-02-13 05:41] LABS: BASO % 0.2 % (0.0-1.0); EOS # 0.2 10^3/uL (0.0-0.50); EOS % 1.3 % (0.0-3.0); HEMATOCRIT 40.1 % (42.0-52.0); HEMOGLOBIN 13.6 g/dl (13.5-17.5); LYMPH # 4.4 10^3/uL (1.5-4.5); LYMPH % 32.8 % (24.0-44.0); MEAN CORPUSCULAR HEMOGLOBIN 32.9 pg (27.0-33.0); MEAN CORPUSCULAR HGB CONC 33.9 g/dl (32.0-36.5); MEAN CORPUSCULAR VOLUME 97.1 fl (80.0-96.0); MONO # 1.3 10^3/uL (0.0-0.8); MONO % 9.3 % (0.0-5.0); NEUTROPHILS # 7.3 10^3/uL (1.8-7.7); NEUTROPHILS % 54.3 % (36.0-66.0); PLATELET COUNT, AUTOMATED 311 10^3/uL (150-450); RED BLOOD COUNT 4.13 10^6/uL (4.30-6.10); WHITE BLOOD COUNT 13.5 10^3/uL (4.0-10.0)
[2019-02-13 06:05] LABS: ALBUMIN 2.6 GM/DL (3.2-5.2); ALT/SGPT 64 U/L (12-78); BILIRUBIN,TOTAL 0.2 MG/DL (0.2-1.0); BLOOD UREA NITROGEN 10 MG/DL (7-18); CALCIUM LEVEL 8.6 MG/DL (8.5-10.1); CARBON DIOXIDE LEVEL 26 MEQ/L (21-32); CHLORIDE LEVEL 106 MEQ/L (98-107); CHOLESTEROL LEVEL 188 MG/DL (< 200); CPK CREATINE PHOSPHOKINASE 62 U/L (39-308); GLOMERULAR FILTRATION RATE > 60.0 (>56); GLUCOSE, FASTING 86 MG/DL (70-100); LDH LACTATE DEHYDROGENASE 189 U/L (87-241); MAGNESIUM LEVEL 2.1 MG/DL (1.8-2.4); PHOSPHORUS LEVEL 3.7 MG/DL (2.5-4.9); POTASSIUM SERUM 3.6 MEQ/L (3.5-5.1); SODIUM LEVEL 138 MEQ/L (136-145); TOTAL PROTEIN 6.6 GM/DL (6.4-8.2); TRIGLYCERIDES LEVEL 173 MG/DL (<150)
[2019-02-13] MEDS: TIOTROPIUM INHALER/CAPSULE (SPIRIVA) INH SCH (08:06)
[2019-02-13] MEDS: IPRATROPIUM 0.5MG/ALBUTEROL 2.5MG INH SOL UD 3ML (DUONEB)(J7620) NEB SCH (08:06)
[2019-02-13] MEDS: HEPARIN SOD (PORCINE) 5000 UNITS/ML VIAL SQ SCH (08:11)
[2019-02-13] MEDS: MULTIVITAMINS/MINERALS THERAP 1 TAB PO SCH (08:12)
[2019-02-13] MEDS: FOLIC ACID 1 MG TAB PO SCH (08:12)
[2019-02-13] MEDS: PANTOPRAZOLE 40MG TAB (PROTONIX) PO SCH (08:12)
[2019-02-13 08:13] VITALS: BP 105/70
[2019-02-13] MEDS: amLODIPine 5 MG TAB PO SCH (08:13)
[2019-02-13] MEDS: AMOXICILLIN 875 MG TAB PO SCH (08:14)
[2019-02-13] MEDS: THIAMINE 100 MG TAB PO SCH (08:16)
[2019-02-13] MEDS ORDERED: AMOX875T PO (08:36)
[2019-02-13] MEDS ORDERED: PRED10PA PO (08:36)
[2019-02-13] MEDS ORDERED: KLOR10TA76 PO (08:36)
[2019-02-13] MEDS: ADVAIR HFA 230/21MCG INHALER INH SCH (08:46)
[2019-02-13] MEDS ORDERED: predniSONE 20 MG TAB PO SCH (09:00)
--- NOTE | 2019-02-13 18:23 | DSES ---
DATE OF ADMISSION: 02/06/2019 DATE OF DISCHARGE: 02/13/2019 REASON FOR ADMISSION: Mr. Lainez presented to the emergency department (ED) with signs and symptoms of respiratory failure. He has a history of chronic obstructive pulmonary disease (COPD) and put out his cigarette as the ambulance arrived. He was seen in the emergency room (ER) on 02/06/2019 and admitted with evidence of chronic respiratory failure, hypercarbic respiratory failure with acute hypoxia. He had a leukocytosis. He had a history of alcohol abuse and he received banana bag and was monitored, but no withdrawal symptoms developed. He was in severe distress, unresponsive on bilevel positive airway pressure (BiPAP) on initial presentation. Respirations were 40 prior to being intubated. He arrived intubated in the ED and Dr. Puentes assumed responsibility for management in the intensive care unit (ICU). Echocardiogram was done which showed good technical quality, dilated hypokinetic right ventricle (RV), mildly elevated right central pressures and mild pulmonary hypertension. Ejection fraction 65-70%. No segmental wall motion abnormalities were observed. He was initially intubated, managed and then gradually was able to transition to a noninvasive ventilator on 02/08/2019. Blood cultures were positive for gram-positive cocci in clusters, which were Staphylococcus hominis, felt to be contaminant. He also grew Haemophilus influenzae from his sputum and transitioned to oral antibiotics with initially cefuroxime and then Augmentin for reasons that are not clear, but should adequately cover the organism, hopefully will be adequately tolerated. On the day of discharge, his hemoglobin was 13.6, white count still elevated at 13.5. Chest x-ray did not demonstrate any pneumonia. He did have low potassiums and low phosphorus levels that required medical intervention. Potassium was 2.8 on 02/08/2019. He also received IV steroids and is discharged on prednisone on a tapering schedule. DISCHARGE MEDICATIONS: - Augmentin 875 by mouth twice a day for five more days - potassium chloride 20 mEq a day for the next 15 days - prednisone 10 mg were prescribed with the following schedule: two tablets daily for three days, one tablet daily for three days, 1/2 tablet daily for six days then stop - Albuterol MDI every 6 hours - amlodipine 5 mg daily - fluticasone - Arnuity Ellipta inhaler 100 mcg one puff daily. - Arcapta Neohaler 75 mcg daily - (ipratropium/albuterol sulfate) Combivent two puffs four times a day - albuterol every 4 hours as needed wheezing. - omeprazole 40 mg by mouth daily Also continued and would be desirable after discharge to switch his ICS/LABA inhaler to a more convenient form than he currently has; the Arcapta, which is the LABA product and Arnuity are in two separate dose forms. For efficiency, he should really have a single entity, such as Trelegy, which he can just once a day to optimize compliance. Failing that, based on insurance restrictions/limitations, obstructions, then at least a more efficient regimen than he currently has would facilitate adherence. Patient has been instructed and sounds to be committed to remain free of tobacco. Reviewed cues, triggers, et cetera, which can degrade adherence to abstinence. Activity will be as tolerated. Diet as tolerated. Follow up with his primary care physician in one week. Follow up with Dr. Puentes at their clinic, [facility], in 2-3 weeks. DISCHARGE DIAGNOSES: 1. Acute hypoxic on chronic hypercarbic respiratory failure. 2. Chronic obstructive pulmonary disease (COPD) exacerbation. 3. Hypokalemia. 4. Hypophosphatemia. 5. History of alcohol abuse. 6. Hypertension.
== END 2019-02-13 11:34 | disposition home or self-care (01) | DRG 133 ==
LOC: M ED 22:07 → M ED INP 23:13 → M ICU 02-07 01:50 → M PCU 02-11 06:05
PROVIDERS: ADMIT Family Medicine; ATTEND Family Medicine
PROC: 5A1945Z Respiratory Ventilation, 24-96 Consecutive Hours (ICD-10-PCS; principal; 2019-02-06)
DX: J96.21 Acute and chronic respiratory failure with hypoxia (principal); J44.0 Chronic obstructive pulmonary disease with (acute) lower respiratory infection; E83.39 Other disorders of phosphorus metabolism; E83.51 Hypocalcemia; E86.0 Dehydration; J44.1 Chronic obstructive pulmonary disease with (acute) exacerbation; E87.6 Hypokalemia; F10.10 Alcohol abuse, uncomplicated; I10 Essential (primary) hypertension; K21.9 Gastro-esophageal reflux disease without esophagitis; Z87.891 Personal history of nicotine dependence; Z96.642 Presence of left artificial hip joint; D72.825 Bandemia; D53.9 Nutritional anemia, unspecified; B95.7 Other staphylococcus as the cause of diseases classified elsewhere; Z91.19 Patient's noncompliance with other medical treatment and regimen; J20.1 Acute bronchitis due to Hemophilus influenzae; J96.22 Acute and chronic respiratory failure with hypercapnia

== ENCOUNTER → 2019-02-20 | Outpatient (REF) | payer OTHER ==
[~2019-02-20] MED LIST changes: +AMLO5TAB6 PO; +AMOX875T PO; +ARCA75CA INH; +ARNU1INH PO; +COMBAER6 INH; +KLOR10TA76 PO; +OMEP-221 PO; +PRED10PA PO
[2019-02-20 13:15] LABS: BASO % 0.3 % (0.0-1.0); EOS # 0.1 10^3/uL (0.0-0.50); EOS % 0.4 % (0.0-3.0); HEMATOCRIT 41.4 % (42.0-52.0); HEMOGLOBIN 14.1 g/dl (13.5-17.5); LYMPH # 0.7 10^3/uL (1.5-4.5); LYMPH % 4.7 % (24.0-44.0); MEAN CORPUSCULAR HEMOGLOBIN 34.9 pg (27.0-33.0); MEAN CORPUSCULAR HGB CONC 34.1 g/dl (32.0-36.5); MEAN CORPUSCULAR VOLUME 102.5 fl (80.0-96.0); MONO # 0.6 10^3/uL (0.0-0.8); MONO % 4.1 % (0.0-5.0); NEUTROPHILS # 14.1 10^3/uL (1.8-7.7); NEUTROPHILS % 89.9 % (36.0-66.0); PLATELET COUNT, AUTOMATED 458 10^3/uL (150-450); RED BLOOD COUNT 4.04 10^6/uL (4.30-6.10); WHITE BLOOD COUNT 15.6 10^3/uL (4.0-10.0)
[2019-02-20 13:17] LABS: ALBUMIN 3.2 GM/DL (3.2-5.2); ALT/SGPT 31 U/L (12-78); BILIRUBIN,TOTAL 0.5 MG/DL (0.2-1.0); BLOOD UREA NITROGEN 5 MG/DL (7-18); CALCIUM LEVEL 9.1 MG/DL (8.5-10.1); CARBON DIOXIDE LEVEL 26 MEQ/L (21-32); CHLORIDE LEVEL 106 MEQ/L (98-107); CREATININE FOR GFR 0.59 MG/DL (0.70-1.30); GLOMERULAR FILTRATION RATE > 60.0 (>56); GLUCOSE, FASTING 80 MG/DL (70-100); POTASSIUM SERUM 4.3 MEQ/L (3.5-5.1); SODIUM LEVEL 140 MEQ/L (136-145); TOTAL PROTEIN 6.8 GM/DL (6.4-8.2)
== END ==
LOC: M SFHCPLAZ 10:55
PROVIDERS: ATTEND Physician Assistant Medical
DX: E87.6 Hypokalemia (principal); J96.20 Acute and chronic respiratory failure, unspecified whether with hypoxia or hypercapnia

== ENCOUNTER → 2019-09-03 | Outpatient (REF) | payer OTHER ==
[2019-09-03 18:32] LABS: BASO # 0.1 10^3/uL (0.0-0.2); BASO % 1.6 % (0.0-1.0); EOS # 0.2 10^3/uL (0.0-0.5); HEMATOCRIT 45.7 % (42.0-52.0); HEMOGLOBIN 15.3 g/dl (13.5-17.5); LYMPH % 26.6 % (24.0-44.0); MEAN CORPUSCULAR HEMOGLOBIN 32.3 pg (27.0-33.0); MEAN CORPUSCULAR HGB CONC 33.5 g/dl (32.0-36.5); MEAN CORPUSCULAR VOLUME 96.4 fl (80.0-96.0); MONO # 0.8 10^3/uL (0.0-0.8); MONO % 10.9 % (0.0-5.0); NEUTROPHILS # 4.2 10^3/uL (1.5-8.5); NEUTROPHILS % 57.6 % (36.0-66.0); PLATELET COUNT, AUTOMATED 246 10^3/uL (150-450); RED BLOOD COUNT 4.74 10^6/uL (4.30-6.10); WHITE BLOOD COUNT 7.3 10^3/uL (4.0-10.0)
[2019-09-03 18:42] LABS: ALBUMIN 4.2 GM/DL (3.2-5.2); ALT/SGPT 25 U/L (12-78); BILIRUBIN,TOTAL 0.9 MG/DL (0.2-1.0); BLOOD UREA NITROGEN 4 MG/DL (7-18); CARBON DIOXIDE LEVEL 29 MEQ/L (21-32); CHLORIDE LEVEL 107 MEQ/L (98-107); CHOLESTEROL LEVEL 204 MG/DL (<200); CHOLESTEROL RISK RATIO 2.019 (<5); CREATININE FOR GFR 0.73 MG/DL (0.70-1.30); ETHYL ALCOHOL (ETHANOL) < 0.003 % (0.000-0.010); GLOMERULAR FILTRATION RATE > 60.0 (>56); GLUCOSE, FASTING 87 MG/DL (70-100); HDL CHOLESTEROL 101 MG/DL (>40); LDL CHOLESTEROL 85 MG/DL (<100); NON-HDL-C 103 MG/DL; SODIUM LEVEL 140 MEQ/L (136-145); TRIGLYCERIDES LEVEL 91 MG/DL (<150)
[2019-09-03 18:44] LABS: INR 1.12; PROTHROMBIN TIME 14.1 SECONDS (11.8-14.0)
[2019-09-03 18:45] LABS: PARTIAL THROMBOPLASTIN TIME 28.7 SECONDS (25.0-38.4)
[2019-09-07 00:10] LABS: AFP TUMOR TOTAL 2.5 ng/mL (0.0-8.0)
== END ==
LOC: M SFHCPLAZ 15:44
PROVIDERS: ATTEND Physician Assistant Medical
DX: Z13.220 Encounter for screening for lipoid disorders (principal); F10.10 Alcohol abuse, uncomplicated; I10 Essential (primary) hypertension
CPT/HCPCS: 36415; 80053; 80061; 82107; 85025; 85610; 85730; G0480

== ENCOUNTER 2019-09-29 09:09 | Emergency (ER) | payer OTHER ==
[~2019-09-29] VITALS: Ht 167.6 cm; Wt 61.4 kg
--- NOTE | 2019-09-29 09:54 | REP ---
Portable chest, 09:40 a.m., single AP view with the patient sitting: Comparison is 02/08/2019. Lung jin are chronically hyperinflated, as previously. The costophrenic angles are effaced. This is nonspecific and could represent artifact from hyperinflation or could represent bilateral pleural effusions. Lung jin otherwise clear. The cardiac size is normal. The tiffanie, mediastinum, and skeletal structures are unremarkable. Impression: Chronic hyperinflation. Effaced costophrenic angles as described above. Electronically Signed by Derrick Jarrett MD 09/29/2019 09:46 A
[2019-09-29 10:03] LABS: BASO # 0.2 10^3/uL (0.0-0.2); BASO % 1.6 % (0.0-1.0); EOS # 0.9 10^3/uL (0.0-0.5); EOS % 9.3 % (0.0-3.0); HEMATOCRIT 41.7 % (42.0-52.0); HEMOGLOBIN 14.3 g/dl (13.5-17.5); LYMPH # 1.5 10^3/uL (1.5-5.0); LYMPH % 16.3 % (24.0-44.0); MEAN CORPUSCULAR HEMOGLOBIN 33.4 pg (27.0-33.0); MEAN CORPUSCULAR HGB CONC 34.3 g/dl (32.0-36.5); MEAN CORPUSCULAR VOLUME 97.4 fl (80.0-96.0); MONO # 0.9 10^3/uL (0.0-0.8); NEUTROPHILS # 5.9 10^3/uL (1.5-8.5); NEUTROPHILS % 62.6 % (36.0-66.0); PLATELET COUNT, AUTOMATED 272 10^3/uL (150-450); RED BLOOD COUNT 4.28 10^6/uL (4.30-6.10); WHITE BLOOD COUNT 9.4 10^3/uL (4.0-10.0)
[2019-09-29 10:27] LABS: INR 1.21
[2019-09-29 10:41] LABS: ALBUMIN 3.5 GM/DL (3.2-5.2); ALT/SGPT 21 U/L (12-78); BILIRUBIN,DIRECT 0.2 MG/DL (0.0-0.2); BILIRUBIN,TOTAL 0.5 MG/DL (0.2-1.0); BLOOD UREA NITROGEN 9 MG/DL (7-18); CALCIUM LEVEL 8.6 MG/DL (8.5-10.1); CARBON DIOXIDE LEVEL 27 MEQ/L (21-32); CHLORIDE LEVEL 108 MEQ/L (98-107); CK-MB VALUE MASS 3.4 NG/ML (<3.6); CPK CREATINE PHOSPHOKINASE 103 U/L (39-308); CREATININE FOR GFR 0.78 MG/DL (0.70-1.30); GLOMERULAR FILTRATION RATE > 60.0 (>56); GLUCOSE, FASTING 104 MG/DL (70-100); NT-PRO BNP 194 PG/ML (<125); SODIUM LEVEL 141 MEQ/L (136-145); TOTAL PROTEIN 6.8 GM/DL (6.4-8.2); TROPONIN I 0.16 NG/ML (< 0.10)
--- NOTE | 2019-09-29 11:17 | ECGEPIP ---
[facility] - ED Test Date: 2019-09-29 Pat Name: JOAN NICOLE Department: Room: - Gender: Male Parts Driver: anu : 1965 Requested By: JUANA Jensen Order Number: [id number] Reading MD: Rebekah Babin Measurements Intervals [place] Rate: 100 P: 84 NE: 162 QRS: 31 QRSD: 79 T: 77 QT: 358 QTc: 463 Interpretive Statements SINUS TACHYCARDIA ANTERIOR MYOCARDIAL INFARCTION, OF INDETERMINATE AGE NSTTW abnormalities LOW VOLTAGE LIMB Electronically Signed on 09-29-2019 11:17:03 EST by Rebekah Babin
[2019-09-29 12:57] LABS: CK-MB VALUE MASS 6.1 NG/ML (<3.6); MB/CK RELATIVE INDEX 4.77 (< OR =4); TROPONIN I 0.97 NG/ML (< 0.10)
[2019-09-29 13:55] LABS: INFLUENZA A AMPLIFICATION NEGATIVE (NEGATIVE); INFLUENZA B AMPLIFICATION NEGATIVE (NEGATIVE)
[2019-09-29] MEDS ORDERED: ISOVUE-370 76% 100ML VIAL (Q9967) As Ordered ONE (14:33)
[2019-09-29] MEDS ORDERED: ASPIRIN 81 MG CHEW TABLET PO ONE (15:00)
[2019-09-29 16:20] LABS: CK-MB VALUE MASS 7.3 NG/ML (<3.6); MB/CK RELATIVE INDEX 4.71 (< OR =4); TROPONIN I 1.23 NG/ML (< 0.10)
--- NOTE | 2019-09-29 17:06 | REP ---
CT pulmonary angiogram: With IV contrast. History: Hypoxia, shortness of breath. Comparison studies: No comparison study. Contrast dose: 75 mL of Isovue [address] technique: Helical scanning is acquired and overlapping 1.5 mm and contiguous 3 mm axial images are reformatted. In addition, maximum intensity projection and multiplanar re-formation images are generated in sagittal and coronal imaging projections. CT pulmonary angiographic findings: There is good opacification in the pulmonary arterial tree. There is no vessel cutoff or filling defect to suggest CT evidence of pulmonary embolus. Maximal intensity projection images show no pulmonary arterial tree defect. There is no evidence of aortic aneurysm or dissection. However, there is absence of enhancement in the left subclavian artery at the level of the great vessel origins. There is some calcific plaquing in the distal subclavian. There is asymmetric opacification in the vertebral arteries, right more opaque than left. These findings are felt to be highly suggestive of subclavian steal physiology. Great vessel origins are otherwise unremarkable. No hilar or mediastinal mass or adenopathy and no pleural effusion is seen. No pericardial effusion is seen. No bony destructive lesion. Lung window settings demonstrate hyperinflation of the lungs consistent with some degree of COPD. There is a diffuse pattern of bronchial wall thickening and a few areas of inspissated endobronchial secretions are seen consistent with bronchitis. There is a granulomatous calcification in the right apex. No significant pulmonary nodule. Impression: No CT evidence of pulmonary embolus. Hyperinflation consistent with COPD. Diffuse peribronchial wall thickening and some inspissated endobronchial secretions consistent with bronchitis. No infiltrate or mass seen. 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 Electronically Signed by Devon Simental MD 09/29/2019 06:20 P
[2019-09-29 18:14] VITALS: BP 130/99
--- NOTE | 2019-09-29 21:35 | ECGEPIP ---
[facility] - ED Test Date: 2019-09-29 Pat Name: JOAN NICOLE Department: Room: - Gender: Male Customer Care Manager: anu : 1965 Requested By: JUANA Jensen Order Number: [id number] Reading MD: Rebekah Babin Measurements Intervals [place] Rate: 105 P: 82 DE: 153 QRS: 26 QRSD: 97 T: 78 QT: 369 QTc: 489 Interpretive Statements SINUS TACHYCARDIA ANTERIOR MYOCARDIAL INFARCTION, OF INDETERMINATE AGE NSTTW abnormalities PROLONGED QTC COMPARED 09/29/19 Electronically Signed on 09-29-2019 21:35:16 EST by Rebekah Baibn
--- NOTE | 2019-09-29 21:38 | ECGEPIP ---
[facility] - ED Test Date: 2019-09-29 Pat Name: JOAN NICOLE Department: Room: - Gender: Male Internal Medicine Physician Assistant: : 1965 Requested By: JUANA Jensen Order Number: [id number] Reading MD: Rebekah Babin Measurements Intervals [place] Rate: 109 P: 85 NC: 154 QRS: 54 QRSD: 90 T: 88 QT: 364 QTc: 491 Interpretive Statements SINUS TACHYCARDIA ABNORMAL RHYTHM ECG ANTERIOR INFARCT, OF INDETERMINATE AGE PROLONGED QTC SIMILAR 09/29/19 Electronically Signed on 09-29-2019 21:38:28 EST by Rebekah Babin
== END 2019-09-29 18:19 | disposition short-term general hospital (02) ==
LOC: M ED 09:09
DX: I21.4 Non-ST elevation (NSTEMI) myocardial infarction (principal); J44.1 Chronic obstructive pulmonary disease with (acute) exacerbation; J45.909 Unspecified asthma, uncomplicated; Z79.899 Other long term (current) drug therapy; F17.210 Nicotine dependence, cigarettes, uncomplicated
CPT/HCPCS: 36415; 71045; 71275; 80048; 80076; 82550; 82553; 83605; 83880; 84443; 85025; 85610; 87040; 87502; 93005; 93041; 94760; 99285; Q9967

== ENCOUNTER → 2019-10-15 | Outpatient (REF) | payer OTHER ==
[2019-10-15 18:03] LABS: BASO # 0.1 10^3/uL (0.0-0.2); BASO % 0.7 % (0.0-1.0); EOS # 0.2 10^3/uL (0.0-0.5); EOS % 1.7 % (0.0-3.0); HEMATOCRIT 42.6 % (42.0-52.0); HEMOGLOBIN 14.5 g/dl (13.5-17.5); LYMPH # 2.8 10^3/uL (1.5-5.0); LYMPH % 25.2 % (24.0-44.0); MEAN CORPUSCULAR HEMOGLOBIN 33.5 pg (27.0-33.0); MEAN CORPUSCULAR VOLUME 98.4 fl (80.0-96.0); MONO # 1.2 10^3/uL (0.0-0.8); MONO % 11.2 % (0.0-5.0); NEUTROPHILS # 6.7 10^3/uL (1.5-8.5); NEUTROPHILS % 60.9 % (36.0-66.0); PLATELET COUNT, AUTOMATED 247 10^3/uL (150-450); RED BLOOD COUNT 4.33 10^6/uL (4.30-6.10)
[2019-10-15 18:28] LABS: ALBUMIN 3.9 GM/DL (3.2-5.2); ALT/SGPT 20 U/L (12-78); BILIRUBIN,TOTAL 0.6 MG/DL (0.2-1.0); BLOOD UREA NITROGEN 10 MG/DL (7-18); CALCIUM LEVEL 9.3 MG/DL (8.5-10.1); CARBON DIOXIDE LEVEL 30 MEQ/L (21-32); CHLORIDE LEVEL 104 MEQ/L (98-107); CHOLESTEROL LEVEL 289 MG/DL (<200); CREATININE FOR GFR 0.73 MG/DL (0.70-1.30); FREE T4 0.77 NG/DL (0.76-1.46); GLOMERULAR FILTRATION RATE > 60.0 (>56); GLUCOSE, FASTING 92 MG/DL (70-100); HDL CHOLESTEROL 86 MG/DL (>40); LDL CHOLESTEROL 188 MG/DL (<100); NON-HDL-C 203 MG/DL; POTASSIUM SERUM 4.1 MEQ/L (3.5-5.1); SODIUM LEVEL 139 MEQ/L (136-145); TOTAL PROTEIN 7.4 GM/DL (6.4-8.2); TRIGLYCERIDES LEVEL 77 MG/DL (<150)
== END ==
LOC: M SFHCPLAZ 13:09
PROVIDERS: ATTEND Physician Assistant Medical
DX: Z12.5 Encounter for screening for malignant neoplasm of prostate (principal); Z13.220 Encounter for screening for lipoid disorders; I10 Essential (primary) hypertension; I25.2 Old myocardial infarction

== ENCOUNTER 2021-05-14 03:31 | Inpatient (IN) | payer OTHER ==
[~2021-05-14] VITALS: Ht 170.2 cm; Wt 61.8 kg
[~2021-05-14 03:31] MED LIST changes: +AMLO1TAB24 PO; -AMLO5TAB6 PO; -KLOR10TA76 PO; +POTA-136 PO
[2021-05-14] MEDS ORDERED: ACETAMINOPH W/CODEINE #3 TAB UD PO ONE (07:35)
--- NOTE | 2021-05-14 08:37 | REPVR ---
PROCEDURE INFORMATION: Exam: XR Left Hip Exam date and time: 05/14/2021 5:43 AM Age: 56 years old Clinical indication: Other: Left hip pain after fall TECHNIQUE: Imaging protocol: XR Left hip. Views: 2 or 3 views hip with pelvis when performed. COMPARISON: CT ABD PELVIS WITH CONTRAST 02/07/2019 12:48 AM FINDINGS: Bones/joints: There is intact surgical hardware in the left hip. Bones are osteopenic with degenerative changes. No definite acute fracture or dislocation. No joint effusion. Lucency in the level of the greater trochanter does not seem to violate the cortices. Soft tissues: Unremarkable. Other findings: Arteriovascular calcifications in the field of view. IMPRESSION: Postoperative and degenerative changes without convincing evidence of acute fracture. Electronically signed by: Natan Parekh On 05/14/2021 08:36:41 AM
--- NOTE | 2021-05-14 11:42 | REP ---
INDICATION: fall, prior L hip with reconstruction, severe bruising. COMPARISON: Comparison is made with most recent prior CT dated 02/07/2019 TECHNIQUE: Axial noncontrast images through the left hip with coronal and sagittal reformations. FINDINGS: The prior examination dated 02/07/2019 demonstrated the orthopedic hardware related to old injury as well as relatively normal healed fracture through the proximal femur without cortical disruptions. The current examination now demonstrates the hardware to be in stable position as compared with prior examination although multiple nondisplaced cortical breaks are identified through the femoral neck and intertrochanteric region suggesting a superimposed acute injury with nondisplaced fracture. There is overlying posttraumatic soft tissue infiltration including what appears to be a small hematoma forming over the region of the greater trochanter/proximal femur. IMPRESSION: Findings are consistent with an acute nondisplaced fracture involving the proximal femur with overlying posttraumatic soft tissue injury and small forming hematoma in the subcutaneous tissue. <Electronically signed by David Kent > 05/14/21 [id number]
[2021-05-14] MEDS ORDERED: MORPHINE 2 MG/ML 1ML VIAL (J2270) IV PRN (12:10)
[2021-05-14] MEDS ORDERED: ACETAMINOPHEN TAB 650MG DOSE (2X325MG) PO PRN (12:10)
[2021-05-14] MEDS ORDERED: LORazepam 2 MG TAB PO PRN (12:10)
[2021-05-14 12:35] LABS: HEMATOCRIT 37.4 % (42.0-52.0); HEMOGLOBIN 12.6 g/dl (13.5-17.5); MEAN CORPUSCULAR HEMOGLOBIN 34.9 pg (27.0-33.0); MEAN CORPUSCULAR HGB CONC 33.7 g/dl (32.0-36.5); MEAN CORPUSCULAR VOLUME 103.6 fl (80.0-96.0); PLATELET COUNT, AUTOMATED 284 10^3/uL (150-450); RED BLOOD COUNT 3.61 10^6/uL (4.30-6.10); WHITE BLOOD COUNT 4.1 10^3/uL (4.0-10.0)
[2021-05-14 12:47] LABS: PROTHROMBIN TIME 13.6 SECONDS (12.7-14.5)
[2021-05-14 12:48] LABS: PARTIAL THROMBOPLASTIN TIME 22.6 SECONDS (25.9-37.0)
[2021-05-14] MEDS: MULTIVITAMINS/MINERALS THERAP 1 TAB PO SCH (12:49)
[2021-05-14] MEDS: FOLIC ACID 1 MG TAB PO SCH (12:49)
[2021-05-14] MEDS: THIAMINE 100 MG TAB PO SCH ×2 (12:49→20:06)
[2021-05-14] MEDS: NS 1,000 ML IV SCH ×2 (12:50→21:43)
[2021-05-14] MEDS: MORPHINE 2 MG/ML 1ML VIAL (J2270) IV PRN ×2 (12:50→18:56)
[2021-05-14 13:02] LABS: ALBUMIN 3.1 GM/DL (3.2-5.2); ALT/SGPT 23 U/L (12-78); BILIRUBIN,DIRECT 0.2 MG/DL (0.0-0.2); BILIRUBIN,TOTAL 0.4 MG/DL (0.2-1.0); BLOOD UREA NITROGEN 3 MG/DL (7-18); CALCIUM LEVEL 8.7 MG/DL (8.5-10.1); CARBON DIOXIDE LEVEL 24 MEQ/L (21-32); CHLORIDE LEVEL 110 MEQ/L (98-107); CREATININE FOR GFR 0.52 MG/DL (0.70-1.30); GLOMERULAR FILTRATION RATE > 60.0 (>56); GLUCOSE, FASTING 75 MG/DL (70-100); POTASSIUM SERUM 3.9 MEQ/L (3.5-5.1); SODIUM LEVEL 142 MEQ/L (136-145); TOTAL PROTEIN 6.7 GM/DL (6.4-8.2)
[2021-05-14 13:06] LABS: RSV AMPLIFICATION NEGATIVE (NEGATIVE)
--- NOTE | 2021-05-14 13:10 | CR ---
CONSULTATION DATE: 05/14/2021 CHIEF COMPLAINT: Left hip pain. HISTORY OF PRESENT ILLNESS: This patient consults to me by the QMP at [facility] Emergency Department (ED) at 11:47 a.m. today, on 05/14/2021. Per her history, the patient fell 7-10 days ago. He was experiencing hip pain. Ten years ago had a fracture surgery. Patient finds it difficult to ambulate now. PHYSICAL EXAMINATION: She states the patient is having great difficulty mobilizing and hip pain. Radiographs were performed that show per the radiologist's report postoperative degenerative changes but no convincing evidence of acute fracture. For matters of preparation the patient has a DHS implant that appears stable. There is suspicion for a greater trochanter fracture. There has also been a CT scan. The radiologist's report states findings suggestive of acute nondisplaced fracture, involving the proximal humerus, overlying posttraumatic soft tissue injury, and small forming hematomas in the subcutaneous tissue. Hardware appears to be in stable position. Other multiple nondisplaced cortical breaks are identified through the femoral neck and intertrochanteric region, suggesting a superimposed acute injury of a nondisplaced fracture. From my own interpretation, this appears to be a minimally displaced fracture, mostly involving the greater trochanter. Stable hardware. ASSESSMENT AND PLAN: This is a 56-year-old man with left hip pain. There appears to be a stable fracture, mostly involving the greater trochanter, stable hardware. I recommend toe-touch weightbearing with a walker for 6 week from his injury. Per the patient's history, he is having difficulty ambulating. He should see physical therapy (PT) and occupational therapy (OT) for ensuring safety while protecting weightbearing, left lower extremity, toe-touch weightbearing with a walker for 6 weeks as well as being admitted to the hospitalist service for medical management. I will see the patient on a nonemergent basis in the clinic within 24 hours. He may be diet as tolerated. Do recommend surgery for this patient. This was communicated to the QMP. She understands and had no further questions. [facility] CENTERAna
--- NOTE | 2021-05-14 13:19 | REP ---
INDICATION: cough, SOB COMPARISON: 09/29/2019 TECHNIQUE: PA and lateral. FINDINGS: The mediastinum and cardiac silhouette are normal. The lung jin demonstrate chronic changes. No acute consolidation, effusion, or pneumothorax.. The skeletal structures are intact and old healed left rib fractures are noted. IMPRESSION: No acute cardiopulmonary process. <Electronically signed by David Kent > 05/14/21 [id number]
[2021-05-14 13:21] LABS: ATYPICAL LYMPH 1 % (0-5); BASOPHILS 2 % (0-1); EOSINOPHILS 8 % (0-3); LYMPHOCYTES 42 % (16-44); MONOCYTES 15 % (0-5); NEUTROPHILS 31 % (28-66)
[2021-05-14 13:23] LABS: PLATELET ESTIMATE NORMAL (NORMAL)
[2021-05-14] MEDS ORDERED: ALBU8.5H INH (14:05)
[2021-05-14] MEDS ORDERED: HOME MED LIST COMPLETE! XX SCH (14:10)
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
[2021-05-14 15:00] VITALS: BP 133/90
[2021-05-14] MEDS: NICOTINE 21MG/24HR 1 EA TRANSDERMAL TD SCH (15:14)
[2021-05-14 21:24] VITALS: BP 120/76
[2021-05-14 22:00] VITALS: BP 120/76
[2021-05-14] MEDS: IPRATROPIUM 0.5MG/ALBUTEROL 2.5MG INH SOL UD 3ML (DUONEB) NEB PRN (23:14)
[2021-05-15] MEDS: PERCOCET 5MG/325MG TAB PO PRN ×4 (01:28→20:00)
[2021-05-15 06:00] VITALS: BP 120/87
[2021-05-15] MEDS: IPRATROPIUM 0.5MG/ALBUTEROL 2.5MG INH SOL UD 3ML (DUONEB) NEB PRN ×3 (07:41→20:15)
[2021-05-15] MEDS: FOLIC ACID 1 MG TAB PO SCH (08:02)
[2021-05-15] MEDS: THIAMINE 100 MG TAB PO SCH ×2 (08:02→20:00)
[2021-05-15] MEDS: MULTIVITAMINS/MINERALS THERAP 1 TAB PO SCH (08:02)
[2021-05-15] MEDS: NICOTINE 21MG/24HR 1 EA TRANSDERMAL TD SCH (08:03)
[2021-05-15 08:38] LABS: HEMATOCRIT 35.2 % (42.0-52.0); MEAN CORPUSCULAR HEMOGLOBIN 35.6 pg (27.0-33.0); MEAN CORPUSCULAR HGB CONC 34.1 g/dl (32.0-36.5); MEAN CORPUSCULAR VOLUME 104.5 fl (80.0-96.0); PLATELET COUNT, AUTOMATED 268 10^3/uL (150-450); RED BLOOD COUNT 3.37 10^6/uL (4.30-6.10)
[2021-05-15 09:11] LABS: BLOOD UREA NITROGEN 6 MG/DL (7-18); CALCIUM LEVEL 8.5 MG/DL (8.5-10.1); CARBON DIOXIDE LEVEL 25 MEQ/L (21-32); CHLORIDE LEVEL 109 MEQ/L (98-107); GLOMERULAR FILTRATION RATE > 60.0 (>56); GLUCOSE, FASTING 97 MG/DL (70-100); POTASSIUM SERUM 3.7 MEQ/L (3.5-5.1); SODIUM LEVEL 140 MEQ/L (136-145)
[2021-05-15] MEDS ORDERED: FLUBLOK(EGG FREE)(QUAD)INFLUENZA VACC 0.5ML SYRINGE 18YRS & OLDER IM ONE (10:00)
[2021-05-15] MEDS: NS 1,000 ML IV SCH (10:50)
[2021-05-15 13:22] VITALS: BP 112/78
[2021-05-15 14:00] VITALS: BP 112/78
--- NOTE | 2021-05-15 15:03 | IPNPDOC ---
Date Seen The patient was seen on 05/15/21. Progress Note SUBJECTIVE: No acute events overnight. Worked with PT today. Denies chest pain, shortness of breath, fevers, increased left leg pain. OBJECTIVE: PHYSICAL EXAMINATION: VS: Stable, see below CONSTITUTIONAL: No acute distress, resting comfortably, AAO x 3 EYES: PERRLA, EOM intact HENT, MOUTH: Normocephalic, atraumatic, moist mucous membranes NECK: SUPPLE, no JVD, no lymphadenopathy, no carotid bruit CV: Regular rate and rhythm, S1S2 normal, no murmurs/rubs/gallops RESPIRATORY: Clear to auscultation bilaterally, no rales/rhonchi/wheezes GI: BS positive in 4 quadrants, soft, nontender, nondistended, no rebound or guarding, no organomegaly : Deferred MUSCULOSKELETAL: Normal ROM right hip, left not tested. No cyanosis, clubbing, swelling, joint deformity, extremity edema INTEGUMENTARY: Intact, no rashes, no lesions. Bruising on left hip and inner left thigh down below knee and upper calf. NEUROLOGIC: Cranial Nerves II-XII are intact, no focal deficits PSYCHIATRIC: Mood and affect are normal LABORATORY DATA: Please see below IMAGING: Hip/pelvis XR: Postoperative and degenerative changes without convincing evidence of acute fracture. CT left hip: Findings are consistent with an acute nondisplaced fracture involving the proximal femur with overlying posttraumatic soft tissue injury and small forming hematoma in the subcutaneous tissue. CXR: No acute findings ASSESSMENT: 56-year-old male with PMH of alcohol abuse, CAD status post [place] 2, hypertension, hyperlipidemia, COPD/asthma, tobacco use admitted for left acute nondisplaced fracture involving the proximal femur. PLAN: Left acute nondisplaced fracture of proximal femur -Associated small hematoma in the subcutaneous tissue -Per orthopedic surgery, touch toe weightbearing with a walker for 6 weeks. -PT: demonstrates good ability to maintain TDWB but is limited by fatigue. Patient will need more training for gait and stair training but should be able to anticipate a home w/services plan. 3-5 More Sessions -Pain control -Orthopedic surgery consulted Alcohol abuse -Tachycardia currently. Baseline resting tremor which is chronic. -Last drink was 8 beers in the evening on 05/13/2021 -[facility] protocol: Folate, thiamine, multivitamin, Ativan when necessary CAD status post [place] 2 -No chest pain or increased shortness of breath from baseline -Currently on no medications at home COPD/asthma -Currently not in exacerbation -Chest x-ray above -DuoNeb when necessary Hyperlipidemia -No home medications Tobacco use -Nicotine patch DVT prophylaxis -Lovenox DISPOSITION: Currently admitted under hospitalist service as inpatients. Discussed case with , orthopedic surgery. PT/OT with goal home with services. VS, I&O, 24H, Fishbone Vital Signs/I&O Vital Signs Date Time Temp Pulse Resp B/P (MAP) Pulse Ox O2 Delivery O2 Flow Rate FiO2 05/15/21 14:47 18 05/15/21 14:00 98.6 110 112/78 (89) 98 Room Air 05/15/21 08:00 1.5 I&O- Last 24 Hours up to 6 AM 05/15/21 05:59 Intake Total 1050 ml Output Total 700 ml Balance 350 ml Laboratory Data 24H LABS Laboratory Tests 2 05/15/21 08:24: Nucleated Red Blood Cells % (auto) 0.0, Anion Gap 6L, Glomerular Filtration Rate > 60.0, Calcium Level 8.5 CBC/BMP Laboratory Tests 05/15/21 08:24 Kimberley Bro MD May 15, 2021 15:03
[2021-05-15] MEDS: ENOXAPARIN 40MG/0.4ML SYRINGE (J1650 PER 10MG) SC SCH (15:33)
[2021-05-15 21:53] VITALS: BP 109/75
[2021-05-15 22:00] VITALS: BP 109/75
[2021-05-16] MEDS: IPRATROPIUM 0.5MG/ALBUTEROL 2.5MG INH SOL UD 3ML (DUONEB) NEB PRN (01:07)
[2021-05-16] MEDS: PERCOCET 5MG/325MG TAB PO PRN ×4 (01:13→20:48)
[2021-05-16] MEDS ORDERED: ALBUTEROL SULFATE 2.5 MG/0.5 ML INH NEB SOLN NEB PRN (01:35)
[2021-05-16] MEDS: IPRATROPIUM 0.5MG/ALBUTEROL 2.5MG INH SOL UD 3ML (DUONEB) NEB SCH ×4 (02:00→20:02)
[2021-05-16 06:00] VITALS: BP 106/65
[2021-05-16] MEDS: ENOXAPARIN 40MG/0.4ML SYRINGE (J1650 PER 10MG) SC SCH (08:45)
[2021-05-16] MEDS: FOLIC ACID 1 MG TAB PO SCH (08:45)
[2021-05-16] MEDS: MULTIVITAMINS/MINERALS THERAP 1 TAB PO SCH (08:45)
[2021-05-16] MEDS: THIAMINE 100 MG TAB PO SCH ×2 (08:45→20:47)
[2021-05-16] MEDS: NICOTINE 21MG/24HR 1 EA TRANSDERMAL TD SCH (08:46)
[2021-05-16 08:58] LABS: HEMATOCRIT 35.7 % (42.0-52.0); HEMOGLOBIN 12.3 g/dl (13.5-17.5); MEAN CORPUSCULAR HEMOGLOBIN 35.3 pg (27.0-33.0); MEAN CORPUSCULAR HGB CONC 34.5 g/dl (32.0-36.5); MEAN CORPUSCULAR VOLUME 102.6 fl (80.0-96.0); PLATELET COUNT, AUTOMATED 282 10^3/uL (150-450); RED BLOOD COUNT 3.48 10^6/uL (4.30-6.10); WHITE BLOOD COUNT 6.3 10^3/uL (4.0-10.0)
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
[2021-05-16 09:23] LABS: BLOOD UREA NITROGEN 5 MG/DL (7-18); CALCIUM LEVEL 8.9 MG/DL (8.5-10.1); CARBON DIOXIDE LEVEL 25 MEQ/L (21-32); CHLORIDE LEVEL 106 MEQ/L (98-107); CREATININE FOR GFR 0.58 MG/DL (0.70-1.30); GLOMERULAR FILTRATION RATE > 60.0 (>56); GLUCOSE, FASTING 95 MG/DL (70-100); POTASSIUM SERUM 3.9 MEQ/L (3.5-5.1); SODIUM LEVEL 138 MEQ/L (136-145)
[2021-05-16 14:00] VITALS: BP 111/79
--- NOTE | 2021-05-16 17:41 | IPNPDOC ---
Date Seen The patient was seen on 05/16/21. Progress Note SUBJECTIVE: No acute events overnight. Tachycardic but no other signs of withdrawal. Denies palpitations, chest pain, shortness of breath, fevers, increased left leg pain. OBJECTIVE: PHYSICAL EXAMINATION: VS: Stable, see below CONSTITUTIONAL: No acute distress, resting comfortably, AAO x 3 EYES: PERRLA, EOM intact HENT, MOUTH: Normocephalic, atraumatic, moist mucous membranes NECK: SUPPLE, no JVD, no lymphadenopathy, no carotid bruit CV: Regular rate and rhythm, S1S2 normal, no murmurs/rubs/gallops RESPIRATORY: Clear to auscultation bilaterally, no rales/rhonchi/wheezes GI: BS positive in 4 quadrants, soft, nontender, nondistended, no rebound or guarding, no organomegaly : Deferred MUSCULOSKELETAL: Normal ROM right hip, left not tested. No cyanosis, clubbing, swelling, joint deformity, extremity edema INTEGUMENTARY: Intact, no rashes, no lesions. Bruising on left hip and inner left thigh down below knee and upper calf. NEUROLOGIC: Cranial Nerves II-XII are intact, no focal deficits PSYCHIATRIC: Mood and affect are normal LABORATORY DATA: Please see below IMAGING: Hip/pelvis XR: Postoperative and degenerative changes without convincing evidence of acute fracture. CT left hip: Findings are consistent with an acute nondisplaced fracture involving the proximal femur with overlying posttraumatic soft tissue injury and small forming hematoma in the subcutaneous tissue. CXR: No acute findings ASSESSMENT: 56-year-old male with PMH of alcohol abuse, CAD status post [place] 2, hypertension, hyperlipidemia, COPD/asthma, tobacco use admitted for left acute nondisplaced fracture involving the proximal femur. PLAN: Left acute nondisplaced fracture of proximal femur -Associated small hematoma in the subcutaneous tissue -Per orthopedic surgery, touch toe weightbearing with a walker for 6 weeks. -PT: demonstrates good ability to maintain TDWB but is limited by fatigue. Patient will need more training for gait and stair training but should be able to anticipate a home w/services plan. 3-5 More Sessions -Pain control -Orthopedic surgery: Will see in 1-2 weeks, walker at d/c. Needs likely 2 additional more days of PT services before d/c Alcohol abuse -Tachycardia only with baseline resting tremor which is chronic. -Last drink was 8 beers in the evening on 05/13/2021 -[facility] protocol: Folate, thiamine, multivitamin, Ativan when necessary CAD status post [place] 2 -No chest pain or increased shortness of breath from baseline -Currently on no medications at home COPD/asthma -Currently not in exacerbation -Chest x-ray above -DuoNeb when necessary Hyperlipidemia -No home medications Tobacco use -Nicotine patch DVT prophylaxis -Lovenox DISPOSITION: Currently admitted under hospitalist service as inpatients. Discussed case with , orthopedic surgery. PT/OT with goal home with services. VS, I&O, 24H, Fishbone Vital Signs/I&O Vital Signs Date Time Temp Pulse Resp B/P (MAP) Pulse Ox O2 Delivery O2 Flow Rate FiO2 05/16/21 15:23 18 Room Air 05/16/21 14:00 120 111/79 05/16/21 06:00 99.3 95 05/15/21 08:00 1.5 I&O- Last 24 Hours up to 6 AM 05/16/21 06:00 Intake Total 1980 ml Output Total 1975 ml Balance 5 ml Laboratory Data 24H LABS Laboratory Tests 2 05/16/21 08:48: Nucleated Red Blood Cells % (auto) 0.0, Anion Gap 7L, Glomerular Filtration Rate > 60.0, Calcium Level 8.9 CBC/BMP Laboratory Tests 05/16/21 08:48 Kimberley Bro MD May 16, 2021 17:41
[2021-05-16 20:15] VITALS: BP 116/83
[2021-05-16 22:00] VITALS: BP 116/83
[2021-05-17] MEDS ORDERED: SENNA 8.6 MG TAB (SENOKOT) PO PRN (01:25)
[2021-05-17] MEDS ORDERED: DOCUSATE SODIUM 100MG CAPSULE PO PRN (01:25)
[2021-05-17] MEDS: PERCOCET 5MG/325MG TAB PO PRN ×2 (01:41→09:36)
[2021-05-17] MEDS: IPRATROPIUM 0.5MG/ALBUTEROL 2.5MG INH SOL UD 3ML (DUONEB) NEB SCH ×3 (02:02→13:25)
[2021-05-17 06:09] LABS: HEMATOCRIT 36.5 % (42.0-52.0); HEMOGLOBIN 12.5 g/dl (13.5-17.5); MEAN CORPUSCULAR HEMOGLOBIN 35.5 pg (27.0-33.0); MEAN CORPUSCULAR HGB CONC 34.2 g/dl (32.0-36.5); MEAN CORPUSCULAR VOLUME 103.7 fl (80.0-96.0); PLATELET COUNT, AUTOMATED 288 10^3/uL (150-450); RED BLOOD COUNT 3.52 10^6/uL (4.30-6.10); WHITE BLOOD COUNT 6.5 10^3/uL (4.0-10.0)
[2021-05-17 06:10] VITALS: BP 119/82
[2021-05-17 06:31] LABS: BLOOD UREA NITROGEN 7 MG/DL (7-18); CALCIUM LEVEL 9.4 MG/DL (8.5-10.1); CARBON DIOXIDE LEVEL 28 MEQ/L (21-32); CHLORIDE LEVEL 107 MEQ/L (98-107); CREATININE FOR GFR 0.66 MG/DL (0.70-1.30); GLOMERULAR FILTRATION RATE > 60.0 (>56); GLUCOSE, FASTING 86 MG/DL (70-100); POTASSIUM SERUM 3.9 MEQ/L (3.5-5.1); SODIUM LEVEL 140 MEQ/L (136-145)
[2021-05-17] MEDS: FOLIC ACID 1 MG TAB PO SCH (09:35)
[2021-05-17] MEDS: MULTIVITAMINS/MINERALS THERAP 1 TAB PO SCH (09:35)
[2021-05-17] MEDS: NICOTINE 21MG/24HR 1 EA TRANSDERMAL TD SCH (09:35)
[2021-05-17] MEDS: ENOXAPARIN 40MG/0.4ML SYRINGE (J1650 PER 10MG) SC SCH (09:36)
[2021-05-17] MEDS ORDERED: PERCOCET PO (13:32)
[2021-05-17] MEDS ORDERED: DOCU100C16 PO (13:32)
[2021-05-17] MEDS ORDERED: FOLI1TAB11 PO (13:32)
[2021-05-17 13:40] VITALS: BP 122/83
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
== END 2021-05-17 16:30 | disposition home or self-care (01) | DRG 340 ==
LOC: M ED 03:31 → M ED INP 12:09 → ENRESERV 14:12 → M MS5PR 15:00
PROVIDERS: ADMIT Internal Medicine; ATTEND Internal Medicine
DX: S72.115A Nondisplaced fracture of greater trochanter of left femur, initial encounter for closed fracture (principal); I10 Essential (primary) hypertension; F10.10 Alcohol abuse, uncomplicated; I25.10 Atherosclerotic heart disease of native coronary artery without angina pectoris; I25.2 Old myocardial infarction; J44.9 Chronic obstructive pulmonary disease, unspecified; J45.909 Unspecified asthma, uncomplicated; F17.200 Nicotine dependence, unspecified, uncomplicated; Y93.16 Activity, rowing, canoeing, kayaking, rafting and tubing; Y99.9 Unspecified external cause status; V93.35XA Fall on board canoe or kayak, initial encounter; Z20.822 Contact with and (suspected) exposure to COVID-19; Z79.899 Other long term (current) drug therapy; S70.02XA Contusion of left hip, initial encounter

== ENCOUNTER 2021-05-22 22:42 | Inpatient (IN) | payer OTHER ==
[~2021-05-22] VITALS: Ht 167.6 cm; Wt 49.3 kg
[~2021-05-22 22:42] MED LIST changes: +ALBU8.5H INH; +DOCU100C16 PO; +FOLI1TAB11 PO
--- OUTSIDE RECORDS SUMMARY | 2021-05-22 22:46 | CCD ---
Author Author [facility] Organization [facility] Address Unknown Phone Unavailable Support Name Relationship Address Phone Rich Nicole Next Of Kin Unknown Unavailable [place] [address] [place] [address] DISABLED Next Of Kin Unknown Unavailable UE Next Of Kin Unknown Unavailable STEVIE JOSEPH Next Of Kin [address] [place] [address] RICH NICOLE [address] [place] [address] Unavailable Re-disclosure Warning The records that you are about to access may contain information from federally-assisted alcohol or drug abuse programs. If such information is present, then the following federally mandated warning applies: This information has been disclosed to you from records protected by federal confidentiality rules (42 CFR part 2). The federal rules prohibit you from making any further disclosure of this information unless further disclosure is expressly permitted by the written consent of the person to whom it pertains or as otherwise permitted by 42 CFR part 2. A general authorization for the release of medical or other information is NOT sufficient for this purpose. The Federal rules restrict any use of the information to criminally investigate or prosecute any alcohol or drug abuse patient.The records that you are about to access may contain highly sensitive health information, the redisclosure of which is protected by Article 27-F of the [facility] Public Health law. If you continue you may have access to information: Regarding HIV / AIDS; Provided by facilities licensed or operated by the [facility] Office of Mental Health; or Provided by the [facility] Office for People With Developmental Disabilities. If such information is present, then the following [facility] mandated warning applies: This information has been disclosed to you from confidential records which are protected by state law. State law prohibits you from making any further disclosure of this information without the specific written consent of the person to whom it pertains, or as otherwise permitted by law. Any unauthorized further disclosure in violation of state law may result in a fine or retirement sentence or both. A general authorization for the release of medical or other information is NOT sufficient authorization for further disc losure. Family History Family Member Name Family Member Gender Family Member Status Date o f Status Description Data Source(s) Unknown Female Problem MEDENT ([facility]) Unknown Unknown Problem MEDENT ([facility]) Encounters Encounter Providers Location Date Indications Data Source(s ) Unknown [address] [facility] [address] 11/15/2020 12:00:00 AM EDT eCW1 ([facility]) Medications Medication Brand Name Start Date Product Form Dose Route Admi nistrative Instructions Pharmacy Instructions Status Indications Reaction Description Data Source(s) 5-325 mg 05/17/2021 12:00:00 AM EDT tablet 28 TAKE ONE TABLET BY MOUTH EVERY 6 HOURS NEEDED FOR MODERATE/SEVERE PAIN (PS 5-7) MAXIMUM DAILY DOSE = 4 TABLETS TAKE ONE TABLET BY MOUTH EVERY 6 HOURS A S NEEDED FOR MODERATE/SEVERE PAIN (PS 5-7) MAXIMUM DAILY DOSE = 4 TABLETS SOLD: 05/18/2021 [facility] 90 mcg/actuation 11/16/2020 12:00:00 AM EDT HFA aerosol inha ler 18 INHALE TWO PUFF BY MOUTH EVERY 4 HOURS NEEDED FOR FOR SHORTNESS OF BREATH/COUGH/WHEEZING INHALE TWO PUFF BY MOUTH EVERY 4 HOURS A S NEEDED FOR FOR SHORTNESS OF BREATH/COUGH/WHEEZING SOLD: 03/31/2021 [facility] 90 mcg/actuation 11/16/2020 12:00:00 AM EDT HFA aerosol inha ler 18 INHALE TWO PUFF BY MOUTH EVERY 4 HOURS NEEDED FOR FOR SHORTNESS OF BREATH/COUGH/WHEEZING INHALE TWO PUFF BY MOUTH EVERY 4 HOURS A S NEEDED FOR FOR SHORTNESS OF BREATH/COUGH/WHEEZING SOLD: 01/01/2021 [facility] 90 mcg/actuation 11/16/2020 12:00:00 AM EDT HFA aerosol inha ler 18 INHALE TWO PUFF BY MOUTH EVERY 4 HOURS NEEDED FOR FOR SHORTNESS OF BREATH/COUGH/WHEEZING INHALE TWO PUFF BY MOUTH EVERY 4 HOURS A S NEEDED FOR FOR SHORTNESS OF BREATH/COUGH/WHEEZING SOLD: 02/03/2021 [facility] 120 ACTUAT Albuterol 0.1 MG/ACTUAT / Ipr atropium [place] 0.02 MG/ACTUAT Metered Dose Inhaler [Combivent] 20-100 mcg/actuation IPRATROPIUM/ALBUTEROL SULFATE 11/16/2020 12:00:00 AM EDT mist 4 INHAL E ONE PUFF BY MOUTH FOUR TIMES A DAY NEEDED FOR COUGH/WHEEZE/SHORTNESS OF BREATH INHALE ONE PUFF BY MOUTH FOUR TIMES A DAY NEEDED FOR COUGH/WHEEZE/SHORTNESS OF BREATH SOLD: 11/20/2020 [facility] 120 ACTUAT Albuterol 0.1 MG/ACTUAT / Ipr atropium [place] 0.02 MG/ACTUAT Metered Dose Inhaler [Combivent] 20-100 mcg/actuation IPRATROPIUM/ALBUTEROL SULFATE 11/16/2020 12:00:00 AM EDT mist 4 INHAL E ONE PUFF BY MOUTH FOUR TIMES A DAY NEEDED FOR COUGH/WHEEZE/SHORTNESS OF BREATH INHALE ONE PUFF BY MOUTH FOUR TIMES A DAY NEEDED FOR COUGH/WHEEZE/SHORTNESS OF BREATH SOLD: 05/18/2021 [facility] 120 ACTUAT Albuterol 0.1 MG/ACTUAT / Ipr atropium [place] 0.02 MG/ACTUAT Metered Dose Inhaler [Combivent] 20-100 mcg/actuation IPRATROPIUM/ALBUTEROL SULFATE 11/16/2020 12:00:00 AM EDT mist 4 INHAL E ONE PUFF BY MOUTH FOUR TIMES A DAY NEEDED FOR COUGH/WHEEZE/SHORTNESS OF BREATH INHALE ONE PUFF BY MOUTH FOUR TIMES A DAY NEEDED FOR COUGH/WHEEZE/SHORTNESS OF BREATH SOLD: 04/01/2021 [facility] 120 ACTUAT Albuterol 0.1 MG/ACTUAT / Ipr atropium [place] 0.02 MG/ACTUAT Metered Dose Inhaler [Combivent] 20-100 mcg/actuation IPRATROPIUM/ALBUTEROL SULFATE 11/16/2020 12:00:00 AM EDT mist 4 INHAL E ONE PUFF BY MOUTH FOUR TIMES A DAY NEEDED FOR COUGH/WHEEZE/SHORTNESS OF BREATH INHALE ONE PUFF BY MOUTH FOUR TIMES A DAY NEEDED FOR COUGH/WHEEZE/SHORTNESS OF BREATH SOLD: 01/01/2021 [facility] 120 ACTUAT Albuterol 0.1 MG/ACTUAT / Ipr atropium [place] 0.02 MG/ACTUAT Metered Dose Inhaler [Combivent] 20-100 mcg/actuation IPRATROPIUM/ALBUTEROL SULFATE 11/16/2020 12:00:00 AM EDT mist 4 INHAL E ONE PUFF BY MOUTH FOUR TIMES A DAY NEEDED FOR COUGH/WHEEZE/SHORTNESS OF BREATH INHALE ONE PUFF BY MOUTH FOUR TIMES A DAY NEEDED FOR COUGH/WHEEZE/SHORTNESS OF BREATH SOLD: 02/03/2021 [facility] 90 mcg/actuation 11/16/2020 12:00:00 AM EDT HFA aerosol inha ler 18 INHALE TWO PUFF BY MOUTH EVERY 4 HOURS NEEDED FOR FOR SHORTNESS OF BREATH/COUGH/WHEEZING INHALE TWO PUFF BY MOUTH EVERY 4 HOURS A S NEEDED FOR FOR SHORTNESS OF BREATH/COUGH/WHEEZING SOLD: 05/18/2021 [facility] 90 mcg/actuation 11/16/2020 12:00:00 AM EDT HFA aerosol inha ler 18 INHALE TWO PUFF BY MOUTH EVERY 4 HOURS NEEDED FOR FOR SHORTNESS OF BREATH/COUGH/WHEEZING INHALE TWO PUFF BY MOUTH EVERY 4 HOURS A S NEEDED FOR FOR SHORTNESS OF BREATH/COUGH/WHEEZING SOLD: 11/20/2020 [facility] 20-100 mcg/actuation 10/06/2020 12:00:00 AM EST mist 4 INHALE ONE PUFF BY MOUTH FOUR TIMES A DAY NEEDED FOR SHORTNESS OF BREATH INHALE ONE PUFF BY MOUTH FOUR TIMES A DAY NEEDED FOR SHORTNESS OF BREATH SOLD: 10/22/2020 [facility] 90 mcg/actuation 08/07/2020 12:00:00 AM EST HFA aerosol inha ler 18 INHALE TWO PUFFS BY MOUTH EVERY 4 HOURS NEEDED INHALE TWO PUFFS BY MOUTH EVERY 4 HOURS NEEDED SOLD: 08/07/2020 [facility] 90 mcg/actuation 08/07/2020 12:00:00 AM EST HFA aerosol inha ler 18 INHALE TWO PUFFS BY MOUTH EVERY 4 HOURS NEEDED INHALE TWO PUFFS BY MOUTH EVERY 4 HOURS NEEDED SOLD: 10/04/2020 [facility] 90 mcg/actuation 08/07/2020 12:00:00 AM EST HFA aerosol inha ler 18 INHALE TWO PUFFS BY MOUTH EVERY 4 HOURS NEEDED INHALE TWO PUFFS BY MOUTH EVERY 4 HOURS NEEDED SOLD: 09/04/2020 [facility] 100 mcg/actuation 06/14/2020 12:00:00 AM EST blister with de vice 30 INHALE 1 PUFF BY MOUTH ONCE DAILY INHALE 1 PUFF BY MOUTH ONCE DAILY SOLD: 07/13/2020 [facility] 100 mcg/actuation 06/14/2020 12:00:00 AM EST blister with de vice 30 INHALE 1 PUFF BY MOUTH ONCE DAILY INHALE 1 PUFF BY MOUTH ONCE DAILY SOLD: 06/14/2020 [facility] 100 mcg/actuation 06/14/2020 12:00:00 AM EST blister with de vice 30 INHALE 1 PUFF BY MOUTH ONCE DAILY INHALE 1 PUFF BY MOUTH ONCE DAILY SOLD: 11/06/2020 [facility] 100 mcg/actuation 06/14/2020 12:00:00 AM EST blister with de vice 30 INHALE 1 PUFF BY MOUTH ONCE DAILY INHALE 1 PUFF BY MOUTH ONCE DAILY SOLD: 09/04/2020 [facility] 100 mcg/actuation 06/14/2020 12:00:00 AM EST blister with de vice 30 INHALE 1 PUFF BY MOUTH ONCE DAILY INHALE 1 PUFF BY MOUTH ONCE DAILY SOLD: 09/30/2020 [facility] 20-100 mcg/actuation 03/18/2020 12:00:00 AM EDT mist 4 INHALE ONE PUFF BY MOUTH FOUR TIMES A DAY NEEDED FOR SHORTNESS OF BREATH/COUGH INHALE ONE PUFF BY MOUTH FOUR TIMES A DAY NEEDED FOR SHORTNESS OF BREATH/COUGH SOLD: 07/13/2020 [facility] 20-100 mcg/actuation 03/18/2020 12:00:00 AM EDT mist 4 INHALE ONE PUFF BY MOUTH FOUR TIMES A DAY NEEDED FOR SHORTNESS OF BREATH/COUGH INHALE ONE PUFF BY MOUTH FOUR TIMES A DAY NEEDED FOR SHORTNESS OF BREATH/COUGH SOLD: 06/14/2020 [facility] 20-100 mcg/actuation 03/18/2020 12:00:00 AM EDT mist 4 INHALE ONE PUFF BY MOUTH FOUR TIMES A DAY NEEDED FOR SHORTNESS OF BREATH/COUGH INHALE ONE PUFF BY MOUTH FOUR TIMES A DAY NEEDED FOR SHORTNESS OF BREATH/COUGH SOLD: 09/04/2020 [facility] 20-100 mcg/actuation 03/18/2020 12:00:00 AM EDT mist 4 INHALE ONE PUFF BY MOUTH FOUR TIMES A DAY NEEDED FOR SHORTNESS OF BREATH/COUGH INHALE ONE PUFF BY MOUTH FOUR TIMES A DAY NEEDED FOR SHORTNESS OF BREATH/COUGH SOLD: 05/18/2020 [facility] 20-100 mcg/actuation 03/18/2020 12:00:00 AM EDT mist 4 INHALE ONE PUFF BY MOUTH FOUR TIMES A DAY NEEDED FOR SHORTNESS OF BREATH/COUGH INHALE ONE PUFF BY MOUTH FOUR TIMES A DAY NEEDED FOR SHORTNESS OF BREATH/COUGH SOLD: 04/18/2020 [facility] 90 mcg/actuation 03/11/2020 12:00:00 AM EDT HFA aerosol inha ler 18 INHALE TWO PUFFS BY MOUTH EVERY 4 HOURS NEEDED INHALE TWO PUFFS BY MOUTH EVERY 4 HOURS NEEDED SOLD: 05/18/2020 [facility] 90 mcg/actuation 03/11/2020 12:00:00 AM EDT HFA aerosol inha ler 18 INHALE TWO PUFFS BY MOUTH EVERY 4 HOURS NEEDED INHALE TWO PUFFS BY MOUTH EVERY 4 HOURS NEEDED SOLD: 06/14/2020 [facility] 90 mcg/actuation 03/11/2020 12:00:00 AM EDT HFA aerosol inha ler 18 INHALE TWO PUFFS BY MOUTH EVERY 4 HOURS NEEDED INHALE TWO PUFFS BY MOUTH EVERY 4 HOURS NEEDED SOLD: 04/18/2020 [facility] 100 mcg/actuation 09/04/2019 12:00:00 AM EST blister with de vice 30 INHALE ONE PUFF BY MOUTH EVERY DAY INHALE ONE PUFF BY MOUTH EVERY DAY SOLD: 04/18/2020 [facility] 100 mcg/actuation 09/04/2019 12:00:00 AM EST blister with de vice 30 INHALE ONE PUFF BY MOUTH EVERY DAY INHALE ONE PUFF BY MOUTH EVERY DAY SOLD: 05/18/2020 [facility] Insurance Providers Payer name Policy type / Coverage type Policy ID Covered republican ID Covered republican's relationship to plummer Policy Plum[place] Plan Information Medicaid S [id number] S [id number] Managed Care - [facility] Community Plan P [id number] S [id number] [facility] MEDICAID [id number] Diamond [id number] 63 [facility] Community Plan Commercial Medicaid [id number] Self Medicaid [facility] MEDICAID [id number] xxxxxxxxx [id number] [facility] Community Plan Commercial [id number] Self [id number] Medicaid [place] Med[place] B [id number] Self [id number] [place] [id number] [place] [id number] Self [id number] [place] [id number] Self [id number] [facility] MEDICAID [id number] Diamond [id number] [facility] MCDO [id number] SP [id number] [facility] Health Maintenance Organization (HMO) [id number] Self BLUE [employer]OSS [place] PLAN [id number] SP [id number] HMO BLUE [id number] SP [id number] [id number] [facility] [employer] MCDHMO [id number] SP [id number] [facility] [employer] MCDHMO [id number] SP [id number] [facility] O [id number] S [id number] [facility] O [id number] S [id number] ANSI-Medicaid [id number] ANSI-Medicaid [id number] ANSI-Medicaid [id number] ANSI-Medicaid [id number] ANSI-Medicaid [id number] ANSI-Medicaid [id number] ANSI-Medicaid [id number] Problems, Conditions, and Diagnoses No Information Surgeries/Procedures No Information Results ID Date Data Source [id number] 05/14/2021 12:04:00 PM EDT [facility] Name Value Range Interpretation Code Description Data Ruthie rce(s) Supporting Document(s) SARS coronavirus 2 RNA [Presence] in Res piratory specimen by ABEL with probe detection NEGATIVE [facility] This lab was ordered by [facility] a nd reported by [facility]. Procedure Social History No Information
[2021-05-23] MEDS ORDERED: methylPREDNISolone 125MG 2ML VIAL IV ONE (00:30)
[2021-05-23] MEDS ORDERED: ISOVUE-370 76% 100ML VIAL As Ordered ONE (00:40)
[2021-05-23] MEDS: COMBIVENT RESPIMAT 100-20MCG INHALER 4GM INH SCH ×2 (00:49→00:50)
[2021-05-23 01:04] LABS: ABG BASE EXCESS -4.6 (-2.0-2.0); ABG HCO3 22.1 MEQ/L (22.0-26.0); ABG O2 SATURATION 98.1 % (95.0-99.0); ABG PARTIAL PRESSURE CO2 46.6 mmHg (35.0-45.0); ABG PARTIAL PRESSURE O2 131.2 mmHg (75.0-100.0); ABG STANDARD HCO3 20.7 MEQ/L (22.0-26.0); ABG TOTAL CO2 23.5 MEQ/L (22.0-29.0); ABG pH (ARTERIAL) 7.293 UNITS (7.350-7.450)
[2021-05-23 01:21] LABS: BASO # 0.1 10^3/uL (0.0-0.2); BASO % 1.6 % (0.0-1.0); EOS # 0.2 10^3/uL (0.0-0.5); EOS % 3.8 % (0.0-3.0); HEMATOCRIT 40.2 % (42.0-52.0); HEMOGLOBIN 13.4 g/dl (13.5-17.5); LYMPH # 1.8 10^3/uL (1.5-5.0); LYMPH % 30.7 % (24.0-44.0); MEAN CORPUSCULAR HEMOGLOBIN 35.4 pg (27.0-33.0); MEAN CORPUSCULAR HGB CONC 33.3 g/dl (32.0-36.5); MEAN CORPUSCULAR VOLUME 106.1 fl (80.0-96.0); MONO # 0.6 10^3/uL (0.0-0.8); MONO % 10.2 % (2.0-8.0); NEUTROPHILS # 3.1 10^3/uL (1.5-8.5); NEUTROPHILS % 53.4 % (36.0-66.0); PLATELET COUNT, AUTOMATED 344 10^3/uL (150-450); RED BLOOD COUNT 3.79 10^6/uL (4.30-6.10); WHITE BLOOD COUNT 5.8 10^3/uL (4.0-10.0)
--- NOTE | 2021-05-23 02:16 | REPVR ---
PROCEDURE INFORMATION: Exam: XR Chest Exam date and time: 05/23/2021 12:47 AM Age: 56 years old Clinical indication: Cough; Additional info: Dyspnea TECHNIQUE: Imaging protocol: XR of the chest. Views: 1 view. COMPARISON: 1. CR Chest, 2 view PA, Lat 05/14/2021 12:42 PM 2. CR PORTABLE CHEST X-RAY 02/08/2019 7:01:05 AM FINDINGS: Lungs: There is a nodular opacity measuring approximately 9 mm in the lateral aspect of the right mid lung zone, which is not apparent in the chest x-rays on 05/14/2021 or 02/08/2019. Pleural spaces: Unremarkable. No pleural effusion. No pneumothorax. Heart/Mediastinum: Unremarkable. No cardiomegaly. Bones/joints: There are chronic fracture deformities involving the left lateral 7th rib and left posterolateral 9th rib. IMPRESSION: Nodular opacity measuring approximately 9 mm in the lateral aspect of the right mid lung zone. Follow-up chest radiographs are suggested in 6-8 weeks or as clinically indicated to ensure resolution. Electronically signed by: Alexis Ponce On 05/23/2021 02:16:04 AM
[2021-05-23 02:17] LABS: ALBUMIN 3.3 GM/DL (3.2-5.2); ALT/SGPT 24 U/L (12-78); BILIRUBIN,DIRECT 0.1 MG/DL (0.0-0.2); BILIRUBIN,TOTAL 0.4 MG/DL (0.2-1.0); BLOOD UREA NITROGEN 5 MG/DL (7-18); CALCIUM LEVEL 8.5 MG/DL (8.5-10.1); CARBON DIOXIDE LEVEL 27 MEQ/L (21-32); CHLORIDE LEVEL 112 MEQ/L (98-107); CK-MB VALUE MASS 2.5 NG/ML (<3.6); CPK CREATINE PHOSPHOKINASE 120 U/L (39-308); CREATININE FOR GFR 0.64 MG/DL (0.70-1.30); ETHYL ALCOHOL (ETHANOL) 0.243 % (0.000-0.010); GLOMERULAR FILTRATION RATE > 60.0 (>56); GLUCOSE, FASTING 109 MG/DL (70-100); MB/CK RELATIVE INDEX 2.08 (< OR =4); NT-PRO BNP 136 PG/ML (<125); POTASSIUM SERUM 4.9 MEQ/L (3.5-5.1); SODIUM LEVEL 144 MEQ/L (136-145); TOTAL PROTEIN 7.3 GM/DL (6.4-8.2); TROPONIN I < 0.02 NG/ML (< 0.10)
--- NOTE | 2021-05-23 03:15 | REPVR ---
PROCEDURE INFORMATION: Exam: CTA Chest With Contrast Exam date and time: 05/23/2021 2:40 AM Age: 56 years old Clinical indication: Chest wall pain; Additional info: Recent femur FX, SOB, tachycardia, eval for pe TECHNIQUE: Imaging protocol: Computed tomographic angiography of the chest with contrast. 3D rendering (Not supervised by radiologist): MIP and/or 3D reconstructed images were created by the technologist. Radiation optimization: All CT scans at this facility use at least one of these dose optimization techniques: automated exposure control; mA and/or kV adjustment per patient size (includes targeted exams where dose is matched to clinical indication); or iterative reconstruction. Contrast material: ISO 370; Contrast volume: 75 ml; Contrast route: INTRAVENOUS (IV); COMPARISON: CT ANGIO CHEST 09/29/2019 2:35 PM FINDINGS: Pulmonary arteries: No pulmonary embolism. Aorta: No thoracic aortic aneurysm or dissection. Extensive atherosclerotic calcifications are present. 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 Trachea: Patent. Bronchial tree: Patent. Lungs: There are centrilobular emphysematous changes, predominantly in the upper lobes, which are similar in appearance compared to the prior CTA chest on 09/29/2019. No lung consolidation is noted. The 9 mm nodular opacity projecting over the lateral aspect of the right mid lung zone described in the chest x-ray on 05/23/2021 is felt to represent the right nipple shadow and mild right gynecomastia. There are 2 mm and 4 mm solid pulmonary nodules in the right upper lobe (images 15 and 38 of the axial series 502), which are stable compared to the CTA chest on 09/29/2019. No new pulmonary nodules are seen. Pleural spaces: No pneumothorax or pleural effusion. Heart: No cardiomegaly. The ratio of the diameter of the right ventricle to the diameter of the left ventricle measures less than 1, which is within normal limits and there is no CT evidence for a right ventricular strain. There is a trace amount of fluid in the pericardial sac. There are coronary artery calcifications. Mediastinal space: No mediastinal mass, fluid collection, or pneumomediastinum. Lymph nodes: No enlarged lymph nodes. Diaphragm: Intact. Spleen: Unremarkable. No splenomegaly is noted. Adrenal glands: Normal. No adrenal mass is noted. Limited kidneys: There are bilateral benign-appearing renal cysts measuring up to 11 mm in the imaged portions of the kidneys, which are stable compared to the CTA chest on 09/29/2019 and for which imaging follow-up is not necessary. The kidneys were not fully imaged. Bones/joints: There are chronic healed fractures of the lateral 7th and 8th ribs and left posterior and posterolateral 9th rib. There are chronic mild anterior wedge compression fractures of T1, T4, T7, and T9 and a chronic moderate anterior wedge compression fracture T8, which are stable compared to the CTA chest on 09/29/2019. Soft tissues: There is mild right gynecomastia. No soft tissue fluid collection. IMPRESSION: 1. No acute findings in the chest. No pulmonary embolism. 2. 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 3. Centrilobular emphysematous changes, predominantly in the upper lobes, which are similar in appearance compared to the prior CTA chest on 09/29/2019. 4. The 9 mm nodular opacity projecting over the lateral aspect of the right mid lung zone described in the chest x-ray on 05/23/2021 is felt to represent the right nipple shadow and mild right gynecomastia. 5. 2 mm and 4 mm solid pulmonary nodule in the right upper lobe, which are stable compared to the CT chest on 09/29/2019 and for which further follow-up is not necessary. No new pulmonary nodules. Electronically signed by: Alexis Ponce On 05/23/2021 03:14:54 AM
[2021-05-23] MEDS ORDERED: MOM 30ML SUSPENSION UDC PO PRN (04:10)
[2021-05-23] MEDS ORDERED: MAALOX 30 ML SUSP *UDC PO PRN (04:10)
[2021-05-23] MEDS ORDERED: LEVALBUTEROL 1.25 MG/0.5 ML CONCENTRATE NEB NEB PRN (04:10)
[2021-05-23] MEDS ORDERED: LORazepam 2 MG TAB PO PRN (04:10)
--- OUTSIDE RECORDS SUMMARY | 2021-05-23 04:11 | CCD ---
Author Author [facility] Organization [facility] Address Unknown Phone Unavailable Support Name Relationship Address Phone Rich Nicole Next Of Kin Unknown Unavailable [place] [address] [place] [address] DISABLED Next Of Kin Unknown Unavailable UE Next Of Kin Unknown Unavailable STEVIE JOSEPH Next Of Kin [address] [place] [address] RICH NICOLE ECON [address] [place] [address] Unavailable Re-disclosure Warning The records that you [...] is protected by Article 27-F of the [facility] Public Health law. If you continue you may have access to information: Regarding HIV / AIDS; Provided by facilities licensed or operated by the [facility] Office of Mental Health; or Provided by the [facility] Office for People With Developmental Disabilities. If such information is present, then the following [facility] mandated warning applies: This information has been [...] law may result in a fine or long term sentence or both. A general authorization for [...] Date Indications Data Source(s ) Unknown [address] [facility] [address] 11/15/2020 12:00:00 AM EDT eCW1 ([facility]) Medications Medication Brand Name Start Date Product [...] ACTUAT Albuterol 0.1 MG/ACTUAT / Ipr atropium [place] 0.02 MG/ACTUAT Metered Dose Inhaler [Combivent] 20-100 mcg/actuation IPRATROPIUM/ALBUTEROL SULFATE 11/16/2020 12:00:00 AM EDT mist 4 INHAL E ONE PUFF BY MOUTH FOUR TIMES A DAY NEEDED FOR COUGH/WHEEZE/SHORTNESS OF BREATH INHALE ONE PUFF BY MOUTH FOUR TIMES A DAY NEEDED FOR COUGH/WHEEZE/SHORTNESS OF BREATH SOLD: 11/20/2020 [facility] 120 ACTUAT Albuterol 0.1 MG/ACTUAT / Ipr atropium [place] 0.02 MG/ACTUAT Metered Dose Inhaler [Combivent] 20-100 mcg/actuation IPRATROPIUM/ALBUTEROL SULFATE 11/16/2020 12:00:00 AM EDT mist 4 INHAL E ONE PUFF BY MOUTH FOUR TIMES A DAY NEEDED FOR COUGH/WHEEZE/SHORTNESS OF BREATH INHALE ONE PUFF BY MOUTH FOUR TIMES A DAY NEEDED FOR COUGH/WHEEZE/SHORTNESS OF BREATH SOLD: 05/18/2021 [facility] 120 ACTUAT Albuterol 0.1 MG/ACTUAT / Ipr atropium [place] 0.02 MG/ACTUAT Metered Dose Inhaler [Combivent] 20-100 mcg/actuation IPRATROPIUM/ALBUTEROL SULFATE 11/16/2020 12:00:00 AM EDT mist 4 INHAL E ONE PUFF BY MOUTH FOUR TIMES A DAY NEEDED FOR COUGH/WHEEZE/SHORTNESS OF BREATH INHALE ONE PUFF BY MOUTH FOUR TIMES A DAY NEEDED FOR COUGH/WHEEZE/SHORTNESS OF BREATH SOLD: 04/01/2021 [facility] 120 ACTUAT Albuterol 0.1 MG/ACTUAT / Ipr atropium [place] 0.02 MG/ACTUAT Metered Dose Inhaler [Combivent] 20-100 mcg/actuation IPRATROPIUM/ALBUTEROL SULFATE 11/16/2020 12:00:00 AM EDT mist 4 INHAL E ONE PUFF BY MOUTH FOUR TIMES A DAY NEEDED FOR COUGH/WHEEZE/SHORTNESS OF BREATH INHALE ONE PUFF BY MOUTH FOUR TIMES A DAY NEEDED FOR COUGH/WHEEZE/SHORTNESS OF BREATH SOLD: 01/01/2021 [facility] 120 ACTUAT Albuterol 0.1 MG/ACTUAT / Ipr atropium [place] 0.02 MG/ACTUAT Metered Dose Inhaler [Combivent] 20-100 [...] type / Coverage type Policy ID Covered democrat ID Covered democrat's relationship to plummer Policy Plummer Plan Information Medicaid S [id number] S [id number] Managed Care - [facility] Community Plan P [id number] S [id number] [facility] MEDICAID [id number] Diamond [id number] 63 [facility] Community Plan Commercial Medicaid [id number] Self Medicaid [facility] MEDICAID [id number] xxxxxxxxx [id number] 1 [facility] Community Plan Commercial [id number] Self [id number] [place] Med[place] [id number] Self [id number] [place] [id number] Self [place] [id number] Self [id number] [place] [id number] Self [id number] [facility] MEDICAID [id number] Diamond [id number] 63 ON LICENSE OF [facility] COMMUNITY PLAN MCDO [id number] SP [id number] [facility] Health Maintenance Organization (HMO) [id number] Self BLUE [place]OSS [place] PL[place] [id number] SP [id number] HMO BLUE [id number] SP [id number] ON LICENSE OF [facility] COMMUNITY PLAN MCDHMO [id number] SP [id number] ON LICENSE OF [facility] COMMUNITY PLAN MCDHMO [id number] SP [id number] [facility] O [id number] S [id number] [facility] O [id number] S [id number] ANSI-Medicaid [id number] ANSI-Medicaid [id number] ANSI-Medicaid [id number] ANSI-Medicaid [id number] ANSI-Medicaid [id number] ANSI-Medicaid [id number] ANSI-Medicaid [id number] Problems, Conditions, and Diagnoses No Information Surgeries/Procedures No Information Results ID Date Data Source [id number] 05/14/2021 12:04:00 PM EDT [facility] Name Value Range Interpretation Code Description Data Ruthie rce(s) Supporting Document(s) SARS coronavirus 2 RNA [Presence] in Res piratory specimen by ABEL with probe detection NEGATIVE [facility] This lab was ordered by [facility] a nd reported by [facility]. Procedure Social History No Information
--- NOTE | 2021-05-23 04:14 | HPEPDOC ---
[facility] Medical History & Physical Date of Admission May 23, 2021 Date of Service: May 23, 2021 Primary Care Physician: Ev Hilton Attending Physician: JOHANNE GREWAL MD History and Physical TIME OF SERVICE: 435am CHIEF COMPLAINT: shortness of breath HISTORY OF PRESENT ILLNESS: , a 56 yr old M, was last admitted to our facility from May 14 to for non-surgical management of a non-displaced left proximal femur fracture. He reports developing shortness of breath and coughing spells that are productive of yellow-green sputum the day after he was discharged home. He denies having chest pain, abdominal pain, fevers or chills. He admits to smoking. His friend called EMS because passed out after having a coughing spell; he attributes loosing consciousness to his lungs closing up. He also c/o constipation which he attributes to the pain meds he wa s taking for the hip pain. REVIEW OF SYSTEMS: 10-point review of systems negative except as listed in HPI PAST MEDICAL/ SURGICAL HISTORY: Chronic CAD /hx of [place] 2, essential HTN, DLP, Asthma (since childhood), Emphysema 2/2 tobacco abuse, Left subclavian steal phenomenon, remote hx of Left hip reconstructive surgery FAMILY HISTORY: Mother - diabetes, lung cancer. / Maternal grandmother - diabe nicholas, cancer with type unknown. SOCIAL HISTORY: Smoker 1 pack per day for 40 years. Drinks 612 beers per night or more some nights. Denies drug use. Is currently unemployed and on disability. ALLERGIES: Please see below. HOME MEDICATIONS: Please see below. PHYSICAL EXAMINATION: Date Time Temp Pulse Resp B/P (MAP) Pulse Ox O2 Delivery O2 Flow Rate FiO2 05/22/21 22:49 98.1 134 20 132/88 (103) 87 Nasal Cannula 4.0 GENERAL APPEARANCE: slim build and developed/ NAD HEENT: EOMI / NC in place / mask covering lower face CARDIOVASCULAR: tachycardic /NMRG LUNGS: he is coughing frequently / using accessory muscles /he has difficulties speaking full sentences w/o stopping to take a breath/ he has decreased air entry bilaterally / he has inspiratory wheezing ABDOMEN: contour flat / soft he grimaces w palpation MUSCULOSKELETAL: NCAT / extremities slim NEUROLOGICAL: CN 2-12 grossly intact / speech not dysarthric PSYCHIATRIC: A&O x 3/ able to understand and follow all commands LABORATORY DATA: IMAGING: Chest xray IMPRESSION: Nodular opacity measuring approximately 9 mm in the lateral aspect of the right mid lung zone. Follow-up chest radiographs are suggested in 6-8 weeks or as clinically indicated to ensure resolution. CTA chest IMPRESSION: 1. No acute findings in the chest. No pulmonary embolism. 2. 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 3. Centrilobular emphysematous changes, predominantly in the upper lobes, which are similar in appearance compared to the prior CTA chest on 09/29/2019. 4. The 9 mm nodular opacity projecting over the lateral aspect of the right mid lung zone described in the chest x-ray on 05/23/2021 is felt to represent the right nipple shadow and mild right gynecomastia. 5. 2 mm and 4 mm solid pulmonary nodule in the right upper lobe, which are stable compared to the CT chest on 09/29/2019 and for which further follow-up is not necessary. No new pulmonary nodules. MICROBIOLOGY: Respiratory panel negative/ blood cx pending ASSESSMENT: is a 56 yr old M w a hx of CAD, HTN, DLP, Asthma w Emphysema, & Left subclavian steal syndrome who is admitted for management of acute Asthma w COPD likely 2/2 smoking. PLAN: 1 Acute Asthma with COPD -he has had asthma since he was a child and developed emphysema 2/2 smoking -trigger likely smoking +/- aspiration Plan: IV mag sulfate / admit to medical floor / supplemental O2 / continuous pulse oximetry / aspiration precautions / COPD diet / DuoNeb Q6H, Levalbuterol Q1HP, Prednisone + PPI / will give not Levofloxacin because he reports that his cough is usually yellow/green in color / Tessalon Pearls / smoking cessation education / will ask RT to monitor his peak flow readings Q8H & until the readings reach 70% of his predicted max for his age and height 2 Syncopal episode -Likely due to hypoxemia. -Doubt w/d seizures bc his Etho level is elevated -ABG reviewed Plan: treat Asthma/COPD 3 SIRS -Tachycardia and Tachypnea are likely reactive Plan: treat COPD / f/u blood cx (ordered in ER) 4 Tobacco abuse Plan: smoking cessation education 5 Alcohol abuse -His serum ETOH is elevated Plan: seizure precautions / fall precautions / Ativan per CIWA protocol/ Thiamine 100mg daily, Folic acid 1mg daily, MVI 6 Constipation Plan: stool softeners 7 Chronic CAD 8 Essential HTN 9.DLP 10 Pulmonary Cachexia (BMI 21.8) -he is on a COPD diet DVT px w Lovenox Disposition: home after more than 2 midnights stay Home Medications Scheduled Fluticasone Furoate (Arnuity Ellipta) 100 Mcg Blst.w.dev, 1 PUFF PO DAILY Scheduled PRN Albuterol Sulfate (Albuterol Sulfate Hfa) 8.5 Gm Hfa.aer.ad, 2 PUFF INH Q4H PRN for SOB/WHEEZING Ipratropium/Albuterol Sulfate (Combivent Respimat 20-100 Mcg) 4 Gm Mist.inhal, 1 PUFF INH QID PRN for SOB/COUGH Allergies Coded Allergies: No Known Allergies (Verified Allergy, Unknown, 02/06/19) A-FIB/CHADSVASC A-FIB History Current/History of A-Fib/PAF?: No Current PO Anticoag Therapy: No JOHANNE GREWAL MD May 23, 2021 04:14
--- OUTSIDE RECORDS SUMMARY | 2021-05-23 04:30 | CCD ---
Author Author [facility] Organization [facility] Address Unknown Phone Unavailable Support Name Relationship Address Phone Rich Nicole Next Of Kin Unknown Unavailable [place] [address] [place] [address] DISABLED Next Of Kin Unknown Unavailable UE Next Of Kin Unknown Unavailable STEVIE JOSEPH Next Of Kin [address] [place] [address] RICH NICOLE ECON [address] [place] [address] Unavailable Re-disclosure Warning The records that you [...] is protected by Article 27-F of the [facility] Public Health law. If you continue you may have access to information: Regarding HIV / AIDS; Provided by facilities licensed or operated by the [facility] Office of Mental Health; or Provided by the [facility] Office for People With Developmental Disabilities. If such information is present, then the following [facility] mandated warning applies: This information has been [...] law may result in a fine or senior living sentence or both. A general authorization for [...] Date Indications Data Source(s ) Unknown [address] [facility] [address] 11/15/2020 12:00:00 AM EDT eCW1 ([facility]) Medications Medication Brand Name Start Date Product [...] ACTUAT Albuterol 0.1 MG/ACTUAT / Ipr atropium [place] 0.02 MG/ACTUAT Metered Dose Inhaler [Combivent] 20-100 mcg/actuation IPRATROPIUM/ALBUTEROL SULFATE 11/16/2020 12:00:00 AM EDT mist 4 INHAL E ONE PUFF BY MOUTH FOUR TIMES A DAY NEEDED FOR COUGH/WHEEZE/SHORTNESS OF BREATH INHALE ONE PUFF BY MOUTH FOUR TIMES A DAY NEEDED FOR COUGH/WHEEZE/SHORTNESS OF BREATH SOLD: 11/20/2020 [facility] 120 ACTUAT Albuterol 0.1 MG/ACTUAT / Ipr atropium [place] 0.02 MG/ACTUAT Metered Dose Inhaler [Combivent] 20-100 mcg/actuation IPRATROPIUM/ALBUTEROL SULFATE 11/16/2020 12:00:00 AM EDT mist 4 INHAL E ONE PUFF BY MOUTH FOUR TIMES A DAY NEEDED FOR COUGH/WHEEZE/SHORTNESS OF BREATH INHALE ONE PUFF BY MOUTH FOUR TIMES A DAY NEEDED FOR COUGH/WHEEZE/SHORTNESS OF BREATH SOLD: 05/18/2021 [facility] 120 ACTUAT Albuterol 0.1 MG/ACTUAT / Ipr atropium [place] 0.02 MG/ACTUAT Metered Dose Inhaler [Combivent] 20-100 mcg/actuation IPRATROPIUM/ALBUTEROL SULFATE 11/16/2020 12:00:00 AM EDT mist 4 INHAL E ONE PUFF BY MOUTH FOUR TIMES A DAY NEEDED FOR COUGH/WHEEZE/SHORTNESS OF BREATH INHALE ONE PUFF BY MOUTH FOUR TIMES A DAY NEEDED FOR COUGH/WHEEZE/SHORTNESS OF BREATH SOLD: 04/01/2021 [facility] 120 ACTUAT Albuterol 0.1 MG/ACTUAT / Ipr atropium [place] 0.02 MG/ACTUAT Metered Dose Inhaler [Combivent] 20-100 mcg/actuation IPRATROPIUM/ALBUTEROL SULFATE 11/16/2020 12:00:00 AM EDT mist 4 INHAL E ONE PUFF BY MOUTH FOUR TIMES A DAY NEEDED FOR COUGH/WHEEZE/SHORTNESS OF BREATH INHALE ONE PUFF BY MOUTH FOUR TIMES A DAY NEEDED FOR COUGH/WHEEZE/SHORTNESS OF BREATH SOLD: 01/01/2021 [facility] 120 ACTUAT Albuterol 0.1 MG/ACTUAT / Ipr atropium [place] 0.02 MG/ACTUAT Metered Dose Inhaler [Combivent] 20-100 [...] type / Coverage type Policy ID Covered libertarian ID Covered libertarian's relationship to plummer Policy Plummer Plan Information Medicaid S [id number] S [id number] Managed Care - [facility] Community Plan P [id number] S [id number] [facility] MEDICAID [id number] Diamond [id number] 63 [facility] Community Plan Commercial Medicaid [id number] Self Medicaid [facility] MEDICAID [id number] xxxxxxxxx [id number] 1 [facility] Community Plan Commercial [id number] Self [id number] [place] [id number] Self [id number] [place] [id number] 213.0 [place] [id number] Self [id number] [place] [id number] 62350.0 Self [id number] [facility] MEDICAID [id number] Diamond [id number] 63 [facility] COMMUNITY PLAN MCDO [id number] SP [id number] [facility] Health Maintenance Organization (HMO) [id number] Self BLUE [place]OSS [place] PLAN [id number] SP [id number] HMO BLUE [id number] SP [id number] [facility] COMMUNITY PLAN MCDHMO [id number] SP [id number] [facility] COMMUNITY PLAN MCDHMO [id number] SP [id number] [facility] O [id number] S [id number] [facility] O [id number] S [id number] ANSI-Medicaid [id number] ANSI-Medicaid [id number] ANSI-Medicaid [id number] ANSI-Medicaid [id number] ANSI-Medicaid [id number] ANSI-Medicaid [id number] ANSI-Medicaid [id number] Problems, Conditions, and Diagnoses No Information Surgeries/Procedures No Information Results ID Date Data Source [id number] 05/14/2021 12:04:00 PM EDT [facility] Name Value Range Interpretation Code Description Data Ruthie rce(s) Supporting Document(s) SARS coronavirus 2 RNA [Presence] in Res piratory specimen by ABEL with probe detection NEGATIVE [facility] This lab was ordered by [facility] a nd reported by [facility]. Procedure Social History No Information
[2021-05-23] MEDS ORDERED: HOME MED LIST COMPLETE! XX SCH (04:55)
[2021-05-23] MEDS ORDERED: ARNU1INH PO (04:55)
[2021-05-23] MEDS ORDERED: MAG SULF 1GM/100ML (MAG RUN) 1 GM in IV 1 EA IV ONE (05:30)
--- NOTE | 2021-05-23 05:35 | ECGEPIP ---
[facility] - ED Test Date: 2021-05-23 Pat Name: JOAN NICOLE Department: Room: - Gender: Male Medicine Technologist: LIZ : 1965 Requested By: TONI Perez Order Number: [id number] Reading MD: Pablito Mendez Measurements Intervals [place] Rate: 120 P: 87 ID: [id number] QRS: 82 QRSD: 76 T: 77 QT: 334 QTc: 472 Interpretive Statements Sinus tachycardia POOR R WAVE PROGRESSION SIMILAR TO 09/29/19 Electronically Signed on 05-23-2021 5:35:03 EDT by Pablito Mendez
[2021-05-23] MEDS: IPRATROPIUM 0.5MG/ALBUTEROL 2.5MG INH SOL UD 3ML (DUONEB) NEB SCH ×3 (08:00→21:38)
[2021-05-23 08:17] LABS: HEMATOCRIT 40.6 % (42.0-52.0); HEMOGLOBIN 13.7 g/dl (13.5-17.5); MEAN CORPUSCULAR HEMOGLOBIN 35.2 pg (27.0-33.0); MEAN CORPUSCULAR HGB CONC 33.7 g/dl (32.0-36.5); MEAN CORPUSCULAR VOLUME 104.4 fl (80.0-96.0); PLATELET COUNT, AUTOMATED 371 10^3/uL (150-450); RED BLOOD COUNT 3.89 10^6/uL (4.30-6.10); WHITE BLOOD COUNT 3.6 10^3/uL (4.0-10.0)
[2021-05-23 08:19] LABS: INR 1.02; PROTHROMBIN TIME 13.8 SECONDS (12.7-14.5)
[2021-05-23 08:20] LABS: PARTIAL THROMBOPLASTIN TIME 27.8 SECONDS (25.9-37.0)
[2021-05-23] MEDS: MULTIVITAMINS/MINERALS THERAP 1 TAB PO SCH (08:25)
[2021-05-23] MEDS: FOLIC ACID 1 MG TAB PO SCH (08:25)
[2021-05-23] MEDS: predniSONE 20 MG TAB PO SCH (08:26)
[2021-05-23] MEDS: THIAMINE 100 MG TAB PO SCH ×2 (08:26→21:30)
[2021-05-23] MEDS: ENOXAPARIN 40MG/0.4ML SYRINGE (J1650 PER 10MG) SC SCH (08:27)
[2021-05-23 08:36] LABS: ALBUMIN 3.5 GM/DL (3.2-5.2); ALT/SGPT 22 U/L (12-78); BILIRUBIN,TOTAL 0.4 MG/DL (0.2-1.0); BLOOD UREA NITROGEN 4 MG/DL (7-18); CALCIUM LEVEL 9.3 MG/DL (8.5-10.1); CARBON DIOXIDE LEVEL 24 MEQ/L (21-32); CHLORIDE LEVEL 113 MEQ/L (98-107); CREATININE FOR GFR 0.56 MG/DL (0.70-1.30); GLOMERULAR FILTRATION RATE > 60.0 (>56); GLUCOSE, FASTING 136 MG/DL (70-100); MAGNESIUM LEVEL 1.8 MG/DL (1.8-2.4); POTASSIUM SERUM 4.4 MEQ/L (3.5-5.1); SODIUM LEVEL 144 MEQ/L (136-145); TOTAL PROTEIN 7.4 GM/DL (6.4-8.2)
[2021-05-23 09:14] LABS: LYMPHOCYTES 10 % (16-44); NEUTROPHILS 90 % (28-66); PLATELET ESTIMATE NORMAL (NORMAL)
[2021-05-23 15:30] VITALS: BP 124/82
[2021-05-23 15:38] VITALS: BP 124/82
--- NOTE | 2021-05-23 18:28 | IPNPDOC ---
Date Seen The patient was seen on 05/23/21. Progress Note SUBJECTIVE: seen and examined at bedside. Doing well. No acute events overnight. States his breathing is better. Coughing up green sputum. Denies CP, palpitations, n/v/d. OBJECTIVE PHYSICAL EXAMINATION: VITAL SIGNS: please see below General: NAD, comfortable HEENT: PERRLA, EOMI, sclerae clear Neck: supple, normal ROM, no JVD Respiratory: wheeze appreciated in bilateral lung bases. CVS: RRR, normal S1, S2, no murmurs Abdo: soft, no masses, no hepatosplenomegaly, BS+, no rebound tenderness Extremities: no edema, pulses 2+ MSK: no joint deformities, normal ROM Neuro: no focal neuro deficits, moving all 4 extremities, CN2-12 intact. Strength 5/5 in all 4 extremities. No nystagmus. Psych: calm, cooperative, AAO x 3 LABORATORY DATA, IMAGING STUDIES, MICROBIOLOGY: Please see below. DVT prophylaxis ordered?: Lovenox ASSESSMENT AND PLAN: 56 yo M with hx CAD, HTN, DLP, asthma/emphysema, chronic L subclavian steal syndrome. Admitted for managemnt of acute COPD exacerbation. Continues to actively smoke. PROBLEMS: 1 Acute Asthma with COPD -he has had asthma since he was a child and developed emphysema 2/2 smoking -likely triggered by smoking - c/w prednisone daily - samantha watson - testaylor garcias - continuous pulse ox - will start azithromycin 500 mg TID x 3 days. 2 Syncopal episode -Likely due to hypoxemia. - check 2d ECHO - CIWA 0 3 SIRS - tachycardia and tachypnea - likely COPD - c/u blood cx 4 Tobacco abuse - smoking cessation education 5 Alcohol abuse -His serum ETOH is elevated - CIWA protocol 6 Constipation -stool softeners 7 Chronic CAD 8 Essential HTN - BP normotensive, monitor and titrate as appropriate. 9.DLP 10 Pulmonary Cachexia (BMI 21.8) - COPD diet DVT px w Lovenox Disposition: home after more than 2 midnights stay VS, I&O, 24H, Fishbone Vital Signs/I&O Vital Signs Date Time Temp Pulse Resp B/P (MAP) Pulse Ox O2 Delivery O2 Flow Rate FiO2 05/23/21 15:38 99.9 136 20 124/82 (96) 97 Room Air 05/23/21 07:00 4.0 Laboratory Data 24H LABS Laboratory Tests 2 05/23/21 00:41: Immature Granulocyte % (Auto) 0.3, Neutrophils (%) (Auto) 53.4, Lymphocytes (%) (Auto) 30.7, Monocytes (%) (Auto) 10.2H, Eosinophils (%) (Auto) 3.8H, Basophils (%) (Auto) 1.6H, Neutrophils # (Auto) 3.1, Lymphocytes # (Auto) 1.8, Monocytes # (Auto) 0.6, Eosinophils # (Auto) 0.2, Basophils # (Auto) 0.1, Nucleated Red Blood Cells % (auto) 0.0, Anion Gap 5L, Glomerular Filtration Rate > 60.0, Lactic Acid Level 1.6, Calcium Level 8.5, Total Bilirubin 0.4, Direct Bilirubin 0.1, Aspartate Amino Transf (AST/SGOT) 36, Alanine Aminotransferase (ALT/SGPT) 24, Alkaline Phosphatase 66, Total Creatine Kinase 120, Creatine Kinase MB 2.5, Creatine Kinase MB Relative Index 2.08, Troponin I < 0.02, NF-Zkd-L-Type Natriuretic Peptide 136H, Total Protein 7.3, Albumin 3.3, Albumin/Globulin Ratio 0.8, Ethyl Alcohol Level 0.243H 05/23/21 00:49: Blood Gas Bicarbonate Standard 20.7L, Arterial Blood pH 7.293L, Arterial Blood Partial Pressure CO2 46.6H, Arterial Blood Partial Pressure O2 131.2H, Arterial Blood Total CO2 23.5, Arterial Blood HCO3 22.1, Arterial Blood Base Excess - 4.6L, Arterial Blood Oxygen Saturation 98.1 05/23/21 07:46: Neutrophils (%) (Auto) , Nucleated Red Blood Cells % (auto) 0.0, Anion Gap 7L, Glomerular Filtration Rate > 60.0, Calcium Level 9.3, Total Bilirubin 0.4, Aspartate Amino Transf (AST/SGOT) 23, Alanine Aminotransferase (ALT/SGPT) 22, Alkaline Phosphatase 70, Total Protein 7.4, Albumin 3.5, Albumin/Globulin Ratio 0.9, Neutrophils 90H, Lymphocytes (Manual) 10L, Red Blood Cell Morphology NORMAL, Platelet Estimate NORMAL, Prothrombin Time 13.8, Prothromb Time In ternational Ratio 1.02, Activated Partial Thromboplast Time 27.8, Magnesium Level 1.8 CBC/BMP Laboratory Tests 05/23/21 00:41 05/23/21 07:46 Microbiology Microbiology 05/23/21 Respiratory Virus Panel (PCR) ([facility]) - Final, Complete 05/23/21 Blood Culture, Received Pending 05/23/21 Blood Culture, Received Pending TAYLOR CAMPBELL MD May 23, 2021 18:28
[2021-05-23] MEDS: AZITHROMYCIN 250MG TABLET PO SCH (18:56)
[2021-05-23] MEDS: ACETAMINOPHEN TAB 650MG DOSE (2X325MG) PO PRN (18:57)
[2021-05-23 21:30] VITALS: BP 116/82
[2021-05-23 22:00] VITALS: BP 124/83
[2021-05-23 23:41] VITALS: BP 113/83
[2021-05-24] MEDS: IPRATROPIUM 0.5MG/ALBUTEROL 2.5MG INH SOL UD 3ML (DUONEB) NEB SCH ×4 (02:00→20:14)
[2021-05-24 06:00] VITALS: BP 116/84
[2021-05-24 06:02] VITALS: BP 116/84
[2021-05-24 06:04] LABS: HEMATOCRIT 37.2 % (42.0-52.0); HEMOGLOBIN 12.6 g/dl (13.5-17.5); MEAN CORPUSCULAR HEMOGLOBIN 34.6 pg (27.0-33.0); MEAN CORPUSCULAR HGB CONC 33.9 g/dl (32.0-36.5); MEAN CORPUSCULAR VOLUME 102.2 fl (80.0-96.0); PLATELET COUNT, AUTOMATED 307 10^3/uL (150-450); RED BLOOD COUNT 3.64 10^6/uL (4.30-6.10); WHITE BLOOD COUNT 9.3 10^3/uL (4.0-10.0)
[2021-05-24 06:32] LABS: BLOOD UREA NITROGEN 11 MG/DL (7-18); CALCIUM LEVEL 8.8 MG/DL (8.5-10.1); CARBON DIOXIDE LEVEL 28 MEQ/L (21-32); CHLORIDE LEVEL 109 MEQ/L (98-107); CREATININE FOR GFR 0.58 MG/DL (0.70-1.30); GLOMERULAR FILTRATION RATE > 60.0 (>56); GLUCOSE, FASTING 101 MG/DL (70-100); POTASSIUM SERUM 3.7 MEQ/L (3.5-5.1); SODIUM LEVEL 142 MEQ/L (136-145)
[2021-05-24] MEDS: predniSONE 20 MG TAB PO SCH (09:43)
[2021-05-24] MEDS: THIAMINE 100 MG TAB PO SCH ×2 (09:43→21:03)
[2021-05-24] MEDS: FOLIC ACID 1 MG TAB PO SCH (09:43)
[2021-05-24] MEDS: ENOXAPARIN 40MG/0.4ML SYRINGE (J1650 PER 10MG) SC SCH (09:43)
[2021-05-24] MEDS: MULTIVITAMINS/MINERALS THERAP 1 TAB PO SCH (09:43)
[2021-05-24] MEDS: AZITHROMYCIN 250MG TABLET PO SCH (09:43)
--- NOTE | 2021-05-24 11:10 | IPNPDOC ---
Subjective Date Seen The patient was seen on 05/24/21. Subjective Chief Complaint/HPI Mr. Lainez is a 56 year old male with asthma and emphysema 2/2 tobacco abuse who is here for syncope and acute COPD exacerbation. His morning, patient denies any chest pain or worsening dyspnea. On physical exam, he still has wheezing diffusely. Continue with steroids, antibiotics, and breathing treatments. Objective Physical Examination General Exam: Positive: Alert, Cooperative Eye Exam: Positive: EOMI; Negative: Sclera icteric ENT Exam: Positive: Atraumatic Neck Exam: Positive: Supple Chest Exam: Positive: Rhonchi, Wheezing Heart Exam: Positive: Rate Normal, Regular Rhythm Abdomen Exam: Positive: Normal bowel sounds, Soft; Negative: Tenderness Extremity Exam: Negative: Edema Neuro Exam: Positive: Normal Speech Psych Exam: Positive: Mental status NL, Mood NL Assessment /Plan Assessment Mr. Lainez is a 56 year old male with asthma and emphysema 2/2 tobacco abuse who is here for syncope and acute COPD exacerbation. Smoking most likely triggered this current event. Continue with breathing treatments, steroids, and antibiotics. Plan/VTE VTE Prophylaxis Ordered?: Yes Plan 1. Acute COPD exacerbation -Triggered by smoking, patient not ready to quit -Continue with breathing treatments and Azithromycin day 2 -Will increase steroids from PO prednisone to IV solumedrol due to persistent wheezing -Will check procalcitonin 2. Syncope -Most likely secondary to hypoxia vs vasovagal from coughing fit -Will treat COPD exacerbation -Pending echocardiogram 3. Tobacco abuse -Patient tells me he is not ready to quit smoking at this time -Continue to encourage smoking cessation 4. Alcohol abuse -Serum ETOH elevated on admission -Continue [facility] protocol -Continue thiamine, folic acid, and multivitamin 5. Pulmonary Cachexia -BMI 17.5 6. DVT ppx -Lovenox Disposition: Pending clinical improvement. Still very wheezy. VS, I&O, 24H, Fishbone Vital Signs/I&O Vital Signs Date Time Temp Pulse Resp B/P (MAP) Pulse Ox O2 Delivery O2 Flow Rate FiO2 05/24/21 06:02 97.9 112 20 116/84 (95) 93 Room Air 05/23/21 07:00 4.0 l I&O- Last 24 Hours up to 6 AM 05/24/21 06:00 Intake Total 455 ml Balance 455 ml Laboratory Data 24H LABS Laboratory Tests 2 05/24/21 05:09: Nucleated Red Blood Cells % (auto) 0.0, Anion Gap 5L, Glomerular Filtration Rate > 60.0, Calcium Level 8.8 CBC/BMP Laboratory Tests 05/24/21 05:09 Microbiology Microbiology 05/23/21 Respiratory Virus Panel (PCR) ([facility]) - Final, Complete 05/23/21 Blood Culture - Preliminary, Resulted No growth after 24 hours . All specim... 05/23/21 Blood Culture - Preliminary, Resulted No growth after 24 hours . All specim... MOSHE REAL DO May 24, 2021 11:10
[2021-05-24 14:00] VITALS: BP_SYST 112; BP_SYST 131; BP_DIAS 85; BP_DIAS 90
--- NOTE | 2021-05-24 17:44 | ECHO ---
ECHOCARDIOGRAM DATE OF PROCEDURE: 05/24/2021 Age: 56 Gender: Male Height: 66 inches Weight: 108 pounds Body surface area: 1.54 m2 Inpatient, [facility], room 5131. REFERRING PHYSICIAN: Victor Hugo Gandhi D.O. INDICATION: Syncope. MEASUREMENTS: 2D Measurements: RV - 3.7 cm LV - 3.8 cm Septum 1.0 cm Posterior wall 1.0 cm Aortic root 3.1 cm LA - 3.2 cm LVEF 65% Doppler Measurements: AV - 0.97 m/s LVOT - 0.8 m/s MV-E 57, A 57, E/A ratio 1 Early mitral deceleration time 194 msec E prime medial 10 A prime medial 8 E prime lateral 11.1 PV - 0.8 m/s Pulmonary artery acceleration time 134 msec PASP - 22 mmHg IVC - Could not be visualized. COMMENTS: Normal sinus rhythm without intraventricular conduction disturbance. M-mode and 2-dimensional echocardiography was performed with pulse, continuous wave, color flow, and tissue Doppler studies. Normal left ventricular size, wall thickness, and wall motion. Normal left atrial size and Doppler assessment of LV diastolic function and estimated mean left atrial pressure. Normal right heart chamber sizes and wall motion and estimated pulmonary arterial pressure. Normal IVC could not be visualized to further estimate CVP but is not likely to be elevated given the normal pulmonary arterial pressure. Normal aortic dimensions. Normal-appearing aortic valve and function. Normal-appearing mitral valve and leaflet excursion with no posterior systolic buckling and only trace insufficiency. Normal-appearing tricuspid valve with very mild insufficiency. No apparent intracardiac mass or pericardial effusion. Unable to identify any structural or functional abnormality to account for the patient's syncopal spell.
[2021-05-24 21:00] VITALS: O2SAT 94
[2021-05-24] MEDS: methylPREDNISolone 125MG 2ML VIAL IV SCH (21:03)
[2021-05-24] MEDS: NICOTINE 21MG/24HR 1 EA TRANSDERMAL TD SCH (21:03)
[2021-05-24] MEDS: ACETAMINOPHEN TAB 650MG DOSE (2X325MG) PO PRN (21:04)
[2021-05-24] MEDS: BENZONATATE 100MG CAPSULE PO PRN (21:06)
[2021-05-24 22:00] VITALS: BP 125/89
[2021-05-25] VITALS (7 sets, daily range): BP systolic 99–148; BP diastolic 61–93; O2SAT 95–96
[2021-05-25] MEDS: IPRATROPIUM 0.5MG/ALBUTEROL 2.5MG INH SOL UD 3ML (DUONEB) NEB SCH ×4 (02:23→19:26)
[2021-05-25] MEDS: ACETAMINOPHEN TAB 650MG DOSE (2X325MG) PO PRN ×2 (05:39→20:41)
[2021-05-25 06:01] LABS: HEMATOCRIT 36.4 % (42.0-52.0); HEMOGLOBIN 12.6 g/dl (13.5-17.5); MEAN CORPUSCULAR HGB CONC 34.6 g/dl (32.0-36.5); MEAN CORPUSCULAR VOLUME 101.1 fl (80.0-96.0); PLATELET COUNT, AUTOMATED 290 10^3/uL (150-450); WHITE BLOOD COUNT 6.6 10^3/uL (4.0-10.0)
[2021-05-25 06:24] LABS: BLOOD UREA NITROGEN 12 MG/DL (7-18); CALCIUM LEVEL 8.9 MG/DL (8.5-10.1); CARBON DIOXIDE LEVEL 27 MEQ/L (21-32); CHLORIDE LEVEL 107 MEQ/L (98-107); CREATININE FOR GFR 0.54 MG/DL (0.70-1.30); GLOMERULAR FILTRATION RATE > 60.0 (>56); GLUCOSE, FASTING 132 MG/DL (70-100); MAGNESIUM LEVEL 1.7 MG/DL (1.8-2.4); SODIUM LEVEL 138 MEQ/L (136-145)
[2021-05-25] MEDS: ENOXAPARIN 40MG/0.4ML SYRINGE (J1650 PER 10MG) SC SCH (09:36)
[2021-05-25] MEDS: NICOTINE 21MG/24HR 1 EA TRANSDERMAL TD SCH (09:36)
[2021-05-25] MEDS: methylPREDNISolone 125MG 2ML VIAL IV SCH ×2 (09:36→20:41)
[2021-05-25] MEDS: MULTIVITAMINS/MINERALS THERAP 1 TAB PO SCH (09:37)
[2021-05-25] MEDS: AZITHROMYCIN 250MG TABLET PO SCH (09:37)
[2021-05-25] MEDS: THIAMINE 100 MG TAB PO SCH ×2 (09:37→20:41)
[2021-05-25] MEDS: FOLIC ACID 1 MG TAB PO SCH (09:37)
--- NOTE | 2021-05-25 14:48 | CR.PDOC ---
General Date of Consultation: May 25, 2021 Referring Provider: MOSHE REAL DO Primary Care Physician: Ev Hilton Attending Physician: MOSHE REAL DO Consultation REASON FOR CONSULTATION/CHIEF COMPLAINT: COPD. HISTORY OF PRESENT ILLNESS: This is a 56-year-old gentleman with past medical history of emphysema/COPD, coronary artery disease status with history of MA x2, hypertension, hyperlipidemia, childhood asthma, left subclavian steal phenomenon, remote history of left hip reconstructive surgery who presented to the hospital on 05/23/2021 with shortness of breath and syncope. Patient was recently admitted to the hospital due to hip fracture and had a left hip reconstructive surgery. Prior to the day of admission, he was watching football with his friends at home. He suddenly felt short of breath and try to stand up from the couch. He felt dizzy and fell to the ground. His friend called EMS and he was brought to the emergency department. In the emergency department, he was complaining of shortness of breath and increase in productive cough. He was admitted for COPD exacerbation. CT angiography of the chest done on admission showed no evidence of acute pulmonary embolism. There is extensive emphysema in the apexes and stable subcentimeter pulmonary nodules in the right upper lobe. He has been admitted for COPD exacerbation and syncope work-up. Pulmonary was consulted for establishment of drafter mechanical as outpatient. 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 He is currently retired and on disability. He has at least [id number] smoking history and currently smoking 1 pack a day of cigarettes. He has no significant occupational exposure. Deniz this year alone in 2020, he has had at least 2 if not 3 COPD exacerbation. In year 1999, he has 2 episodes of COPD exacerbation and pneumonia. He is currently on Combivent, albuterol as needed, Arnuity Ellipta. Patient had tried multiple nicotine supplements in the past without success. And most, he did stop smoking for 2 consecutive years but went back to smoking and drinking after. PAST MEDICAL/ SURGICAL HISTORY: Chronic CAD /hx of MA 2, essential HTN, DLP, Asthma (since childhood), Emphysema 2/2 tobacco abuse, Left subclavian steal phenomenon, remote hx of Left hip reconstructive surgery FAMILY HISTORY: Mother - diabetes, lung cancer. / Maternal grandmother - diabetes, cancer with type unknown. SOCIAL HISTORY: Smoker 1 pack per day for 40 years. Drinks 612 beers per night or more some nights. Denies drug use. Is currently unemployed and on disability. ALLERGIES: Please see below. HOME MEDICATIONS: Please see below. REVIEW OF SYSTEMS: CONSTITUTIONAL: Denies of fever, chills, night sweat, weight loss, diaphoresis. HEENT: Denies of sinus pain or sinus pressure, sore throat. CARDIOVASCULAR: Denies of chest pain, palpitation, orthopnea, PND, lower extremity swelling. RESPIRATORY: Admits to worsening shortness of breath and productive cough. Also admits to wheezing. Denies of hemoptysis GENITOURINARY: Denies of dysuria. MUSCULOSKELETAL: Admits to experiencing left hip pain. GASTROINTESTINAL: Denies of nausea, vomiting, abdominal pain, diarrhea, constipation. SKIN: Denies of rash. NEUROLOGICAL: Denies of slurred speech or focal weakness/numbness. PSYCHIATRIC: Denies of depression. ENDOCRINE: Denies a weight change or cold/heat intolerance. HEMATOLOGIC/LYMPHATIC: Denies of bleeding. ALLERGIC/IMMUNOLOGIC: Denies of allergy. PHYSICAL EXAMINATION: VITAL SIGNS: Please see below. GENERAL APPEARANCE: Chronically ill-appearing and appears older than stated age. Not in any acute distress. Talking in full sentence HEENT: No JVD or cervical adenopathy. RESPIRATORY: Diffuse expiratory wheeze in both lung jin. Barrel chest. CARDIOVASCULAR: Normal S1-S2 with no evidence of murmur. Very distant heart sounds due to hyperinflated lungs. ABDOMEN: Soft nontender and active bowel sounds. EXTREMITIES: Mild clubbing of the fingers, no evidence of pedal edema. NEUROLOGICAL: Nonfocal, cranial nerves intact. PSYCHIATRIC: Alert and oriented x3. LABORATORY DATA: Please see below. ASSESSMENT/PLAN: This is a 56-year-old gentleman with past medical history of emphysema/COPD, coronary artery disease status with history of MA x2, hypertension, hyperlipidemia, childhood asthma, left subclavian steal phenomenon, remote history of left hip reconstructive surgery who presented to the hospital on 05/23/2021 with shortness of breath and syncope. 1. Syncope. 2. COPD exacerbation. 3. Chronic tobacco abuse 4. COPD Gold D mMRC 2 with high risk of exacerbation Recommendations: -He should be on DuoNeb every 8 hours and Pulmicort nebulizer during his hospitalization and for COPD exacerbation. Continue with methylprednisolone for total of 10 days without taper. -Upon discharge, he can go back to his home inhalers; albuterol, Combivent, Arnuity Ellipta. He may benefit from Roflumilast given frequent exacerbation and recurrent pneumonia. This is something we can do as outpatient. He will also need a pulmonary function test as outpatient. -Smoking cessation counseling will be done as outpatient. Patient is currently not a candidate for pulmonary rehab as he has good functional status. Vital Signs/I&O Vital Signs Date Time Temp Pulse Resp B/P (MAP) Pulse Ox O2 Delivery O2 Flow Rate FiO2 05/25/21 14:10 115 22 148/92 (110) 95 Room Air 05/25/21 13:33 98.8 05/23/21 07:00 4.0 I&O- Last 24 Hours up to 6 AM 05/25/21 06:00 Intake Total 1400 ml Output Total 0 ml Balance 1400 ml Laboratory Data Labs 24H Laboratory Tests 2 05/25/21 05:18: Nucleated Red Blood Cells % (auto) 0.0, Anion Gap 4L, Glomerular Filtration Rate > 60.0, Calcium Level 8.9, Magnesium Level 1.7L CBC/BMP Laboratory Tests 05/25/21 05:18 Microbiology Microbiology 05/23/21 Respiratory Virus Panel (PCR) ([facility]) - Final, Complete 05/23/21 Blood Culture - Preliminary, Resulted No Growth after 48 hours. All Specime... 05/23/21 Blood Culture - Preliminary, Resulted No Growth after 48 hours. All Specime... Allergies Coded Allergies: No Known Allergies (Verified Allergy, Unknown, 02/06/19) Home Medications Scheduled Fluticasone Furoate (Arnuity Ellipta) 100 Mcg Blst.w.dev, 1 PUFF PO DAILY, (Reported) Scheduled PRN Albuterol Sulfate (Albuterol Sulfate Hfa) 8.5 Gm Hfa.aer.ad, 2 PUFF INH Q4H PRN for SOB/WHEEZING, (Reported) Ipratropium/Albuterol Sulfate (Combivent Respimat 20-100 Mcg) 4 Gm Mist.inhal, 1 PUFF INH QID PRN for SOB/COUGH, (Reported) TRUDY DELVALLE MD May 25, 2021 14:48
--- NOTE | 2021-05-25 15:32 | IPNPDOC ---
Subjective Date Seen The patient was seen on 05/25/21. Subjective Chief Complaint/HPI Mr. Lainez is a 56 year old male with asthma and emphysema 2/2 tobacco abuse who is here for syncope and acute COPD exacerbation. This morning, patient tells me he feels about the same. He still has wheezing on examination. Reach out to pulmonary, Dr. Mcmillan, for consultation and to help patient establish with pulmonology Objective Physical Examination General Exam: Positive: Alert, Cooperative Eye Exam: Positive: EOMI; Negative: Sclera icteric ENT Exam: Positive: Atraumatic Neck Exam: Positive: Supple Chest Exam: Positive: Rhonchi, Wheezing Heart Exam: Positive: Rate Normal, Regular Rhythm Abdomen Exam: Positive: Normal bowel sounds, Soft; Negative: Tenderness Extremity Exam: Negative: Edema Neuro Exam: Positive: Normal Speech Psych Exam: Positive: Mental status NL, Mood NL Assessment /Plan Assessment Mr. Lainez is a 56 year old male with asthma and emphysema 2/2 tobacco abuse who is here for syncope and acute COPD exacerbation. Smoking most likely triggered this current event. Continue with breathing treatments, steroids, and antibiotics. Otherwise, due to persistence of COPD and the need for outpatient pulmonary follow-up, pulmonology, Dr. Mcmillan, was consulted. Recommendations appreciated. Plan/VTE VTE Prophylaxis Ordered?: Yes Plan 1. Acute COPD exacerbation -Triggered by smoking, patient not ready to quit -Continue with breathing treatments and Azithromycin day 3 -Will increase steroids from PO prednisone to IV solumedrol due to persistent wheezing -Procalcitonin negative -Pulmonary consulted. recommendations appreciated -Pulmicort added, decreased duonebs from q6h to q8h 2. Syncope -Most likely secondary to hypoxia vs vasovagal from coughing fit -Will treat COPD exacerbation -On echocardiogram, there is no identifiable structural or functional abnormality to account for the patient's syncope. EF 65% 3. Tobacco abuse -Patient tells me he is not ready to quit smoking at this time -Continue to encourage smoking cessation 4. Alcohol abuse -Serum ETOH elevated on admission -Continue [facility] protocol -Continue thiamine, folic acid, and multivitamin 5. Pulmonary Cachexia -BMI 17.5 6. DVT ppx -Lovenox Disposition: Pending clinical improvement. Still very wheezy. VS, I&O, 24H, Fishbone Vital Signs/I&O Vital Signs Date Time Temp Pulse Resp B/P (MAP) Pulse Ox O2 Delivery O2 Flow Rate FiO2 05/25/21 14:10 115 22 148/92 (110) 95 Room Air 05/25/21 13:33 98.8 05/23/21 07:00 4.0 l I&O- Last 24 Hours up to 6 AM 05/25/21 06:00 Intake Total 1400 ml Output Total 0 ml Balance 1400 ml Laboratory Data 24H LABS Laboratory Tests 2 05/25/21 05:18: Nucleated Red Blood Cells % (auto) 0.0, Anion Gap 4L, Glomerular Filtration Rate > 60.0, Calcium Level 8.9, Magnesium Level 1.7L CBC/BMP Laboratory Tests 05/25/21 05:18 Microbiology Microbiology 05/23/21 Respiratory Virus Panel (PCR) ([facility]) - Final, Complete 05/23/21 Blood Culture - Preliminary, Resulted No Growth after 48 hours. All Specime... 05/23/21 Blood Culture - Preliminary, Resulted No Growth after 48 hours. All Specime... MOSHE REAL DO May 25, 2021 15:27
[2021-05-25] MEDS: BUDESONIDE 0.5 MG/2 ML INHALATION SUSPENSION INH SCH (19:26)
[2021-05-25] MEDS: BENZONATATE 100MG CAPSULE PO PRN (20:41)
[2021-05-26] MEDS: ACETAMINOPHEN TAB 650MG DOSE (2X325MG) PO PRN ×2 (03:05→22:11)
[2021-05-26 06:00] VITALS: BP 128/92
[2021-05-26] MEDS: IPRATROPIUM 0.5MG/ALBUTEROL 2.5MG INH SOL UD 3ML (DUONEB) NEB SCH ×3 (06:19→19:22)
[2021-05-26] MEDS: BUDESONIDE 0.5 MG/2 ML INHALATION SUSPENSION INH SCH ×2 (06:19→19:22)
[2021-05-26 06:42] LABS: HEMATOCRIT 37.7 % (42.0-52.0); HEMOGLOBIN 12.7 g/dl (13.5-17.5); MEAN CORPUSCULAR HEMOGLOBIN 34.8 pg (27.0-33.0); MEAN CORPUSCULAR HGB CONC 33.7 g/dl (32.0-36.5); MEAN CORPUSCULAR VOLUME 103.3 fl (80.0-96.0); PLATELET COUNT, AUTOMATED 273 10^3/uL (150-450); RED BLOOD COUNT 3.65 10^6/uL (4.30-6.10)
[2021-05-26 07:10] LABS: BLOOD UREA NITROGEN 13 MG/DL (7-18); CALCIUM LEVEL 8.6 MG/DL (8.5-10.1); CARBON DIOXIDE LEVEL 25 MEQ/L (21-32); CHLORIDE LEVEL 106 MEQ/L (98-107); CREATININE FOR GFR 0.69 MG/DL (0.70-1.30); GLOMERULAR FILTRATION RATE > 60.0 (>56); GLUCOSE, FASTING 167 MG/DL (70-100); SODIUM LEVEL 139 MEQ/L (136-145)
[2021-05-26 09:50] VITALS: O2SAT 94
[2021-05-26] MEDS: FOLIC ACID 1 MG TAB PO SCH (10:20)
[2021-05-26] MEDS: AZITHROMYCIN 250MG TABLET PO SCH (10:20)
[2021-05-26] MEDS: MULTIVITAMINS/MINERALS THERAP 1 TAB PO SCH (10:20)
[2021-05-26] MEDS: methylPREDNISolone 125MG 2ML VIAL IV SCH (10:21)
[2021-05-26] MEDS: ENOXAPARIN 40MG/0.4ML SYRINGE (J1650 PER 10MG) SC SCH (10:21)
[2021-05-26] MEDS: NICOTINE 21MG/24HR 1 EA TRANSDERMAL TD SCH (10:21)
[2021-05-26 14:28] VITALS: BP 128/79
--- NOTE | 2021-05-26 17:22 | IPNPDOC ---
Subjective Date Seen The patient was seen on 05/26/21. Subjective Chief Complaint/HPI Mr. Lainez is a 56 year old male with asthma and emphysema 2/2 tobacco abuse who is here for syncope and acute COPD exacerbation. Patient was seen by pulmonology yesterday. Today, patient is doing better and he is feeling better. Lungs still have mild wheezing, but much better than compared to yesterday. Objective Physical Examination General Exam: Positive: Alert, Cooperative Eye Exam: Positive: EOMI; Negative: Sclera icteric ENT Exam: Positive: Atraumatic Neck Exam: Positive: Supple Chest Exam: Positive: Wheezing (very mild) Heart Exam: Positive: Rate Normal, Regular Rhythm Abdomen Exam: Positive: Normal bowel sounds, Soft; Negative: Tenderness Extremity Exam: Negative: Edema Neuro Exam: Positive: Normal Speech Psych Exam: Positive: Mental status NL, Mood NL Assessment /Plan Assessment Mr. Lainez is a 56 year old male with asthma and emphysema 2/2 tobacco abuse who is here for syncope and acute COPD exacerbation. Smoking most likely triggered this current event. Continue with breathing treatments, steroids, and antibiotics. Otherwise, due to persistence of COPD exacerbation and the need for outpatient pulmonary follow-up, pulmonology, Dr. Mcmillan, was consulted. Recommendations appreciated. Plan/VTE VTE Prophylaxis Ordered?: Yes Plan 1. Acute COPD exacerbation -Triggered by smoking, patient not ready to quit -Continue with breathing treatments and Azithromycin day 4 -Patient wheezing improved, will start tapering parenteral steroids -Procalcitonin negative -Pulmonary consulted. recommendations appreciated -Pulmicort added, duonebs q8h 2. Syncope -Most likely secondary to hypoxia vs vasovagal from coughing fit -Will treat COPD exacerbation -On echocardiogram, there is no identifiable structural or functional abnormality to account for the patient's syncope. EF 65% 3. Tobacco abuse -Patient tells me he is not ready to quit smoking at this time -Continue to encourage smoking cessation 4. Alcohol abuse -Serum ETOH elevated on admission -Continue [facility] protocol -Continue thiamine, folic acid, and multivitamin 5. Pulmonary Cachexia -BMI 17.5 6. DVT ppx -Lovenox Disposition: Pending clinical improvement. Possible discharge tomorrow if continues to improve. VS, I&O, 24H, Fishbone Vital Signs/I&O Vital Signs Date Time Temp Pulse Resp B/P (MAP) Pulse Ox O2 Delivery O2 Flow Rate FiO2 05/26/21 14:28 99.2 109 20 128/79 (95) 94 Room Air 05/23/21 07:00 4.0 I&O- Last 24 Hours up to 6 AM 05/26/21 06:00 Intake Total 3030 ml Output Total 1050 ml Balance 1980 ml Laboratory Data 24H LABS Laboratory Tests 2 05/26/21 06:21: Nucleated Red Blood Cells % (auto) 0.0, Anion Gap 8, Glomerular Filtration Rate > 60.0, Calcium Level 8.6 CBC/BMP Laboratory Tests 05/26/21 06:21 Microbiology Microbiology 05/23/21 Respiratory Virus Panel (PCR) ([facility]) - Final, Complete 05/23/21 Blood Culture - Preliminary, Resulted No Growth after 72 hours. All specime... 05/23/21 Blood Culture - Preliminary, Resulted No Growth after 72 hours. All specime... MOSHE REAL DO May 26, 2021 17:22
[2021-05-26 21:01] VITALS: BP 127/93
[2021-05-26] MEDS: BENZONATATE 100MG CAPSULE PO PRN (22:11)
[2021-05-27 00:54] VITALS: O2SAT 96
[2021-05-27 05:03] VITALS: BP 136/90
[2021-05-27 06:19] LABS: HEMATOCRIT 38.6 % (42.0-52.0); MEAN CORPUSCULAR HEMOGLOBIN 35.1 pg (27.0-33.0); MEAN CORPUSCULAR HGB CONC 33.7 g/dl (32.0-36.5); MEAN CORPUSCULAR VOLUME 104.3 fl (80.0-96.0); PLATELET COUNT, AUTOMATED 248 10^3/uL (150-450); WHITE BLOOD COUNT 11.9 10^3/uL (4.0-10.0)
[2021-05-27 06:44] LABS: BLOOD UREA NITROGEN 19 MG/DL (7-18); CALCIUM LEVEL 8.5 MG/DL (8.5-10.1); CARBON DIOXIDE LEVEL 29 MEQ/L (21-32); CHLORIDE LEVEL 107 MEQ/L (98-107); CREATININE FOR GFR 0.69 MG/DL (0.70-1.30); GLOMERULAR FILTRATION RATE > 60.0 (>56); GLUCOSE, FASTING 88 MG/DL (70-100); POTASSIUM SERUM 3.7 MEQ/L (3.5-5.1); SODIUM LEVEL 140 MEQ/L (136-145)
[2021-05-27] MEDS: MULTIVITAMINS/MINERALS THERAP 1 TAB PO SCH (08:47)
[2021-05-27] MEDS: NICOTINE 21MG/24HR 1 EA TRANSDERMAL TD SCH (08:47)
[2021-05-27] MEDS: FOLIC ACID 1 MG TAB PO SCH (08:49)
[2021-05-27] MEDS: ENOXAPARIN 40MG/0.4ML SYRINGE (J1650 PER 10MG) SC SCH (08:49)
[2021-05-27] MEDS: IPRATROPIUM 0.5MG/ALBUTEROL 2.5MG INH SOL UD 3ML (DUONEB) NEB SCH ×2 (08:53→13:53)
[2021-05-27] MEDS: BUDESONIDE 0.5 MG/2 ML INHALATION SUSPENSION INH SCH (08:53)
[2021-05-27] MEDS: AZITHROMYCIN 250MG TABLET PO SCH (08:56)
[2021-05-27 09:00] VITALS: O2SAT 96
[2021-05-27] MEDS ORDERED: methylPREDNISolone 125MG 2ML VIAL IV SCH (09:00)
[2021-05-27] MEDS ORDERED: IPRA0.00 NEB (09:17)
[2021-05-27] MEDS ORDERED: PRED10TA2 PO (09:17)
--- NOTE | 2021-05-27 21:12 | DS.PDOC ---
Discharge Summary General Date of Admission May 23, 2021 at 04:06 Date of Discharge May 27, 2021 Specialist/Consultants [facility], Dr. Mcmillan Discharge Summary PROCEDURES PERFORMED DURING STAY: None ADMITTING DIAGNOSES: 1. Acute COPD exacerbation 2. Syncope 3. Tobacco use disorder 4. Alcohol use disorder 5. Pulmonary Cachexia DISCHARGE DIAGNOSES: 1. Acute COPD exacerbation 2. Syncope 3. Tobacco use disorder 4. Alcohol use disorder 5. Pulmonary Cachexia COMPLICATIONS/CHIEF COMPLAINT: Copd Exacerbation. HISTORY OF PRESENT ILLNESS: Copied from admitting attending's H&P " , a 56 yr old M, was last admitted to our facility from May 14 to for non-surgical management of a non-displaced left proximal femur fracture. He reports developing shortness of breath and coughing spells that are productive of yellow-green sputum the day after he was discharged home. He denies having chest pain, abdominal pain, fevers or chills. He admits to smoking. His friend called EMS because passed out after having a coughing spell; he attributes loosing consciousness to his lungs closing up. He also c/o constipation which he attributes to the pain meds he was taking for the hip pain. " HOSPITAL COURSE: Patient's syncope is most likely related to patient's COPD exacerbation either through hypoxia or vasovagal from coughing fit. Echocardiogram was obtained and did not demonstrate a cardiac structural cause to syncope. Otherwise, for patient's COPD exacerbation, he was put on parenteral steroids and breathing treatments. Procalcitonin was negative. Patient received a total of 5 days of azithromycin. Patient was not hypoxic at rest, but had significant wheezing and continued to have significant wheezing despite therapy. Pulmonary, Dr. Mcmillan, was consulted and nebulized Pulmicort was started. Patient wheezing greatly improved afterwards and patient significantly felt better. Today, patient had no wheezing. Patient felt much better and felt that his airwa ys were open. He felt ready for home and was subsequently discharged home. DISCHARGE MEDICATIONS: Please see below. ALLERGIES: Please see below. PHYSICAL EXAMINATION ON DISCHARGE: VITAL SIGNS: Please see below. GENERAL: Comfortable, in no apparent distress, thin and cachetic HEENT: Head normocephalic, atraumatic NECK: Supple CARDIOVASCULAR EXAMINATION: Regular rate and rhythm RESPIRATORY EXAMINATION: Lungs clear to auscultation bilaterally ABDOMINAL EXAMINATION: Soft, non-tender, normal bowel sounds EXTREMITIES: No pitting edema bilaterally NEUROLOGICAL EXAMINATION: CN 3-12 grossly intact PSYCHIATRIC EXAMINATION: Normal mood and affect LABORATORY DATA: Please see below. IMAGING: Radiologist interpretation CT angio chest 1. No acute findings in the chest. No pulmonary embolism. 2. 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 3. Centrilobular emphysematous changes, predominantly in the upper lobes, which are similar in appearance compared to the prior CTA chest on 09/29/2019. 4. The 9 mm nodular opacity projecting over the lateral aspect of the right mid lung zone described in the chest x-ray on 05/23/2021 is felt to represent the right nipple shadow and mild right gynecomastia. 5. 2 mm and 4 mm solid pulmonary nodule in the right upper lobe, which are stable compared to the CT chest on 09/29/2019 and for which further follow-up is not necessary. No new pulmonary nodules. PROGNOSIS: Good ACTIVITY: As tolerated. DIET: As tolerated DISCHARGE PLAN: Home DISPOSITION: 06 Home Health Service. DISCHARGE INSTRUCTIONS: 1. Follow up with PCP within 1 week 2. Follow up with pulmonary in 1 to 2 weeks 3. Continue steroid taper to completion DISCHARGE CONDITION: Stable. Total time spent on discharge planning, discharge summary, and medication reconciliation: 40 minutes Vital Signs/I&Os Vital Signs Date Time Temp Pulse Resp B/P (MAP) Pulse Ox O2 Delivery O2 Flow Rate FiO2 05/27/21 09:00 96 Room Air 05/27/21 05:03 97.6 61 18 136/90 (105) 05/23/21 07:00 4.0 I&O- Last 24 Hours up to 6 AM 05/27/21 06:00 Intake Total 3060 ml Output Total 0 ml Balance 3060 ml Laboratory Data Labs 24H Laboratory Tests 2 05/27/21 05:21: Nucleated Red Blood Cells % (auto) 0.0, Anion Gap 4L, Glomerular Filtration Rate > 60.0, Calcium Level 8.5 CBC/BMP Laboratory Tests 05/27/21 05:21 Microbiology Microbiology 05/23/21 Respiratory Virus Panel (PCR) ([facility]) - Final, Complete 05/23/21 Blood Culture - Preliminary, Resulted No Growth after 72 hours. All specime... 05/23/21 Blood Culture - Preliminary, Resulted No Growth after 72 hours. All specime... Discharge Medications Scheduled Fluticasone Furoate (Arnuity Ellipta) 100 Mcg Blst.w.dev, 1 PUFF PO DAILY, (Reported) Prednisone (Prednisone) 10 Mg Tablet, 10 MG PO TAPER Take 4 tabs daily x 3 days, then 3 tabs daily x 3 days, then 2 tabs daily x 3 days, then 1 tab daily x 3 days and stop Scheduled PRN Albuterol Sulfate (Albuterol Sulfate Hfa) 8.5 Gm Hfa.aer.ad, 2 PUFF INH Q4H PRN for SOB/WHEEZING, (Reported) Ipratropium/Albuterol Sulfate (Combivent Respimat 20-100 Mcg) 4 Gm Mist.inhal, 1 PUFF INH QID PRN for SOB/COUGH, (Reported) Ipratropium/Albuterol Sulfate (Iprat-Albut 0.5-3(2.5) mg/3 ml) 3 Ml Ampul.neb, 3 ML NEB Q4HP PRN for SOB/WHEEZING Allergies Coded Allergies: No Known Allergies (Verified Allergy, Unknown, 02/06/19) MOSHE REAL DO May 27, 2021 21:12
== END 2021-05-27 16:05 | disposition home health service (06) | DRG 140 ==
LOC: M ED 22:42 → M ED INP 05-23 04:06 → ENRESERV 05-23 14:18 → M MS5PR 05-23 15:27
PROVIDERS: ADMIT Internal Medicine; ATTEND Internal Medicine
DX: J44.1 Chronic obstructive pulmonary disease with (acute) exacerbation (principal); R64 Cachexia; R55 Syncope and collapse; F17.210 Nicotine dependence, cigarettes, uncomplicated; F10.10 Alcohol abuse, uncomplicated; S72.115D Nondisplaced fracture of greater trochanter of left femur, subsequent encounter for closed fracture with routine healing; K59.00 Constipation, unspecified; I25.10 Atherosclerotic heart disease of native coronary artery without angina pectoris; I10 Essential (primary) hypertension; E78.5 Hyperlipidemia, unspecified; Z79.899 Other long term (current) drug therapy

== ENCOUNTER → 2021-06-06 | Outpatient (CLI) | payer OTHER ==
[~2021-06-06] MED LIST changes: +IPRA0.00 NEB; +PRED10TA2 PO
== END ==
LOC: M PLALAB 11:14
PROVIDERS: ATTEND Physician Assistant Medical
DX: Z53.20 Procedure and treatment not carried out because of patient's decision for unspecified reasons (principal)

== ENCOUNTER 2021-12-28 03:34 | Inpatient (IN) | payer OTHER ==
[~2021-12-28] VITALS: Ht 170.2 cm; Wt 51.1 kg
[2021-12-28] VITALS (7 sets, daily range): BP systolic 94–110; BP diastolic 62–79
[~2021-12-28 03:34] MED LIST changes: -OMEP-221 PO; +OMEP40CA5 PO
[2021-12-28] MEDS: IPRATROPIUM 0.5MG/ALBUTEROL 2.5MG INH SOL UD 3ML (DUONEB) NEB SCH ×5 (03:50→19:29)
[2021-12-28 03:51] LABS: ABG BASE EXCESS -8.2 (-2.0-2.0); ABG HCO3 25.4 MEQ/L (22.0-26.0); ABG O2 SATURATION 98.3 % (95.0-99.0); ABG PARTIAL PRESSURE O2 177.6 mmHg (75.0-100.0); ABG TOTAL CO2 28.5 MEQ/L (22.0-29.0)
[2021-12-28 03:56] LABS: ABG pH (ARTERIAL) 7.019 UNITS (7.350-7.450)
[2021-12-28 03:57] LABS: ABG PARTIAL PRESSURE CO2 100.7 mmHg (35.0-45.0)
[2021-12-28 04:03] LABS: BASO # 0.2 10^3/uL (0.0-0.2); BASO % 1.7 % (0.0-1.0); EOS # 0.7 10^3/uL (0.0-0.5); EOS % 6.9 % (0.0-3.0); HEMATOCRIT 43.5 % (42.0-52.0); HEMOGLOBIN 14.5 g/dl (13.5-17.5); LYMPH # 3.4 10^3/uL (1.5-5.0); LYMPH % 34.2 % (24.0-44.0); MEAN CORPUSCULAR HEMOGLOBIN 34.9 pg (27.0-33.0); MEAN CORPUSCULAR HGB CONC 33.3 g/dl (32.0-36.5); MEAN CORPUSCULAR VOLUME 104.8 fl (80.0-96.0); MONO # 1.3 10^3/uL (0.0-0.8); MONO % 12.8 % (2.0-8.0); NEUTROPHILS # 4.5 10^3/uL (1.5-8.5); NEUTROPHILS % 44.3 % (36.0-66.0); PLATELET COUNT, AUTOMATED 277 10^3/uL (150-450); RED BLOOD COUNT 4.15 10^6/uL (4.30-6.10); WHITE BLOOD COUNT 10.1 10^3/uL (4.0-10.0)
[2021-12-28] MEDS ORDERED: ETOMIDATE INJ 20MG/10ML VIAL IV ONE (04:20)
[2021-12-28] MEDS ORDERED: ROCURONIUM BROMIDE 50 MG/5 ML VIAL IV ONE ×2 (04:20→05:30)
[2021-12-28 04:29] LABS: CK-MB VALUE MASS 6.9 NG/ML (<3.6); MB/CK RELATIVE INDEX 3.37 (< OR =4)
[2021-12-28 04:36] LABS: ALBUMIN 3.7 GM/DL (3.2-5.2); ALT/SGPT 34 U/L (12-78); BILIRUBIN,DIRECT < 0.1 MG/DL (0.0-0.2); BILIRUBIN,TOTAL 0.3 MG/DL (0.2-1.0); BLOOD UREA NITROGEN 7 MG/DL (7-18); CALCIUM LEVEL 8.6 MG/DL (8.5-10.1); CARBON DIOXIDE LEVEL 26 MEQ/L (21-32); CHLORIDE LEVEL 103 MEQ/L (98-107); CREATININE FOR GFR 0.63 MG/DL (0.70-1.30); GLOMERULAR FILTRATION RATE > 60.0 (>56); GLUCOSE, FASTING 142 MG/DL (70-100); NT-PRO BNP 72 PG/ML (<125); POTASSIUM SERUM 4.7 MEQ/L (3.5-5.1); SODIUM LEVEL 136 MEQ/L (136-145); TOTAL PROTEIN 7.6 GM/DL (6.4-8.2)
[2021-12-28] MEDS: propofoL 1,000 MG in IV 1 EA IV SCH ×3 (04:41→17:55)
[2021-12-28] MEDS ORDERED: MAG SULF 1GM/100ML (MAG RUN) 1 GM in IV 1 EA IV ONE (04:50)
[2021-12-28] MEDS ORDERED: REFRIGERATOR IV KEYS XX PRN ×2 (05:25→19:00)
[2021-12-28] MEDS ORDERED: MIDAZOLAM INJ 2MG/2ML VIAL (J2250 PER 1MG) IV ONE (05:25)
[2021-12-28] MEDS ORDERED: MIDAZOLAM INJ 2MG/2ML VIAL (J2250 PER 1MG) As Ordered ONE (05:29)
[2021-12-28 05:33] LABS: CK-MB VALUE MASS 6.5 NG/ML (<3.6); MB/CK RELATIVE INDEX 2.12 (< OR =4)
[2021-12-28] MEDS ORDERED: NS 1,000 ML IV ONE (05:35)
[2021-12-28 05:58] LABS: ABG BASE EXCESS -7.9 (-2.0-2.0); ABG HCO3 16.6 MEQ/L (22.0-26.0); ABG O2 SATURATION 99.3 % (95.0-99.0); ABG PARTIAL PRESSURE O2 230.6 mmHg (75.0-100.0); ABG STANDARD HCO3 18.1 MEQ/L (22.0-26.0); ABG TOTAL CO2 17.5 MEQ/L (22.0-29.0); ABG pH (ARTERIAL) 7.346 UNITS (7.350-7.450)
[2021-12-28] MEDS: MIDAZOLAM HCL 100 MG in D5W 80 ML IV SCH ×5 (06:04→19:47)
[2021-12-28] MEDS ORDERED: LEVALBUTEROL 1.25 MG/0.5 ML CONCENTRATE NEB NEB PRN (06:15)
[2021-12-28] MEDS ORDERED: EPINEPHrine 1MG/10ML SYRINGE 1.5IN IV STA (07:10)
[2021-12-28] MEDS ORDERED: ETOMIDATE INJ 20MG/10ML VIAL IV STA (07:15)
[2021-12-28] MEDS ORDERED: ROCURONIUM BROMIDE 50 MG/5 ML VIAL IV STA (07:19)
[2021-12-28] MEDS ORDERED: HOME MED LIST COMPLETE! XX SCH (08:10)
[2021-12-28] MEDS: methylPREDNISolone 40MG 1ML VIAL IV SCH ×3 (08:27→19:20)
[2021-12-28] MEDS: PANTOPRAZOLE 40MG VIAL IV SCH (08:27)
[2021-12-28] MEDS: HEPARIN SOD (PORCINE) 5000UNITS/ML 1ML VIAL/SYRINGE SQ SCH ×3 (08:28→21:30)
[2021-12-28] MEDS: fentaNYL 100 MCG/2 ML INJECTION IV PRN ×2 (09:14→15:04)
[2021-12-28] MEDS: dexmedeTOMidine 200 MCG in IV 1 EA IV SCH ×4 (09:35→22:39)
[2021-12-28] MEDS: CHLORHEXIDINE GLUCONATE 0.12 % 15ML UDC (PERIDEX ORAL RINSE) MT SCH ×2 (10:13→20:14)
[2021-12-28] MEDS ORDERED: PIPERACILLIN/TAZOBACTAM SOD 3.375 GM in D5W MINI-BAG PLUS 50 ML IV SCH (10:50)
[2021-12-28] MEDS: SYMBICORT 160/4.5MCG INHALER 6GM INH SCH ×2 (10:51→19:29)
[2021-12-28] MEDS: PIPERACILLIN/TAZOBACTAM SOD 4.5 GM in D5W MINI-BAG PLUS 50 ML IV SCH ×3 (11:25→23:04)
[2021-12-28] MEDS ORDERED: NS 500 ML IV ONE ×2 (13:45→17:55)
[2021-12-28 14:35] LABS: ABG BASE EXCESS -4.7 (-2.0-2.0); ABG HCO3 20.7 MEQ/L (22.0-26.0); ABG O2 SATURATION 96.7 % (95.0-99.0); ABG PARTIAL PRESSURE CO2 39.4 mmHg (35.0-45.0); ABG PARTIAL PRESSURE O2 91.5 mmHg (75.0-100.0); ABG STANDARD HCO3 20.6 MEQ/L (22.0-26.0); ABG TOTAL CO2 21.9 MEQ/L (22.0-29.0); ABG pH (ARTERIAL) 7.338 UNITS (7.350-7.450)
[2021-12-29] VITALS (25 sets, daily range): BP systolic 84–115; BP diastolic 62–83
[2021-12-29] MEDS: methylPREDNISolone 40MG 1ML VIAL IV SCH ×3 (01:00→14:48)
[2021-12-29] MEDS: propofoL 1,000 MG in IV 1 EA IV SCH ×2 (04:55→17:55)
[2021-12-29] MEDS: PIPERACILLIN/TAZOBACTAM SOD 4.5 GM in D5W MINI-BAG PLUS 50 ML IV SCH ×3 (05:09→18:11)
[2021-12-29] MEDS: dexmedeTOMidine 200 MCG in IV 1 EA IV SCH ×4 (05:09→21:52)
[2021-12-29] MEDS: HEPARIN SOD (PORCINE) 5000UNITS/ML 1ML VIAL/SYRINGE SQ SCH ×3 (05:09→21:34)
[2021-12-29 05:42] LABS: ABG HCO3 21.9 MEQ/L (22.0-26.0); ABG O2 SATURATION 98.7 % (95.0-99.0); ABG PARTIAL PRESSURE CO2 34.8 mmHg (35.0-45.0); ABG PARTIAL PRESSURE O2 132.5 mmHg (75.0-100.0); ABG STANDARD HCO3 22.8 MEQ/L (22.0-26.0); ABG pH (ARTERIAL) 7.417 UNITS (7.350-7.450)
[2021-12-29 06:10] LABS: LYMPH # 0.4 10^3/uL (1.5-5.0); LYMPH % 3.8 % (24.0-44.0); MEAN CORPUSCULAR HEMOGLOBIN 34.2 pg (27.0-33.0); MEAN CORPUSCULAR HGB CONC 34.6 g/dl (32.0-36.5); MEAN CORPUSCULAR VOLUME 98.9 fl (80.0-96.0); MONO # 0.7 10^3/uL (0.0-0.8); MONO % 6.4 % (2.0-8.0); NEUTROPHILS # 9.2 10^3/uL (1.5-8.5); NEUTROPHILS % 89.4 % (36.0-66.0); PLATELET COUNT, AUTOMATED 212 10^3/uL (150-450); RED BLOOD COUNT 3.54 10^6/uL (4.30-6.10); WHITE BLOOD COUNT 10.3 10^3/uL (4.0-10.0)
[2021-12-29 06:16] LABS: HEMOGLOBIN 12.1 g/dl (13.5-17.5)
[2021-12-29 06:42] LABS: BLOOD UREA NITROGEN 14 MG/DL (7-18); CALCIUM LEVEL 8.4 MG/DL (8.5-10.1); CARBON DIOXIDE LEVEL 24 MEQ/L (21-32); CHLORIDE LEVEL 108 MEQ/L (98-107); CREATININE FOR GFR 0.67 MG/DL (0.70-1.30); GLOMERULAR FILTRATION RATE > 60.0 (>56); GLUCOSE, FASTING 170 MG/DL (70-100); POTASSIUM SERUM 3.9 MEQ/L (3.5-5.1); SODIUM LEVEL 138 MEQ/L (136-145)
[2021-12-29] MEDS: PANTOPRAZOLE 40MG VIAL IV SCH (08:13)
[2021-12-29] MEDS: CHLORHEXIDINE GLUCONATE 0.12 % 15ML UDC (PERIDEX ORAL RINSE) MT SCH ×2 (08:13→21:34)
[2021-12-29] MEDS: SYMBICORT 160/4.5MCG INHALER 6GM INH SCH ×2 (08:25→19:05)
[2021-12-29] MEDS: IPRATROPIUM 0.5MG/ALBUTEROL 2.5MG INH SOL UD 3ML (DUONEB) NEB SCH ×2 (08:25→15:11)
[2021-12-29] MEDS: fentaNYL 100 MCG/2 ML INJECTION IV PRN ×3 (08:30→23:22)
[2021-12-29] MEDS ORDERED: MIDAZOLAM INJ 2MG/2ML VIAL (J2250 PER 1MG) As Ordered ONE (08:50)
[2021-12-29] MEDS ORDERED: MIDAZOLAM INJ 2MG/2ML VIAL (J2250 PER 1MG) IV STA (08:53)
[2021-12-29] MEDS ORDERED: NS 500 ML IV ONE (09:35)
[2021-12-29 12:26] LABS: MAGNESIUM LEVEL 1.9 MG/DL (1.8-2.4); PHOSPHORUS LEVEL 2.7 MG/DL (2.5-4.9)
[2021-12-29] MEDS: MIDAZOLAM HCL 100 MG in D5W 80 ML IV SCH (18:10)
[2021-12-29] MEDS: methylPREDNISolone 125MG 2ML VIAL IV SCH (21:34)
[2021-12-29] MEDS ORDERED: diltiaZEM 125 MG in NS 100 ML IV SCH (22:00)
[2021-12-30] VITALS (70 sets, daily range): BP systolic 70–121; BP diastolic 47–93
[2021-12-30] MEDS: PIPERACILLIN/TAZOBACTAM SOD 4.5 GM in D5W MINI-BAG PLUS 50 ML IV SCH (00:15)
[2021-12-30] MEDS ORDERED: SODIUM CHLORIDE 0.9% 1000ML IV ONE (01:35)
[2021-12-30] MEDS: IPRATROPIUM 0.5MG/ALBUTEROL 2.5MG INH SOL UD 3ML (DUONEB) NEB SCH (01:38)
[2021-12-30] MEDS ORDERED: MIDAZOLAM INJ 2MG/2ML VIAL (J2250 PER 1MG) As Ordered ONE ×2 (01:56→01:57)
[2021-12-30] MEDS ORDERED: MIDAZOLAM INJ 2MG/2ML VIAL (J2250 PER 1MG) IV ONE (02:00)
[2021-12-30] MEDS ORDERED: MIDAZOLAM INJ 2MG/2ML VIAL (J2250 PER 1MG) IV PRN (02:00)
[2021-12-30] MEDS ORDERED: DIGOXIN INJ 0.5 MG/2 ML AMP (J1160) IV STA (02:16)
[2021-12-30] MEDS ORDERED: MIDAZOLAM INJ 2MG/2ML VIAL (J2250 PER 1MG) IV STA ×2 (02:19→04:12)
[2021-12-30] MEDS ORDERED: NS 1,000 ML IV ONE ×2 (02:40→04:25)
[2021-12-30] MEDS: dexmedeTOMidine 200 MCG in IV 1 EA IV SCH (02:43)
[2021-12-30] MEDS: MIDAZOLAM INJ 2MG/2ML VIAL (J2250 PER 1MG) IV PRN ×7 (03:27→22:49)
[2021-12-30] MEDS ORDERED: GLUCOSE 4GM CHEW TABLET PO PRN (03:45)
[2021-12-30] MEDS ORDERED: GLUCAGON INJ 1MG VIAL SC PRN (03:45)
[2021-12-30] MEDS ORDERED: DEXTROSE 50% 50 ML SYRINGE IV PRN (03:45)
[2021-12-30] MEDS: methylPREDNISolone 125MG 2ML VIAL IV SCH ×4 (03:54→20:26)
[2021-12-30] MEDS ORDERED: AMIODARONE HCL 150 MG in IV 1 EA IV SCH (04:25)
[2021-12-30] MEDS: cefTRIAXone SOD 1 GM in D5W MINI-BAG PLUS 50 ML IV SCH (05:13)
[2021-12-30] MEDS: AZITHROMYCIN INJ 500 MG, VIAL MATE ADAPTER 1 EACH in NS 250 ML IV SCH (05:13)
[2021-12-30 05:19] LABS: BASO % 0.1 % (0.0-1.0); HEMATOCRIT 38.6 % (42.0-52.0); HEMOGLOBIN 12.7 g/dl (13.5-17.5); LYMPH # 0.2 10^3/uL (1.5-5.0); LYMPH % 1.4 % (24.0-44.0); MEAN CORPUSCULAR HGB CONC 32.9 g/dl (32.0-36.5); MEAN CORPUSCULAR VOLUME 103.2 fl (80.0-96.0); MONO # 0.5 10^3/uL (0.0-0.8); MONO % 4.9 % (2.0-8.0); NEUTROPHILS # 10.2 10^3/uL (1.5-8.5); NEUTROPHILS % 93.1 % (36.0-66.0); PLATELET COUNT, AUTOMATED 211 10^3/uL (150-450); RED BLOOD COUNT 3.74 10^6/uL (4.30-6.10)
[2021-12-30] MEDS: INSULIN LISPRO (NovoLOG) PER UNIT SC SCH ×4 (05:24→23:25)
[2021-12-30 05:27] LABS: ABG BASE EXCESS -7.1 (-2.0-2.0); ABG O2 SATURATION 96.8 % (95.0-99.0); ABG PARTIAL PRESSURE CO2 34.9 mmHg (35.0-45.0); ABG PARTIAL PRESSURE O2 91.8 mmHg (75.0-100.0); ABG STANDARD HCO3 18.7 MEQ/L (22.0-26.0); ABG TOTAL CO2 19.1 MEQ/L (22.0-29.0); ABG pH (ARTERIAL) 7.331 UNITS (7.350-7.450)
[2021-12-30 05:37] LABS: BLOOD UREA NITROGEN 12 MG/DL (7-18); CALCIUM LEVEL 8.3 MG/DL (8.5-10.1); CARBON DIOXIDE LEVEL 22 MEQ/L (21-32); CHLORIDE LEVEL 116 MEQ/L (98-107); CREATININE FOR GFR 0.71 MG/DL (0.70-1.30); GLOMERULAR FILTRATION RATE > 60.0 (>56); GLUCOSE, FASTING 142 MG/DL (70-100); POTASSIUM SERUM 3.5 MEQ/L (3.5-5.1); SODIUM LEVEL 145 MEQ/L (136-145)
[2021-12-30] MEDS ORDERED: NOREPINEPHRINE 4 MG/4 ML AMP As Ordered ONE (06:45)
[2021-12-30] MEDS ORDERED: NOREPINEPHRINE BITARTRATE 8 MG in D5W 492 ML IV SCH ×2 (07:00→19:00)
[2021-12-30] MEDS ORDERED: DIGOXIN INJ 0.5 MG/2 ML AMP (J1160) IV ONE ×2 (08:00→14:00)
[2021-12-30] MEDS ORDERED: PROPOFOL 1,000 MG/100 ML VIAL As Ordered ONE (08:03)
[2021-12-30] MEDS: LEVALBUTEROL 1.25 MG/0.5 ML CONCENTRATE NEB INH SCH ×4 (08:04→19:22)
[2021-12-30] MEDS: SYMBICORT 160/4.5MCG INHALER 6GM INH SCH ×2 (08:04→19:22)
[2021-12-30] MEDS: propofoL 1,000 MG in IV 1 EA IV SCH ×3 (08:05→16:37)
[2021-12-30] MEDS: MIDAZOLAM HCL 100 MG in D5W 80 ML IV SCH ×2 (09:14→18:59)
[2021-12-30] MEDS: ENOXAPARIN 30MG/0.3ML SYRINGE (J1650 PER 10MG) SC SCH (09:38)
[2021-12-30] MEDS: PANTOPRAZOLE 40MG VIAL IV SCH (09:38)
[2021-12-30] MEDS: CHLORHEXIDINE GLUCONATE 0.12 % 15ML UDC (PERIDEX ORAL RINSE) MT SCH ×2 (09:38→20:25)
[2021-12-30] MEDS: fentaNYL 100 MCG/2 ML INJECTION IV PRN (20:25)
[2021-12-31] VITALS (56 sets, daily range): BP systolic 79–144; BP diastolic 55–106
[2021-12-31] MEDS: LEVALBUTEROL 1.25 MG/0.5 ML CONCENTRATE NEB INH SCH ×7 (00:59→23:46)
[2021-12-31] MEDS: methylPREDNISolone 125MG 2ML VIAL IV SCH ×4 (02:15→20:45)
[2021-12-31] MEDS: propofoL 1,000 MG in IV 1 EA IV SCH ×3 (03:36→21:22)
[2021-12-31] MEDS: fentaNYL 100 MCG/2 ML INJECTION IV PRN ×5 (03:57→19:49)
[2021-12-31] MEDS: cefTRIAXone SOD 1 GM in D5W MINI-BAG PLUS 50 ML IV SCH (04:00)
[2021-12-31] MEDS: AZITHROMYCIN INJ 500 MG, VIAL MATE ADAPTER 1 EACH in NS 250 ML IV SCH (05:01)
[2021-12-31] MEDS: MIDAZOLAM INJ 2MG/2ML VIAL (J2250 PER 1MG) IV PRN ×6 (05:12→22:02)
[2021-12-31 05:22] LABS: HEMATOCRIT 32.3 % (42.0-52.0); HEMOGLOBIN 10.9 g/dl (13.5-17.5); LYMPH # 0.2 10^3/uL (1.5-5.0); LYMPH % 2.2 % (24.0-44.0); MEAN CORPUSCULAR HEMOGLOBIN 34.5 pg (27.0-33.0); MEAN CORPUSCULAR HGB CONC 33.7 g/dl (32.0-36.5); MEAN CORPUSCULAR VOLUME 102.2 fl (80.0-96.0); MONO # 0.6 10^3/uL (0.0-0.8); MONO % 5.9 % (2.0-8.0); NEUTROPHILS # 8.6 10^3/uL (1.5-8.5); NEUTROPHILS % 91.5 % (36.0-66.0); PLATELET COUNT, AUTOMATED 184 10^3/uL (150-450); RED BLOOD COUNT 3.16 10^6/uL (4.30-6.10); WHITE BLOOD COUNT 9.4 10^3/uL (4.0-10.0)
[2021-12-31 06:05] LABS: BLOOD UREA NITROGEN 12 MG/DL (7-18); CALCIUM LEVEL 7.9 MG/DL (8.5-10.1); CARBON DIOXIDE LEVEL 26 MEQ/L (21-32); CHLORIDE LEVEL 115 MEQ/L (98-107); CREATININE FOR GFR 0.58 MG/DL (0.70-1.30); GLOMERULAR FILTRATION RATE > 60.0 (>56); GLUCOSE, FASTING 167 MG/DL (70-100); POTASSIUM SERUM 2.9 MEQ/L (3.5-5.1); SODIUM LEVEL 148 MEQ/L (136-145)
[2021-12-31] MEDS: INSULIN LISPRO (NovoLOG) PER UNIT SC SCH ×4 (06:10→23:23)
[2021-12-31 06:15] LABS: ABG BASE EXCESS -2.2 (-2.0-2.0); ABG O2 SATURATION 95.1 % (95.0-99.0); ABG PARTIAL PRESSURE CO2 35.8 mmHg (35.0-45.0); ABG PARTIAL PRESSURE O2 72.3 mmHg (75.0-100.0); ABG STANDARD HCO3 22.6 MEQ/L (22.0-26.0); ABG TOTAL CO2 23.1 MEQ/L (22.0-29.0); ABG pH (ARTERIAL) 7.407 UNITS (7.350-7.450)
[2021-12-31] MEDS ORDERED: POTASSIUM CHLORIDE 10% LIQ 20 MEQ/15 ML UDC PO ONE (06:35)
[2021-12-31] MEDS: KCL 20MEQ IN 100ML SWI (KRUN) 20 MEQ in IV 1 EA IV SCH ×4 (06:46→08:53)
[2021-12-31] MEDS: MIDAZOLAM HCL 100 MG in D5W 80 ML IV SCH ×2 (06:59→19:05)
[2021-12-31] MEDS: SYMBICORT 160/4.5MCG INHALER 6GM INH SCH ×2 (07:26→19:29)
[2021-12-31] MEDS: CHLORHEXIDINE GLUCONATE 0.12 % 15ML UDC (PERIDEX ORAL RINSE) MT SCH ×2 (08:53→20:45)
[2021-12-31] MEDS: PANTOPRAZOLE 40MG VIAL IV SCH (08:53)
[2021-12-31] MEDS: ENOXAPARIN 30MG/0.3ML SYRINGE (J1650 PER 10MG) SC SCH (08:53)
[2021-12-31] MEDS: DIGOXIN 0.125 MG TAB PO SCH (08:54)
[2021-12-31 13:11] LABS: ALBUMIN 2.7 GM/DL (3.2-5.2); ALT/SGPT 60 U/L (12-78); BILIRUBIN,TOTAL 0.4 MG/DL (0.2-1.0); BLOOD UREA NITROGEN 14 MG/DL (7-18); CALCIUM LEVEL 7.7 MG/DL (8.5-10.1); CARBON DIOXIDE LEVEL 22 MEQ/L (21-32); CHLORIDE LEVEL 117 MEQ/L (98-107); GLOMERULAR FILTRATION RATE > 60.0 (>56); GLUCOSE, FASTING 210 MG/DL (70-100); POTASSIUM SERUM 3.5 MEQ/L (3.5-5.1); SODIUM LEVEL 144 MEQ/L (136-145); TOTAL PROTEIN 5.8 GM/DL (6.4-8.2)
[2021-12-31] MEDS ORDERED: OXAZEPAM 15MG CAP PO SCH (18:45)
[2021-12-31] MEDS: OXAZEPAM 15MG CAP NG SCH ×2 (18:57→23:23)
[2022-01-01] VITALS (27 sets, daily range): BP systolic 102–152; BP diastolic 69–109
[2022-01-01] MEDS ORDERED: MIDAZOLAM INJ 2MG/2ML VIAL (J2250 PER 1MG) IV ONE (01:20)
[2022-01-01] MEDS: METOPROLOL 5 MG/5 ML VIAL IV SCH ×4 (02:00→19:48)
[2022-01-01] MEDS: methylPREDNISolone 125MG 2ML VIAL IV SCH ×4 (02:01→19:49)
[2022-01-01] MEDS: LEVALBUTEROL 1.25 MG/0.5 ML CONCENTRATE NEB INH SCH ×5 (03:38→19:55)
[2022-01-01] MEDS: cefTRIAXone SOD 1 GM in D5W MINI-BAG PLUS 50 ML IV SCH (04:00)
[2022-01-01 04:24] LABS: BASO % 0.1 % (0.0-1.0); HEMATOCRIT 37.6 % (42.0-52.0); HEMOGLOBIN 12.8 g/dl (13.5-17.5); LYMPH # 0.3 10^3/uL (1.5-5.0); LYMPH % 2.1 % (24.0-44.0); MEAN CORPUSCULAR HEMOGLOBIN 34.8 pg (27.0-33.0); MEAN CORPUSCULAR VOLUME 102.2 fl (80.0-96.0); MONO # 0.8 10^3/uL (0.0-0.8); MONO % 6.1 % (2.0-8.0); NEUTROPHILS # 12.5 10^3/uL (1.5-8.5); PLATELET COUNT, AUTOMATED 207 10^3/uL (150-450); RED BLOOD COUNT 3.68 10^6/uL (4.30-6.10); WHITE BLOOD COUNT 13.8 10^3/uL (4.0-10.0)
[2022-01-01] MEDS: propofoL 1,000 MG in IV 1 EA IV SCH ×2 (04:43→13:47)
[2022-01-01 04:54] LABS: BLOOD UREA NITROGEN 23 MG/DL (7-18); CARBON DIOXIDE LEVEL 25 MEQ/L (21-32); CHLORIDE LEVEL 117 MEQ/L (98-107); GLOMERULAR FILTRATION RATE > 60.0 (>56); GLUCOSE, FASTING 183 MG/DL (70-100); POTASSIUM SERUM 4.2 MEQ/L (3.5-5.1); SODIUM LEVEL 148 MEQ/L (136-145)
[2022-01-01] MEDS: AZITHROMYCIN INJ 500 MG, VIAL MATE ADAPTER 1 EACH in NS 250 ML IV SCH (05:12)
[2022-01-01] MEDS: INSULIN LISPRO (NovoLOG) PER UNIT SC SCH ×4 (05:12→23:51)
[2022-01-01] MEDS: OXAZEPAM 15MG CAP NG SCH ×2 (05:13→12:39)
[2022-01-01 05:57] LABS: ABG BASE EXCESS -0.7 (-2.0-2.0); ABG HCO3 22.8 MEQ/L (22.0-26.0); ABG PARTIAL PRESSURE CO2 34.4 mmHg (35.0-45.0); ABG PARTIAL PRESSURE O2 89.5 mmHg (75.0-100.0); ABG STANDARD HCO3 23.9 MEQ/L (22.0-26.0); ABG TOTAL CO2 23.9 MEQ/L (22.0-29.0)
[2022-01-01] MEDS: MIDAZOLAM HCL 100 MG in D5W 80 ML IV SCH ×2 (06:37→16:14)
[2022-01-01] MEDS: SYMBICORT 160/4.5MCG INHALER 6GM INH SCH ×2 (07:16→19:54)
[2022-01-01] MEDS: PANTOPRAZOLE 40MG VIAL IV SCH (08:47)
[2022-01-01] MEDS: CHLORHEXIDINE GLUCONATE 0.12 % 15ML UDC (PERIDEX ORAL RINSE) MT SCH (08:47)
[2022-01-01] MEDS: ENOXAPARIN 30MG/0.3ML SYRINGE (J1650 PER 10MG) SC SCH (08:47)
[2022-01-01] MEDS: DIGOXIN 0.125 MG TAB PO SCH (08:48)
[2022-01-01] MEDS: OXAZEPAM 15MG CAP PO SCH ×2 (18:00→23:51)
[2022-01-02] VITALS (17 sets, daily range): BP systolic 111–156; BP diastolic 77–102
[2022-01-02] MEDS: LEVALBUTEROL 1.25 MG/0.5 ML CONCENTRATE NEB INH SCH ×7 (00:25→23:14)
[2022-01-02] MEDS: LORazepam 2 MG TAB PO PRN ×2 (00:52→08:28)
[2022-01-02] MEDS: methylPREDNISolone 125MG 2ML VIAL IV SCH ×2 (02:15→09:19)
[2022-01-02] MEDS: METOPROLOL 5 MG/5 ML VIAL IV SCH ×4 (02:15→20:58)
[2022-01-02] MEDS: cefTRIAXone SOD 1 GM in D5W MINI-BAG PLUS 50 ML IV SCH (04:04)
[2022-01-02 04:15] LABS: BASO % 0.1 % (0.0-1.0); HEMATOCRIT 36.5 % (42.0-52.0); LYMPH # 0.5 10^3/uL (1.5-5.0); LYMPH % 3.5 % (24.0-44.0); MEAN CORPUSCULAR HEMOGLOBIN 33.7 pg (27.0-33.0); MEAN CORPUSCULAR HGB CONC 32.9 g/dl (32.0-36.5); MEAN CORPUSCULAR VOLUME 102.5 fl (80.0-96.0); MONO # 0.8 10^3/uL (0.0-0.8); MONO % 5.7 % (2.0-8.0); NEUTROPHILS # 12.1 10^3/uL (1.5-8.5); NEUTROPHILS % 90.3 % (36.0-66.0); PLATELET COUNT, AUTOMATED 184 10^3/uL (150-450); RED BLOOD COUNT 3.56 10^6/uL (4.30-6.10); WHITE BLOOD COUNT 13.4 10^3/uL (4.0-10.0)
[2022-01-02 04:50] LABS: BLOOD UREA NITROGEN 24 MG/DL (7-18); CALCIUM LEVEL 7.5 MG/DL (8.5-10.1); CARBON DIOXIDE LEVEL 27 MEQ/L (21-32); CHLORIDE LEVEL 116 MEQ/L (98-107); CREATININE FOR GFR 0.66 MG/DL (0.70-1.30); DIGOXIN LEVEL 1.1 NG/ML (0.5-2.0); GLOMERULAR FILTRATION RATE > 60.0 (>56); GLUCOSE, FASTING 109 MG/DL (70-100); POTASSIUM SERUM 4.1 MEQ/L (3.5-5.1); SODIUM LEVEL 147 MEQ/L (136-145)
[2022-01-02] MEDS: INSULIN LISPRO (NovoLOG) PER UNIT SC SCH ×4 (04:53→23:33)
[2022-01-02] MEDS: AZITHROMYCIN INJ 500 MG, VIAL MATE ADAPTER 1 EACH in NS 250 ML IV SCH (04:53)
[2022-01-02] MEDS: OXAZEPAM 15MG CAP PO SCH ×4 (04:53→23:31)
[2022-01-02] MEDS: SYMBICORT 160/4.5MCG INHALER 6GM INH SCH ×2 (07:30→20:17)
[2022-01-02] MEDS: ENOXAPARIN 30MG/0.3ML SYRINGE (J1650 PER 10MG) SC SCH (09:18)
[2022-01-02] MEDS: PANTOPRAZOLE 40MG VIAL IV SCH (09:19)
[2022-01-02] MEDS: DIGOXIN 0.125 MG TAB PO SCH (09:19)
[2022-01-02] MEDS: D5W/0.45% SODIUM CHLORIDE 1,000 ML IV SCH ×2 (12:44→20:59)
[2022-01-02] MEDS: MULTIVITAMINS/MINERALS THERAP 1 TAB PO SCH (12:44)
[2022-01-02] MEDS: FOLIC ACID 1 MG TAB PO SCH (12:44)
[2022-01-02] MEDS: THIAMINE 100 MG TAB PO SCH (14:42)
[2022-01-02] MEDS: methylPREDNISolone 40MG 1ML VIAL IV SCH ×2 (14:42→20:58)
[2022-01-02] MEDS ORDERED: MOM 30ML SUSPENSION UDC PO PRN (18:30)
[2022-01-02] MEDS ORDERED: SENOKOT S TAB PO PRN (18:30)
[2022-01-02] MEDS ORDERED: NS 500 ML IV ONE (18:30)
[2022-01-02] MEDS ORDERED: TAMSULOSIN 0.4 MG CAP PO ONE (18:30)
[2022-01-03] VITALS (14 sets, daily range): BP systolic 98–199; BP diastolic 72–103; O2SAT 95–98
[2022-01-03] MEDS: METOPROLOL 5 MG/5 ML VIAL IV SCH ×2 (02:11→08:00)
[2022-01-03] MEDS: methylPREDNISolone 40MG 1ML VIAL IV SCH ×4 (02:16→20:52)
[2022-01-03] MEDS: cefTRIAXone SOD 1 GM in D5W MINI-BAG PLUS 50 ML IV SCH (04:07)
[2022-01-03 06:02] LABS: BASO % 0.1 % (0.0-1.0); HEMATOCRIT 33.6 % (42.0-52.0); HEMOGLOBIN 11.4 g/dl (13.5-17.5); LYMPH # 0.5 10^3/uL (1.5-5.0); LYMPH % 4.1 % (24.0-44.0); MEAN CORPUSCULAR HEMOGLOBIN 34.4 pg (27.0-33.0); MEAN CORPUSCULAR HGB CONC 33.9 g/dl (32.0-36.5); MEAN CORPUSCULAR VOLUME 101.5 fl (80.0-96.0); MONO # 0.8 10^3/uL (0.0-0.8); MONO % 6.9 % (2.0-8.0); NEUTROPHILS % 88.2 % (36.0-66.0); PLATELET COUNT, AUTOMATED 167 10^3/uL (150-450); RED BLOOD COUNT 3.31 10^6/uL (4.30-6.10); WHITE BLOOD COUNT 11.4 10^3/uL (4.0-10.0)
[2022-01-03 06:22] LABS: BLOOD UREA NITROGEN 17 MG/DL (7-18); CALCIUM LEVEL 7.6 MG/DL (8.5-10.1); CARBON DIOXIDE LEVEL 24 MEQ/L (21-32); CHLORIDE LEVEL 111 MEQ/L (98-107); CREATININE FOR GFR 0.45 MG/DL (0.70-1.30); GLOMERULAR FILTRATION RATE > 60.0 (>56); GLUCOSE, FASTING 129 MG/DL (70-100); POTASSIUM SERUM 3.4 MEQ/L (3.5-5.1); SODIUM LEVEL 141 MEQ/L (136-145)
[2022-01-03] MEDS: INSULIN LISPRO (NovoLOG) PER UNIT SC SCH ×3 (06:44→17:14)
[2022-01-03] MEDS: OXAZEPAM 15MG CAP PO SCH ×3 (06:44→18:59)
[2022-01-03] MEDS: AZITHROMYCIN INJ 500 MG, VIAL MATE ADAPTER 1 EACH in NS 250 ML IV SCH (06:44)
[2022-01-03] MEDS: SYMBICORT 160/4.5MCG INHALER 6GM INH SCH ×2 (07:10→21:11)
[2022-01-03] MEDS: LEVALBUTEROL 1.25 MG/0.5 ML CONCENTRATE NEB INH SCH ×5 (07:11→23:15)
[2022-01-03] MEDS: FOLIC ACID 1 MG TAB PO SCH (09:42)
[2022-01-03] MEDS: ENOXAPARIN 30MG/0.3ML SYRINGE (J1650 PER 10MG) SC SCH (09:42)
[2022-01-03] MEDS: MULTIVITAMINS/MINERALS THERAP 1 TAB PO SCH (09:42)
[2022-01-03] MEDS: THIAMINE 100 MG TAB PO SCH (09:42)
[2022-01-03] MEDS: DIGOXIN 0.125 MG TAB PO SCH (09:43)
[2022-01-03] MEDS: PANTOPRAZOLE 40MG VIAL IV SCH (09:43)
[2022-01-03] MEDS: D5W/0.45% SODIUM CHLORIDE 1,000 ML IV SCH ×2 (10:41→21:25)
[2022-01-03] MEDS: TAMSULOSIN 0.4 MG CAP PO SCH (20:52)
[2022-01-04] VITALS (21 sets, daily range): BP systolic 127–173; BP diastolic 40–98; O2SAT 95–98
[2022-01-04] MEDS: OXAZEPAM 15MG CAP PO SCH ×5 (00:56→23:48)
[2022-01-04] MEDS ORDERED: KETOROLAC 30 MG/ML 1ML VIAL IV ONE (02:00)
[2022-01-04] MEDS: methylPREDNISolone 40MG 1ML VIAL IV SCH ×4 (03:57→19:52)
[2022-01-04] MEDS: LEVALBUTEROL 1.25 MG/0.5 ML CONCENTRATE NEB INH SCH ×5 (04:08→20:00)
[2022-01-04 06:08] LABS: BASO % 0.1 % (0.0-1.0); HEMATOCRIT 34.6 % (42.0-52.0); HEMOGLOBIN 11.6 g/dl (13.5-17.5); LYMPH # 0.4 10^3/uL (1.5-5.0); LYMPH % 4.9 % (24.0-44.0); MEAN CORPUSCULAR HEMOGLOBIN 33.9 pg (27.0-33.0); MEAN CORPUSCULAR HGB CONC 33.5 g/dl (32.0-36.5); MEAN CORPUSCULAR VOLUME 101.2 fl (80.0-96.0); MONO % 10.8 % (2.0-8.0); NEUTROPHILS # 7.4 10^3/uL (1.5-8.5); NEUTROPHILS % 83.5 % (36.0-66.0); PLATELET COUNT, AUTOMATED 166 10^3/uL (150-450); RED BLOOD COUNT 3.42 10^6/uL (4.30-6.10); WHITE BLOOD COUNT 8.8 10^3/uL (4.0-10.0)
[2022-01-04] MEDS: cefTRIAXone SOD 2 GM in D5W MINI-BAG PLUS 50 ML IV SCH (06:11)
[2022-01-04] MEDS: INSULIN LISPRO (NovoLOG) PER UNIT SC SCH ×2 (06:12)
[2022-01-04 06:54] LABS: BLOOD UREA NITROGEN 12 MG/DL (7-18); CALCIUM LEVEL 7.7 MG/DL (8.5-10.1); CARBON DIOXIDE LEVEL 28 MEQ/L (21-32); CHLORIDE LEVEL 108 MEQ/L (98-107); CREATININE FOR GFR 0.59 MG/DL (0.70-1.30); GLOMERULAR FILTRATION RATE > 60.0 (>56); GLUCOSE, FASTING 143 MG/DL (70-100); SODIUM LEVEL 140 MEQ/L (136-145)
[2022-01-04] MEDS: SYMBICORT 160/4.5MCG INHALER 6GM INH SCH ×2 (07:17→20:21)
[2022-01-04] MEDS: D5W/0.45% SODIUM CHLORIDE 1,000 ML IV SCH (07:48)
[2022-01-04] MEDS: DIGOXIN 0.125 MG TAB PO SCH (09:20)
[2022-01-04] MEDS: THIAMINE 100 MG TAB PO SCH (09:20)
[2022-01-04] MEDS: FOLIC ACID 1 MG TAB PO SCH (09:20)
[2022-01-04] MEDS: MULTIVITAMINS/MINERALS THERAP 1 TAB PO SCH (09:20)
[2022-01-04] MEDS: PANTOPRAZOLE 40MG VIAL IV SCH (09:20)
[2022-01-04] MEDS: AZITHROMYCIN 250MG TABLET PO SCH (09:20)
[2022-01-04] MEDS: ENOXAPARIN 30MG/0.3ML SYRINGE (J1650 PER 10MG) SC SCH (09:21)
[2022-01-04] MEDS: TELMISARTAN 20 MG TAB PO SCH (12:30)
[2022-01-04] MEDS: ACETAMINOPHEN 325 MG TAB PO PRN (13:36)
[2022-01-04] MEDS: TAMSULOSIN 0.4 MG CAP PO SCH (19:52)
[2022-01-05] VITALS (10 sets, daily range): BP systolic 115–166; BP diastolic 83–98; O2SAT 95–97
[2022-01-05] MEDS: LEVALBUTEROL 1.25 MG/0.5 ML CONCENTRATE NEB INH SCH ×6 (01:03→19:32)
[2022-01-05] MEDS: cefTRIAXone SOD 2 GM in D5W MINI-BAG PLUS 50 ML IV SCH (04:03)
[2022-01-05] MEDS: methylPREDNISolone 40MG 1ML VIAL IV SCH ×4 (04:03→22:49)
[2022-01-05] MEDS: OXAZEPAM 15MG CAP PO SCH ×3 (05:36→17:34)
[2022-01-05 05:47] LABS: BLOOD UREA NITROGEN 12 MG/DL (7-18); CARBON DIOXIDE LEVEL 27 MEQ/L (21-32); CHLORIDE LEVEL 107 MEQ/L (98-107); CREATININE FOR GFR 0.45 MG/DL (0.70-1.30); GLOMERULAR FILTRATION RATE > 60.0 (>56); GLUCOSE, FASTING 148 MG/DL (70-100); POTASSIUM SERUM 3.4 MEQ/L (3.5-5.1); SODIUM LEVEL 141 MEQ/L (136-145)
[2022-01-05] MEDS: SYMBICORT 160/4.5MCG INHALER 6GM INH SCH ×2 (07:42→19:32)
[2022-01-05] MEDS: METOPROLOL SUCC *XL* 25MG TAB (TopROL *XL*) PO SCH ×2 (09:00→22:50)
[2022-01-05] MEDS: PANTOPRAZOLE 40MG VIAL IV SCH (09:09)
[2022-01-05] MEDS: ENOXAPARIN 30MG/0.3ML SYRINGE (J1650 PER 10MG) SC SCH (09:10)
[2022-01-05] MEDS: MULTIVITAMINS/MINERALS THERAP 1 TAB PO SCH (09:10)
[2022-01-05] MEDS: AZITHROMYCIN 250MG TABLET PO SCH (09:10)
[2022-01-05] MEDS: THIAMINE 100 MG TAB PO SCH (09:11)
[2022-01-05] MEDS: DIGOXIN 0.125 MG TAB PO SCH (09:11)
[2022-01-05] MEDS: FOLIC ACID 1 MG TAB PO SCH (09:11)
[2022-01-05] MEDS: TELMISARTAN 20 MG TAB PO SCH (09:14)
[2022-01-05] MEDS: ACETAMINOPHEN 325 MG TAB PO PRN (12:30)
[2022-01-05] MEDS ORDERED: LIDOCAINE 5% (LIDODERM) PATCH TD ONE (17:40)
[2022-01-05] MEDS ORDERED: CEFDINIR 300 MG CAP (OMNICEF) PO SCH (21:00)
[2022-01-05] MEDS: TAMSULOSIN 0.4 MG CAP PO SCH (22:49)
[2022-01-06] VITALS (8 sets, daily range): BP systolic 114–152; BP diastolic 74–92
[2022-01-06] MEDS: LEVALBUTEROL 1.25 MG/0.5 ML CONCENTRATE NEB INH SCH ×7 (00:41→23:22)
[2022-01-06] MEDS: OXAZEPAM 15MG CAP PO SCH ×4 (00:52→18:14)
[2022-01-06] MEDS: methylPREDNISolone 40MG 1ML VIAL IV SCH ×2 (03:12→09:18)
[2022-01-06] MEDS ORDERED: **NOTE PATIENT COMMENT** MISC XX SCH ×3 (05:40→21:00)
[2022-01-06 06:51] LABS: HEMATOCRIT 34.8 % (42.0-52.0); HEMOGLOBIN 12.1 g/dl (13.5-17.5); MEAN CORPUSCULAR HEMOGLOBIN 34.6 pg (27.0-33.0); MEAN CORPUSCULAR HGB CONC 34.8 g/dl (32.0-36.5); MEAN CORPUSCULAR VOLUME 99.4 fl (80.0-96.0); PLATELET COUNT, AUTOMATED 182 10^3/uL (150-450); WHITE BLOOD COUNT 12.2 10^3/uL (4.0-10.0)
[2022-01-06 07:18] LABS: BLOOD UREA NITROGEN 15 MG/DL (7-18); CALCIUM LEVEL 8.8 MG/DL (8.5-10.1); CARBON DIOXIDE LEVEL 28 MEQ/L (21-32); CHLORIDE LEVEL 105 MEQ/L (98-107); CREATININE FOR GFR 0.56 MG/DL (0.70-1.30); GLOMERULAR FILTRATION RATE > 60.0 (>56); GLUCOSE, FASTING 191 MG/DL (70-100); POTASSIUM SERUM 3.5 MEQ/L (3.5-5.1); SODIUM LEVEL 140 MEQ/L (136-145)
[2022-01-06] MEDS: SYMBICORT 160/4.5MCG INHALER 6GM INH SCH ×2 (07:28→20:08)
[2022-01-06] MEDS ORDERED: LIDOCAINE 5% (LIDODERM) PATCH TD SCH ×2 (09:00→21:00)
[2022-01-06] MEDS: ENOXAPARIN 30MG/0.3ML SYRINGE (J1650 PER 10MG) SC SCH (09:17)
[2022-01-06] MEDS: PANTOPRAZOLE 40MG VIAL IV SCH (09:17)
[2022-01-06] MEDS: METOPROLOL SUCC *XL* 25MG TAB (TopROL *XL*) PO SCH ×2 (09:18→21:29)
[2022-01-06] MEDS: MULTIVITAMINS/MINERALS THERAP 1 TAB PO SCH (09:18)
[2022-01-06] MEDS: THIAMINE 100 MG TAB PO SCH (09:18)
[2022-01-06] MEDS: DIGOXIN 0.125 MG TAB PO SCH (09:19)
[2022-01-06] MEDS: FOLIC ACID 1 MG TAB PO SCH (09:19)
[2022-01-06] MEDS: predniSONE 20 MG TAB PO SCH (21:24)
[2022-01-06] MEDS: TAMSULOSIN 0.4 MG CAP PO SCH (21:24)
[2022-01-07] VITALS: BP 115/84
[2022-01-07] MEDS: OXAZEPAM 15MG CAP PO SCH ×2 (00:31→06:03)
[2022-01-07] MEDS: LEVALBUTEROL 1.25 MG/0.5 ML CONCENTRATE NEB INH SCH ×2 (03:11→08:00)
[2022-01-07 04:00] VITALS: BP 107/80
[2022-01-07 06:18] LABS: BLOOD UREA NITROGEN 16 MG/DL (7-18); CALCIUM LEVEL 8.1 MG/DL (8.5-10.1); CARBON DIOXIDE LEVEL 28 MEQ/L (21-32); CHLORIDE LEVEL 106 MEQ/L (98-107); CREATININE FOR GFR 0.52 MG/DL (0.70-1.30); GLOMERULAR FILTRATION RATE > 60.0 (>56); GLUCOSE, FASTING 156 MG/DL (70-100); POTASSIUM SERUM 3.5 MEQ/L (3.5-5.1); SODIUM LEVEL 139 MEQ/L (136-145)
[2022-01-07 08:00] VITALS: BP 135/87
[2022-01-07] MEDS ORDERED: LEVA12INH NEB (08:28)
[2022-01-07] MEDS ORDERED: SYMB16INH INH (08:28)
[2022-01-07] MEDS ORDERED: THIA100TA PO (08:28)
[2022-01-07] MEDS ORDERED: DIGO0.123 PO (08:28)
[2022-01-07] MEDS ORDERED: FLOM0.4C39 PO (08:28)
[2022-01-07] MEDS ORDERED: PRED20TA PO ×2 (08:28→09:50)
[2022-01-07] MEDS ORDERED: FOLI1TAB11 PO (08:28)
[2022-01-07] MEDS ORDERED: VITMTA PO (08:28)
[2022-01-07] MEDS ORDERED: PANT40TA29 PO (08:28)
[2022-01-07] MEDS ORDERED: METO1TAB32 PO (08:28)
[2022-01-07] MEDS ORDERED: OXAZ15CA4 PO (08:30)
[2022-01-07] MEDS: MULTIVITAMINS/MINERALS THERAP 1 TAB PO SCH (08:33)
[2022-01-07] MEDS: THIAMINE 100 MG TAB PO SCH (08:34)
[2022-01-07] MEDS: FOLIC ACID 1 MG TAB PO SCH (08:34)
[2022-01-07] MEDS: METOPROLOL SUCC *XL* 25MG TAB (TopROL *XL*) PO SCH (08:34)
[2022-01-07] MEDS: predniSONE 20 MG TAB PO SCH (08:34)
[2022-01-07] MEDS: DIGOXIN 0.125 MG TAB PO SCH (08:34)
[2022-01-07] MEDS: ENOXAPARIN 30MG/0.3ML SYRINGE (J1650 PER 10MG) SC SCH (08:37)
[2022-01-07] MEDS: SYMBICORT 160/4.5MCG INHALER 6GM INH SCH (08:41)
[2022-01-07] MEDS ORDERED: **NOTE PATIENT COMMENT** MISC XX SCH (09:00)
[2022-01-07] MEDS ORDERED: PANTOPRAZOLE 40MG TAB (PROTONIX) PO SCH (09:00)
[2022-01-07] MEDS ORDERED: ALBU2.5V10 NEB (09:42)
== END 2022-01-07 10:22 | disposition home or self-care (01) | DRG 130 ==
LOC: M ED 03:34 → M ED INP 06:09 → M ICU 17:34 → M PCU 01-02 20:01
PROVIDERS: ADMIT Internal Medicine Critical Care Medicine; ATTEND Family Medicine
PROC: B246ZZZ Ultrasonography of Right and Left Heart (ICD-10-PCS; principal; 2021-12-28)
PROC: 0BH17EZ Insertion of Endotracheal Airway into Trachea, Via Natural or Artificial Opening (ICD-10-PCS; 2021-12-28)
PROC: 5A1955Z Respiratory Ventilation, Greater than 96 Consecutive Hours (ICD-10-PCS; 2021-12-28)
PROC: 02HV33Z Insertion of Infusion Device into Superior Vena Cava, Percutaneous Approach (ICD-10-PCS; 2021-12-30)
DX: J96.21 Acute and chronic respiratory failure with hypoxia (principal); J44.1 Chronic obstructive pulmonary disease with (acute) exacerbation; I25.2 Old myocardial infarction; F17.200 Nicotine dependence, unspecified, uncomplicated; E87.2 Acidosis; J96.22 Acute and chronic respiratory failure with hypercapnia; I46.8 Cardiac arrest due to other underlying condition; E46 Unspecified protein-calorie malnutrition; Z20.822 Contact with and (suspected) exposure to COVID-19; I48.91 Unspecified atrial fibrillation; I27.20 Pulmonary hypertension, unspecified; R73.9 Hyperglycemia, unspecified; D72.829 Elevated white blood cell count, unspecified; I25.10 Atherosclerotic heart disease of native coronary artery without angina pectoris; I95.9 Hypotension, unspecified; E87.6 Hypokalemia; D64.9 Anemia, unspecified; F10.239 Alcohol dependence with withdrawal, unspecified; I10 Essential (primary) hypertension; J40 Bronchitis, not specified as acute or chronic; J98.01 Acute bronchospasm; E87.0 Hyperosmolality and hypernatremia; R64 Cachexia; E88.09 Other disorders of plasma-protein metabolism, not elsewhere classified; N40.0 Benign prostatic hyperplasia without lower urinary tract symptoms; E86.0 Dehydration

== ENCOUNTER 2022-11-26 22:58 | Inpatient (IN) | payer OTHER ==
[~2022-11-26] VITALS: Ht 172.7 cm; Wt 47.1 kg
[~2022-11-26 22:58] MED LIST changes: +ALBU2.5V10 NEB; +DIGO0.123 PO; +FLOM0.4C39 PO; +LEVA12INH NEB; +METO1TAB32 PO; +OXAZ15CA4 PO; +PANT40TA29 PO; +PRED20TA PO; +SYMB16INH INH; +THIA100TA PO; +VITMTA PO
[2022-11-26] MEDS ORDERED: methylPREDNISolone 125MG 2ML VIAL IV ONE (23:05)
[2022-11-26] MEDS ORDERED: methylPREDNISolone 125MG 2ML VIAL As Ordered ONE (23:05)
[2022-11-26] MEDS ORDERED: ETOMIDATE INJ 20MG/10ML VIAL IV STA (23:11)
[2022-11-26] MEDS ORDERED: ROCURONIUM BROMIDE 50MG/5ML VIAL IV SCH (23:15)
[2022-11-26] MEDS ORDERED: IPRATROPIUM 0.5MG/ALBUTEROL 2.5MG INH SOL UD 3ML (DUONEB) NEB ONE (23:15)
[2022-11-26] MEDS ORDERED: ALBUTEROL SULFATE 2.5MG/0.5ML INH NEB SOLN NEB ONE ×2 (23:15→23:30)
[2022-11-26 23:26] LABS: HEMATOCRIT 39.9 % (42.0-52.0); HEMOGLOBIN 13.4 g/dl (13.5-17.5); MEAN CORPUSCULAR HEMOGLOBIN 31.3 pg (27.0-33.0); MEAN CORPUSCULAR HGB CONC 33.6 g/dl (32.0-36.5); MEAN CORPUSCULAR VOLUME 93.2 fl (80.0-96.0); PLATELET COUNT, AUTOMATED 317 10^3/uL (150-450); RED BLOOD COUNT 4.28 10^6/uL (4.30-6.10)
[2022-11-26 23:35] LABS: INR 1.07; PROTHROMBIN TIME 14.1 SECONDS (12.5-14.5)
[2022-11-26 23:37] LABS: WHITE BLOOD COUNT 30.3 10^3/uL (4.0-10.0)
[2022-11-26 23:42] LABS: ABG BASE EXCESS -9.6 (-2.0-2.0); ABG O2 SATURATION 99.8 % (95.0-99.0); ABG PARTIAL PRESSURE CO2 39.2 mmHg (35.0-45.0); ABG PARTIAL PRESSURE O2 469.9 mmHg (75.0-100.0); ABG STANDARD HCO3 16.9 MEQ/L (22.0-26.0); ABG TOTAL CO2 18.2 MEQ/L (22.0-29.0); ABG pH (ARTERIAL) 7.254 UNITS (7.350-7.450)
[2022-11-26] MEDS: propofoL 1,000 MG in IV 1 EA IV SCH (23:54)
[2022-11-26] MEDS ORDERED: NS 1,360 ML in IV 1 EA IV ONE (23:55)
[2022-11-26 23:58] LABS: ETHYL ALCOHOL (ETHANOL) 0.167 % (0.000-0.010)
[2022-11-27] VITALS (45 sets, daily range): BP systolic 92–144; BP diastolic 40–76
[2022-11-27 00:01] LABS: ALBUMIN 2.7 G/DL (3.2-5.2); ALKALINE PHOSPHATASE 97 U/L (46-116); ALT/SGPT 33 U/L (7.0-40); AST/SGOT 43 U/L (<34); BILIRUBIN,DIRECT 0.2 MG/DL (<0.4); BILIRUBIN,TOTAL 0.3 MG/DL (0.3-1.2); BLOOD UREA NITROGEN 13 MG/DL (9-23); CALCIUM LEVEL 9.2 MG/DL (8.5-10.1); CARBON DIOXIDE LEVEL 21 MMOL/L (20-31); CHLORIDE LEVEL 96 MMOL/L (98-107); CREATININE FOR GFR 0.53 MG/DL (0.70-1.30); GLOMERULAR FILTRATION RATE > 60.0 (>56); GLUCOSE, FASTING 100 MG/DL (60-100); POTASSIUM SERUM 3.9 MMOL/L (3.5-5.1); SODIUM LEVEL 130 MMOL/L (136-145); TOTAL PROTEIN 7.3 G/DL (5.7-8.2)
[2022-11-27 00:09] LABS: LYMPHOCYTES 2 % (16-44); METAMYELOCYTES 1 % (0-0); MONOCYTES 4 % (0-5); NEUTROPHILS 90 % (28-66)
[2022-11-27 00:10] LABS: ANISOCYTOSIS 1+; PLATELET ESTIMATE NORMAL (NORMAL)
[2022-11-27 00:14] LABS: CPK CREATINE PHOSPHOKINASE 125 U/L (46-171)
[2022-11-27] MEDS: cefTRIAXone SOD 1 GM in D5W MINI-BAG PLUS 50 ML IV ONE ×2 (00:16→00:30)
[2022-11-27] MEDS ORDERED: AZITHROMYCIN INJ 500 MG, VIAL MATE ADAPTER 1 EACH in NS 250 ML IV ONE (01:00)
[2022-11-27] MEDS ORDERED: MIDAZOLAM INJ 2MG/2ML VIAL IV STA (01:08)
[2022-11-27] MEDS ORDERED: MIDAZOLAM INJ 2MG/2ML VIAL As Ordered ONE (01:10)
[2022-11-27] MEDS ORDERED: LR 1,000 ML IV SCH (01:25)
[2022-11-27] MEDS: propofoL 1,000 MG in IV 1 EA IV SCH (01:29)
[2022-11-27] MEDS ORDERED: LORazepam 2 MG TAB PO PRN (01:35)
[2022-11-27] MEDS: MIDAZOLAM 100MG/100ML-0.9%NACL 100 MG in IV 1 EA IV SCH ×2 (01:55→21:24)
[2022-11-27] MEDS: THIAMINE 100 MG TAB PO SCH ×3 (02:10→21:10)
[2022-11-27] MEDS: IPRATROPIUM 0.5MG/ALBUTEROL 2.5MG INH SOL UD 3ML (DUONEB) INH SCH ×4 (02:20→19:29)
[2022-11-27] MEDS: PIPERACILLIN/TAZOBACTAM SOD 4.5 GM in D5W MINI-BAG PLUS 50 ML IV SCH ×4 (02:30→21:10)
[2022-11-27] MEDS ORDERED: MED REC COMMENT (02:45)
[2022-11-27] MEDS ORDERED: HOME MED LIST COMPLETE! XX SCH (02:50)
[2022-11-27] MEDS ORDERED: VANCOMYCIN HCL 1,000 MG, VIAL MATE ADAPTER 1 EACH in NS 250 ML IV ONE (04:00)
[2022-11-27 04:22] LABS: ABG BASE EXCESS -12.9 (-2.0-2.0); ABG O2 SATURATION 95.3 % (95.0-99.0); ABG PARTIAL PRESSURE CO2 56.2 mmHg (35.0-45.0); ABG PARTIAL PRESSURE O2 94.7 mmHg (75.0-100.0); ABG STANDARD HCO3 14.5 MEQ/L (22.0-26.0); ABG TOTAL CO2 18.7 MEQ/L (22.0-29.0)
[2022-11-27 04:24] LABS: ABG pH (ARTERIAL) 7.098 UNITS (7.350-7.450)
[2022-11-27] MEDS: NOREPINEPHRINE 4MG IN D5 250ML 4 MG in IV 1 EA IV SCH ×2 (05:07)
[2022-11-27 05:32] LABS: HEMATOCRIT 34.9 % (42.0-52.0); HEMOGLOBIN 11.5 g/dl (13.5-17.5); MEAN CORPUSCULAR HEMOGLOBIN 30.8 pg (27.0-33.0); MEAN CORPUSCULAR VOLUME 93.6 fl (80.0-96.0); PLATELET COUNT, AUTOMATED 278 10^3/uL (150-450); RED BLOOD COUNT 3.73 10^6/uL (4.30-6.10); WHITE BLOOD COUNT 19.8 10^3/uL (4.0-10.0)
[2022-11-27 05:59] LABS: ABG BASE EXCESS -10.6 (-2.0-2.0); ABG HCO3 17.2 MEQ/L (22.0-26.0); ABG O2 SATURATION 97.7 % (95.0-99.0); ABG PARTIAL PRESSURE CO2 45.5 mmHg (35.0-45.0); ABG PARTIAL PRESSURE O2 113.1 mmHg (75.0-100.0); ABG STANDARD HCO3 16.1 MEQ/L (22.0-26.0); ABG TOTAL CO2 18.6 MEQ/L (22.0-29.0)
[2022-11-27 06:01] LABS: ABG pH (ARTERIAL) 7.196 UNITS (7.350-7.450)
[2022-11-27 06:09] LABS: ALBUMIN 2.1 G/DL (3.2-5.2); ALKALINE PHOSPHATASE 70 U/L (46-116); ALT/SGPT 21 U/L (7.0-40); AST/SGOT 25 U/L (<34); BILIRUBIN,TOTAL 0.2 MG/DL (0.3-1.2); BLOOD UREA NITROGEN 13 MG/DL (9-23); CALCIUM LEVEL 8.1 MG/DL (8.5-10.1); CARBON DIOXIDE LEVEL 18 MMOL/L (20-31); CHLORIDE LEVEL 101 MMOL/L (98-107); CREATININE FOR GFR 0.55 MG/DL (0.70-1.30); GLOMERULAR FILTRATION RATE > 60.0 (>56); GLUCOSE, FASTING 129 MG/DL (60-100); POTASSIUM SERUM 3.3 MMOL/L (3.5-5.1); SODIUM LEVEL 134 MMOL/L (136-145); TOTAL PROTEIN 5.6 G/DL (5.7-8.2)
[2022-11-27] MEDS: methylPREDNISolone 125MG 2ML VIAL IV SCH ×3 (06:21→21:10)
[2022-11-27] MEDS: fentaNYL CITRATE/NaCl 1,000 MCG in IV 1 EA IV SCH ×2 (07:54→21:18)
[2022-11-27] MEDS ORDERED: LACTATED RINGER'S 1000 ML IV ONE (07:55)
[2022-11-27] MEDS ORDERED: SYMBICORT 160/4.5MCG INHALER 6GM INH SCH (08:00)
[2022-11-27] MEDS ORDERED: FENTANYL DRIP LOCK BOX KEY 1 EACH XX PRN (08:00)
[2022-11-27] MEDS ORDERED: LR 500 ML IV ONE (08:10)
[2022-11-27] MEDS: PANTOPRAZOLE 40MG VIAL IV SCH (08:12)
[2022-11-27] MEDS: MULTIVITAMINS/MINERALS THERAP 1 TAB PO SCH (08:14)
[2022-11-27] MEDS: FOLIC ACID 1MG TAB PO SCH (08:14)
[2022-11-27] MEDS: CHLORHEXIDINE GLUCONATE 0.12 % 15ML UDC (PERIDEX ORAL RINSE) MT SCH ×2 (08:14→20:26)
[2022-11-27] MEDS: ENOXAPARIN 40MG/0.4ML SYRINGE (J1650 PER 10MG) SC SCH (08:14)
[2022-11-27] MEDS: NS 1,000 ML IV SCH ×2 (09:14→22:00)
[2022-11-27 10:11] LABS: ABG HCO3 17.5 MEQ/L (22.0-26.0); ABG O2 SATURATION 95.7 % (95.0-99.0); ABG PARTIAL PRESSURE CO2 44.6 mmHg (35.0-45.0); ABG PARTIAL PRESSURE O2 91.2 mmHg (75.0-100.0); ABG STANDARD HCO3 16.5 MEQ/L (22.0-26.0); ABG TOTAL CO2 18.8 MEQ/L (22.0-29.0)
[2022-11-27 10:14] LABS: ABG pH (ARTERIAL) 7.211 UNITS (7.350-7.450)
[2022-11-27] MEDS: KCL 10MEQ/100ML SWI (KRUN) 10 MEQ in IV 1 EA IV SCH ×2 (10:31→11:33)
[2022-11-27] MEDS ORDERED: VANCOMYCIN HCL 500 MG in D5W MINI-BAG PLUS 100 ML IV SCH (12:00)
[2022-11-27] MEDS: VANCOMYCIN HCL 1,000 MG, VIAL MATE ADAPTER 1 EACH in D5W 250 ML IV SCH ×2 (12:40→23:59)
[2022-11-28] VITALS (37 sets, daily range): BP systolic 68–145; BP diastolic 49–93
[2022-11-28] MEDS: IPRATROPIUM 0.5MG/ALBUTEROL 2.5MG INH SOL UD 3ML (DUONEB) INH SCH ×4 (02:45→19:11)
[2022-11-28] MEDS: PIPERACILLIN/TAZOBACTAM SOD 4.5 GM in D5W MINI-BAG PLUS 50 ML IV SCH ×4 (03:10→22:07)
[2022-11-28 05:13] LABS: HEMATOCRIT 30.1 % (42.0-52.0); HEMOGLOBIN 10.3 g/dl (13.5-17.5); MEAN CORPUSCULAR HEMOGLOBIN 31.5 pg (27.0-33.0); MEAN CORPUSCULAR HGB CONC 34.2 g/dl (32.0-36.5); PLATELET COUNT, AUTOMATED 282 10^3/uL (150-450); RED BLOOD COUNT 3.27 10^6/uL (4.30-6.10); WHITE BLOOD COUNT 15.5 10^3/uL (4.0-10.0)
[2022-11-28 05:39] LABS: ABG BASE EXCESS -3.5 (-2.0-2.0); ABG HCO3 21.9 MEQ/L (22.0-26.0); ABG O2 SATURATION 99.3 % (95.0-99.0); ABG PARTIAL PRESSURE O2 151.4 mmHg (75.0-100.0); ABG STANDARD HCO3 21.6 MEQ/L (22.0-26.0); ABG TOTAL CO2 23.2 MEQ/L (22.0-29.0); ABG pH (ARTERIAL) 7.346 UNITS (7.350-7.450)
[2022-11-28 05:42] LABS: ALBUMIN 1.6 G/DL (3.2-5.2); ALKALINE PHOSPHATASE 57 U/L (46-116); ALT/SGPT 19 U/L (7.0-40); AST/SGOT 20 U/L (<34); BILIRUBIN,TOTAL 0.3 MG/DL (0.3-1.2); BLOOD UREA NITROGEN 19 MG/DL (9-23); CALCIUM LEVEL 7.8 MG/DL (8.5-10.1); CARBON DIOXIDE LEVEL 22 MMOL/L (20-31); CHLORIDE LEVEL 108 MMOL/L (98-107); CREATININE FOR GFR 0.52 MG/DL (0.70-1.30); GLOMERULAR FILTRATION RATE > 60.0 (>56); GLUCOSE, FASTING 168 MG/DL (60-100); POTASSIUM SERUM 3.2 MMOL/L (3.5-5.1); SODIUM LEVEL 139 MMOL/L (136-145)
[2022-11-28] MEDS: methylPREDNISolone 125MG 2ML VIAL IV SCH ×3 (06:07→22:07)
[2022-11-28] MEDS ORDERED: POTASSIUM CHLORIDE 10MEQ SR TABLET PO ONE (06:45)
[2022-11-28] MEDS: CHLORHEXIDINE GLUCONATE 0.12 % 15ML UDC (PERIDEX ORAL RINSE) MT SCH ×2 (09:21→20:06)
[2022-11-28] MEDS: fentaNYL CITRATE/NaCl 1,000 MCG in IV 1 EA IV SCH (09:21)
[2022-11-28] MEDS: ENOXAPARIN 40MG/0.4ML SYRINGE (J1650 PER 10MG) SC SCH (09:22)
[2022-11-28] MEDS: MULTIVITAMINS/MINERALS THERAP 1 TAB PO SCH (09:22)
[2022-11-28] MEDS: PANTOPRAZOLE 40MG VIAL IV SCH (09:22)
[2022-11-28] MEDS: FOLIC ACID 1MG TAB PO SCH (09:22)
[2022-11-28] MEDS: NS 1,000 ML IV SCH (09:22)
[2022-11-28] MEDS: THIAMINE 100 MG TAB PO SCH ×2 (09:23→20:06)
[2022-11-28] MEDS: NOREPINEPHRINE 4MG IN D5 250ML 4 MG in IV 1 EA IV SCH ×2 (09:41)
[2022-11-28] MEDS ORDERED: KCL 10MEQ/100ML SWI (KRUN) 10 MEQ in IV 1 EA IV ONE (10:00)
[2022-11-28] MEDS: VANCOMYCIN HCL 1,000 MG, VIAL MATE ADAPTER 1 EACH in D5W 250 ML IV SCH (12:13)
[2022-11-28] MEDS ORDERED: MIDAZOLAM INJ 2MG/2ML VIAL IV STA (14:15)
[2022-11-28] MEDS ORDERED: DIGOXIN INJ 0.5 MG/2 ML AMP IV STA (14:34)
[2022-11-28 18:00] LABS: BLOOD UREA NITROGEN 18 MG/DL (9-23); CALCIUM LEVEL 7.8 MG/DL (8.5-10.1); CARBON DIOXIDE LEVEL 23 MMOL/L (20-31); CHLORIDE LEVEL 111 MMOL/L (98-107); CREATININE FOR GFR 0.53 MG/DL (0.70-1.30); GLOMERULAR FILTRATION RATE > 60.0 (>56); GLUCOSE, FASTING 139 MG/DL (60-100); POTASSIUM SERUM 3.2 MMOL/L (3.5-5.1); SODIUM LEVEL 142 MMOL/L (136-145)
[2022-11-28] MEDS ORDERED: DIGOXIN 0.125 MG TAB PO ONE (19:35)
[2022-11-28] MEDS ORDERED: DIGOXIN INJ 0.5 MG/2 ML AMP IV ONE ×2 (19:40→20:45)
[2022-11-28] MEDS: KCL 10MEQ/100ML SWI (KRUN) 10 MEQ in IV 1 EA IV SCH ×2 (19:46→21:00)
[2022-11-28] MEDS: MIDAZOLAM 100MG/100ML-0.9%NACL 100 MG in IV 1 EA IV SCH (20:07)
[2022-11-29] VITALS (53 sets, daily range): BP systolic 78–132; BP diastolic 57–79
[2022-11-29] MEDS: VANCOMYCIN HCL 1,000 MG, VIAL MATE ADAPTER 1 EACH in D5W 250 ML IV SCH (00:51)
[2022-11-29] MEDS: IPRATROPIUM 0.5MG/ALBUTEROL 2.5MG INH SOL UD 3ML (DUONEB) INH SCH ×4 (01:24→19:02)
[2022-11-29] MEDS: PIPERACILLIN/TAZOBACTAM SOD 4.5 GM in D5W MINI-BAG PLUS 50 ML IV SCH ×4 (02:06→19:47)
[2022-11-29 04:47] LABS: MEAN CORPUSCULAR HEMOGLOBIN 30.8 pg (27.0-33.0); MEAN CORPUSCULAR HGB CONC 33.3 g/dl (32.0-36.5); MEAN CORPUSCULAR VOLUME 92.3 fl (80.0-96.0); PLATELET COUNT, AUTOMATED 320 10^3/uL (150-450); RED BLOOD COUNT 3.25 10^6/uL (4.30-6.10); WHITE BLOOD COUNT 11.7 10^3/uL (4.0-10.0)
[2022-11-29 05:10] LABS: BLOOD UREA NITROGEN 17 MG/DL (9-23); CALCIUM LEVEL 8.1 MG/DL (8.5-10.1); CARBON DIOXIDE LEVEL 21 MMOL/L (20-31); CHLORIDE LEVEL 114 MMOL/L (98-107); CREATININE FOR GFR 0.47 MG/DL (0.70-1.30); GLOMERULAR FILTRATION RATE > 60.0 (>56); GLUCOSE, FASTING 175 MG/DL (60-100); MAGNESIUM LEVEL 1.9 MG/DL (1.8-2.4); POTASSIUM SERUM 3.3 MMOL/L (3.5-5.1); SODIUM LEVEL 142 MMOL/L (136-145)
[2022-11-29 05:59] LABS: ABG BASE EXCESS -3.4 (-2.0-2.0); ABG HCO3 21.3 MEQ/L (22.0-26.0); ABG O2 SATURATION 96.8 % (95.0-99.0); ABG PARTIAL PRESSURE CO2 36.7 mmHg (35.0-45.0); ABG PARTIAL PRESSURE O2 91.6 mmHg (75.0-100.0); ABG STANDARD HCO3 21.6 MEQ/L (22.0-26.0); ABG TOTAL CO2 22.4 MEQ/L (22.0-29.0); ABG pH (ARTERIAL) 7.381 UNITS (7.350-7.450)
[2022-11-29] MEDS: KCL 10MEQ/100ML SWI (KRUN) 10 MEQ in IV 1 EA IV SCH ×4 (06:17→10:14)
[2022-11-29] MEDS: methylPREDNISolone 125MG 2ML VIAL IV SCH ×3 (06:18→21:00)
[2022-11-29] MEDS: CHLORHEXIDINE GLUCONATE 0.12 % 15ML UDC (PERIDEX ORAL RINSE) MT SCH ×2 (09:03→19:46)
[2022-11-29] MEDS: ASPIRIN 81MG CHEW TABLET NG SCH (09:03)
[2022-11-29] MEDS: ENOXAPARIN 40MG/0.4ML SYRINGE (J1650 PER 10MG) SC SCH (09:03)
[2022-11-29] MEDS: FOLIC ACID 1MG TAB PO SCH (09:03)
[2022-11-29] MEDS: PANTOPRAZOLE 40MG VIAL IV SCH (09:03)
[2022-11-29] MEDS: MULTIVITAMINS/MINERALS THERAP 1 TAB PO SCH (09:03)
[2022-11-29] MEDS: THIAMINE 100 MG TAB PO SCH (09:03)
[2022-11-29] MEDS: fentaNYL CITRATE/NaCl 1,000 MCG in IV 1 EA IV SCH (09:31)
[2022-11-29] MEDS ORDERED: dexmedeTOMidine 200 MCG in IV 1 EA IV SCH (10:10)
[2022-11-29] MEDS ORDERED: METOPROLOL 5 MG/5 ML VIAL IV STA ×2 (13:32→20:56)
[2022-11-29] MEDS ORDERED: LORazepam 2 MG/ML 1ML VIAL IV STA (13:32)
[2022-11-29] MEDS ORDERED: DIGOXIN INJ 0.5 MG/2 ML AMP IV STA (13:46)
[2022-11-29] MEDS ORDERED: NS 500 ML IV ONE (14:00)
[2022-11-29] MEDS: MIDAZOLAM 100MG/100ML-0.9%NACL 100 MG in IV 1 EA IV SCH ×2 (15:10→16:08)
[2022-11-29] MEDS: NICOTINE 14 MG/24 HR TRANSDERMAL TD SCH (18:30)
[2022-11-29] MEDS ORDERED: DIGOXIN INJ 0.5 MG/2 ML AMP IV ONE (19:35)
[2022-11-30] VITALS (26 sets, daily range): BP systolic 110–170; BP diastolic 62–104; O2SAT 94
[2022-11-30] MEDS: PIPERACILLIN/TAZOBACTAM SOD 4.5 GM in D5W MINI-BAG PLUS 50 ML IV SCH ×2 (04:14→08:17)
[2022-11-30 04:52] LABS: HEMOGLOBIN 10.2 g/dl (13.5-17.5); MEAN CORPUSCULAR HEMOGLOBIN 30.6 pg (27.0-33.0); MEAN CORPUSCULAR HGB CONC 32.9 g/dl (32.0-36.5); MEAN CORPUSCULAR VOLUME 93.1 fl (80.0-96.0); PLATELET COUNT, AUTOMATED 370 10^3/uL (150-450); RED BLOOD COUNT 3.33 10^6/uL (4.30-6.10)
[2022-11-30 05:11] LABS: BLOOD UREA NITROGEN 14 MG/DL (9-23); CALCIUM LEVEL 7.9 MG/DL (8.5-10.1); CARBON DIOXIDE LEVEL 22 MMOL/L (20-31); CHLORIDE LEVEL 116 MMOL/L (98-107); CREATININE FOR GFR 0.52 MG/DL (0.70-1.30); GLOMERULAR FILTRATION RATE > 60.0 (>56); GLUCOSE, FASTING 215 MG/DL (60-100); MAGNESIUM LEVEL 2.1 MG/DL (1.8-2.4); POTASSIUM SERUM 3.5 MMOL/L (3.5-5.1); SODIUM LEVEL 143 MMOL/L (136-145)
[2022-11-30 05:48] LABS: ABG BASE EXCESS -2.1 (-2.0-2.0); ABG HCO3 21.8 MEQ/L (22.0-26.0); ABG O2 SATURATION 93.7 % (95.0-99.0); ABG PARTIAL PRESSURE O2 70.4 mmHg (75.0-100.0); ABG STANDARD HCO3 22.7 MEQ/L (22.0-26.0); ABG TOTAL CO2 22.8 MEQ/L (22.0-29.0); ABG pH (ARTERIAL) 7.424 UNITS (7.350-7.450)
[2022-11-30] MEDS: methylPREDNISolone 125MG 2ML VIAL IV SCH ×2 (06:11→17:25)
[2022-11-30] MEDS: MIDAZOLAM 100MG/100ML-0.9%NACL 100 MG in IV 1 EA IV SCH (06:14)
[2022-11-30] MEDS: fentaNYL CITRATE/NaCl 1,000 MCG in IV 1 EA IV SCH (08:00)
[2022-11-30] MEDS: PANTOPRAZOLE 40MG VIAL IV SCH (08:16)
[2022-11-30] MEDS: ATORVASTATIN 20 MG TAB NG SCH (08:16)
[2022-11-30] MEDS: FOLIC ACID 1MG TAB PO SCH (08:16)
[2022-11-30] MEDS: CHLORHEXIDINE GLUCONATE 0.12 % 15ML UDC (PERIDEX ORAL RINSE) MT SCH ×2 (08:16→20:38)
[2022-11-30] MEDS: MULTIVITAMINS/MINERALS THERAP 1 TAB PO SCH (08:16)
[2022-11-30] MEDS: NICOTINE 14 MG/24 HR TRANSDERMAL TD SCH (08:16)
[2022-11-30] MEDS: ASPIRIN 81MG CHEW TABLET NG SCH (08:16)
[2022-11-30] MEDS: ENOXAPARIN 40MG/0.4ML SYRINGE (J1650 PER 10MG) SC SCH (08:17)
[2022-11-30] MEDS ORDERED: HEPARIN SOD (PORCINE) 5000UNITS/ML 1ML VIAL/SYRINGE IV PRN (08:20)
[2022-11-30] MEDS ORDERED: HEPARIN DRIP 25,000 UNITS in IV 1 EA IV SCH (08:20)
[2022-11-30] MEDS: IPRATROPIUM 0.5MG/ALBUTEROL 2.5MG INH SOL UD 3ML (DUONEB) INH SCH ×2 (08:40→19:07)
[2022-11-30] MEDS ORDERED: KCL 10MEQ/100ML SWI (KRUN) 10 MEQ in IV 1 EA IV ONE (09:15)
[2022-11-30 09:18] LABS: HEMATOCRIT 32.4 % (42.0-52.0); HEMOGLOBIN 10.8 g/dl (13.5-17.5); MEAN CORPUSCULAR HEMOGLOBIN 30.8 pg (27.0-33.0); MEAN CORPUSCULAR HGB CONC 33.3 g/dl (32.0-36.5); MEAN CORPUSCULAR VOLUME 92.3 fl (80.0-96.0); PLATELET COUNT, AUTOMATED 382 10^3/uL (150-450); RED BLOOD COUNT 3.51 10^6/uL (4.30-6.10); WHITE BLOOD COUNT 9.7 10^3/uL (4.0-10.0)
[2022-11-30] MEDS: DIGOXIN 0.125 MG TAB NG SCH (09:21)
[2022-11-30] MEDS: cefTRIAXone SOD 1 GM in D5W MINI-BAG PLUS 50 ML IV SCH (15:06)
[2022-11-30] MEDS ORDERED: METOPROLOL 5 MG/5 ML VIAL IV STA (22:52)
[2022-12-01] VITALS (17 sets, daily range): BP systolic 103–147; BP diastolic 64–106
[2022-12-01 05:58] LABS: ABG BASE EXCESS 1.1 (-2.0-2.0); ABG HCO3 25.2 MEQ/L (22.0-26.0); ABG O2 SATURATION 95.5 % (95.0-99.0); ABG PARTIAL PRESSURE CO2 38.1 mmHg (35.0-45.0); ABG PARTIAL PRESSURE O2 77.2 mmHg (75.0-100.0); ABG STANDARD HCO3 25.4 MEQ/L (22.0-26.0); ABG TOTAL CO2 26.4 MEQ/L (22.0-29.0); ABG pH (ARTERIAL) 7.438 UNITS (7.350-7.450)
[2022-12-01] MEDS: methylPREDNISolone 125MG 2ML VIAL IV SCH ×2 (06:16→18:00)
[2022-12-01 06:17] LABS: HEMATOCRIT 33.9 % (42.0-52.0); MEAN CORPUSCULAR HEMOGLOBIN 30.4 pg (27.0-33.0); MEAN CORPUSCULAR HGB CONC 32.4 g/dl (32.0-36.5); MEAN CORPUSCULAR VOLUME 93.6 fl (80.0-96.0); PLATELET COUNT, AUTOMATED 425 10^3/uL (150-450); RED BLOOD COUNT 3.62 10^6/uL (4.30-6.10); WHITE BLOOD COUNT 20.1 10^3/uL (4.0-10.0)
[2022-12-01 06:47] LABS: BLOOD UREA NITROGEN 18 MG/DL (9-23); CARBON DIOXIDE LEVEL 27 MMOL/L (20-31); CHLORIDE LEVEL 113 MMOL/L (98-107); CREATININE FOR GFR 0.52 MG/DL (0.70-1.30); GLOMERULAR FILTRATION RATE > 60.0 (>56); GLUCOSE, FASTING 108 MG/DL (60-100); MAGNESIUM LEVEL 1.8 MG/DL (1.8-2.4); POTASSIUM SERUM 3.3 MMOL/L (3.5-5.1); SODIUM LEVEL 148 MMOL/L (136-145)
[2022-12-01 06:49] LABS: THYROID STIMULATING HORMONE 0.488 uIU/ML (0.55-4.78)
[2022-12-01] MEDS: IPRATROPIUM 0.5MG/ALBUTEROL 2.5MG INH SOL UD 3ML (DUONEB) INH SCH ×3 (07:35→19:25)
[2022-12-01] MEDS: BUDESONIDE 0.25 MG/2 ML INHALATION SUSPENSION INH SCH ×2 (08:00→19:25)
[2022-12-01] MEDS: ATORVASTATIN 20 MG TAB NG SCH (09:00)
[2022-12-01] MEDS: MULTIVITAMINS/MINERALS THERAP 1 TAB PO SCH (09:00)
[2022-12-01] MEDS: FOLIC ACID 1MG TAB PO SCH (09:00)
[2022-12-01] MEDS: PANTOPRAZOLE 40MG VIAL IV SCH (09:21)
[2022-12-01] MEDS: APIXABAN 5 MG TAB (ELIQUIS) PO SCH ×2 (09:22→20:35)
[2022-12-01] MEDS: NICOTINE 14 MG/24 HR TRANSDERMAL TD SCH (09:22)
[2022-12-01] MEDS: DIGOXIN 0.125 MG TAB NG SCH (09:22)
[2022-12-01] MEDS ORDERED: E-Z-PAQUE 96% w/w SUSP 176GM BTL As Ordered ONE (10:47)
[2022-12-01] MEDS ORDERED: VARIBAR NECTAR 40% w/v 240ML SUSP BTL As Ordered ONE (10:47)
[2022-12-01] MEDS ORDERED: VARIBAR PUDDING 40% w/v 230ML TUBE As Ordered ONE (10:47)
[2022-12-01] MEDS ORDERED: BARIUM SULFATE 700 MG TABLET (E-Z-DISK) As Ordered ONE (10:47)
[2022-12-01 13:35] LABS: TOTAL T3 40.5 NG/DL (60.0-181.0)
[2022-12-01 13:40] LABS: FREE T4 0.76 NG/DL (0.89-1.76)
[2022-12-01] MEDS: cefTRIAXone SOD 1 GM in D5W MINI-BAG PLUS 50 ML IV SCH (16:14)
[2022-12-01] MEDS: guaiFENesin ER 600 MG TAB PO SCH (20:32)
[2022-12-01] MEDS: ACETAMINOPHEN TAB 650MG DOSE (2X325MG) PO PRN (20:37)
[2022-12-02] VITALS (11 sets, daily range): BP systolic 100–132; BP diastolic 71–91
[2022-12-02] MEDS ORDERED: KETOROLAC TROMETHAMINE 10 MG TAB PO ONE (01:05)
[2022-12-02] MEDS: IPRATROPIUM 0.5MG/ALBUTEROL 2.5MG INH SOL UD 3ML (DUONEB) INH SCH ×5 (01:55→23:56)
[2022-12-02] MEDS: ACETAMINOPHEN TAB 650MG DOSE (2X325MG) PO PRN ×2 (02:23→20:28)
[2022-12-02] MEDS: methylPREDNISolone 125MG 2ML VIAL IV SCH (04:55)
[2022-12-02 05:12] LABS: BASO % 0.3 % (0.0-1.0); HEMATOCRIT 30.9 % (42.0-52.0); HEMOGLOBIN 10.3 g/dl (13.5-17.5); LYMPH % 10.1 % (24.0-44.0); MEAN CORPUSCULAR HEMOGLOBIN 30.8 pg (27.0-33.0); MEAN CORPUSCULAR HGB CONC 33.3 g/dl (32.0-36.5); MEAN CORPUSCULAR VOLUME 92.5 fl (80.0-96.0); MONO # 0.7 10^3/uL (0.0-0.8); MONO % 7.3 % (2.0-8.0); NEUTROPHILS # 7.6 10^3/uL (1.5-8.5); NEUTROPHILS % 79.9 % (36.0-66.0); PLATELET COUNT, AUTOMATED 352 10^3/uL (150-450); RED BLOOD COUNT 3.34 10^6/uL (4.30-6.10); WHITE BLOOD COUNT 9.5 10^3/uL (4.0-10.0)
[2022-12-02 05:35] LABS: ALBUMIN 2.1 G/DL (3.2-5.2); ALKALINE PHOSPHATASE 49 U/L (46-116); ALT/SGPT 98 U/L (7.0-40); AST/SGOT 63 U/L (<34); BILIRUBIN,TOTAL 0.3 MG/DL (0.3-1.2); BLOOD UREA NITROGEN 11 MG/DL (9-23); CALCIUM LEVEL 7.5 MG/DL (8.5-10.1); CARBON DIOXIDE LEVEL 32 MMOL/L (20-31); CHLORIDE LEVEL 105 MMOL/L (98-107); CREATININE FOR GFR 0.51 MG/DL (0.70-1.30); GLOMERULAR FILTRATION RATE > 60.0 (>56); GLUCOSE, FASTING 180 MG/DL (60-100); POTASSIUM SERUM 3.3 MMOL/L (3.5-5.1); SODIUM LEVEL 141 MMOL/L (136-145); TOTAL PROTEIN 5.2 G/DL (5.7-8.2)
[2022-12-02 05:37] LABS: FREE T4 0.81 NG/DL (0.89-1.76)
[2022-12-02 05:38] LABS: FREE T3 1.8 PG/ML (2.3-4.2)
[2022-12-02] MEDS: BUDESONIDE 0.25 MG/2 ML INHALATION SUSPENSION INH SCH ×2 (07:19→19:32)
[2022-12-02] MEDS: PANTOPRAZOLE 40MG VIAL IV SCH (08:12)
[2022-12-02] MEDS: ATORVASTATIN 20 MG TAB NG SCH (08:12)
[2022-12-02] MEDS: MULTIVITAMINS/MINERALS THERAP 1 TAB PO SCH (08:13)
[2022-12-02] MEDS: guaiFENesin ER 600 MG TAB PO SCH ×2 (08:13→20:30)
[2022-12-02] MEDS: APIXABAN 5 MG TAB (ELIQUIS) PO SCH ×2 (08:13→20:29)
[2022-12-02] MEDS: DIGOXIN 0.125 MG TAB NG SCH (08:13)
[2022-12-02] MEDS: FOLIC ACID 1MG TAB PO SCH (08:13)
[2022-12-02] MEDS: NICOTINE 14 MG/24 HR TRANSDERMAL TD SCH (08:15)
[2022-12-02] MEDS ORDERED: KETOROLAC 30 MG/ML 1ML VIAL IV ONE ×2 (09:00→12:30)
[2022-12-02] MEDS ORDERED: POTASSIUM CHLORIDE 10MEQ SR TABLET PO ONE (09:00)
[2022-12-02] MEDS ORDERED: methylPREDNISolone 125MG 2ML VIAL IV SCH (09:00)
[2022-12-02] MEDS: THIAMINE 100 MG TAB PO SCH (12:25)
[2022-12-02] MEDS: cefTRIAXone SOD 1 GM in D5W MINI-BAG PLUS 50 ML IV SCH (16:10)
[2022-12-03 06:00] VITALS: BP 110/76
[2022-12-03 06:12] LABS: HEMATOCRIT 32.1 % (42.0-52.0); HEMOGLOBIN 10.9 g/dl (13.5-17.5); MEAN CORPUSCULAR HEMOGLOBIN 31.1 pg (27.0-33.0); MEAN CORPUSCULAR VOLUME 91.5 fl (80.0-96.0); PLATELET COUNT, AUTOMATED 347 10^3/uL (150-450); RED BLOOD COUNT 3.51 10^6/uL (4.30-6.10); WHITE BLOOD COUNT 11.9 10^3/uL (4.0-10.0)
[2022-12-03] MEDS: BUDESONIDE 0.25 MG/2 ML INHALATION SUSPENSION INH SCH ×2 (07:39→19:13)
[2022-12-03] MEDS: IPRATROPIUM 0.5MG/ALBUTEROL 2.5MG INH SOL UD 3ML (DUONEB) INH SCH ×3 (07:39→19:13)
[2022-12-03] MEDS: guaiFENesin ER 600 MG TAB PO SCH ×2 (08:36→20:51)
[2022-12-03] MEDS: APIXABAN 5 MG TAB (ELIQUIS) PO SCH ×2 (08:36→20:48)
[2022-12-03] MEDS: methylPREDNISolone 125MG 2ML VIAL IV SCH (08:36)
[2022-12-03] MEDS: NICOTINE 14 MG/24 HR TRANSDERMAL TD SCH (08:36)
[2022-12-03] MEDS: THIAMINE 100 MG TAB PO SCH (08:36)
[2022-12-03] MEDS: PANTOPRAZOLE 40MG VIAL IV SCH (08:36)
[2022-12-03] MEDS: ATORVASTATIN 20 MG TAB NG SCH (08:37)
[2022-12-03] MEDS: FOLIC ACID 1MG TAB PO SCH (08:37)
[2022-12-03] MEDS: DIGOXIN 0.125 MG TAB NG SCH (08:38)
[2022-12-03] MEDS: MULTIVITAMINS/MINERALS THERAP 1 TAB PO SCH (08:38)
[2022-12-03] MEDS: BENZONATATE 100MG CAPSULE PO SCH ×3 (10:23→20:51)
[2022-12-03 14:00] VITALS: BP 88/60
[2022-12-03] MEDS ORDERED: MIDODRINE 5 MG TAB PO ONE (14:30)
[2022-12-03] MEDS ORDERED: NS 1,000 ML IV ONE (14:30)
[2022-12-03] MEDS: cefTRIAXone SOD 1 GM in D5W MINI-BAG PLUS 50 ML IV SCH (15:33)
[2022-12-03 16:02] VITALS: BP 102/68
[2022-12-03] MEDS: DIGOXIN INJ 0.5 MG/2 ML AMP IV SCH ×2 (16:25→21:52)
[2022-12-03 21:06] VITALS: BP 99/73
[2022-12-04] MEDS: IPRATROPIUM 0.5MG/ALBUTEROL 2.5MG INH SOL UD 3ML (DUONEB) INH SCH ×4 (00:44→19:34)
[2022-12-04 06:00] VITALS: BP 100/73
[2022-12-04 06:45] LABS: BASO % 0.2 % (0.0-1.0); EOS % 0.1 % (0.0-3.0); HEMOGLOBIN 10.5 g/dl (13.5-17.5); LYMPH # 1.8 10^3/uL (1.5-5.0); LYMPH % 14.8 % (24.0-44.0); MEAN CORPUSCULAR HEMOGLOBIN 31.4 pg (27.0-33.0); MEAN CORPUSCULAR HGB CONC 33.9 g/dl (32.0-36.5); MEAN CORPUSCULAR VOLUME 92.8 fl (80.0-96.0); MONO # 1.2 10^3/uL (0.0-0.8); MONO % 9.8 % (2.0-8.0); NEUTROPHILS # 8.8 10^3/uL (1.5-8.5); NEUTROPHILS % 74.2 % (36.0-66.0); PLATELET COUNT, AUTOMATED 303 10^3/uL (150-450); RED BLOOD COUNT 3.34 10^6/uL (4.30-6.10); WHITE BLOOD COUNT 11.8 10^3/uL (4.0-10.0)
[2022-12-04 07:07] LABS: BLOOD UREA NITROGEN 10 MG/DL (9-23); CARBON DIOXIDE LEVEL 29 MMOL/L (20-31); CHLORIDE LEVEL 106 MMOL/L (98-107); CREATININE FOR GFR 0.48 MG/DL (0.70-1.30); DIGOXIN LEVEL 1.1 NG/ML (0.8-2.0); GLOMERULAR FILTRATION RATE > 60.0 (>56); GLUCOSE, FASTING 89 MG/DL (60-100); MAGNESIUM LEVEL 1.7 MG/DL (1.8-2.4); SODIUM LEVEL 139 MMOL/L (136-145)
[2022-12-04] MEDS: BUDESONIDE 0.25 MG/2 ML INHALATION SUSPENSION INH SCH ×2 (07:16→19:34)
[2022-12-04] MEDS: methylPREDNISolone 125MG 2ML VIAL IV SCH (08:51)
[2022-12-04] MEDS: PANTOPRAZOLE 40MG VIAL IV SCH (08:51)
[2022-12-04] MEDS: BENZONATATE 100MG CAPSULE PO SCH ×3 (08:54→21:42)
[2022-12-04] MEDS: guaiFENesin ER 600 MG TAB PO SCH ×2 (08:55→21:42)
[2022-12-04] MEDS: DIGOXIN 0.125 MG TAB PO SCH (08:55)
[2022-12-04] MEDS: MULTIVITAMINS/MINERALS THERAP 1 TAB PO SCH (08:55)
[2022-12-04] MEDS: THIAMINE 100 MG TAB PO SCH (08:55)
[2022-12-04] MEDS: FOLIC ACID 1MG TAB PO SCH (08:55)
[2022-12-04] MEDS: ATORVASTATIN 20 MG TAB NG SCH (08:55)
[2022-12-04] MEDS: APIXABAN 5 MG TAB (ELIQUIS) PO SCH ×2 (08:55→21:42)
[2022-12-04] MEDS: NICOTINE 14 MG/24 HR TRANSDERMAL TD SCH (08:56)
[2022-12-04 14:00] VITALS: BP 118/68
[2022-12-04] MEDS: cefTRIAXone SOD 1 GM in D5W MINI-BAG PLUS 50 ML IV SCH (15:18)
[2022-12-04 20:28] VITALS: BP 99/62
[2022-12-05] MEDS: IPRATROPIUM 0.5MG/ALBUTEROL 2.5MG INH SOL UD 3ML (DUONEB) INH SCH ×2 (00:48→09:06)
[2022-12-05 06:00] VITALS: BP 114/83
[2022-12-05 06:28] LABS: BASO % 0.1 % (0.0-1.0); EOS % 0.1 % (0.0-3.0); HEMATOCRIT 31.2 % (42.0-52.0); HEMOGLOBIN 10.2 g/dl (13.5-17.5); LYMPH # 1.9 10^3/uL (1.5-5.0); LYMPH % 16.5 % (24.0-44.0); MEAN CORPUSCULAR HEMOGLOBIN 30.5 pg (27.0-33.0); MEAN CORPUSCULAR HGB CONC 32.7 g/dl (32.0-36.5); MEAN CORPUSCULAR VOLUME 93.4 fl (80.0-96.0); MONO # 1.1 10^3/uL (0.0-0.8); MONO % 9.4 % (2.0-8.0); NEUTROPHILS # 8.4 10^3/uL (1.5-8.5); NEUTROPHILS % 73.1 % (36.0-66.0); PLATELET COUNT, AUTOMATED 264 10^3/uL (150-450); RED BLOOD COUNT 3.34 10^6/uL (4.30-6.10); WHITE BLOOD COUNT 11.5 10^3/uL (4.0-10.0)
[2022-12-05 07:03] LABS: BLOOD UREA NITROGEN 14 MG/DL (9-23); CALCIUM LEVEL 7.8 MG/DL (8.5-10.1); CARBON DIOXIDE LEVEL 30 MMOL/L (20-31); CHLORIDE LEVEL 106 MMOL/L (98-107); CREATININE FOR GFR 0.62 MG/DL (0.70-1.30); DIGOXIN LEVEL 0.9 NG/ML (0.8-2.0); GLOMERULAR FILTRATION RATE > 60.0 (>56); GLUCOSE, FASTING 75 MG/DL (60-100); MAGNESIUM LEVEL 1.8 MG/DL (1.8-2.4); POTASSIUM SERUM 3.3 MMOL/L (3.5-5.1); SODIUM LEVEL 140 MMOL/L (136-145)
[2022-12-05 09:00] VITALS: BP 105/79
[2022-12-05] MEDS ORDERED: CEFDINIR 300 MG CAP (OMNICEF) PO SCH (09:00)
[2022-12-05] MEDS: BUDESONIDE 0.25 MG/2 ML INHALATION SUSPENSION INH SCH (09:06)
[2022-12-05] MEDS: APIXABAN 5 MG TAB (ELIQUIS) PO SCH (09:09)
[2022-12-05] MEDS: BENZONATATE 100MG CAPSULE PO SCH (09:09)
[2022-12-05] MEDS: FOLIC ACID 1MG TAB PO SCH (09:09)
[2022-12-05] MEDS: guaiFENesin ER 600 MG TAB PO SCH (09:09)
[2022-12-05] MEDS: THIAMINE 100 MG TAB PO SCH (09:09)
[2022-12-05] MEDS: MULTIVITAMINS/MINERALS THERAP 1 TAB PO SCH (09:09)
[2022-12-05] MEDS: ATORVASTATIN 20 MG TAB NG SCH (09:09)
[2022-12-05] MEDS: PANTOPRAZOLE 40MG VIAL IV SCH (09:09)
[2022-12-05] MEDS: DIGOXIN 0.125 MG TAB PO SCH (09:10)
[2022-12-05] MEDS: NICOTINE 14 MG/24 HR TRANSDERMAL TD SCH (09:13)
[2022-12-05] MEDS ORDERED: CEFD300CAP PO (10:36)
[2022-12-05] MEDS ORDERED: ARNU1INH PO (10:36)
[2022-12-05] MEDS ORDERED: VITMTA PO (10:36)
[2022-12-05] MEDS ORDERED: ELIQ5TAB PO (10:36)
[2022-12-05] MEDS ORDERED: MUCI600T31 PO (10:36)
[2022-12-05] MEDS ORDERED: BENZ-18 PO (10:36)
[2022-12-05] MEDS ORDERED: DILT30TA PO (10:36)
[2022-12-05] MEDS ORDERED: ATOR1TAB21 NG (10:36)
[2022-12-05] MEDS ORDERED: NICO14PA TD (10:36)
[2022-12-05] MEDS ORDERED: LISI10TA22 PO (10:36)
[2022-12-05] MEDS ORDERED: FOLI1TAB11 PO (10:36)
[2022-12-05] MEDS ORDERED: COMBAER6 INH (10:36)
[2022-12-05] MEDS ORDERED: PRED10PA PO (10:36)
[2022-12-05] MEDS ORDERED: THIA100TA PO (10:36)
[2022-12-05] MEDS ORDERED: DIGO0.123 PO (10:36)
[2022-12-06] MEDS ORDERED: predniSONE 20 MG TAB PO SCH (09:00)
== END 2022-12-05 12:35 | disposition home health service (06) | DRG 720 ==
LOC: EDBD 22:58 → M ED 22:58 → M ED INP 11-27 01:20 → M ICU 11-27 01:43 → M MSPAV 12-02 11:33
PROVIDERS: ADMIT Internal Medicine; ATTEND Family Medicine
PROC: 5A1945Z Respiratory Ventilation, 24-96 Consecutive Hours (ICD-10-PCS; 2022-11-27)
PROC: B246ZZZ Ultrasonography of Right and Left Heart (ICD-10-PCS; principal; 2022-12-01)
DX: A41.9 Sepsis, unspecified organism (principal); J96.21 Acute and chronic respiratory failure with hypoxia; I74.2 Embolism and thrombosis of arteries of the upper extremities; J44.0 Chronic obstructive pulmonary disease with (acute) lower respiratory infection; J12.3 Human metapneumovirus pneumonia; J44.1 Chronic obstructive pulmonary disease with (acute) exacerbation; J96.22 Acute and chronic respiratory failure with hypercapnia; I48.91 Unspecified atrial fibrillation; I25.2 Old myocardial infarction; I25.10 Atherosclerotic heart disease of native coronary artery without angina pectoris; F10.239 Alcohol dependence with withdrawal, unspecified; F17.210 Nicotine dependence, cigarettes, uncomplicated; Z79.899 Other long term (current) drug therapy; Z20.822 Contact with and (suspected) exposure to COVID-19; I73.9 Peripheral vascular disease, unspecified

== ENCOUNTER 2023-01-22 00:21 | Inpatient (IN) | payer OTHER ==
[~2023-01-22] VITALS: Ht 167.6 cm; Wt 48.9 kg
[~2023-01-22 00:21] MED LIST changes: +ATOR1TAB21 NG; +BENZ-18 PO; +CEFD300CAP PO; +DILT30TA PO; +ELIQ5TAB PO; +LISI10TA22 PO; +MED REC COMMENT; +MUCI600T31 PO; +NICO14PA TD
[2023-01-22] MEDS ORDERED: MULTIVITAMIN -ADULT INJECTION 10 ML, THIAMINE INJection 100 MG, FOLIC ACID 1 MG in NS 1... IV ONE (01:25)
[2023-01-22 01:29] LABS: BASO # 0.1 10^3/uL (0.0-0.2); BASO % 0.6 % (0.0-1.0); EOS # 0.1 10^3/uL (0.0-0.5); EOS % 1.1 % (0.0-3.0); HEMATOCRIT 36.7 % (42.0-52.0); HEMOGLOBIN 12.2 g/dl (13.5-17.5); LYMPH # 1.4 10^3/uL (1.5-5.0); MEAN CORPUSCULAR HEMOGLOBIN 32.1 pg (27.0-33.0); MEAN CORPUSCULAR HGB CONC 33.2 g/dl (32.0-36.5); MEAN CORPUSCULAR VOLUME 96.6 fl (80.0-96.0); MONO # 0.8 10^3/uL (0.0-0.8); MONO % 7.7 % (2.0-8.0); NEUTROPHILS # 7.8 10^3/uL (1.5-8.5); NEUTROPHILS % 76.1 % (36.0-66.0); PLATELET COUNT, AUTOMATED 229 10^3/uL (150-450); WHITE BLOOD COUNT 10.3 10^3/uL (4.0-10.0)
[2023-01-22 01:48] LABS: INR 0.87; PARTIAL THROMBOPLASTIN TIME 25.2 SECONDS (24.8-34.2)
[2023-01-22] MEDS ORDERED: KETOROLAC 30 MG/ML 1ML VIAL IV ONE (02:00)
[2023-01-22 02:20] LABS: BLOOD UREA NITROGEN 8 MG/DL (9-23); CALCIUM LEVEL 8.9 MG/DL (8.5-10.1); CARBON DIOXIDE LEVEL 26 MMOL/L (20-31); CHLORIDE LEVEL 102 MMOL/L (98-107); CK-MB VALUE MASS 2.2 NG/ML (<3.6); CREATININE FOR GFR 0.51 MG/DL (0.70-1.30); GLOMERULAR FILTRATION RATE > 60.0 (>56); GLUCOSE, FASTING 103 MG/DL (60-100); POTASSIUM SERUM 4.6 MMOL/L (3.5-5.1); SODIUM LEVEL 135 MMOL/L (136-145)
[2023-01-22 02:29] LABS: CPK CREATINE PHOSPHOKINASE 84 U/L (46-171); MB/CK RELATIVE INDEX 2.61 (< OR =4)
[2023-01-22] MEDS ORDERED: NS 1,000 ML IV ONE (03:05)
[2023-01-22] MEDS ORDERED: methylPREDNISolone 125MG 2ML VIAL IV ONE (03:50)
[2023-01-22] MEDS ORDERED: IPRATROPIUM 0.5MG/ALBUTEROL 2.5MG INH SOL UD 3ML (DUONEB) NEB ONE (03:50)
[2023-01-22] MEDS ORDERED: ALBU8.5H PO (04:23)
[2023-01-22] MEDS ORDERED: ALBU2.5V10 NEB (04:23)
[2023-01-22] MEDS ORDERED: HOME MED LIST COMPLETE! XX SCH (04:25)
[2023-01-22] MEDS ORDERED: LORazepam 2 MG TAB PO PRN (04:45)
[2023-01-22 04:55] LABS: RSV AMPLIFICATION NEGATIVE (NEGATIVE)
[2023-01-22] MEDS: LR 1,000 ML IV SCH ×2 (05:55→16:06)
[2023-01-22 06:42] LABS: HEMATOCRIT 32.7 % (42.0-52.0); HEMOGLOBIN 10.6 g/dl (13.5-17.5); MEAN CORPUSCULAR HEMOGLOBIN 31.6 pg (27.0-33.0); MEAN CORPUSCULAR HGB CONC 32.4 g/dl (32.0-36.5); MEAN CORPUSCULAR VOLUME 97.6 fl (80.0-96.0); PLATELET COUNT, AUTOMATED 198 10^3/uL (150-450); RED BLOOD COUNT 3.35 10^6/uL (4.30-6.10); WHITE BLOOD COUNT 8.9 10^3/uL (4.0-10.0)
[2023-01-22 06:48] LABS: ALBUMIN 3.1 G/DL (3.2-5.2); ALKALINE PHOSPHATASE 81 U/L (46-116); ALT/SGPT 17 U/L (7.0-40); AST/SGOT 18 U/L (<34); BILIRUBIN,TOTAL 0.2 MG/DL (0.3-1.2); BLOOD UREA NITROGEN 7 MG/DL (9-23); CALCIUM LEVEL 8.4 MG/DL (8.5-10.1); CARBON DIOXIDE LEVEL 23 MMOL/L (20-31); CHLORIDE LEVEL 109 MMOL/L (98-107); CREATININE FOR GFR 0.49 MG/DL (0.70-1.30); GLOMERULAR FILTRATION RATE > 60.0 (>56); GLUCOSE, FASTING 94 MG/DL (60-100); SODIUM LEVEL 141 MMOL/L (136-145); TOTAL PROTEIN 5.8 G/DL (5.7-8.2)
[2023-01-22] MEDS: THIAMINE 100 MG TAB PO SCH ×2 (07:20→21:01)
[2023-01-22 07:37] LABS: CK-MB VALUE MASS 1.6 NG/ML (<3.6)
[2023-01-22] MEDS: IPRATROPIUM 0.5MG/ALBUTEROL 2.5MG INH SOL UD 3ML (DUONEB) NEB SCH ×3 (07:39→19:54)
[2023-01-22 07:44] LABS: MB/CK RELATIVE INDEX 1.64 (< OR =4)
[2023-01-22] MEDS ORDERED: ISOVUE-370 76% 100ML VIAL As Ordered ONE (08:11)
[2023-01-22 08:54] VITALS: BP 110/73; TEMP 98.2; O2SAT 97
[2023-01-22] MEDS ORDERED: ENOXAPARIN 40MG/0.4ML SYRINGE (J1650 PER 10MG) SC SCH (09:00)
[2023-01-22] MEDS: MULTIVITAMINS/MINERALS THERAP 1 TAB PO SCH (09:12)
[2023-01-22] MEDS: FOLIC ACID 1MG TAB PO SCH (09:12)
[2023-01-22] MEDS: predniSONE 20 MG TAB PO SCH (09:12)
[2023-01-22] MEDS ORDERED: PERCOCET 5MG/325MG TAB PO PRN (09:35)
[2023-01-22 11:32] LABS: CHOLESTEROL RISK RATIO 1.66 (<5); HDL CHOLESTEROL 82.8 MG/DL (>40); LDL CHOLESTEROL 45.8 MG/DL (<100); NON-HDL-C 55.2 MG/DL
[2023-01-22] MEDS ORDERED: DIGO0.123 PO (11:41)
[2023-01-22] MEDS ORDERED: ARNU1INH INH (11:41)
[2023-01-22] MEDS ORDERED: MED REC COMMENT (11:41)
[2023-01-22] MEDS ORDERED: ATOR1TAB21 PO (11:41)
[2023-01-22] MEDS ORDERED: B-1100TA2 PO (11:41)
[2023-01-22] MEDS ORDERED: DILT30TA PO (11:41)
[2023-01-22] MEDS ORDERED: ELIQ5TAB PO (11:41)
[2023-01-22] MEDS ORDERED: VITMTA PO (11:41)
[2023-01-22] MEDS ORDERED: FOLI1TAB11 PO (11:41)
[2023-01-22] MEDS ORDERED: COMBAER6 INH (11:41)
[2023-01-22] MEDS ORDERED: LISI10TA22 PO (11:41)
[2023-01-22 12:00] VITALS: BP 95/68; TEMP 98.4; O2SAT 92
[2023-01-22] MEDS: PERCOCET 5MG/325MG TAB PO PRN (12:19)
[2023-01-22] MEDS: APIXABAN 5 MG TAB (ELIQUIS) PO SCH ×2 (12:19→21:01)
[2023-01-22] MEDS: DIGOXIN 0.125 MG TAB PO SCH (12:20)
[2023-01-22] MEDS: ATORVASTATIN 20 MG TAB PO SCH (12:20)
[2023-01-22] MEDS: FLUTICASONE HFA 110MCG 12GM INHALER (FLOVENT) INH SCH ×2 (13:09→19:54)
[2023-01-22 13:27] VITALS: BP 120/81
[2023-01-22] MEDS: dilTIAZem 30 MG TAB PO SCH ×2 (13:45→21:03)
[2023-01-22 16:00] VITALS: BP 123/92; TEMP 98.6; O2SAT 97
[2023-01-22 20:00] VITALS: BP 123/89
[2023-01-22 20:20] VITALS: BP 123/89; TEMP 98.7; O2SAT 95
[2023-01-23] VITALS: BP 134/74; TEMP 98.3; O2SAT 97
[2023-01-23] MEDS: LR 1,000 ML IV SCH (00:04)
[2023-01-23] MEDS: PERCOCET 5MG/325MG TAB PO PRN ×4 (00:26→18:27)
[2023-01-23] MEDS: IPRATROPIUM 0.5MG/ALBUTEROL 2.5MG INH SOL UD 3ML (DUONEB) NEB SCH ×2 (02:00→07:35)
[2023-01-23 04:00] VITALS: BP_SYST 111; BP_SYST 128; BP_DIAS 72; BP_DIAS 77; TEMP 97.9; O2SAT 100
[2023-01-23 05:33] LABS: BASO % 0.1 % (0.0-1.0); EOS % 0.1 % (0.0-3.0); HEMATOCRIT 29.1 % (42.0-52.0); HEMOGLOBIN 9.7 g/dl (13.5-17.5); LYMPH # 1.2 10^3/uL (1.5-5.0); LYMPH % 8.7 % (24.0-44.0); MEAN CORPUSCULAR HEMOGLOBIN 31.9 pg (27.0-33.0); MEAN CORPUSCULAR HGB CONC 33.3 g/dl (32.0-36.5); MEAN CORPUSCULAR VOLUME 95.7 fl (80.0-96.0); MONO # 1.4 10^3/uL (0.0-0.8); MONO % 10.3 % (2.0-8.0); NEUTROPHILS # 11.2 10^3/uL (1.5-8.5); NEUTROPHILS % 80.4 % (36.0-66.0); PLATELET COUNT, AUTOMATED 168 10^3/uL (150-450); RED BLOOD COUNT 3.04 10^6/uL (4.30-6.10); WHITE BLOOD COUNT 13.9 10^3/uL (4.0-10.0)
[2023-01-23] MEDS: dilTIAZem 30 MG TAB PO SCH ×2 (05:46→17:27)
[2023-01-23 06:24] LABS: ALBUMIN 2.8 G/DL (3.2-5.2); ALKALINE PHOSPHATASE 70 U/L (46-116); ALT/SGPT 13 U/L (7.0-40); AST/SGOT 12 U/L (<34); BILIRUBIN,TOTAL 0.6 MG/DL (0.3-1.2); BLOOD UREA NITROGEN 6 MG/DL (9-23); CALCIUM LEVEL 7.6 MG/DL (8.5-10.1); CARBON DIOXIDE LEVEL 28 MMOL/L (20-31); CHLORIDE LEVEL 104 MMOL/L (98-107); CREATININE FOR GFR 0.47 MG/DL (0.70-1.30); GLOMERULAR FILTRATION RATE > 60.0 (>56); GLUCOSE, FASTING 103 MG/DL (60-100); MAGNESIUM LEVEL 1.2 MG/DL (1.8-2.4); POTASSIUM SERUM 3.4 MMOL/L (3.5-5.1); SODIUM LEVEL 138 MMOL/L (136-145); TOTAL PROTEIN 5.3 G/DL (5.7-8.2)
[2023-01-23] MEDS: MAG SULF 1GM/100ML (MAG RUN) 1 GM in IV 1 EA IV SCH ×4 (06:48→13:43)
[2023-01-23] MEDS: FLUTICASONE HFA 110MCG 12GM INHALER (FLOVENT) INH SCH ×2 (07:35→20:39)
[2023-01-23 08:00] VITALS: BP 118/68; TEMP 98; O2SAT 97
[2023-01-23] MEDS: ATORVASTATIN 20 MG TAB PO SCH (08:09)
[2023-01-23] MEDS: FOLIC ACID 1MG TAB PO SCH (08:09)
[2023-01-23] MEDS: DIGOXIN 0.125 MG TAB PO SCH (08:10)
[2023-01-23] MEDS: MULTIVITAMINS/MINERALS THERAP 1 TAB PO SCH (08:10)
[2023-01-23] MEDS: predniSONE 20 MG TAB PO SCH (08:10)
[2023-01-23] MEDS: APIXABAN 5 MG TAB (ELIQUIS) PO SCH ×2 (08:10→20:09)
[2023-01-23] MEDS: THIAMINE 100 MG TAB PO SCH ×2 (08:10→20:09)
[2023-01-23] MEDS ORDERED: KCL 10MEQ/100ML SWI (KRUN) 10 MEQ in IV 1 EA IV ONE (09:00)
[2023-01-23] MEDS ORDERED: POTASSIUM CHLORIDE 10MEQ SR TABLET PO ONE (10:35)
[2023-01-23 12:00] VITALS: BP 126/92; TEMP 98.6; O2SAT 87
[2023-01-23 16:00] VITALS: BP 113/76; TEMP 98.4; O2SAT 97
[2023-01-23 20:00] VITALS: BP 135/99; TEMP 97.6; O2SAT 95
[2023-01-23] MEDS: IPRATROPIUM 0.5MG/ALBUTEROL 2.5MG INH SOL UD 3ML (DUONEB) NEB PRN (20:40)
[2023-01-24] VITALS: BP 130/82; TEMP 98.3; O2SAT 94
[2023-01-24] MEDS: PERCOCET 5MG/325MG TAB PO PRN ×2 (00:28→06:29)
[2023-01-24 04:00] VITALS: BP 131/90; TEMP 97.5; O2SAT 93
[2023-01-24] MEDS: dilTIAZem 30 MG TAB PO SCH (05:43)
[2023-01-24 05:50] LABS: BASO % 0.3 % (0.0-1.0); EOS % 0.3 % (0.0-3.0); HEMATOCRIT 30.3 % (42.0-52.0); HEMOGLOBIN 9.9 g/dl (13.5-17.5); LYMPH # 1.9 10^3/uL (1.5-5.0); LYMPH % 16.9 % (24.0-44.0); MEAN CORPUSCULAR HEMOGLOBIN 32.4 pg (27.0-33.0); MEAN CORPUSCULAR HGB CONC 32.7 g/dl (32.0-36.5); MONO % 8.7 % (2.0-8.0); NEUTROPHILS # 8.3 10^3/uL (1.5-8.5); NEUTROPHILS % 73.4 % (36.0-66.0); PLATELET COUNT, AUTOMATED 152 10^3/uL (150-450); RED BLOOD COUNT 3.06 10^6/uL (4.30-6.10); WHITE BLOOD COUNT 11.3 10^3/uL (4.0-10.0)
[2023-01-24 06:21] LABS: ALBUMIN 2.9 G/DL (3.2-5.2); ALKALINE PHOSPHATASE 64 U/L (46-116); ALT/SGPT 13 U/L (7.0-40); AST/SGOT 12 U/L (<34); BILIRUBIN,TOTAL 0.4 MG/DL (0.3-1.2); BLOOD UREA NITROGEN 10 MG/DL (9-23); CALCIUM LEVEL 7.8 MG/DL (8.5-10.1); CARBON DIOXIDE LEVEL 30 MMOL/L (20-31); CHLORIDE LEVEL 105 MMOL/L (98-107); CREATININE FOR GFR 0.54 MG/DL (0.70-1.30); GLOMERULAR FILTRATION RATE > 60.0 (>56); GLUCOSE, FASTING 82 MG/DL (60-100); MAGNESIUM LEVEL 1.9 MG/DL (1.8-2.4); POTASSIUM SERUM 3.8 MMOL/L (3.5-5.1); SODIUM LEVEL 140 MMOL/L (136-145); TOTAL PROTEIN 5.5 G/DL (5.7-8.2)
[2023-01-24] MEDS: IPRATROPIUM 0.5MG/ALBUTEROL 2.5MG INH SOL UD 3ML (DUONEB) NEB PRN (07:42)
[2023-01-24] MEDS: FLUTICASONE HFA 110MCG 12GM INHALER (FLOVENT) INH SCH (07:42)
[2023-01-24 08:00] VITALS: BP 114/83
[2023-01-24] MEDS: MULTIVITAMINS/MINERALS THERAP 1 TAB PO SCH (08:11)
[2023-01-24] MEDS: THIAMINE 100 MG TAB PO SCH (08:11)
[2023-01-24] MEDS: ATORVASTATIN 20 MG TAB PO SCH (08:11)
[2023-01-24] MEDS: FOLIC ACID 1MG TAB PO SCH (08:11)
[2023-01-24] MEDS: APIXABAN 5 MG TAB (ELIQUIS) PO SCH (08:11)
[2023-01-24] MEDS: DIGOXIN 0.125 MG TAB PO SCH (08:11)
[2023-01-24 08:19] VITALS: BP 114/74; TEMP 97.8; O2SAT 98
[2023-01-24] MEDS ORDERED: PERCOCET PO (11:27)
[2023-01-24] MEDS ORDERED: CARD120C3 PO (11:27)
[2023-01-24] MEDS ORDERED: ELIQ5TAB PO (11:27)
[2023-01-24] MEDS ORDERED: B-1100TA2 PO (11:27)
[2023-01-24] MEDS ORDERED: ADV100INH INH (11:27)
[2023-01-24] MEDS ORDERED: ATOR1TAB21 PO (11:27)
[2023-01-24] MEDS ORDERED: COMBAER6 INH ×2 (11:27→11:35)
[2023-01-24] MEDS ORDERED: DIGO0.123 PO (11:27)
[2023-01-24] MEDS ORDERED: FOLI1TAB11 PO (11:27)
[2023-01-24] MEDS ORDERED: VITMTA PO (11:27)
[2023-01-24] MEDS ORDERED: MAGN400T2 PO (11:30)
[2023-01-24 11:35] VITALS: BP 133/95
[2023-01-24] MEDS ORDERED: dilTIAZem 120MG **CD** CAPSULE PO SCH (12:00)
== END 2023-01-24 12:36 | disposition home or self-care (01) | DRG 342 ==
LOC: M ED 00:21 → M ED INP 04:35 → ENRESERV 07:58 → M ICU 08:58
PROVIDERS: ADMIT Internal Medicine; ATTEND Internal Medicine
DX: S42.251A Displaced fracture of greater tuberosity of right humerus, initial encounter for closed fracture (principal); I95.9 Hypotension, unspecified; I48.0 Paroxysmal atrial fibrillation; E83.42 Hypomagnesemia; F10.229 Alcohol dependence with intoxication, unspecified; J44.9 Chronic obstructive pulmonary disease, unspecified; F17.210 Nicotine dependence, cigarettes, uncomplicated; I25.2 Old myocardial infarction; R00.0 Tachycardia, unspecified; E87.6 Hypokalemia; Z91.141 Patient's other noncompliance with medication regimen due to financial hardship; W18.09XA Striking against other object with subsequent fall, initial encounter; Y92.007 Garden or yard of unspecified non-institutional (private) residence as the place of occurrence of the external cause; Y93.89 Activity, other specified; Y99.8 Other external cause status

== ENCOUNTER 2023-07-06 04:47 | Observation (INO) | payer MEDICAID, OTHER ==
[~2023-07-06] VITALS: Ht 167.6 cm; Wt 44.6 kg
[2023-07-06] VITALS (13 sets, daily range): BP systolic 122–129; BP diastolic 81–83; TEMP 97.8–98.5; O2SAT 87–98
[~2023-07-06 04:47] MED LIST changes: +ADV100INH INH; +ALBU8.5H PO; +ARNU1INH INH; +ATOR1TAB21 PO; +B-1100TA2 PO; +CARD120C3 PO; +MAGN400T2 PO
[2023-07-06 05:16] LABS: VENOUS BASE EXCESS -7.6 (-2.0-2.0); VENOUS HCO3 20.2 MMOL/L (23.0-27.0); VENOUS O2 SATURATION 93.4 % (60.0-80.0); VENOUS PARTIAL PRESSURE CO2 49.9 mmHg (38.0-50.0); VENOUS PARTIAL PRESSURE O2 77.3 mmHg (30.0-50.0); VENOUS PH 7.225 UNITS (7.330-7.430); VENOUS STANDARD HCO3 18.3 MMOL/L; VENOUS TOTAL CO2 21.7 MMOL/L (24.0-28.0)
[2023-07-06 05:25] LABS: BASO # 0.2 10^3/uL (0.0-0.2); BASO % 2.5 % (0.0-1.0); EOS # 0.4 10^3/uL (0.0-0.5); EOS % 5.4 % (0.0-3.0); HEMATOCRIT 39.6 % (42.0-52.0); LYMPH # 2.4 10^3/uL (1.5-5.0); LYMPH % 36.9 % (24.0-44.0); MEAN CORPUSCULAR HEMOGLOBIN 32.2 pg (27.0-33.0); MEAN CORPUSCULAR HGB CONC 32.8 g/dl (32.0-36.5); MONO % 14.9 % (2.0-8.0); NEUTROPHILS # 2.6 10^3/uL (1.5-8.5); NEUTROPHILS % 40.1 % (36.0-66.0); PLATELET COUNT, AUTOMATED 462 10^3/uL (150-450); RED BLOOD COUNT 4.04 10^6/uL (4.30-6.10); WHITE BLOOD COUNT 6.5 10^3/uL (4.0-10.0)
[2023-07-06 05:41] LABS: INR 1.21
[2023-07-06 05:45] LABS: ETHYL ALCOHOL (ETHANOL) 0.047 % (0.000-0.010)
[2023-07-06 05:46] LABS: ABG BASE EXCESS -4.5 (-2.0-2.0); ABG O2 SATURATION 93.6 % (95.0-99.0); ABG PARTIAL PRESSURE CO2 40.4 mmHg (35.0-45.0); ABG PARTIAL PRESSURE O2 72.6 mmHg (75.0-100.0); ABG STANDARD HCO3 20.7 MMOL/L. (22.0-26.0); ABG TOTAL CO2 22.3 MMOL/L (22.0-29.0); ABG pH (ARTERIAL) 7.334 UNITS (7.350-7.450)
[2023-07-06 05:46] LABS: CPK CREATINE PHOSPHOKINASE 138 U/L (46-171)
[2023-07-06 05:47] LABS: ALBUMIN 3.6 G/DL (3.2-5.2); ALKALINE PHOSPHATASE 85 U/L (46-116); ALT/SGPT 19 U/L (7.0-40); AST/SGOT 22 U/L (<34); BILIRUBIN,DIRECT 0.1 MG/DL (<0.4); BILIRUBIN,TOTAL 0.3 MG/DL (0.3-1.2); BLOOD UREA NITROGEN 6 MG/DL (9-23); CALCIUM LEVEL 8.6 MG/DL (8.5-10.1); CARBON DIOXIDE LEVEL 23 MMOL/L (20-31); CHLORIDE LEVEL 103 MMOL/L (98-107); CK-MB VALUE MASS 3.9 NG/ML (<3.6); CREATININE FOR GFR 0.54 MG/DL (0.70-1.30); GLOMERULAR FILTRATION RATE > 60.0 (>56); GLUCOSE, FASTING 93 MG/DL (60-100); MB/CK RELATIVE INDEX 2.82 (< OR =4); SODIUM LEVEL 135 MMOL/L (136-145); TOTAL PROTEIN 6.9 G/DL (5.7-8.2)
[2023-07-06 05:49] LABS: THYROID STIMULATING HORMONE 1.312 uIU/ML (0.55-4.78)
[2023-07-06 05:59] LABS: PROCALCITONIN <0.04 ng/ml
[2023-07-06 06:54] LABS: CK-MB VALUE MASS 2.6 NG/ML (<3.6)
[2023-07-06 06:55] LABS: MB/CK RELATIVE INDEX 1.98 (< OR =4)
[2023-07-06] MEDS ORDERED: IPRATROPIUM 0.5MG/ALBUTEROL 2.5MG INH SOL UD 3ML (DUONEB) NEB PRN (07:45)
[2023-07-06] MEDS ORDERED: ISOVUE-370 76% 100ML VIAL As Ordered ONE (07:45)
[2023-07-06] MEDS ORDERED: MOM 30ML SUSPENSION UDC PO PRN (07:45)
[2023-07-06] MEDS ORDERED: MAALOX 30 ML SUSP *UDC PO PRN (07:45)
[2023-07-06] MEDS: IPRATROPIUM 0.5MG/ALBUTEROL 2.5MG INH SOL UD 3ML (DUONEB) NEB SCH ×3 (08:29→19:53)
[2023-07-06] MEDS ORDERED: METOPROLOL TART 12.5 MG PER 1/2 TAB PO SCH (09:00)
[2023-07-06] MEDS ORDERED: MED REC IN PROGRESS XX SCH (09:15)
[2023-07-06] MEDS ORDERED: LORazepam 2 MG TAB PO PRN (09:25)
[2023-07-06] MEDS: DOCUSATE SODIUM 100MG CAPSULE PO SCH ×2 (09:30→20:16)
[2023-07-06] MEDS: guaiFENesin ER TABLET 600 MG TAB PO SCH ×2 (09:30→20:17)
[2023-07-06] MEDS ORDERED: NICOTINE 14 MG/24 HR TRANSDERMAL TD PRN (09:30)
[2023-07-06] MEDS: methylPREDNISolone 40MG 1ML VIAL IV SCH ×2 (09:31→17:10)
[2023-07-06] MEDS: ACETAMINOPHEN TAB 650MG DOSE (2X325MG) PO PRN (09:33)
[2023-07-06] MEDS ORDERED: SALIVA SUBSTITUTE(MOUTHKOTE) BTL MT PRN (09:35)
[2023-07-06] MEDS ORDERED: CHLORASEPTIC SPRAY MT PRN (09:35)
[2023-07-06] MEDS ORDERED: HOME MED LIST COMPLETE! XX SCH (10:00)
[2023-07-06 10:15] LABS: MAGNESIUM LEVEL 1.6 MG/DL (1.8-2.4)
[2023-07-06] MEDS: THIAMINE 100 MG TAB PO SCH (10:44)
[2023-07-06] MEDS: FOLIC ACID 1MG TAB PO SCH (10:44)
[2023-07-06] MEDS: MULTIVITAMINS/MINERALS THERAP 1 TAB PO SCH (10:44)
[2023-07-06] MEDS: APIXABAN 5 MG TAB (ELIQUIS) PO SCH ×2 (10:44→20:17)
[2023-07-06] MEDS: ADVAIR HFA 230/21MCG INHALER INH SCH ×2 (10:56→19:53)
[2023-07-06] MEDS: MAG SULF 1GM/100ML (MAG RUN) 1 GM in IV 1 EA IV SCH ×3 (14:05→17:10)
[2023-07-06] MEDS: METOPROLOL TART 25 MG TABLET PO SCH (20:17)
[2023-07-07] VITALS (16 sets, daily range): BP systolic 105–121; BP diastolic 66–84; TEMP 97.2–98.3; O2SAT 91–99
[2023-07-07] MEDS: methylPREDNISolone 40MG 1ML VIAL IV SCH ×2 (01:08→09:23)
[2023-07-07] MEDS: IPRATROPIUM 0.5MG/ALBUTEROL 2.5MG INH SOL UD 3ML (DUONEB) NEB SCH ×2 (01:11→07:57)
[2023-07-07 06:24] LABS: HEMATOCRIT 37.5 % (42.0-52.0); HEMOGLOBIN 12.9 g/dl (13.5-17.5); LYMPH # 0.7 10^3/uL (1.5-5.0); LYMPH % 11.1 % (24.0-44.0); MEAN CORPUSCULAR HEMOGLOBIN 32.8 pg (27.0-33.0); MEAN CORPUSCULAR HGB CONC 34.4 g/dl (32.0-36.5); MEAN CORPUSCULAR VOLUME 95.4 fl (80.0-96.0); MONO # 0.4 10^3/uL (0.0-0.8); MONO % 5.9 % (2.0-8.0); NEUTROPHILS % 82.3 % (36.0-66.0); PLATELET COUNT, AUTOMATED 431 10^3/uL (150-450); RED BLOOD COUNT 3.93 10^6/uL (4.30-6.10); WHITE BLOOD COUNT 6.1 10^3/uL (4.0-10.0)
[2023-07-07 07:06] LABS: BLOOD UREA NITROGEN 14 MG/DL (9-23); CALCIUM LEVEL 8.6 MG/DL (8.5-10.1); CARBON DIOXIDE LEVEL 24 MMOL/L (20-31); CHLORIDE LEVEL 104 MMOL/L (98-107); CREATININE FOR GFR 0.52 MG/DL (0.70-1.30); GLOMERULAR FILTRATION RATE > 60.0 (>56); GLUCOSE, FASTING 121 MG/DL (60-100); POTASSIUM SERUM 4.1 MMOL/L (3.5-5.1); SODIUM LEVEL 137 MMOL/L (136-145)
[2023-07-07] MEDS ORDERED: VITMTA PO (07:40)
[2023-07-07] MEDS ORDERED: THIA100TA PO (07:40)
[2023-07-07] MEDS ORDERED: ELIQ5TAB PO (07:40)
[2023-07-07] MEDS ORDERED: PRED10TA2 PO (07:40)
[2023-07-07] MEDS ORDERED: FOLI1TAB11 PO (07:40)
[2023-07-07] MEDS ORDERED: METO1TAB87 PO (07:40)
[2023-07-07] MEDS: ADVAIR HFA 230/21MCG INHALER INH SCH (07:57)
[2023-07-07] MEDS: DOCUSATE SODIUM 100MG CAPSULE PO SCH (09:23)
[2023-07-07] MEDS: ACETAMINOPHEN TAB 650MG DOSE (2X325MG) PO PRN (09:23)
[2023-07-07] MEDS: MULTIVITAMINS/MINERALS THERAP 1 TAB PO SCH (09:23)
[2023-07-07] MEDS: APIXABAN 5 MG TAB (ELIQUIS) PO SCH (09:23)
[2023-07-07] MEDS: guaiFENesin ER TABLET 600 MG TAB PO SCH (09:23)
[2023-07-07] MEDS: THIAMINE 100 MG TAB PO SCH (09:23)
[2023-07-07] MEDS: FOLIC ACID 1MG TAB PO SCH (09:23)
[2023-07-07] MEDS: METOPROLOL TART 25 MG TABLET PO SCH (09:29)
[2023-07-07] MEDS ORDERED: ADV100INH INH (10:37)
[2023-07-07] MEDS ORDERED: ALBU2.5V10 NEB (10:37)
[2023-07-07] MEDS ORDERED: COMBAER6 INH (10:37)
== END 2023-07-07 10:40 | disposition home or self-care (01) ==
LOC: EDBD 04:47 → M ED 04:47 → M ED INP 04:48 → M PCU 11:31 → ENRESERV 15:08 → M PCU 16:08
PROVIDERS: ADMIT Internal Medicine; ATTEND Internal Medicine
DX: J44.1 Chronic obstructive pulmonary disease with (acute) exacerbation (principal); I48.0 Paroxysmal atrial fibrillation; S22.040A Wedge compression fracture of fourth thoracic vertebra, initial encounter for closed fracture; X58.XXXA Exposure to other specified factors, initial encounter; Y92.89 Other specified places as the place of occurrence of the external cause; Y93.89 Activity, other specified; I25.10 Atherosclerotic heart disease of native coronary artery without angina pectoris; F17.210 Nicotine dependence, cigarettes, uncomplicated; F10.10 Alcohol abuse, uncomplicated; I25.2 Old myocardial infarction; Z91.148 Patient's other noncompliance with medication regimen for other reason; Z79.899 Other long term (current) drug therapy; Z79.51 Long term (current) use of inhaled steroids
CPT/HCPCS: 36415; 36600; 71045; 71275; 80048; 80076; 82077; 82550; 82553; 82803; 83605; 83735; 83880; 84145; 84443; 85025; 85610; 87040; 87486; 87581; 87633; 87798; 93005; 93041; 94640; 94760; 96365; 96375; 96376; 97161; 97530; 99285; J2920; J3475; Q9967